=== PATIENT | male | born 1955 | race Caucasian/White ===

== ENCOUNTER 2017-01-15 07:27 | Emergency (ER) | payer MEDICAID ==
[~2017-01-15] VITALS: Ht 162.6 cm; Wt 122.0 kg
[~2017-01-15 07:27] MED LIST: ATOR10 PO; CLOP75 PO; CODE30TA PO; CYAN1000P IM; DIAZ5 PO; DIAZ5TAB PO; GABA300 PO; HYDR50TA5 PO; HYDRO1%T TOPICAL; KCL20 PO; LISI5 PO; POLY17S PO; RANI150 PO; TAMS0.4C67 PO; TUB TRANSFER BENCH; TUMS CHEW; TYLE3 PO; TYLETAB36 PO; ZOLP10TA3 PO
[2017-01-15 07:30] VITALS: BP 157/90; PULSE 88; RESP 24; TEMP 98.5; O2SAT 100
--- NOTE | 2017-01-15 07:52 | PD ---
HPI Chief Complaint: Pain: Acute or Chronic Time Seen by Provider: 07:51 Travel History International Travel<30 days: No Contact w/Intl Traveler<30days: No Traveled to known affect area: No History of Present Illness HPI 61-year-old male presents to the emergency department with complaint of productive cough 10 days. Reports clear mucus production. Denies fever, vomiting. Denies chest pain, shortness of breath. Denies ear pain, nasal congestion. Reports throat irritation for the last 3-4 months. Says when he eats he sometimes vomits or tries to make himself vomit; patient cannot verify when he last vomited after eating; he did state that he tried to make himself vomit 2 nights ago but was unable to. Denies abdominal pain. Is also complaining of joint pain and is requesting a refill on his pain medication because his primary care provider has been unable to refill his medications. Reports tobacco use daily. Dr. Purdy is primary care provider. Symptoms are mild in severity. Has no other medical complaints. No other modifying factors or associated signs and symptoms. 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)) Psychiatric: No Reproductive: No Respiratory: Yes Migraines: Yes Myocardial Infarction: Yes Pneumonia: Yes Radiation Therapy: No Renal Failure: No Seizures: No Sickle Cell Disease: No Sleep Apnea: Yes Thyroid Disease: No Ulcer: Yes Past Surgical History Abdominal Surgery: Yes (GASTRIC ULCER SURGERY) AICD: No Arteriovenous Shunt: No Cardiac Surgery: No Coronary Artery Bypass Graft: No Ear Surgery: No Endocrine Surgery: No Eye Surgery: No Genitourinary Surgery: No Gynecologic Surgery: No Insulin Pump: No Joint Replacement: No Neurologic Surgery: Yes (BLOOD CLOT REMOVED FROM BRAIN-4MOS OLD) Oral Surgery: No Pacemaker: No Thoracic Surgery: No Social History Alcohol Use: Yes (on occasion) Tobacco Use: Yes (CIGARS 1ppd) Substance Use: No Allergies-Medications (Allergen,Severity, Reaction): Coded Allergies: *MDRO Multi-Drug Resistant Organism (Verified Adverse Reaction, Unknown, ) ESBL E. coli (urine) - 06/11/2015 Reported Meds & Prescriptions Reported Meds & Active Scripts Active Codeine Sulfate 30 Mg Tab 30 Mg PO Q4HR PRN Tylenol #3 (Acetaminophen/Codeine Phosphate) Acetaminophen 300/30 Codeine Tab 1 Tab PO Q4HR PRN Diazepam 5 Mg Tab 5 Mg PO Q12HR PRN Calcium Carbonate 500 Mg Chw 500 Mg CHEW Q2H PRN 30 Days Nutracort (Hydrocortisone) 30 Gm Cr 1 Applic TOPICAL DAILY 10 Days Neurontin (Gabapentin) 300 Mg Cap 300 Mg PO TID 30 Days Polyethylene Glycol 3350 (Polyethylene Glycol) 3,350 Nf Pow 17 Gm PO DAILY 30 Days Kcl 20 Meq Tab (Potassium Chloride) 20 Meq Tabcr 20 Meq PO Q12HR 30 Days Plavix (Clopidogrel Bisulfate) 75 Mg Tab 75 Mg PO DAILY 30 Days Cobal-1000 (Cyanocobalamin) 1,000 Mcg/Ml Inj 1,000 Mcg IM Q7D Prinivil 5 mg (Lisinopril) 5 Mg Tab 5 Mg PO DAILY 30 Days Lipitor 10 mg tab (Atorvastatin) 10 Mg Tab 10 Mg PO HS 30 Days Flomax (Tamsulosin HCl) 0.4 Mg Cap 0.4 Mg PO DAILY Zantac 150 Mg Tab (Ranitidine HCl) 150 Mg Tab 150 Mg PO BID 30 Days Hctz (Hydrochlorothiazide) 50 Mg Tab 50 Mg PO DAILY Tub Transfer Bench (Device) Device 1 Ea Reported Zolpidem Tartrate 10 Mg Tab 10 Mg PO HS Tylenol #4 (Acetaminophen/Codeine Phosphate) Acetaminophen 300/60 Codeine Tab 1 Tab PO Q6H PRN Diazepam 5 mg (Diazepam) 5 Mg Tab 1 Tab PO TID Review of Systems Except as stated in HPI: all other systems reviewed are Neg Physical Exam Narrative GENERAL: Well-nourished, well-developed male patient, in no acute distress; afebrile, nontoxic-appearing; sitting in motorized wheelchair; disheveled SKIN: Warm and dry. No rash. HEAD: Atraumatic. Normocephalic. EYES: Pupils equal and round. No scleral icterus. No injection or drainage. ENT: Mucosa pink and moist. Oropharynx without edema, erythema, exudate. No uvular edema. No uvular, palatal, or tonsillar deviation. Airway patent. EARS: Bilateral pinnae and external canals appear within normal limits. Bilateral tympanic membranes without erythema, dullness or perforation. NECK: Trachea midline. No lymphadenopathy. CARDIOVASCULAR: Regular rate and rhythm. No murmur appreciated. RESPIRATORY: No accessory muscle use. Clear to auscultation. Breath sounds equal bilaterally. No retractions or tachypnea. GASTROINTESTINAL: Obese. MUSCULOSKELETAL: No obvious deformities. No clubbing. No cyanosis. No edema. NEUROLOGICAL: Awake and alert. Oriented 3. No obvious cranial nerve deficits. Motor grossly within normal limits. Normal speech. Moves all extremities. 5/5 strength to all extremities. PSYCHIATRIC: Appropriate mood and affect; insight and judgment normal. Data Data Last Documented VS Vital Signs Date Time Temp Pulse Resp B/P (MAP) Pulse Ox O2 Delivery O2 Flow Rate FiO2 01/15/17 07:30 98.5 88 24 157/90 (112) 100 Room Air Orders Orders Acetaminophen (Tylenol) (01/15/17 08:00) MDM Medical Decision Making Medical Screen Exam Complete: Yes Emergency Medical Condition: Yes Medical Record Reviewed: Yes Differential Diagnosis Cough, pneumonia, chronic pain, arthritis, Narrative Course 61-year-old male with multiple complaints. Coughing clear sputum production 10 days. Patient is in no acute distress and without retractions or tachypnea. Oxygen saturation is percent on room air. Lungs are clear and equal throughout. Patient reports tobacco use daily. He is also requesting pain medications for joint pain. Dr. Purdy is his primary care provider. I instructed patient to follow up with Dr. Purdy for pain medication request. Inserted patient to take [id number] Tylenol or ibuprofen as directed and as needed for joint pain. Tylenol administered in the ER. Chest x-ray ordered to rule out any acute process. 0800: Patient left AGAINST MEDICAL ADVICE. AMA: The risks of leaving against medical advice without further evaluation treatment were discussed with the patient. These risks include cardiac dysfunction, cardiac dysrhythmia, possible heart attack, possible stroke or . The patient indicated understanding of these risks and appeared to have the capacity to make this decision. Diagnosis Primary Impression: Left against medical advice Disposition: 07 AGAINST MEDICAL ADVICE Carey Clement Jan 15, 2017 07:51
[2017-01-15] MEDS ORDERED: ACETAMINOPHEN 325 MG TAB PO ONE (08:00)
== END 2017-01-15 10:50 | disposition left against medical advice (07) ==
LOC: NEPK 07:27
DX: R05 Cough (principal); I10 Essential (primary) hypertension; K21.9 Gastro-esophageal reflux disease without esophagitis; I25.2 Old myocardial infarction
CPT/HCPCS: 99282

== ENCOUNTER 2017-05-21 16:37 | Observation (INO) | payer MEDICAID ==
[~2017-05-21] VITALS: Ht 162.6 cm; Wt 115.0 kg
[2017-05-21 16:40] VITALS: BP 156/113; PULSE 75; RESP 16; TEMP 97.8; O2SAT 96
[2017-05-21] MEDS ORDERED: LISI-519 PO (17:01)
[2017-05-21] MEDS ORDERED: TAMS0.4C4 PO (17:01)
[2017-05-21] MEDS ORDERED: GABA300C5 PO (17:01)
[2017-05-21] MEDS ORDERED: CLOP75TA PO (17:01)
[2017-05-21] MEDS ORDERED: POTA-163 PO (17:01)
[2017-05-21] MEDS ORDERED: OMEP40CA2 PO (17:01)
[2017-05-21] MEDS ORDERED: HYDR50TA3 PO (17:01)
[2017-05-21 17:05] VITALS: BP 162/132; PULSE 82; O2SAT 100
[2017-05-21] MEDS ORDERED: SODIUM CHLORIDE 0.9% FLUSH 10 ML FLUSH IVF PRN (17:15)
[2017-05-21 17:30] LABS: AUTOMATED NEUTROPHIL # 4.5 TH/MM3 (1.8-7.7); BASOPHIL # 0.1 TH/MM3 (0-0.2); BASOPHIL % 0.8 % (0.0-2.0); EOSINOPHIL # 0.1 TH/MM3 (0-0.4); EOSINOPHIL % 1.3 % (0.0-4.0); HEMATOCRIT 43.7 % (39.0-51.0); HEMOGLOBIN 14.7 GM/DL (13.0-17.0); LYMPH % 24.9 % (9.0-44.0); LYMPHOCYTE # 1.8 TH/MM3 (1.0-4.8); MEAN CELL VOLUME 83.6 FL (80.0-100.0); MEAN CORPUSCULAR HEMOGLOBIN 28.1 PG (27.0-34.0); MEAN CORPUSCULAR HGB CONC 33.6 % (32.0-36.0); MEAN PLATELET VOLUME 8.2 FL (7.0-11.0); MONO % 11.6 % (0.0-8.0); MONOCYTE # 0.8 TH/MM3 (0-0.9); NEUT % 61.4 % (16.0-70.0); PLATELET COUNT 274 TH/MM3 (150-450); RED BLOOD COUNT 5.22 MIL/MM3 (4.50-5.90); RED CELL DISTRIBUTION WIDTH 15.4 % (11.6-17.2); WHITE BLOOD COUNT 7.3 TH/MM3 (4.0-11.0)
--- NOTE | 2017-05-21 17:42 | RADRPT ---
EXAM DATE/TIME: 05/21/2017 17:20 [facility] COMPARISON: CHEST SINGLE AP, June 19, 2015, 8:37. INDICATIONS : Shortness of breath. MEDICAL HISTORY : None. SURGICAL HISTORY : None. ENCOUNTER: Initial ACUITY: 1 day PAIN SCORE: 0/10 LOCATION: Bilateral chest FINDINGS: Single AP view of the chest. The lungs are clear. Cardiomediastinal silhouette within normal limits. No evidence of pleural effusion or pneumothorax. CONCLUSION: No acute cardiopulmonary disease identified. Hank Watts MD on May 21, 2017 at 17:39 Board Certified Radiologist. This report was verified electronically.
[2017-05-21 17:43] LABS: INTERNATIONAL NORMALIZED RATIO 1.1 RATIO; PROTHROMBIN TIME - PATIENT 10.7 SEC (9.8-11.6)
[2017-05-21 18:02] LABS: BICARBONATE 30.3 MEQ/L (21.0-32.0); CREATININE 1.22 MG/DL (0.60-1.30); MAGNESIUM 2.3 MG/DL (1.5-2.5); TROPONIN I 0.03 NG/ML (0.02-0.05)
--- NOTE | 2017-05-21 18:10 | PD ---
HPI Chief Complaint: GI Complaint Time Seen by Provider: 17:04 Travel History International Travel<30 days: No Contact w/Intl Traveler<30days: No Traveled to known affect area: No History of Present Illness HPI Patient is a 62-year-old male, smoker presents emergency department for evaluation of cough. The patient states he was driving just taking a ride around when he started having a dry nonproductive cough, he also endorses not being able to keep anything down gradually worsening over the past few weeks the patient states that he tried eat some yogurt this morning and it stayed down for a few seconds. He's been told many times he needs to see a dairy farm operator but has never done so. Patient states is gradually worsening over the past few days, states feels irritating his throat now to from his reflux. He does also have a history of stroke leaving some mild left- sided deficits worse in the lower extremities is nearly wheelchair-bound. He is able to drive however. No fevers no hemoptysis no risk for TB. States symptoms are moderate, gradually worsening over the past few days, context as above, associated signs symptoms as above. PFSH Past Medical History Arthritis: Yes (DEGENERATVE) Asthma: No Autoimmune Disease: No Anxiety: No Depression: No Heart Rhythm Problems: No Cancer: No Cardiac Catheterization: Yes (UNKNOWN) Cardiovascular Problems: Yes (HTN) High Cholesterol: Yes (HYPERLIPIDEMIA ) Chemotherapy: No Chest Pain: Yes Congestive Heart Failure: No COPD: No Cerebrovascular Accident: Yes Diabetes: No Diminished Hearing: No Endocrine: No Gastrointestinal Disorders: Yes GERD: Yes Genitourinary: No Headaches: Yes Hiatal Hernia: No Hypertension: Yes Immune Disorder: No Kidney Stones: No Musculoskeletal: Yes (LEG PAINS) 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)) Psychiatric: No Reproductive: No Respiratory: Yes Migraines: Yes Myocardial Infarction: Yes Pneumonia: Yes Radiation Therapy: No Renal Failure: No Seizures: No Sickle Cell Disease: No Sleep Apnea: Yes Thyroid Disease: No Ulcer: Yes Influenza Vaccination: Yes Past Surgical History Abdominal Surgery: Yes (GASTRIC ULCER SURGERY) AICD: No Arteriovenous Shunt: No Cardiac Surgery: No Cholecystectomy: Yes Coronary Artery Bypass Graft: No Ear Surgery: No Endocrine Surgery: No Eye Surgery: No Genitourinary Surgery: No Gynecologic Surgery: No Insulin Pump: No Joint Replacement: No Neurologic Surgery: Yes (BLOOD CLOT REMOVED FROM BRAIN-4MOS OLD) Oral Surgery: No Pacemaker: No Thoracic Surgery: No Other Surgery: Yes Social History Alcohol Use: No (on occasion) Tobacco Use: Yes (CIGARS 1ppd) Substance Use: No Allergies-Medications (Allergen,Severity, Reaction): Coded Allergies: *MDRO Multi-Drug Resistant Organism (Verified Adverse Reaction, Unknown, 05/21/17) ESBL E. coli (urine) - 06/11/2015 Reported Meds & Prescriptions Reported Meds & Active Scripts Active Reported Potassium Chloride ER (Potassium Chloride) 20 Meq Tab 20 Meq PO BID Hydrochlorothiazide 50 Mg Tab 50 Mg PO DAILY Omeprazole 40 Mg Cap 40 Mg PO DAILY Lisinopril 5 Mg Tab 5 Mg PO DAILY Gabapentin 300 Mg Cap 300 Mg PO BID Tamsulosin (Tamsulosin HCl) 0.4 Mg Cap 0.4 Mg PO HS Clopidogrel (Clopidogrel Bisulfate) 75 Mg Tab 75 Mg PO DAILY Review of Systems Except as stated in HPI: all other systems reviewed are Neg Physical Exam Narrative GENERAL: Well-developed well-nourished, coughing, spitting his secretions into a plastic bag. SKIN: Focused skin assessment warm/dry. HEAD: Atraumatic. Normocephalic. EYES: Pupils equal and round. No scleral icterus. No injection or drainage. ENT: No nasal bleeding or discharge. Mucous membranes pink and moist. NECK: Trachea midline. No JVD. CARDIOVASCULAR: Regular rate and rhythm. No murmur appreciated. RESPIRATORY: No accessory muscle use. Clear to auscultation. Breath sounds equal bilaterally. GASTROINTESTINAL: Abdomen soft, non-tender, nondistended. Hepatic and splenic margins not palpable. MUSCULOSKELETAL: No obvious deformities. No clubbing. No cyanosis. No edema. NEUROLOGICAL: Awake and alert. No obvious cranial nerve deficits. Week on the left side as per history of present illness. Normal speech. PSYCHIATRIC: Appropriate mood and affect; insight and judgment normal. Data Data Last Documented VS Vital Signs Date Time Temp Pulse Resp B/P (MAP) Pulse Ox O2 Delivery O2 Flow Rate FiO2 05/21/17 17:05 82 162/132 (142) 100 Room Air 05/21/17 16:40 97.8 16 Orders Orders Electrocardiogram (05/21/17 17:14) Basic Metabolic Panel (Bmp) (05/21/17 17:14) Ckmb (Isoenzyme) Profile (05/21/17 17:14) Complete Blood Count With Diff (05/21/17 17:14) Magnesium (Mg) (05/21/17 17:14) Prothrombin Time / Inr (Pt) (05/21/17 17:14) Act Partial Throm Time (Ptt) (05/21/17 17:14) Troponin I (05/21/17 17:14) Lipase (05/21/17 17:14) Chest, Single Ap (05/21/17 17:14) Ecg Monitoring (05/21/17 17:14) Bilateral Bp Monitoring (05/21/17 17:14) Iv Access Insert/Monitor (05/21/17 17:14) Oximetry (05/21/17 17:14) Oxygen Administration (05/21/17 17:14) Sodium Chloride 0.9% Flush (Ns Flush) (05/21/17 17:15) Morphine Inj (Morphine Inj) (05/21/17 19:30) Sodium Chlor 0.9% 1000 Ml Inj (Ns 1000 M (05/21/17 19:30) Admit Order (Ed Use Only) (05/21/17 ) Labs Laboratory Tests Test 05/21/17 17:10 White Blood Count 7.3 TH/MM3 Red Blood Count 5.22 MIL/MM3 Hemoglobin 14.7 GM/DL Hematocrit 43.7 % Mean Corpuscular Volume 83.6 FL Mean Corpuscular Hemoglobin 28.1 PG Mean Corpuscular Hemoglobin Concent 33.6 % Red Cell Distribution Width 15.4 % Platelet Count 274 TH/MM3 Mean Platelet Volume 8.2 FL Neutrophils (%) (Auto) 61.4 % Lymphocytes (%) (Auto) 24.9 % Monocytes (%) (Auto) 11.6 % Eosinophils (%) (Auto) 1.3 % Basophils (%) (Auto) 0.8 % Neutrophils # (Auto) 4.5 TH/MM3 Lymphocytes # (Auto) 1.8 TH/MM3 Monocytes # (Auto) 0.8 TH/MM3 Eosinophils # (Auto) 0.1 TH/MM3 Basophils # (Auto) 0.1 TH/MM3 CBC Comment DIFF FINAL Differential Comment Prothrombin Time 10.7 SEC Prothromb Time International Ratio 1.1 RATIO Activated Partial Thromboplast Time 28.5 SEC Blood Urea Nitrogen 6 MG/DL Creatinine 1.22 MG/DL Random Glucose 106 MG/DL Calcium Level 9.0 MG/DL Magnesium Level 2.3 MG/DL Sodium Level 137 MEQ/L Potassium Level 3.1 MEQ/L Chloride Level 98 MEQ/L Carbon Dioxide Level 30.3 MEQ/L Anion Gap 9 MEQ/L Estimat Glomerular Filtration Rate 60 ML/MIN Total Creatine Kinase 49 U/L Troponin I 0.03 NG/ML Lipase 76 U/L MDM Medical Decision Making Medical Screen Exam Complete: Yes Emergency Medical Condition: Yes Differential Diagnosis Achalasia, esophageal mass, reflux, Nielsen's esophagus, tracheal tumor, ACS unlikely, MD likely, pancreatitis. Narrative Course patient roomed in emergency department, dry cough is started and unable to tolerate any by mouth fluids nor solids. Gradual onset and I suspect achalasia versus obstructing mass given his smoking history. Discussed with Dr. Chinchilla we discussed possible imaging modalities and at this time he would like to hold off for endoscopy in the morning. He recommends nothing by mouth. Will be admitted to [facility] for GI consultation. Diagnosis Primary Impression: Esophageal abnormality Admitting Information Admitting Physician Requests: Admit Condition: Stable Dami Cardoso MD May 21, 2017 18:10
[2017-05-21] MEDS ORDERED: MORPHINE SULFATE 2 MG/ML INJ IV PUSH ONE (19:30)
[2017-05-21] MEDS ORDERED: SODIUM CHLOR 0.9% 1000 ML INJ 1,000 ML IV SCH (19:30)
[2017-05-21] MEDS ORDERED: NALOXONE HCL 0.4 MG/ML AMP IV PUSH PRN (19:45)
[2017-05-21] MEDS ORDERED: SODIUM CHLORIDE 0.9% FLUSH 10 ML FLUSH IV FLUSH PRN (19:45)
[2017-05-21] MEDS ORDERED: ENALAPRILAT 2.5 MG/2 ML VIAL IV PUSH PRN (20:00)
--- NOTE | 2017-05-21 20:05 | HHI.HP ---
[facility] Service [facility] Primary Care Physician Unknown Admission Diagnosis Esophageal Obstruction. Diagnoses: Travel History International Travel<30 Days: No Contact w/Intl Traveler <30 Da: No Traveled to Known Affected Are: No History of Present Illness 62-year-old male with a past medical history of a CVA 3 years ago, hypertension , hyperlipidemia, GERD and peptic ulcer disease presents to the emergency department with acutely worsening dysphasia. The patient reports for approximately the past 2 months he's had difficulty swallowing solid foods. Approximately 2 weeks ago he became unable to tolerate anything other than liquids. He is laying on his side in the emergency department spitting in a bag because he cannot swallow his secretions. Chest x-ray negative. Review of Systems Denies fever or chills Denies blurry vision, otorrhea, rhinorrhea Denies sore throat and cough No chest pain, palpitations, shortness of breath No abdominal pain Denies constipation/diarrhea/nausea/vomiting Denies muscle pain/weakness No rashes Past Family Social History Past Medical History Hypertension CVA 3 years ago Hyperlipidemia GERD Peptic ulcer disease Past Surgical History Skin graft Cholecystectomy Reported Medications Reported Meds & Active Scripts Active Reported Potassium Chloride ER (Potassium Chloride) 20 Meq Tab 20 Meq PO BID Hydrochlorothiazide 50 Mg Tab 50 Mg PO DAILY Omeprazole 40 Mg Cap 40 Mg PO DAILY Lisinopril 5 Mg Tab 5 Mg PO DAILY Gabapentin 300 Mg Cap 300 Mg PO BID Tamsulosin (Tamsulosin HCl) 0.4 Mg Cap 0.4 Mg PO HS Clopidogrel (Clopidogrel Bisulfate) 75 Mg Tab 75 Mg PO DAILY Allergies: Coded Allergies: *MDRO Multi-Drug Resistant Organism (Verified Adverse Reaction, Unknown, 05/21/17) ESBL E. coli (urine) - 06/11/2015 Family History Mom with diabetes mellitus Social History Smokes one pack per day 45 years. Reports that he quit drinking 10 years ago however states that sometimes his friends bring him bourbon. Denies marijuana, illicit drugs. Physical Exam Vital Signs Vital Signs Date Time Temp Pulse Resp B/P (MAP) Pulse Ox O2 Delivery O2 Flow Rate FiO2 05/21/17 17:05 82 162/132 (142) 100 Room Air 05/21/17 16:40 97.8 75 16 156/113 (127) 96 Physical Exam GENERAL: male lying in bed, spitting into a bag and bedside SKIN: No rashes, ecchymoses or lesions. Cool and dry. HEAD: Atraumatic. Normocephalic. No temporal or scalp tenderness. EYES: Pupils equal round and reactive. Extraocular motions intact. No scleral icterus. No injection or drainage. ENT: Nose without bleeding, purulent drainage or septal hematoma. Throat without erythema, tonsillar hypertrophy or exudate. Uvula midline. Airway patent. NECK: Trachea midline. No JVD or lymphadenopathy. Supple, nontender, no meningeal signs. CARDIOVASCULAR: Regular rate and rhythm without murmurs, gallops, or rubs. RESPIRATORY: Clear to auscultation. Breath sounds equal bilaterally. No wheezes , rales, or rhonchi. GASTROINTESTINAL: Abdomen soft, non-tender, nondistended. No hepato-splenomegaly , or palpable masses. No guarding. MUSCULOSKELETAL: Extremities without clubbing, cyanosis, or edema. No joint tenderness, effusion, or edema noted. No calf tenderness. NEUROLOGICAL: Awake and alert. Cranial nerves II through XII intact. Motor and sensory grossly within normal limits. Normal speech. Laboratory Laboratory Tests Test 05/21/17 17:10 White Blood Count 7.3 Red Blood Count 5.22 Hemoglobin 14.7 Hematocrit 43.7 Mean Corpuscular Volume 83.6 Mean Corpuscular Hemoglobin 28.1 Mean Corpuscular Hemoglobin Concent 33.6 Red Cell Distribution Width 15.4 Platelet Count 274 Mean Platelet Volume 8.2 Neutrophils (%) (Auto) 61.4 Lymphocytes (%) (Auto) 24.9 Monocytes (%) (Auto) 11.6 Eosinophils (%) (Auto) 1.3 Basophils (%) (Auto) 0.8 Neutrophils # (Auto) 4.5 Lymphocytes # (Auto) 1.8 Monocytes # (Auto) 0.8 Eosinophils # (Auto) 0.1 Basophils # (Auto) 0.1 CBC Comment DIFF FINAL Differential Comment Prothrombin Time 10.7 Prothromb Time International Ratio 1.1 Activated Partial Thromboplast Time 28.5 Blood Urea Nitrogen 6 Creatinine 1.22 Random Glucose 106 Calcium Level 9.0 Magnesium Level 2.3 Sodium Level 137 Potassium Level 3.1 Chloride Level 98 Carbon Dioxide Level 30.3 Anion Gap 9 Estimat Glomerular Filtration Rate 60 Total Creatine Kinase 49 Troponin I 0.03 Lipase 76 Result Diagram: 05/21/17170905/21/171709 Caprini VTE Risk Assessment Caprini VTE Risk Assessment: Mod/High Risk (score >= 2) Caprini Risk Assessment Model Point Value = 1 Point Value = 2 Point Value = 3 Point Value = 5 Age 41-60 Minor surgery BMI > 25 kg/m2 Swollen legs Varicose veins or History of unexplained or recurrent spontaneous Oral contraceptives or hormone replacement Sepsis (< 1 month) Serious lung disease, including pneumonia (< 1 month) Abnormal pulmonary function Acute myocardial infarction Congestive heart failure (< 1 month) History of inflammatory bowel disease Medical patient at bed rest Age 61-74 Arthroscopic surgery Major open surgery (> 45 min) Laparoscopic surgery (> 45 min) Malignancy Confined to bed (> 72 hours) Immobilizing plaster cast Central venous access Age >= 75 History of VTE Family history of VTE Factor V Leiden Prothrombin [id number] Lupus anticoagulant Anticardiolipin antibodies Elevated serum homocysteine Heparin-induced thrombocytopenia Other congenital or acquired thrombophilia Stroke (< 1 month) Elective arthroplasty Hip, pelvis, or leg fracture Acute spinal cord injury (< 1 month) Prophylaxis Regimen Total Risk Factor Score Risk Level Prophylaxis Regimen 0-1 Low Early ambulation 2 Moderate Order ONE of the following: *Sequential Compression Device (SCD) *Heparin 5000 units SQ BID 3-4 Higher Order ONE of the following medications: *Heparin 5000 units SQ TID *Enoxaparin/Lovenox 40 mg SQ daily (WT < 150 kg, CrCl > 30 mL/min) *Enoxaparin/Lovenox 30 mg SQ daily (WT < 150 kg, CrCl > 10-29 mL/min) *Enoxaparin/Lovenox 30 mg SQ BID (WT < 150 kg, CrCl > 30 mL/min) AND/OR *Sequential Compression Device (SCD) 5 or more Highest Order ONE of the following medications: *Heparin 5000 units SQ TID (Preferred with Epidurals) *Enoxaparin/Lovenox 40 mg SQ daily (WT < 150 kg, CrCl > 30 mL/min) *Enoxaparin/Lovenox 30 mg SQ daily (WT < 150 kg, CrCl > 10-29 mL/min) *Enoxaparin/Lovenox 30 mg SQ BID (WT < 150 kg, CrCl > 30 mL/min) AND *Sequential Compression Device (SCD) Assessment and Plan Assessment and Plan Assessment/plan: 1. Severe dysphagia Concern for esophageal pathology Gastroenterology consulted, plan for EGD tomorrow Nothing by mouth 2. Hypertension/history of CVA/GERD Holding home medications as patient currently unable to tolerate by mouth Enalapril when necessary for hypertension IV Protonix FEN NPO NS at 100 cc/hr Electrolytes: IV potassium, monitor SCDs in anticipation of EGD tomorrow Sheryl Green MD May 21, 2017 20:05
[2017-05-21] MEDS: SODIUM CHLOR 0.9% 1000 ML INJ 1,000 ML IV SCH (20:11)
[2017-05-21] MEDS: PANTOPRAZOLE SODIUM 40 MG VIAL IV PUSH SCH (20:11)
[2017-05-21] MEDS: ONDANSETRON HCL 4 MG/2 ML VIAL IVP PRN (20:12)
[2017-05-21 20:15] VITALS: BP 118/90; PULSE 73; RESP 18; O2SAT 97
[2017-05-21] MEDS: SODIUM CHLORIDE 0.9% FLUSH 10 ML FLUSH IV FLUSH SCH (21:00)
[2017-05-21] MEDS: POTASSIUM CHLOR 20 MEQ PREMIX 100 ML IV SCH ×2 (21:14→23:22)
[2017-05-21 21:25] VITALS: BP 129/81; PULSE 85; RESP 14; TEMP 98; O2SAT 97
[2017-05-22 00:16] VITALS: BP 102/66; PULSE 80; RESP 16; TEMP 97.5; O2SAT 95
[2017-05-22] MEDS: MORPHINE SULFATE 2 MG/ML INJ IV PUSH PRN ×4 (00:20→18:31)
[2017-05-22 05:17] VITALS: BP 114/69; PULSE 53; RESP 19; TEMP 97.6; O2SAT 95
[2017-05-22] MEDS: SODIUM CHLOR 0.9% 1000 ML INJ 1,000 ML IV SCH ×2 (05:40→16:00)
[2017-05-22 06:04] LABS: AUTOMATED NEUTROPHIL # 4.3 TH/MM3 (1.8-7.7); BASOPHIL # 0.1 TH/MM3 (0-0.2); BASOPHIL % 0.8 % (0.0-2.0); EOSINOPHIL # 0.1 TH/MM3 (0-0.4); EOSINOPHIL % 1.5 % (0.0-4.0); HEMATOCRIT 39.2 % (39.0-51.0); HEMOGLOBIN 12.8 GM/DL (13.0-17.0); LYMPH % 29.7 % (9.0-44.0); LYMPHOCYTE # 2.3 TH/MM3 (1.0-4.8); MEAN CELL VOLUME 85.4 FL (80.0-100.0); MEAN CORPUSCULAR HGB CONC 32.8 % (32.0-36.0); MEAN PLATELET VOLUME 8.2 FL (7.0-11.0); MONO % 12.7 % (0.0-8.0); NEUT % 55.3 % (16.0-70.0); PLATELET COUNT 222 TH/MM3 (150-450); RED BLOOD COUNT 4.59 MIL/MM3 (4.50-5.90); RED CELL DISTRIBUTION WIDTH 15.2 % (11.6-17.2); WHITE BLOOD COUNT 7.7 TH/MM3 (4.0-11.0)
[2017-05-22 06:23] LABS: BICARBONATE 27.3 MEQ/L (21.0-32.0); CALCIUM 8.5 MG/DL (8.5-10.1); CREATININE 1.12 MG/DL (0.60-1.30)
[2017-05-22 07:55] VITALS: BP 168/88; PULSE 99; RESP 18; TEMP 98; O2SAT 94
[2017-05-22] MEDS: SODIUM CHLORIDE 0.9% FLUSH 10 ML FLUSH IV FLUSH SCH ×2 (08:09→20:20)
[2017-05-22] MEDS: PANTOPRAZOLE SODIUM 40 MG VIAL IV PUSH SCH ×2 (08:15→20:00)
[2017-05-22] MEDS: POTASSIUM CHLOR 20 MEQ PREMIX 100 ML IV SCH ×2 (09:08→11:17)
--- NOTE | 2017-05-22 09:56 | PD.CONS ---
HPI History of Present Illness This is a 62 year old male presented to the hospital on 05/21/17 with plaints of dysphagia in the upper area of his esophagus. He states that he has been struggling with dysphagia for 3 years for solids but now has progressed to liquids as well and has been worse for the past 2 months. She states he has nausea and vomiting with drinks and food, denies any diarrhea or constipation. Patient has history of GERD since 1997, and states he has never had any esophageal dilatations before. Patient is currently on Plavix which is being held since 05/21/17, also has a history of bloating and peptic ulcer disease. Patient is a historian but does not remember any recent endoscopy or colonoscopy. Patient noted some bloating often known, usual bowel habits involve BM 3-4 times a week. Patient denies any hoarseness no change in appetite, no diarrhea, patient has been taking medications as prescribed. (Shobha Hinson) PFSH Past Medical History Hypertension CVA 3 years ago Hyperlipidemia GERD Peptic ulcer disease Past Surgical History Skin graft Cholecystectomy (Shobha Hinson) Coded Allergies: *MDRO Multi-Drug Resistant Organism (Verified Adverse Reaction, Unknown, 05/21/17) ESBL E. coli (urine) - 06/11/2015 Medications Administered Medications Medications (Trade) Dose Ordered Sig/Katina Route PRN Reason Start Time Stop Time Status Last Admin Dose Admin Sodium Chloride 1,000 ml @ 100 mls/hr Q10H IV 05/21/17 20:00 05/22/17 05:40 Ondansetron HCl (Zofran Inj) 4 mg Q6H PRN IVP NAUSEA OR VOMITING 05/21/17 19:45 05/21/17 20:12 Pantoprazole Sodium (Protonix Inj) 40 mg Q12H IV PUSH 05/21/17 20:00 05/22/17 08:15 Morphine Sulfate (Morphine Inj) 4 mg Q3H PRN IV PUSH pain > 5 05/22/17 00:15 05/22/17 07:43 Potassium Chloride 100 ml @ 50 mls/hr Q2H IV 05/22/17 08:30 05/22/17 12:29 05/22/17 09:08 Family History Mom with diabetes mellitus Social History Smokes one pack per day 45 years. Reports that he quit drinking 10 years ago however states that sometimes his friends bring him bourbon. Denies marijuana, illicit drugs. (Shobha Hinson) Review of Systems Constitutional: COMPLAINS OF: Fatigue Gastrointestinal: COMPLAINS OF: Abdominal pain (bloating), Nausea, Difficulty Swallowing Hematologic/lymphatic: COMPLAINS OF: Bruising (takes Plavix) (Shobha Hinson) GI Exam Vitals I&O Vital Signs Date Time Temp Pulse Resp B/P (MAP) Pulse Ox O2 Delivery O2 Flow Rate FiO2 05/22/17 07:55 98.0 99 18 168/88 (114) 94 05/22/17 05:17 97.6 53 19 114/69 (84) 95 05/22/17 00:16 97.5 80 16 102/66 (78) 95 05/21/17 21:25 98.0 85 14 129/81 (97) 97 05/21/17 20:46 05/21/17 20:15 73 18 118/90 (99) 97 Room Air 05/21/17 17:05 82 162/132 (142) 100 Room Air 05/21/17 16:40 97.8 75 16 156/113 (127) 96 I/O 05/21/17 05/21/17 05/21/17 05/22/17 05/22/17 05/22/17 07:00 15:00 23:00 07:00 15:00 23:00 Intake Total 200 ml Output Total 100 ml Balance 100 ml Intake IV Total 200 ml Output Urine Total 100 ml Imaging Last Impressions Chest X-Ray 05/21/17 2994 Signed Impressions: Service Date/Time: Sunday, May 21, 2017 17:20 - CONCLUSION: No acute cardiopulmonary disease identified. Hank Watts MD Laboratory Test 05/21/17 17:10 05/22/17 05:24 White Blood Count 7.3 TH/MM3 7.7 TH/MM3 Red Blood Count 5.22 MIL/MM3 4.59 MIL/MM3 Hemoglobin 14.7 GM/DL 12.8 GM/DL Hematocrit 43.7 % 39.2 % Mean Corpuscular Volume 83.6 FL 85.4 FL Mean Corpuscular Hemoglobin 28.1 PG 28.0 PG Mean Corpuscular Hemoglobin Concent 33.6 % 32.8 % Red Cell Distribution Width 15.4 % 15.2 % Platelet Count 274 TH/MM3 222 TH/MM3 Mean Platelet Volume 8.2 FL 8.2 FL Neutrophils (%) (Auto) 61.4 % 55.3 % Lymphocytes (%) (Auto) 24.9 % 29.7 % Monocytes (%) (Auto) 11.6 % 12.7 % Eosinophils (%) (Auto) 1.3 % 1.5 % Basophils (%) (Auto) 0.8 % 0.8 % Neutrophils # (Auto) 4.5 TH/MM3 4.3 TH/MM3 Lymphocytes # (Auto) 1.8 TH/MM3 2.3 TH/MM3 Monocytes # (Auto) 0.8 TH/MM3 1.0 TH/MM3 Eosinophils # (Auto) 0.1 TH/MM3 0.1 TH/MM3 Basophils # (Auto) 0.1 TH/MM3 0.1 TH/MM3 CBC Comment DIFF FINAL DIFF FINAL Differential Comment Prothrombin Time 10.7 SEC Prothromb Time International Ratio 1.1 RATIO Activated Partial Thromboplast Time 28.5 SEC Blood Urea Nitrogen 6 MG/DL 5 MG/DL Creatinine 1.22 MG/DL 1.12 MG/DL Random Glucose 106 MG/DL 91 MG/DL Calcium Level 9.0 MG/DL 8.5 MG/DL Magnesium Level 2.3 MG/DL Sodium Level 137 MEQ/L 136 MEQ/L Potassium Level 3.1 MEQ/L 3.0 MEQ/L Chloride Level 98 MEQ/L 101 MEQ/L Carbon Dioxide Level 30.3 MEQ/L 27.3 MEQ/L Anion Gap 9 MEQ/L 8 MEQ/L Estimat Glomerular Filtration Rate 60 ML/MIN 66 ML/MIN Total Creatine Kinase 49 U/L Troponin I 0.03 NG/ML Lipase 76 U/L Physical Examination HEENT: Pupils round and reactive to light; normocephalic; atraumatic; no jaundice. NECK: Neck is supple, no JVD, no lymphadenopathy. CHEST: Chest is clear to auscultation and percussion. CARDIAC: Regular rate and rhythm with no murmur gallop or rubs. ABDOMEN: Taut Soft, nondistended, nontender to light palpation; no hepatosplenomegaly; bowel sounds are present EXTREMITIES: Mild edema. SKIN: Normal; no rash; no jaundice. 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 Patient has been off of Plavix day 1 , 05/21/17. Consents to be signed GoLYTELY prep Nothing by mouth midnight before procedure with medications that a.m. as needed Clear liquids 05/23/17 Have speech eval and swallow test, currently patient is nothing by mouth, but according to speech recommendations we may trial clear liquids possibly with thickener PPI Speech therapy evaluate swallow, recommended clear liquids, ordered for today and tomorrow Monitor labs recheck in a.m. Monitor for any acute GI symptoms or changes Plan of care will be based on patient's symptoms and needs This patient was seen by myself and , written on his behalf (Shobha Hinson) Physician Comments Seen and examined, plan for EGD and Colonoscopy .off plavix for few days. (Lucy Chinchilla MD) Shobha Hinson May 22, 2017 09:56 Lucy Chinchilla MD May 22, 2017 15:30
[2017-05-22] MEDS ORDERED: PEG (High)/E-LYTE SOLN 4000 ML BTL PO ONE (10:00)
[2017-05-22 13:28] VITALS: BP 137/84; PULSE 62; RESP 18; TEMP 97.7; O2SAT 95
--- NOTE | 2017-05-22 15:52 | HHI.PR ---
Subjective Remarks EGD planned on 05/24/17, related to a needed time duration off of Plavix. Plavix is on hold. Incomplete success with patient. He is tolerating liquids but does not tolerate solids, including Jell-O. Objective Vital Signs Date Time Temp Pulse Resp B/P (MAP) Pulse Ox O2 Delivery O2 Flow Rate FiO2 05/22/17 13:28 97.7 62 18 137/84 (101) 95 05/22/17 07:55 98.0 99 18 168/88 (114) 94 05/22/17 05:17 97.6 53 19 114/69 (84) 95 05/22/17 00:16 97.5 80 16 102/66 (78) 95 05/21/17 21:25 98.0 85 14 129/81 (97) 97 05/21/17 20:46 05/21/17 20:15 73 18 118/90 (99) 97 Room Air 05/21/17 17:05 82 162/132 (142) 100 Room Air 05/21/17 16:40 97.8 75 16 156/113 (127) 96 I/O 05/21/17 05/21/17 05/21/17 05/22/17 05/22/17 05/22/17 07:00 15:00 23:00 07:00 15:00 23:00 Intake Total 200 ml 200 ml Output Total 100 ml Balance 100 ml 200 ml Intake IV Total 200 ml 200 ml Output Urine Total 100 ml Result Diagram: 05/22/17 0524 05/22/17 1325 Objective Remarks GENERAL: NAD, A&Ox3 HEAD: Normocephalic. NECK: Supple, trachea midline. No lymphadenopathy. EYES: No scleral icterus. No injection or drainage. CARDIOVASCULAR: Regular rate and rhythm without murmurs, gallops, or rubs. RESPIRATORY: Breath sounds equal bilaterally. No accessory muscle use. GASTROINTESTINAL: Abdomen soft, non-tender, nondistended. MUSCULOSKELETAL: No cyanosis, or edema. SKIN: Warm and dry. NEURO: No focal neurological deficitis. A/P Problem List: (1) Esophageal abnormality ICD Code: K22.9 - Disease of esophagus, unspecified Status: Acute (2) Dysphasia ICD Code: R47.02 - Dysphasia (3) Abdominal bloating ICD Code: R14.0 - Abdominal distension (gaseous) Assessment and Plan Assessment and Plan 62-year-old male admitted secondary to dysphagia, with suspected esophageal stricture Severe dysphagia Suspected esophageal stricture Plan for EGD on 05/24/17 Clear liquid diet for now Hypertension history of CVA GERD IV Protonix IV enalapril as needed for hypertension By mouth treatments on hold DVT prophylaxis KARSTENs Alex Cartagena MD May 22, 2017 15:52
[2017-05-22 16:00] VITALS: BP_SYST 131; BP_DIAS 78; BP_DIAS 85; PULSE 67; RESP 18; TEMP 98.7; O2SAT 95
[2017-05-22] MEDS ORDERED: POTASSIUM CHLORIDE 20 MEQ PWD PACKET PO ONE (16:30)
--- NOTE | 2017-05-22 17:27 | EKG ---
Date Performed: 05/21/2017 Time Performed: 17:03:57 PTAGE: 62 years EKG: Sinus rhythm NONSPECIFIC ST & T-WAVE ABNORMALITY Since previous tracing, no significant change noted BORDERLINE E CG PREVIOUS TRACING : 06/06/2015 06.25 DOCTOR: Libby Ferreira Interpretating Date/Time 05/22/2017 17:26:03
--- NOTE | 2017-05-22 17:27 | EKG ---
Date Performed: 05/21/2017 Time Performed: 20:35:07 PTAGE: 62 years EKG: Sinus rhythm BORDERLINE LEFT AXIS DEVIATION MINIMAL ST DEPRESSION Since previous tracing, no significant change n oted BORDERLINE ECG PREVIOUS TRACING : 05/21/2017 17.03 DOCTOR: Libby Ferreira Interpretating Date/Time 05/22/2017 17:26:40
[2017-05-22] MEDS ORDERED: CHLORHEXIDINE GLUCONATE 2 % 1 PACK (2 CLOTHS) TOPICAL PRN (18:00)
[2017-05-22] MEDS ORDERED: POVIDONE IODINE 5% (ANTISEPSIS KIT) 4 APPLICATIONS EACH NARE PRN (18:00)
[2017-05-22] MEDS ORDERED: SODIUM CHLORID 0.9% 500 ML IV PRN (18:00)
[2017-05-22] MEDS ORDERED: INSULIN HUMAN REGULAR 1,000 UNITS/10 ML VIAL SQ PRN (18:00)
[2017-05-22] MEDS ORDERED: METOPROLOL TARTRATE 25 MG TAB PO PRN (18:00)
[2017-05-22] MEDS ORDERED: LACTATED RINGER'S 1000 ML IV PRN (18:00)
[2017-05-22 20:02] VITALS: BP 141/78; PULSE 79; RESP 18; TEMP 98.5; O2SAT 97
[2017-05-23] MEDS: MORPHINE SULFATE 2 MG/ML INJ IV PUSH PRN ×4 (01:32→16:29)
[2017-05-23] MEDS: SODIUM CHLOR 0.9% 1000 ML INJ 1,000 ML IV SCH ×3 (01:32→23:21)
[2017-05-23 04:06] VITALS: BP 125/63; PULSE 61; RESP 17; TEMP 98.4; O2SAT 97
[2017-05-23 07:11] VITALS: BP 119/75; PULSE 65; RESP 18; TEMP 97.8; O2SAT 97
[2017-05-23] MEDS: PANTOPRAZOLE SODIUM 40 MG VIAL IV PUSH SCH ×2 (07:40→23:21)
[2017-05-23] MEDS: SODIUM CHLORIDE 0.9% FLUSH 10 ML FLUSH IV FLUSH SCH ×2 (09:00→23:21)
--- NOTE | 2017-05-23 09:35 | HHI.GIFU ---
Subjective Remarks resting in bed Clear liquids without nausea or vomiting Plan for EGD tomorrow, patient will be off Plavix for 4 days (Shobha Hinson) Objective Vitals I&O Vital Signs Date Time Temp Pulse Resp B/P (MAP) Pulse Ox O2 Delivery O2 Flow Rate FiO2 05/23/17 07:11 97.8 65 18 119/75 (90) 97 05/23/17 04:06 98.4 61 17 125/63 (83) 97 05/22/17 20:02 98.5 79 18 141/78 (99) 97 05/22/17 16:00 98.7 67 18 131/78 (95) 95 05/22/17 13:28 97.7 62 18 137/84 (101) 95 I/O 05/22/17 05/22/17 05/22/17 05/23/17 05/23/17 05/23/17 07:00 15:00 23:00 07:00 15:00 23:00 Intake Total 200 ml 200 ml Output Total 100 ml Balance 100 ml 200 ml Intake IV Total 200 ml 200 ml Output Urine Total 100 ml Laboratory Laboratory Tests Test 05/22/17 13:25 Potassium Level 3.3 Imaging Last Impressions Chest X-Ray 05/21/17 1714 Signed Impressions: Service Date/Time: Sunday, May 21, 2017 17:20 - CONCLUSION: No acute cardiopulmonary disease identified. Hank Watts MD Physical Exam HEENT: Pupils round and reactive to light; normocephalic; atraumatic; no jaundice. NECK: Neck is supple, no JVD, CHEST: Chest is clear to auscultation and percussion. CARDIAC: Regular rate and rhythm ABDOMEN: Soft, nondistended, nontender; no hepatosplenomegaly; bowel sounds active EXTREMITIES: No clubbing, cyanosis, or edema. SKIN: Normal; no rash; no jaundice. 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 Mild anxiety (Shobha Hinson) Assessment and Plan Assessment: (1) Chronic generalized abdominal pain ICD Codes: R10.84 - Generalized abdominal pain; G89.29 - Other chronic pain (2) Abdominal bloating ICD Codes: R14.0 - Abdominal distension (gaseous) (3) Dysphasia ICD Codes: R47.02 - Dysphasia (4) Obesity ICD Codes: E66.9 - Obesity Status: Acute (5) GERD (gastroesophageal reflux disease) ICD Codes: K21.9 - Gastro-esophageal reflux disease without esophagitis Plan Plan for colonoscopy and endoscopy on 05-24-17. Patient has been off of Plavix day 1 , 05/21/17. , Discussed procedure and plan of care with patient Consents to be signed GoLYTELY prep Nothing by mouth midnight before procedure with medications that a.m. as needed Clear liquids 05/23/17 PPI Speech therapy evaluate swallow, recommended clear liquids, ordered for today Monitor for any acute GI symptoms or changes Plan of care will be based on patient's symptoms and needs This patient was seen by myself and , written on his behalf (Shobha Hinson) Physician Comments As above, for EGD and Colonoscopy in AM. Further recommendations to follow. (Lucy Chinchilla MD) Shobha Hinson May 23, 2017 09:35 Lucy Chinchilla MD May 23, 2017 11:22
[2017-05-23] MEDS ORDERED: PEG (High)/E-LYTE SOLN 4000 ML BTL PO ONE (10:00)
--- NOTE | 2017-05-23 10:33 | HHI.PR ---
Subjective Remarks Tolerating liquids, thus far. She has demonstrated no lack of tolerance for solids. Esophageal stricture suspected. EGD planned on 05/24/17, related to a needed time duration off of Plavix. Plavix is on hold. Objective Vital Signs Date Time Temp Pulse Resp B/P (MAP) Pulse Ox O2 Delivery O2 Flow Rate FiO2 05/23/17 07:11 97.8 65 18 119/75 (90) 97 05/23/17 04:06 98.4 61 17 125/63 (83) 97 05/22/17 20:02 98.5 79 18 141/78 (99) 97 05/22/17 16:00 98.7 67 18 131/78 (95) 95 05/22/17 13:28 97.7 62 18 137/84 (101) 95 I/O 05/22/17 05/22/17 05/22/17 05/23/17 05/23/17 05/23/17 07:00 15:00 23:00 07:00 15:00 23:00 Intake Total 200 ml 200 ml Output Total 100 ml Balance 100 ml 200 ml Intake IV Total 200 ml 200 ml Output Urine Total 100 ml Result Diagram: 05/22/17 0524 05/22/17 1325 Objective Remarks GENERAL: NAD, A&Ox3 HEAD: Normocephalic. NECK: Supple, trachea midline. No lymphadenopathy. EYES: No scleral icterus. No injection or drainage. CARDIOVASCULAR: Regular rate and rhythm without murmurs, gallops, or rubs. RESPIRATORY: Breath sounds equal bilaterally. No accessory muscle use. GASTROINTESTINAL: Abdomen soft, non-tender, nondistended. MUSCULOSKELETAL: No cyanosis, or edema. SKIN: Warm and dry. NEURO: No focal neurological deficitis. A/P Problem List: (1) Esophageal abnormality ICD Code: K22.9 - Disease of esophagus, unspecified Status: Acute (2) Dysphasia ICD Code: R47.02 - Dysphasia (3) Abdominal bloating ICD Code: R14.0 - Abdominal distension (gaseous) Assessment and Plan Assessment and Plan 62-year-old male admitted secondary to dysphagia, with suspected esophageal stricture. NPO after midnight, for EGD tomorrow. Severe dysphagia Suspected esophageal stricture Plan for EGD on 05/24/17 Clear liquid diet for now Hypertension history of CVA GERD IV Protonix IV enalapril as needed for hypertension By mouth treatments on hold DVT prophylaxis SCDs Alex Cartagena MD May 23, 2017 10:33
[2017-05-23 11:32] VITALS: BP 128/73; PULSE 75; RESP 18; TEMP 98; O2SAT 94
[2017-05-23 11:44] LABS: BICARBONATE 24.5 MEQ/L (21.0-32.0); CALCIUM 8.4 MG/DL (8.5-10.1); CREATININE 1.11 MG/DL (0.60-1.30); MAGNESIUM 1.8 MG/DL (1.5-2.5)
[2017-05-23 16:40] VITALS: BP 205/75; PULSE 76; RESP 20; TEMP 98; O2SAT 98
[2017-05-23 17:32] VITALS: BP 159/92; PULSE 86; RESP 20; TEMP 98.6; O2SAT 97
[2017-05-23 20:56] VITALS: BP 159/80; PULSE 68; RESP 18; TEMP 97.8; O2SAT 95
[2017-05-24 01:20] VITALS: BP 124/83; PULSE 91; RESP 17; TEMP 97.7; O2SAT 97
[2017-05-24 04:39] VITALS: BP 165/77; PULSE 60; RESP 18; TEMP 98.1; O2SAT 98
[2017-05-24 07:20] LABS: ALBUMIN 2.2 GM/DL (3.4-5.0); AST (GOT) 45 U/L (15-37); BLOOD UREA NITROGEN 5 MG/DL (7-18); CALCIUM 8.1 MG/DL (8.5-10.1); CHLORIDE 105 MEQ/L (98-107); CREATININE 0.86 MG/DL (0.60-1.30); GLOMERULAR FILTRATION RATE 90 ML/MIN (>89); GLUCOSE,RANDOM 79 MG/DL (74-106); SODIUM (NA) 138 MEQ/L (136-145)
[2017-05-24 07:21] LABS: ALT (GPT) 15 U/L (12-78)
[2017-05-24 07:23] LABS: ALKALINE PHOSPHATASE 110 U/L (45-117); AUTOMATED NEUTROPHIL # 3.3 TH/MM3 (1.8-7.7); BASOPHIL # 0.1 TH/MM3 (0-0.2); BASOPHIL % 0.8 % (0.0-2.0); EOSINOPHIL # 0.1 TH/MM3 (0-0.4); EOSINOPHIL % 2.3 % (0.0-4.0); HEMATOCRIT 35.6 % (39.0-51.0); HEMOGLOBIN 11.8 GM/DL (13.0-17.0); LYMPH % 29.6 % (9.0-44.0); LYMPHOCYTE # 1.8 TH/MM3 (1.0-4.8); MEAN CELL VOLUME 84.6 FL (80.0-100.0); MEAN CORPUSCULAR HGB CONC 33.1 % (32.0-36.0); MEAN PLATELET VOLUME 8.5 FL (7.0-11.0); MONO % 14.1 % (0.0-8.0); MONOCYTE # 0.9 TH/MM3 (0-0.9); NEUT % 53.2 % (16.0-70.0); PLATELET COUNT 197 TH/MM3 (150-450); RED CELL DISTRIBUTION WIDTH 15.1 % (11.6-17.2); TOTAL BILIRUBIN ADULT 0.7 MG/DL (0.2-1.0); TOTAL PROTEIN 5.6 GM/DL (6.4-8.2); WHITE BLOOD COUNT 6.2 TH/MM3 (4.0-11.0)
[2017-05-24] MEDS: SODIUM CHLOR 0.9% 1000 ML INJ 1,000 ML IV SCH ×3 (08:00→18:00)
[2017-05-24] MEDS ORDERED: POTASSIUM CHLOR 20 MEQ PREMIX 100 ML IV ONE (08:15)
[2017-05-24] MEDS: SODIUM CHLORIDE 0.9% FLUSH 10 ML FLUSH IV FLUSH SCH ×2 (09:00→20:00)
--- NOTE | 2017-05-24 09:51 | GIPROC ---
[facility] [address] [facility]. [facility], [address] EGD PROCEDURE REPORT EXAM DATE: 05/24/2017 PATIENT NAME: Hank Valdes MR #: [id number] BIRTHDATE: 1955 ATTENDING: Lucy Chinchilla MD ORDER #: [id number] PRODUCTION OPERATOR: Zabrina Valladares and Janina Wells STATUS: inpatient INDICATIONS: The patient is a 62 yr old male here for an EGD due to dysphagia PROCEDURE PERFORMED: Panendoscopy with Dilation MEDICATIONS: None and Per Anesthesia. TOPICAL ANESTHETIC: none CONSENT: The patient understands the risks and benefits of the procedure and understands that these risks include, but are not limited to: sedation, allergic reaction, infection, perforation and/or bleeding. Alternative means of evaluation and treatment include, among others: physical exam, x-rays, and/or surgical intervention. The patient elects to proceed with this endoscopic procedure. medical equipment was checked for proper function. Hand hygiene and appropriate measures for infection prevention was taken. After the risks, benefits and alternatives of the procedure were thoroughly explained, Informed consent was verified, confirmed and timeout was successfully executed by the treatment team. The patient was anesthetized with topical anesthesia and the EC-[id number] (Pedi C) endoscope was introduced through the mouth and advanced to the second portion of the duodenum. Retroflexion was performed and was normal The gastroscope was then slowly withdrawn and removed. ESOPHAGUS: There was a short benign appearing, fibrotic and severe stricture in the distal esophagus. The stricture was not traversable. Using a TTS-balloon the stricture was dilated up to 8mm. The balloon was held inflated for 90 seconds. Following this dilation, there was no change in the appearance of the stricture. Using a TTS-balloon the stricture was dilated up to 12mm. The balloon was held inflated for 60 seconds. Following this dilation, there was a medium sized mucosal rent. STOMACH: The stomach otherwise appeared normal. DUODENUM: The duodenal mucosa appeared normal in the bulb and second portion of the duodenum. ADVERSE EVENTS: There were no complications. IMPRESSIONS: 1. There was a short stricture in the distal esophagus; Using a TTS-balloon the stricture was dilated to 8mm; The balloon was held inflated for 90 seconds; Following this dilation, there was no change in the appearance of the stricture , subsequent dilation to 11 mm and 12 mm with minor rent, scope passed subsequently. 2. The stomach otherwise appeared normal 3. Normal duodenal mucosa in the bulb and second portion of the duodenum 4. Retroflexion was performed and was normal RECOMMENDATIONS: Continue PPI PATIENT CONDITION: stable DISPOSITION: Observation REPEAT EXAM: Return 4 weeks EGD with dilatation Lucy Chinchilla MD eSigned: Lucy Chinchilla MD 05/24/2017 9:50 AM cc: PATIENT NAME: Hank Valdes MR#: [id number]
--- NOTE | 2017-05-24 09:55 | GIPROC ---
[facility] [address] [facility]. [facility], [address] COLONOSCOPY PROCEDURE REPORT EXAM DATE: 05/24/2017 PATIENT NAME: Hank Valdes MR #: [id number] BIRTHDATE: 1955 ENDOSCOPIST: Lucy Chinchilla MD ORDER #: [id number] CHILDREN'S NURSERY ASSISTANT: Janina Wells and Zabrina Valladares STATUS: inpatient INDICATIONS: The patient is a 62 yr old male here for a colonoscopy due to bloating and abdominal pain PROCEDURE PERFORMED: Colonoscopy, diagnostic MEDICATIONS: None and Per Anesthesia. PREP QUALITY: inadequate PREP TYPE:GoLytely ESTIMATED BLOOD LOSS: None CONSENT: The patient understands the risks and benefits of the procedure and understands that these risks include, but are not limited to: sedation, allergic reaction, infection, perforation and/or bleeding. Alternative means of evaluation and treatment include, among others: physical exam, x-rays, and/or surgical intervention. The patient elects to proceed with this endoscopic procedure. medical equipment was checked for proper function. Hand hygiene and appropriate measures for infection prevention was taken. After the risks, benefits and alternatives of the procedure were thoroughly explained, Informed consent was verified, confirmed and timeout was successfully executed by the treatment team. A digital exam revealed no abnormalities of the rectum The Pentax EC-[id number] endoscope was introduced through the anus and advanced to the cecum, which was identified by both the appendix and ileocecal valve. The instrument was then slowly withdrawn as the colon was fully examined. COLON FINDINGS: A significant amount of stool was present throughout the entire examined colon. Retroflexion was not performed due to a narrow rectal vault The scope was then completely withdrawn from the patient and the procedure terminated. PROCEDURE WITHDRAWAL TIME:9minutes ADVERSE EVENTS: There were no complications. IMPRESSIONS: 1. Significant amount of stool was present throughout the entire examined colon, limiting the exam 2. No large lesions or polyps seen during the exam, but repeat colonoscopy ( as outpatient) with better prep. is recommended. RECOMMENDATIONS: Resume medications including Plavix for now RECALL: Return 3 months Colonoscopy Lucy Chinchilla MD eSigned: Lucy Chinchilla MD 05/24/2017 9:55 AM cc: PATIENT NAME: Hank Valdes MR#: [id number]
[2017-05-24] MEDS ORDERED: DO NOT ADM ANY ANTICOAGULANT DRUGS PRN (09:56)
[2017-05-24] MEDS: PANTOPRAZOLE SODIUM 40 MG VIAL IV PUSH SCH ×2 (11:16→20:01)
[2017-05-24] MEDS: MORPHINE SULFATE 2 MG/ML INJ IV PUSH PRN ×4 (11:17→23:36)
[2017-05-24] MEDS ORDERED: PROPOFOL 200 MG/20 ML AMP IV ONE (12:00)
[2017-05-24] MEDS ORDERED: ONDANSETRON HCL 4 MG/2 ML VIAL IV PUSH ONE (12:00)
[2017-05-24] MEDS ORDERED: SUCCINYLCHOLINE CHLORIDE 100 MG/5 ML SYRINGE IV PUSH ONE (12:00)
[2017-05-24] MEDS ORDERED: DEXAMETHASONE SOD PHOS 4 MG/ML VIAL IV ONE (12:00)
[2017-05-24] MEDS ORDERED: LIDOCAINE HCL 1% PF 5 ML SYRINGE OTHER ONE (12:00)
[2017-05-24 12:40] VITALS: BP 127/91; PULSE 57; RESP 18; TEMP 97.5; O2SAT 96
--- NOTE | 2017-05-24 13:41 | HHI.PR ---
Subjective Remarks Status post EGD. Esophageal stricture was present and dilated. Patient still having feeling of fullness with emesis after eating solids. He is able to tolerate liquids. Objective Vital Signs Date Time Temp Pulse Resp B/P (MAP) Pulse Ox O2 Delivery O2 Flow Rate FiO2 05/24/17 12:40 97.5 57 18 127/91 (103) 96 05/24/17 10:19 98.1 61 16 120/59 (79) 97 Room Air 05/24/17 10:15 61 16 120/59 (79) 97 Room Air 05/24/17 10:00 98.0 72 16 143/97 (112) 97 Nasal Cannula 2 05/24/17 04:39 98.1 60 18 165/77 (106) 98 05/24/17 01:20 97.7 91 17 124/83 (97) 97 05/23/17 20:56 97.8 68 18 159/80 (106) 95 05/23/17 17:32 98.6 86 20 159/92 (114) 97 05/23/17 16:40 98.0 76 20 205/75 (118) 98 I/O 05/23/17 05/23/17 05/23/17 05/24/17 05/24/17 05/24/17 07:00 15:00 23:00 07:00 15:00 23:00 Intake Total 1400 ml Output Total 200 ml Balance 1200 ml Intake IV Total 700 ml Other 700 ml Output Urine Total 200 ml # Voids 1 Result Diagram: 05/24/17 0610 05/24/17 0610 Objective Remarks GENERAL: NAD, A&Ox3 HEAD: Normocephalic. NECK: Supple, trachea midline. No lymphadenopathy. EYES: No scleral icterus. No injection or drainage. CARDIOVASCULAR: Regular rate and rhythm without murmurs, gallops, or rubs. RESPIRATORY: Breath sounds equal bilaterally. No accessory muscle use. GASTROINTESTINAL: Abdomen soft, non-tender, nondistended. MUSCULOSKELETAL: No cyanosis, or edema. SKIN: Warm and dry. NEURO: No focal neurological deficitis. A/P Problem List: (1) Esophageal abnormality ICD Code: K22.9 - Disease of esophagus, unspecified Status: Acute (2) Dysphasia ICD Code: R47.02 - Dysphasia (3) Abdominal bloating ICD Code: R14.0 - Abdominal distension (gaseous) Assessment and Plan Assessment and Plan 62-year-old male admitted secondary to dysphagia, with suspected esophageal stricture. EGD today with resolution of stricture. Patient remains symptomatic. He did not tolerate solids by mouth. Return to liquid diet for now and try again tomorrow. Severe dysphagia Status post esophageal stricture dilation EGD on 05/24/17, stricture dilated Not tolerating by mouth solids yet Clear liquid diet for now Hypertension history of CVA GERD IV Protonix IV enalapril as needed for hypertension By mouth treatments on hold DVT prophylaxis SCDs Alex Cartagena MD May 24, 2017 13:41
[2017-05-24] MEDS: ONDANSETRON HCL 4 MG/2 ML VIAL IVP PRN (15:41)
[2017-05-24 15:55] VITALS: BP 152/69; PULSE 67; RESP 18; TEMP 98.9; O2SAT 95
[2017-05-24 19:47] VITALS: BP 183/85; PULSE 62; RESP 18; TEMP 98.4; O2SAT 98
--- NOTE | 2017-05-24 20:33 | RADRPT ---
EXAM DATE/TIME: 05/24/2017 20:05 [facility] COMPARISON: No previous studies available for comparison. INDICATIONS : Patient complains of left side abdomen pain. ORAL CONTRAST: No oral contrast ingested. RADIATION DOSE: 21.85 CTDIvol (mGy) MEDICAL HISTORY : Cardiovascular disease. Hypertension. SURGICAL HISTORY : Cholecystectomy. ulcer ENCOUNTER: Initial ACUITY: 1 day PAIN SCALE: 5/10 LOCATION: Left lower quadrant TECHNIQUE: Volumetric scanning of the abdomen and pelvis was performed. Using automated exposure control and ad justment of the mA and/or kV according to patient size, radiation dose was kept as low as reasonably achievable to obtain optimal diagnostic quality images. DICOM format image data is available electro nically for review and comparison. FINDINGS: LOWER LUNGS: The visualized lower lungs are clear. LIVER: Homogeneous density without lesion. There is no dilation of the biliary tree. Gallbladder surgically absent.. SPLEEN: Normal size without lesion. PANCREAS: Within normal limits. KIDNEYS: Normal in size and shape. There is no mass, stone, or hydronephrosis. ADRENAL GLANDS: Within normal limits. VASCULAR: There is no aortic aneurysm. BOWEL/MESENTERY: Small hiatal hernia. The stomach, small bowel, and colon demonstrate no acute abnormality. Minimal no nspecific pelvic fluid. ABDOMINAL WALL: Within normal limits. RETROPERITONEUM: There is no lymphadenopathy. BLADDER: No wall thickening or mass. REPRODUCTIVE: Within normal limits. INGUINAL: There is no lymphadenopathy or hernia. MUSCULOSKELETAL: Within normal limits for patient age. CONCLUSION: Minimal nonspecific free pelvic fluid. Guy Chaudhary MD on May 24, 2017 at 20:27 Board Certified Radiologist. This report was verified electronically.
[2017-05-24 23:40] VITALS: BP 129/79; PULSE 71; RESP 18; TEMP 98.5; O2SAT 97
[2017-05-25] MEDS: SODIUM CHLOR 0.9% 1000 ML INJ 1,000 ML IV SCH (01:39)
[2017-05-25] MEDS: MORPHINE SULFATE 2 MG/ML INJ IV PUSH PRN ×3 (02:54→13:31)
[2017-05-25 05:19] VITALS: BP 115/58; PULSE 78; RESP 18; TEMP 98.7; O2SAT 97
[2017-05-25 08:08] VITALS: BP 115/53; PULSE 56; RESP 18; TEMP 97.8; O2SAT 98
[2017-05-25] MEDS: PANTOPRAZOLE SODIUM 40 MG VIAL IV PUSH SCH (08:32)
[2017-05-25] MEDS: SODIUM CHLORIDE 0.9% FLUSH 10 ML FLUSH IV FLUSH SCH (08:32)
[2017-05-25 12:08] VITALS: BP 160/80; PULSE 67; RESP 18; TEMP 97.9; O2SAT 98
[2017-05-25 13:36] VITALS: RESP 18
--- NOTE | 2017-05-25 13:59 | HHI.PR ---
Subjective Remarks Soft diet attempted today. Patient has no appetite and tolerate liquids well. When he tries to eat solids he feels that the food does not go down and then he throws it up. Inability to tolerate solids thus far, post procedure. Objective Vital Signs Date Time Temp Pulse Resp B/P (MAP) Pulse Ox O2 Delivery O2 Flow Rate FiO2 05/25/17 12:08 97.9 67 18 160/80 (106) 98 05/25/17 08:38 18 05/25/17 08:08 97.8 56 18 115/53 (73) 98 05/25/17 05:19 98.7 78 18 115/58 (77) 97 05/24/17 23:40 98.5 71 18 129/79 (96) 97 05/24/17 19:47 98.4 62 18 183/85 (117) 98 05/24/17 15:55 98.9 67 18 152/69 (96) 95 I/O 05/24/17 05/24/17 05/24/17 05/25/17 05/25/17 05/25/17 07:00 15:00 23:00 07:00 15:00 23:00 Intake Total 2500 ml 2500 ml Output Total 200 ml Balance 2300 ml 2500 ml Intake Oral 2500 ml IV Total 1800 ml Other 700 ml Output Urine Total 200 ml # Voids 1 5 # Bowel Movements 2 Result Diagram: 05/24/17 0610 05/24/17 0610 Objective Remarks GENERAL: NAD, A&Ox3 HEAD: Normocephalic. NECK: Supple, trachea midline. No lymphadenopathy. EYES: No scleral icterus. No injection or drainage. CARDIOVASCULAR: Regular rate and rhythm without murmurs, gallops, or rubs. RESPIRATORY: Breath sounds equal bilaterally. No accessory muscle use. GASTROINTESTINAL: Abdomen soft, non-tender, nondistended. MUSCULOSKELETAL: No cyanosis, or edema. SKIN: Warm and dry. NEURO: No focal neurological deficitis. A/P Problem List: (1) Esophageal abnormality ICD Code: K22.9 - Disease of esophagus, unspecified Status: Acute (2) Dysphasia ICD Code: R47.02 - Dysphasia (3) Abdominal bloating ICD Code: R14.0 - Abdominal distension (gaseous) Assessment and Plan Assessment and Plan 62-year-old male admitted secondary to dysphagia, with suspected esophageal stricture. EGD today with resolution of stricture. Patient remains symptomatic. He did not tolerate solids by mouth. Return to liquid diet. Severe dysphagia Status post esophageal stricture dilation EGD on 05/24/17, stricture dilated Not tolerating by mouth solids yet Trials of solid foods and soft foods are failing Clear liquid diet for now Hypertension history of CVA GERD IV Protonix IV enalapril as needed for hypertension By mouth treatments on hold DVT prophylaxis SCDs Alex Cartagena MD May 25, 2017 13:59
[2017-05-25] MEDS ORDERED: OXYC1SOL5 PO (14:16)
--- NOTE | 2017-05-25 14:27 | HHI.DS ---
Discharge Summary Admission Date May 21, 2017 at 19:45 Discharge Date: May 25, 2017 Admitting Diagnosis Esophageal Obstruction. (1) Esophageal abnormality ICD Code: K22.9 - Disease of esophagus, unspecified Diagnosis: Principal Status: Acute Procedures EGD/colonoscopy Brief History - From Admission 62-year-old male with a past medical history of a CVA 3 years ago, hypertension , hyperlipidemia, GERD and peptic ulcer disease presents to the emergency department with acutely worsening dysphasia. The patient reports for approximately the past 2 months he's had difficulty swallowing solid foods. Approximately 2 weeks ago he became unable to tolerate anything other than liquids. He is laying on his side in the emergency department spitting in a bag because he cannot swallow his secretions. Chest x-ray negative. CBC/BMP: 05/24/17 0610 05/24/17 0610 Significant Findings Laboratory Tests Test 05/23/17 10:47 05/24/17 06:10 Blood Urea Nitrogen 6 MG/DL (7-18) 5 MG/DL (7-18) Calcium Level 8.4 MG/DL (8.5-10.1) 8.1 MG/DL (8.5-10.1) Sodium Level 134 MEQ/L (136-145) Estimat Glomerular Filtration Rate 67 ML/MIN (>89) Red Blood Count 4.20 MIL/MM3 (4.50-5.90) Hemoglobin 11.8 GM/DL (13.0-17.0) Hematocrit 35.6 % (39.0-51.0) Monocytes (%) (Auto) 14.1 % (0.0-8.0) Total Protein 5.6 GM/DL (6.4-8.2) Albumin 2.2 GM/DL (3.4-5.0) Aspartate Amino Transf (AST/SGOT) 45 U/L (15-37) Potassium Level 3.3 MEQ/L (3.5-5.1) Hospital Course Mr. Valdes is a 62 year old male. He came in secondary to esophageal obstruction with inability to tolerate solids. Liquids were able to be tolerated. During this admission his primary symptom have been secondary to food bolus. EGD was performed during this stay with dilation of the esophageal stricture. No evidence of masses or other pathology. Patient will need further dilation. After EGD he still not tolerating solids or soft diet. He will need to maintain on full liquid diet for the next 2 weeks and follow-up with GI for further dilation. This was discussed with the patient and he is in agreement and request discharge. Medically stable for discharge home today. Pt Condition on Discharge: Stable Discharge Disposition: Discharge Home Discharge Time: <= 30 minutes Discharge Instructions DIET: Follow Instructions for: Full Liquid Diet Activities you can perform: Regular-No Restrictions Follow up Referrals: Gastroenterology - 2 Weeks with Lucy Chinchilla MD PCP Follow-up - 2 Weeks New Medications: Oxycodone-Acetaminophen Liq (Oxycodone-Acetaminophen Liq) 5-325 Mg/5 Ml Liq 5 ML PO Q6H PRN for PAIN, #120 ML 0 Refills Continued Medications: Clopidogrel (Clopidogrel) 75 Mg Tab 75 MG PO DAILY for Blood Clot Prevention, #30 TAB 0 Refills Gabapentin (Gabapentin) 300 Mg Cap 300 MG PO BID, #60 CAP 0 Refills Hydrochlorothiazide (Hydrochlorothiazide) 50 Mg Tab 50 MG PO DAILY, #60 TAB 0 Refills Lisinopril (Lisinopril) 5 Mg Tab 5 MG PO DAILY for Blood Pressure Management, #30 TAB 0 Refills Omeprazole (Omeprazole) 40 Mg Cap 40 MG PO DAILY, #30 CAP 0 Refills Potassium Chloride ER (Potassium Chloride ER) 20 Meq Tab 20 MEQ PO BID for Electrolyte Replacement, #60 TAB 0 Refills Tamsulosin (Tamsulosin) 0.4 Mg Cap 0.4 MG PO HS for Manage Prostate Problems, #30 CAP 0 Refills Alex Cartagena MD May 25, 2017 14:27
[2017-05-26] MEDS ORDERED: NORC5TAB PO (14:52)
== END 2017-05-25 15:56 | disposition home or self-care (01) ==
LOC: NEPC 16:37 → NEDA 19:45 → NEPGCP 20:45
PROVIDERS: ADMIT Hospitalist; ATTEND Hospitalist
DX: K22.2 Esophageal obstruction (principal); R14.0 Abdominal distension (gaseous); R10.84 Generalized abdominal pain; G89.29 Other chronic pain; I10 Essential (primary) hypertension; E78.5 Hyperlipidemia, unspecified; G47.30 Sleep apnea, unspecified; K21.9 Gastro-esophageal reflux disease without esophagitis; R94.31 Abnormal electrocardiogram [ECG] [EKG]; I25.2 Old myocardial infarction; E66.9 Obesity, unspecified; F17.210 Nicotine dependence, cigarettes, uncomplicated; Z68.41 Body mass index [BMI] 40.0-44.9, adult; Z86.73 Personal history of transient ischemic attack (TIA), and cerebral infarction without residual deficits; Z87.11 Personal history of peptic ulcer disease; Z99.3 Dependence on wheelchair
CPT/HCPCS: 00740; 00810; 43249; 45378; 71010; 74176; 80048; 80053; 82550; 83690; 83735; 84132; 84484; 85025; 85610; 85730; 92526; 92610; 93005; 96361; 96365; 96366; 96375; 96376; 99285; C1726; C9113; G0378; G8996; G8997; G8998; J0330; J1100; J2270; J2405; J3480; J7030; J7120

== ENCOUNTER 2017-06-11 18:44 | Emergency (ER) | payer MEDICAID ==
[~2017-06-11] VITALS: Ht 162.6 cm; Wt 110.5 kg
[~2017-06-11 18:44] MED LIST changes: -ATOR10 PO; -CLOP75 PO; +CLOP75TA PO; -CODE30TA PO; -CYAN1000P IM; -DIAZ5 PO; -DIAZ5TAB PO; -GABA300 PO; +GABA300C5 PO; +HYDR50TA3 PO; -HYDR50TA5 PO; -HYDRO1%T TOPICAL; -KCL20 PO; +LISI-519 PO; -LISI5 PO; +NORC5TAB PO; +OMEP40CA2 PO; +OXYC1SOL5 PO; -POLY17S PO; +POTA-163 PO; -RANI150 PO; +TAMS0.4C4 PO; -TAMS0.4C67 PO; -TUB TRANSFER BENCH; -TUMS CHEW; -TYLE3 PO; -TYLETAB36 PO; -ZOLP10TA3 PO
[2017-06-11 18:46] VITALS: BP 149/68; PULSE 79; RESP 18; TEMP 97.9; O2SAT 99
--- NOTE | 2017-06-11 19:22 | PD ---
HPI Chief Complaint: ENT Complaint Time Seen by Provider: 19:17 Travel History International Travel<30 days: No Contact w/Intl Traveler<30days: No Traveled to known affect area: No History of Present Illness HPI The patient is a 62 year old male who presents to the [facility] emergency department with a history of acid reflux and gastritis with esophageal stricture requiring admission to the hospital on May 21, 2017. The patient was seen in the hospital by Dr. Chinchilla. Endoscopy was done and attempted dilatation was done, however this was not fully successful. He recommended a full liquid diet for the patient has an outpatient follow-up with him in his office in 2 weeks with repeat endoscopy at 4 weeks. The patient reports that he was unable to follow-up with bad GI doctor as he is not covered by his insurance, however he has been referred to a new doctor and has an appointment with a doctor scheduled for June 25. He reports that since of this past week he's had increasing difficulty keeping down his home meds. He reports that he does vomit at times. He reports that he's had progressive weight loss since January 2017 at which point he was 269 pounds and now he is down to 234 pounds. He reports that he has a constant dull aching sensation in the midepigastric area and is constantly hungry. He reports that he has been attempting to eat soft solids. He reports that he is able to drink liquids and swallow his own secretions. On review of systems otherwise, the patient denies having any known recent fevers, cough, congestion , neck pain, chest pain, shortness of breath, diarrhea, urinary symptoms, or neurologic symptoms. He denies having any blood in his stool or black or tarry stools. He denies having any night sweats. [facility] Past Medical History Narrative Medical The patient's past medical history is significant for hypertension, history of a cerebrovascular accident 3 years ago, hyperlipidemia, acid reflux, peptic ulcer disease, esophageal stricture, chronic back pain, history of a right leg injury. Arthritis: Yes (DEGENERATVE) Asthma: No Autoimmune Disease: No Anxiety: No Depression: No Heart Rhythm Problems: No Cancer: No Cardiac Catheterization: Yes (UNKNOWN) Cardiovascular Problems: Yes (HTN) High Cholesterol: Yes (HYPERLIPIDEMIA ) Chemotherapy: No Chest Pain: Yes Congestive Heart Failure: No COPD: No Cerebrovascular Accident: Yes Diabetes: No Diminished Hearing: No Endocrine: No Gastrointestinal Disorders: Yes GERD: Yes Genitourinary: No Headaches: Yes Hiatal Hernia: No Hypertension: Yes Immune Disorder: No Kidney Stones: No Musculoskeletal: Yes (LEG PAINS) Neurologic: Yes (CVA (BASAL GANGLIA INRARCT)) Psychiatric: No Reproductive: No Respiratory: Yes Migraines: Yes Myocardial Infarction: Yes Pneumonia: Yes Radiation Therapy: No Renal Failure: No Seizures: No Sickle Cell Disease: No Sleep Apnea: Yes Thyroid Disease: No Ulcer: Yes Tetanus Vaccination: < 5 Years Influenza Vaccination: Yes Past Surgical History Narrative Surgical The patient's past surgical history is significant for right leg skin graft, cholecystectomy. Abdominal Surgery: Yes (GASTRIC ULCER SURGERY) AICD: No Arteriovenous Shunt: No Cardiac Surgery: No Cholecystectomy: Yes Coronary Artery Bypass Graft: No Ear Surgery: No Endocrine Surgery: No Eye Surgery: No Genitourinary Surgery: No Gynecologic Surgery: No Insulin Pump: No Joint Replacement: No Neurologic Surgery: Yes (BLOOD CLOT REMOVED FROM BRAIN-4MOS OLD) Oral Surgery: No Pacemaker: No Thoracic Surgery: No Other Surgery: Yes Social History Alcohol Use: No (on occasion) Tobacco Use: Yes (CIGARS 1ppd) Substance Use: No Allergies-Medications (Allergen,Severity, Reaction): Coded Allergies: *MDRO Multi-Drug Resistant Organism (Verified Adverse Reaction, Unknown, 05/21/17) ESBL E. coli (urine) - 06/11/2015 Reported Meds & Prescriptions Reported Meds & Active Scripts Active Hassell (Hydrocodone-Acetaminophen) 5 Mg-325 Mg Tab 1 Tab PO Q6H PRN Oxycodone-Acetaminophen Liq 5-325 Mg/5 Ml Liq 5 Ml PO Q6H PRN Reported Potassium Chloride ER (Potassium Chloride) 20 Meq Tab 20 Meq PO BID Hydrochlorothiazide 50 Mg Tab 50 Mg PO DAILY Omeprazole 40 Mg Cap 40 Mg PO DAILY Lisinopril 5 Mg Tab 5 Mg PO DAILY Gabapentin 300 Mg Cap 300 Mg PO BID Tamsulosin (Tamsulosin HCl) 0.4 Mg Cap 0.4 Mg PO HS Clopidogrel (Clopidogrel Bisulfate) 75 Mg Tab 75 Mg PO DAILY Review of Systems Except as stated in HPI: all other systems reviewed are Neg General / Constitutional: No: Fever Eyes: No: Visual changes HENT: No: Headaches Cardiovascular: No: Chest Pain or Discomfort Respiratory: No: Shortness of Breath Gastrointestinal: No: Nausea, Vomiting, Diarrhea, Abdominal Pain Genitourinary: No: Dysuria Musculoskeletal: No: Pain Skin: No Rash Neurologic: No: Weakness Psychiatric: No: Depression Endocrine: No: Polydipsia Hematologic/Lymphatic: No: Easy Bruising Physical Exam Narrative General: The patient is a well-developed well-nourished male in no acute distress. The patient was provided a glass of water well as at the bedside to assess his ability to swallow. The patient was able to swallow without any difficulty. The patient had no coughing with swallowing. The patient was able to keep the water down. Head and Neck exam: Head is normocephalic atraumatic. Eyes: EOMI, pupils are equal round and reactive to light. Nose: Midline septum with pink mucous membranes Mouth: Dentition unremarkable. Moist mucus membranes. Posterior oropharynx is not erythematous. No tonsillar hypertrophy. Uvula midline. Airway patent. Neck: No palpable lymphadenopathy. No nuchal rigidity. No thyromegaly. Cardiovascular: Regular rate and rhythm without murmurs, gallops, or rubs. Lungs: Clear to auscultation bilaterally. No wheezes, rhonchi, or rales. Abdomen: Soft, without tenderness to palpation in all 4 quadrants of the abdomen. No guarding, rebound, or rigidity. Normal bowel sounds are audible. No tenderness on palpation of McBurney's point. Negative Flowers's sign. Extremities: No clubbing, cyanosis, or edema. 2+ pulses in all 4 extremities. No calf tenderness on palpation. Back: No spinous process tenderness to palpation. No costovertebral angle tenderness to palpation. Neurologic Exam: Grossly nonfocal. Skin Exam: No rash noted. Intact skin that is warm and dry. Data Data Last Documented VS Vital Signs Date Time Temp Pulse Resp B/P (MAP) Pulse Ox O2 Delivery O2 Flow Rate FiO2 06/11/17 19:28 59 18 142/74 (96) 100 Room Air 06/11/17 18:46 97.9 Orders Orders Electrocardiogram (06/11/17 19:20) Complete Blood Count With Diff (06/11/17 19:20) Comprehensive Metabolic Panel (06/11/17 19:20) Creatine Kinase (Cpk) (06/11/17 19:20) Ckmb (Isoenzyme) Profile (06/11/17 19:20) Troponin I (06/11/17 19:20) Lipase (06/11/17 19:20) Chest, Single Ap (06/11/17 19:20) Iv Access Insert/Monitor (06/11/17 19:20) Ecg Monitoring (06/11/17 19:20) Oximetry (06/11/17 19:20) Sodium Chlorid 0.9% 500 Ml Inj (Ns 500 M (06/11/17 19:30) Pantoprazole Inj (Protonix Inj) (06/11/17 20:15) Labs Laboratory Tests Test 06/11/17 19:30 White Blood Count 8.6 TH/MM3 Red Blood Count 4.94 MIL/MM3 Hemoglobin 13.8 GM/DL Hematocrit 40.5 % Mean Corpuscular Volume 82.0 FL Mean Corpuscular Hemoglobin 27.9 PG Mean Corpuscular Hemoglobin Concent 34.1 % Red Cell Distribution Width 15.9 % Platelet Count 371 TH/MM3 Mean Platelet Volume 7.5 FL Neutrophils (%) (Auto) 65.6 % Lymphocytes (%) (Auto) 22.8 % Monocytes (%) (Auto) 10.1 % Eosinophils (%) (Auto) 0.8 % Basophils (%) (Auto) 0.7 % Neutrophils # (Auto) 5.6 TH/MM3 Lymphocytes # (Auto) 2.0 TH/MM3 Monocytes # (Auto) 0.9 TH/MM3 Eosinophils # (Auto) 0.1 TH/MM3 Basophils # (Auto) 0.1 TH/MM3 CBC Comment DIFF FINAL Differential Comment Blood Urea Nitrogen 7 MG/DL Creatinine 1.03 MG/DL Random Glucose 90 MG/DL Total Protein 7.3 GM/DL Albumin 2.8 GM/DL Calcium Level 8.5 MG/DL Alkaline Phosphatase 150 U/L Aspartate Amino Transf (AST/SGOT) 20 U/L Alanine Aminotransferase (ALT/SGPT) 14 U/L Total Bilirubin 0.7 MG/DL Sodium Level 130 MEQ/L Potassium Level 3.2 MEQ/L Chloride Level 91 MEQ/L Carbon Dioxide Level 27.3 MEQ/L Anion Gap 12 MEQ/L Estimat Glomerular Filtration Rate 73 ML/MIN Total Creatine Kinase 60 U/L Troponin I LESS THAN 0.02 NG/ML Lipase 113 U/L MDM Medical Decision Making Medical Screen Exam Complete: Yes Emergency Medical Condition: Yes Medical Record Reviewed: Yes Interpretation(s) Last Impressions Chest X-Ray 06/11/[id number] Signed Impressions: Service Date/Time: Sunday, June 11, 2017 19:50 - CONCLUSION: No acute disease. Víctor Mclean Jr., MD Differential Diagnosis Dehydration, versus electrolyte derangements, versus esophageal obstruction Narrative Course During the course of the patients emergency department visit, the patients history, examination, and differential diagnosis were reviewed with the patient. The patient was placed on a engine monitor with oximetry and frequent blood pressure monitoring. The patient had IV access obtained and blood work sent for analysis. The patient had an ECG done on arrival that shows a sinus rhythm with occasional supraventricular premature complexes heart rate of 60, QRS duration is 100 ms, QTC [address] segment elevation is noted. The patient was initially provided normal saline a 500 mL bolus 1, Protonix 40 mg IV. The patients laboratory studies were reviewed and remarkable for a CBC that is remarkable for a white count of 8.6, hemoglobin 13.8, platelets 371 with 10.1 monocytes, CMP is remarkable for sodium of 130, potassium 3.2 which will be supplemented orally, GFR 73, alkaline phosphatase 150, cardiac enzymes within normal limits, lipase 113. Radiology studies were reviewed and remarkable for a chest x-ray that shows no acute cardiopulmonary disease. The patient reports having an appointment with a lumber grader scheduled for June 25. The patient is encouraged to follow up with a lumber grader. The patient will have his potassium changed to liquid formulation of the reports having difficulty swallowing the potassium. The patient is encouraged to continue on a full liquid diet including supplementation with Ensure her some variety of supplemental shakes. The patient is resting comfortably and feels better, is alert and in no distress. The patients results and examination findings were discussed with the patient. The repeat examination is unremarkable and benign. The history, exam, diagnostic testing, and current condition do not suggest any significant pathology to warrant further testing, continued ED treatment, admission, or surgical evaluation at this point. The vital signs have been stable. The patient does not have uncontrollable pain, intractable vomiting, or other significant symptoms. The patient's condition is stable and appropriate for discharge. The patient will pursue further outpatient evaluation with a primary care physician or other designated or consulting physician as indicated in the discharge instructions. The patient expressed understanding and was agreeable with this plan. Diagnosis Primary Impression: Esophageal stricture Additional Impression: Hypokalemia Referrals: Director [employer] 1 week Primary Care Physician 3 days Additional Instructions: Follow-up with the lumber grader as previously scheduled.The patient reports having an appointment with a lumber grader scheduled for June 25. The patient is encouraged to follow up with a lumber grader. The patient will have his potassium changed to liquid formulation of the reports having difficulty swallowing the potassium. The patient is encouraged to continue on a full liquid diet including supplementation with Ensure her some variety of supplemental shakes. Med/Other Pt SpecificInfo: Prescription(s) given, Med Stopped (stop oral potassium tablet and instructed take effervescent version) Scripts Potassium Bicarbonate Effervescent (K-Vescent) 25 Meq Tab 25 MEQ PO BID for Electrolyte Replacement, #60 TAB 0 Refills Prov: Merly Reza MD 06/11/17 Disposition: 01 DISCHARGE HOME Condition: Stable Merly Reza MD Jun 11, 2017 19:22
[2017-06-11 19:25] VITALS: RESP 18; O2SAT 98
[2017-06-11 19:28] VITALS: BP 142/74; PULSE 59; RESP 18; O2SAT 100
[2017-06-11] MEDS ORDERED: SODIUM CHLORID 0.9% 500 ML INJ 500 ML IV ONE (19:30)
[2017-06-11 19:51] LABS: AUTOMATED NEUTROPHIL # 5.6 TH/MM3 (1.8-7.7); BASOPHIL # 0.1 TH/MM3 (0-0.2); BASOPHIL % 0.7 % (0.0-2.0); EOSINOPHIL # 0.1 TH/MM3 (0-0.4); EOSINOPHIL % 0.8 % (0.0-4.0); HEMATOCRIT 40.5 % (39.0-51.0); HEMOGLOBIN 13.8 GM/DL (13.0-17.0); LYMPH % 22.8 % (9.0-44.0); MEAN CORPUSCULAR HEMOGLOBIN 27.9 PG (27.0-34.0); MEAN CORPUSCULAR HGB CONC 34.1 % (32.0-36.0); MEAN PLATELET VOLUME 7.5 FL (7.0-11.0); MONO % 10.1 % (0.0-8.0); MONOCYTE # 0.9 TH/MM3 (0-0.9); NEUT % 65.6 % (16.0-70.0); PLATELET COUNT 371 TH/MM3 (150-450); RED BLOOD COUNT 4.94 MIL/MM3 (4.50-5.90); RED CELL DISTRIBUTION WIDTH 15.9 % (11.6-17.2); WHITE BLOOD COUNT 8.6 TH/MM3 (4.0-11.0)
[2017-06-11 20:06] LABS: ALT (GPT) 14 U/L (12-78)
[2017-06-11 20:13] LABS: ALBUMIN 2.8 GM/DL (3.4-5.0); ALKALINE PHOSPHATASE 150 U/L (45-117); AST (GOT) 20 U/L (15-37); BICARBONATE 27.3 MEQ/L (21.0-32.0); BLOOD UREA NITROGEN 7 MG/DL (7-18); CALCIUM 8.5 MG/DL (8.5-10.1); CHLORIDE 91 MEQ/L (98-107); CREATININE 1.03 MG/DL (0.60-1.30); GLOMERULAR FILTRATION RATE 73 ML/MIN (>89); GLUCOSE,RANDOM 90 MG/DL (74-106); LIPASE 113 U/L (73-393); SODIUM (NA) 130 MEQ/L (136-145); TOTAL BILIRUBIN ADULT 0.7 MG/DL (0.2-1.0); TOTAL PROTEIN 7.3 GM/DL (6.4-8.2); TROPONIN I LESS THAN 0.02 NG/ML (0.02-0.05)
--- NOTE | 2017-06-11 20:13 | RADRPT ---
EXAM DATE/TIME: 06/11/2017 19:50 [facility] COMPARISON: CHEST SINGLE AP, May 21, 2017, 17:20. INDICATIONS : Cough and vomiting. MEDICAL HISTORY : Cardiovascular disease. Hypertension. SURGICAL HISTORY : Cholecystectomy. ulcer. ENCOUNTER: Initial ACUITY: 1 day PAIN SCORE: 0/10 LOCATION: Bilateral chest FINDINGS: A single view of the chest demonstrates the lungs to be symmetrically aerated without evidence of mas s, infiltrate or effusion. The cardiomediastinal contours are unremarkable. Osseous structures are intact. CONCLUSION: No acute disease. Víctor Mclean Jr., MD on June 11, 2017 at 20:10 Board Certified Radiologist. This report was verified electronically.
[2017-06-11] MEDS ORDERED: PANTOPRAZOLE SODIUM 40 MG VIAL IV PUSH ONE (20:15)
[2017-06-11] MEDS ORDERED: KLORCONEF PO (20:29)
[2017-06-11] MEDS ORDERED: POTASSIUM CHLORIDE 25 MEQ EFFERVESCENT TAB PO ONE (20:45)
--- NOTE | 2017-06-12 16:15 | EKG ---
Date Performed: 06/11/2017 Time Performed: 19:28:19 PTAGE: 62 years EKG: Sinus rhythm WITH OCCASIONAL SUPRAVENTRICULAR PREMATURE COMPLEXES POSSIBLE LEFT ATRIAL ENLARGEMENT MARKED LEFT AX IS DEVIATION PATTERN CONSISTENT WITH PULMONARY DISEASE NONSPECIFIC ST & T-WAVE ABNORMALITY Since prev ious tracing, no significant change noted ABNORMAL ECG PREVIOUS TRACING : 05/21/2017 20.35.07 DOCTOR: Aracelis Friedman Interpretating Date/Time 06/12/2017 16:14:08
== END 2017-06-12 03:27 | disposition home or self-care (01) ==
LOC: NEPC 18:44
DX: K22.2 Esophageal obstruction (principal); E87.6 Hypokalemia; I10 Essential (primary) hypertension; R94.31 Abnormal electrocardiogram [ECG] [EKG]; K21.9 Gastro-esophageal reflux disease without esophagitis; E78.00 Pure hypercholesterolemia, unspecified; Z86.73 Personal history of transient ischemic attack (TIA), and cerebral infarction without residual deficits
CPT/HCPCS: 71045; 80053; 82550; 83690; 84484; 85025; 93005; 96361; 96374; 99284; C9113; J7040

== ENCOUNTER 2017-07-03 17:08 | Inpatient (IN) | payer MEDICAID ==
[~2017-07-03] VITALS: Ht 165.1 cm; Wt 129.7 kg
[~2017-07-03 17:08] MED LIST changes: +KLORCONEF PO
[2017-07-03 17:21] VITALS: BP 127/67; PULSE 91; RESP 16; TEMP 98.4; O2SAT 100
[2017-07-03] MEDS ORDERED: SODIUM CHLOR 0.9% 1000 ML INJ 1,000 ML IV SCH (17:35)
[2017-07-03] MEDS ORDERED: SODIUM CHLORIDE 0.9% FLUSH 10 ML FLUSH IV FLUSH PRN ×2 (17:45→20:15)
--- NOTE | 2017-07-03 17:53 | PD ---
HPI Chief Complaint: Altered Mental Status Time Seen by Provider: 17:34 Travel History International Travel<30 days: No Contact w/Intl Traveler<30days: No Traveled to known affect area: No History of Present Illness HPI The patient is a 62-year-old male who presents to the emergency department via EMS for altered mental status and weakness. The patient apparently lives alone at home, has mobility via electric wheelchair. However, according to EMS, the patient has not been able to get out of bed and mobilize over the last week. The neighbors came over because the patient was on the floor and were unable to get the patient up and off for the floor. EMS does note that the patient's window was open and that there were wasp nest within the household. They do state the house was unkempt. Upon arrival the patient is oriented to person and place, but not month, year, president of [facility]. He does complain of generalized malaise as well as abdominal pain. He denies any chest pain or shortness of breath. However, the patient is a somewhat poor and limited historian. PFSH Past Medical History Arthritis: Yes (DEGENERATVE) Asthma: No Autoimmune Disease: No Anxiety: No Depression: No Heart Rhythm Problems: No Cancer: No Cardiac Catheterization: Yes (UNKNOWN) Cardiovascular Problems: Yes (HTN) High Cholesterol: Yes (HYPERLIPIDEMIA ) Chemotherapy: No Chest Pain: Yes Congestive Heart Failure: No COPD: No Cerebrovascular Accident: Yes Diabetes: No Diminished Hearing: No Endocrine: No Gastrointestinal Disorders: Yes GERD: Yes Genitourinary: No Headaches: Yes Hiatal Hernia: No Hypertension: Yes Immune Disorder: No Kidney Stones: No Musculoskeletal: Yes (LEG PAINS) Neurologic: Yes (CVA (BASAL GANGLIA INRARCT)) Psychiatric: No Reproductive: No Respiratory: Yes Migraines: Yes Myocardial Infarction: Yes Pneumonia: Yes Radiation Therapy: No Renal Failure: No Seizures: No Sickle Cell Disease: No Sleep Apnea: Yes Thyroid Disease: No Ulcer: Yes Past Surgical History Abdominal Surgery: Yes (GASTRIC ULCER SURGERY) AICD: No Arteriovenous Shunt: No Cardiac Surgery: No Cholecystectomy: Yes Coronary Artery Bypass Graft: No Ear Surgery: No Endocrine Surgery: No Eye Surgery: No Genitourinary Surgery: No Gynecologic Surgery: No Insulin Pump: No Joint Replacement: No Neurologic Surgery: Yes (BLOOD CLOT REMOVED FROM BRAIN-4MOS OLD) Oral Surgery: No Pacemaker: No Thoracic Surgery: No Other Surgery: Yes Social History Alcohol Use: Yes (on occasion) Tobacco Use: Yes (CIGARS 1ppd) Substance Use: No Allergies-Medications (Allergen,Severity, Reaction): Coded Allergies: *MDRO Multi-Drug Resistant Organism (Verified Adverse Reaction, Unknown, 05/21/17) ESBL E. coli (urine) - 06/11/2015 Reported Meds & Prescriptions Reported Meds & Active Scripts Active [place] (Hydrocodone-Acetaminophen) 5 Mg-325 Mg Tab 1 Tab PO Q6H PRN Reported Hydrochlorothiazide 50 Mg Tab 50 Mg PO DAILY Omeprazole 40 Mg Cap 40 Mg PO DAILY Lisinopril 5 Mg Tab 5 Mg PO DAILY Gabapentin 300 Mg Cap 300 Mg PO BID Tamsulosin (Tamsulosin HCl) 0.4 Mg Cap 0.4 Mg PO HS Clopidogrel (Clopidogrel Bisulfate) 75 Mg Tab 75 Mg PO DAILY Review of Systems ROS Limitations: Poor Historian Except as stated in HPI: all other systems reviewed are Neg General / Constitutional: No: Fever Cardiovascular: No: Chest Pain or Discomfort Respiratory: No: Shortness of Breath Gastrointestinal: Positive: Nausea, Abdominal Pain, No: Vomiting, Diarrhea, Hematochezia Genitourinary: No: Decreased Urinary Output Musculoskeletal: Positive: Weakness Neurologic: Positive: Weakness, Change in Mentation Physical Exam Narrative GENERAL: Awake, somewhat lethargic 62-year-old male who appears his stated age and is in no acute respiratory distress. SKIN: Focused skin assessment warm/dry. Skin graft scars noted on the patient' s right thigh. HEAD: Atraumatic. Normocephalic. EYES: Pupils equal and round. Pale conjunctiva. Pallor noted. ENT: No nasal bleeding or discharge. Dry mucous membranes. NECK: Trachea midline. No JVD. CARDIOVASCULAR: Regular rate and rhythm. No murmur appreciated. Heart rate in the 90s. RESPIRATORY: No accessory muscle use. Clear to auscultation. Breath sounds equal bilaterally. GASTROINTESTINAL: Abdomen soft, obese with a large pannus. Back: No CVA tenderness. MUSCULOSKELETAL: Old-appearing deformity with scar in the right lower extremity. Skin graft scars noted on the right thigh. NEUROLOGICAL: Awake, somewhat lethargic. Patient is oriented to person and place but not month, year, or label cutter. PSYCHIATRIC: Appears somewhat confused. Data Data Last Documented VS Vital Signs Date Time Temp Pulse Resp B/P (MAP) Pulse Ox O2 Delivery O2 Flow Rate FiO2 07/03/17 18:59 87 16 Room Air 07/03/17 18:59 97.5 134/97 (109) 100 Orders Orders Electrocardiogram (07/03/17 17:35) Ammonia (07/03/17 17:35) Complete Blood Count With Diff (07/03/17 17:35) Comprehensive Metabolic Panel (07/03/17 17:35) Creatine Kinase (Cpk) (07/03/17 17:35) Prothrombin Time / Inr (Pt) (07/03/17 17:35) Act Partial Throm Time (Ptt) (07/03/17 17:35) Troponin I (07/03/17 17:35) Thyroid Stimulating Hormone (07/03/17 17:35) Urinalysis - C+S If Indicated (07/03/17 17:35) Lactic Acid Sepsis Protocol (07/03/17 17:35) Blood Culture (07/03/17 17:35) Chest, Single Ap (07/03/17 17:35) Ct Brain W/O Iv Contrast(Rout) (07/03/17 17:35) Blood Glucose (07/03/17 17:35) Ecg Monitoring (07/03/17 17:35) Iv Access Insert/Monitor (07/03/17 17:35) Oximetry (07/03/17 17:35) Sodium Chloride 0.9% Flush (Ns Flush) (07/03/17 17:45) Sodium Chlor 0.9% 1000 Ml Inj (Ns 1000 M (07/03/17 17:35) Drug Screen, Random Urine (07/03/17 17:35) Alcohol (Ethanol) (07/03/17 17:35) Ct Abd/Pel W/O Iv Contrast (07/03/17 ) Urine Culture (07/03/17 17:10) Ceftriaxone Inj (Rocephin Inj) (07/03/17 19:00) Sodium Chlor 0.9% 1000 Ml Inj (Ns 1000 M (07/03/17 19:00) Sodium Chlor 0.9% 1000 Ml Inj (Ns 1000 M (07/03/17 19:00) Admit Order (Ed Use Only) (07/03/17 19:03) Labs Laboratory Tests Test 07/03/17 17:10 07/03/17 17:45 Urine Color YELLOW Urine Turbidity HAZY Urine pH 5.0 Urine Specific [place] 1.013 Urine Protein TRACE mg/dL Urine Glucose (UA) NEG mg/dL Urine Ketones NEG mg/dL Urine Occult Blood TRACE Urine Nitrite NEG Urine Bilirubin NEG Urine Urobilinogen LESS THAN 2.0 MG/DL Urine Leukocyte Esterase LARGE Urine RBC 2 /hpf Urine WBC 77 /hpf Urine WBC Clumps FEW Urine Squamous Epithelial Cells <1 /hpf Urine Bacteria MANY /hpf Urine Hyaline Casts 4 /lpf Urine White Blood Cell Casts 1 /lpf Urine Yeast (Budding) FEW Microscopic Urinalysis Comment CATH-CULTURE IND Urine Opiates Screen NEG Urine Barbiturates Screen NEG Urine Amphetamines Screen NEG Urine Benzodiazepines Screen NEG Urine Cocaine Screen NEG Urine Cannabinoids Screen NEG White Blood Count 10.8 TH/MM3 Red Blood Count 4.12 MIL/MM3 Hemoglobin 11.3 GM/DL Hematocrit 33.2 % Mean Corpuscular Volume 80.6 FL Mean Corpuscular Hemoglobin 27.3 PG Mean Corpuscular Hemoglobin Concent 33.9 % Red Cell Distribution Width 16.9 % Platelet Count 275 TH/MM3 Mean Platelet Volume 7.1 FL Neutrophils (%) (Auto) 74.8 % Lymphocytes (%) (Auto) 18.3 % Monocytes (%) (Auto) 6.4 % Eosinophils (%) (Auto) 0.0 % Basophils (%) (Auto) 0.5 % Neutrophils # (Auto) 8.1 TH/MM3 Lymphocytes # (Auto) 2.0 TH/MM3 Monocytes # (Auto) 0.7 TH/MM3 Eosinophils # (Auto) 0.0 TH/MM3 Basophils # (Auto) 0.1 TH/MM3 CBC Comment DIFF FINAL Differential Comment Prothrombin Time 12.5 SEC Prothromb Time International Ratio 1.2 RATIO Activated Partial Thromboplast Time 25.9 SEC Blood Urea Nitrogen 49 MG/DL Creatinine 2.22 MG/DL Random Glucose 133 MG/DL Total Protein 6.8 GM/DL Albumin 2.6 GM/DL Calcium Level 8.7 MG/DL Alkaline Phosphatase 151 U/L Aspartate Amino Transf (AST/SGOT) 15 U/L Alanine Aminotransferase (ALT/SGPT) 18 U/L Total Bilirubin 0.8 MG/DL Sodium Level 142 MEQ/L Potassium Level 3.3 MEQ/L Chloride Level 107 MEQ/L Carbon Dioxide Level 19.9 MEQ/L Anion Gap 15 MEQ/L Estimat Glomerular Filtration Rate 30 ML/MIN Lactic Acid Level 4.4 mmol/L Ammonia 25 MCMOL/L Total Creatine Kinase 32 U/L Troponin I 0.11 NG/ML Thyroid Stimulating Hormone 3rd Gen 1.120 uIU/ML Ethyl Alcohol Level LESS THAN 3 MG/DL MDM Medical Decision Making Medical Screen Exam Complete: Yes Emergency Medical Condition: Yes Medical Record Reviewed: Yes Interpretation(s) EKG reveals sinus rhythm with a rate 81. Nonspecific ST-T wave changes. Last Impressions Head CT 07/03/171734 Signed Impressions: Service Date/Time: Monday, July 03, 2017 18:01 - CONCLUSION: 1. Stable examination compared to the examination from 2016. 2. Diffuse bilateral cortical atrophy which is stable. 3. No new or acute pathology. Abdon Tracy MD Chest X-Ray 07/03/171734 Signed Impressions: Service Date/Time: Monday, July 03, 2017 17:47 - CONCLUSION: No acute disease. No significant change has occurred. Abdon Tracy MD Abdomen/Pelvis CT 07/03/17 0000 Signed Impressions: Service Date/Time: Monday, July 03, 2017 18:05 - CONCLUSION: 1. Unremarkable and stable CT scan of the abdomen and pelvis compared to the prior study. No new or significant changes. Abdon Tracy MD Laboratory Tests Test 07/03/17 17:10 07/03/17 17:45 Urine Color YELLOW Urine Turbidity HAZY Urine pH 5.0 Urine Specific [place] 1.013 Urine Protein TRACE mg/dL Urine Glucose (UA) NEG mg/dL Urine Ketones NEG mg/dL Urine Occult Blood TRACE Urine Nitrite NEG Urine Bilirubin NEG Urine Urobilinogen LESS THAN 2.0 MG/DL Urine Leukocyte Esterase LARGE Urine RBC 2 /hpf Urine WBC 77 /hpf Urine WBC Clumps FEW Urine Squamous Epithelial Cells <1 /hpf Urine Bacteria MANY /hpf Urine Hyaline Casts 4 /lpf Urine White Blood Cell Casts 1 /lpf Urine Yeast (Budding) FEW Microscopic Urinalysis Comment CATH-CULTURE IND Urine Opiates Screen NEG Urine Barbiturates Screen NEG Urine Amphetamines Screen NEG Urine Benzodiazepines Screen NEG Urine Cocaine Screen NEG Urine Cannabinoids Screen NEG White Blood Count 10.8 TH/MM3 Red Blood Count 4.12 MIL/MM3 Hemoglobin 11.3 GM/DL Hematocrit 33.2 % Mean Corpuscular Volume 80.6 FL Mean Corpuscular Hemoglobin 27.3 PG Mean Corpuscular Hemoglobin Concent 33.9 % Red Cell Distribution Width 16.9 % Platelet Count 275 TH/MM3 Mean Platelet Volume 7.1 FL Neutrophils (%) (Auto) 74.8 % Lymphocytes (%) (Auto) 18.3 % Monocytes (%) (Auto) 6.4 % Eosinophils (%) (Auto) 0.0 % Basophils (%) (Auto) 0.5 % Neutrophils # (Auto) 8.1 TH/MM3 Lymphocytes # (Auto) 2.0 TH/MM3 Monocytes # (Auto) 0.7 TH/MM3 Eosinophils # (Auto) 0.0 TH/MM3 Basophils # (Auto) 0.1 TH/MM3 CBC Comment DIFF FINAL Differential Comment Prothrombin Time 12.5 SEC Prothromb Time International Ratio 1.2 RATIO Activated Partial Thromboplast Time 25.9 SEC Blood Urea Nitrogen 49 MG/DL Creatinine 2.22 MG/DL Random Glucose 133 MG/DL Total Protein 6.8 GM/DL Albumin 2.6 GM/DL Calcium Level 8.7 MG/DL Alkaline Phosphatase 151 U/L Aspartate Amino Transf (AST/SGOT) 15 U/L Alanine Aminotransferase (ALT/SGPT) 18 U/L Total Bilirubin 0.8 MG/DL Sodium Level 142 MEQ/L Potassium Level 3.3 MEQ/L Chloride Level 107 MEQ/L Carbon Dioxide Level 19.9 MEQ/L Anion Gap 15 MEQ/L Estimat Glomerular Filtration Rate 30 ML/MIN Lactic Acid Level 4.4 mmol/L Ammonia 25 MCMOL/L Total Creatine Kinase 32 U/L Troponin I 0.11 NG/ML Thyroid Stimulating Hormone 3rd Gen 1.120 uIU/ML Ethyl Alcohol Level LESS THAN 3 MG/DL Differential Diagnosis Differential diagnosis includes sepsis, UTI, pneumonia, symptomatic anemia, elevated ammonia level, inability to care for self, hypothyroidism, subdural hemorrhage, hyponatremia. Narrative Course IV was established, labs are drawn and sent, and the patient was placed on cardiac telemetry monitoring and continuous pulse ox imaging monitoring. EKG was ordered and interpreted. CT of the brain and abdomen/pelvis was obtained. Patient was administered IV fluids. Chest x-ray was obtained. Chest x-rays unremarkable. CT of the abdomen and pelvis is negative. CT of the brain is negative. The patient's UA is positive, therefore, the patient received Rocephin 1 g intravenously. Sepsis Criteria SIRS Criteria (2 or more): Heart rate over 90 Severe Sepsis (+one): Lactate >2 Septic Shock Criteria: Lactic acid >=4 Physician Communication Physician Communication I discussed the patient with Dr. Green who agrees with admission. Diagnosis Primary Impression: UTI (urinary tract infection) Qualified Codes: N39.0 - Urinary tract infection, site not specified Additional Impressions: Sepsis Qualified Codes: A41.9 - Sepsis, unspecified organism Lactic acidosis Admitting Information Admitting Physician Requests: Admit Condition: Stable Michael Melendrez MD Jul 03, 2017 17:53
--- NOTE | 2017-07-03 18:02 | RADRPT ---
EXAM DATE/TIME: 07/03/2017 17:47 [facility] COMPARISON: CHEST SINGLE AP, June 11, 2017, 19:50. INDICATIONS : Fever. MEDICAL HISTORY : Cardiovascular disease. Hypertension SURGICAL HISTORY : Cholecystectomy. ENCOUNTER: Initial ACUITY: 1 day PAIN SCORE: 0/10 LOCATION: Bilateral chest FINDINGS: A single view of the chest demonstrates the lungs to be symmetrically aerated without evidence of mas s, infiltrate or effusion. The cardiomediastinal contours are unremarkable. Osseous structures are intact. Old healed fracture of the right clavicle. No significant changes compared to the prior study . CONCLUSION: No acute disease. No significant change has occurred. Abdon Tracy MD on July 03, 2017 at 18:00 Board Certified Radiologist. This report was verified electronically.
[2017-07-03 18:09] LABS: AUTOMATED NEUTROPHIL # 8.1 TH/MM3 (1.8-7.7); BASOPHIL # 0.1 TH/MM3 (0-0.2); BASOPHIL % 0.5 % (0.0-2.0); HEMATOCRIT 33.2 % (39.0-51.0); HEMOGLOBIN 11.3 GM/DL (13.0-17.0); LYMPH % 18.3 % (9.0-44.0); MEAN CELL VOLUME 80.6 FL (80.0-100.0); MEAN CORPUSCULAR HEMOGLOBIN 27.3 PG (27.0-34.0); MEAN CORPUSCULAR HGB CONC 33.9 % (32.0-36.0); MEAN PLATELET VOLUME 7.1 FL (7.0-11.0); MONO % 6.4 % (0.0-8.0); MONOCYTE # 0.7 TH/MM3 (0-0.9); NEUT % 74.8 % (16.0-70.0); PLATELET COUNT 275 TH/MM3 (150-450); RED BLOOD COUNT 4.12 MIL/MM3 (4.50-5.90); RED CELL DISTRIBUTION WIDTH 16.9 % (11.6-17.2); WHITE BLOOD COUNT 10.8 TH/MM3 (4.0-11.0)
[2017-07-03 18:24] LABS: LACTIC ACID SEPSIS PROTOCOL 4.4 mmol/L (0.4-2.0)
[2017-07-03 18:27] LABS: INTERNATIONAL NORMALIZED RATIO 1.2 RATIO; PROTHROMBIN TIME - PATIENT 12.5 SEC (9.8-11.6)
--- NOTE | 2017-07-03 18:29 | RADRPT ---
EXAM DATE/TIME: 07/03/2017 18:05 [facility] COMPARISON: CT ABDOMEN & PELVIS W/O CONTRAST, May 24, 2017, 20:05. INDICATIONS : Nausea,vomiting,diarrhea ORAL CONTRAST: No oral contrast ingested. RADIATION DOSE: 15.81 CTDIvol (mGy) MEDICAL HISTORY : Cardiovascular disease. Cerebrovascular disease. Hypertension.Ulcer SURGICAL HISTORY : Cholecystectomy. ENCOUNTER: Initial ACUITY: 2 weeks PAIN SCALE: 2/10 LOCATION: Abdomen TECHNIQUE: Volumetric scanning of the abdomen and pelvis was performed. Using automated exposure control and ad justment of the mA and/or kV according to patient size, radiation dose was kept as low as reasonably achievable to obtain optimal diagnostic quality images. DICOM format image data is available electro nically for review and comparison. The lack of IV contrast limits the diagnosis for certain organ pa thology. FINDINGS: LOWER LUNGS: The visualized lower lungs are clear. Small to moderate hiatal hernia the GE junction. No significant change. LIVER: Homogeneous density without lesion. There is no dilation of the biliary tree. No gallbladder, surgi capo removed. SPLEEN: Normal size without lesion. PANCREAS: Within normal limits. KIDNEYS: Normal in size and shape. There is no mass, stone, or hydronephrosis. ADRENAL GLANDS: Within normal limits. VASCULAR: There is no aortic aneurysm. BOWEL/MESENTERY: The stomach, small bowel, and colon demonstrate no acute abnormality. There is no free intraperitone al air or fluid. The appendix is unremarkable. No inflammatory changes are seen. ABDOMINAL WALL: Within normal limits. RETROPERITONEUM: There is no lymphadenopathy. BLADDER: No wall thickening or mass. REPRODUCTIVE: Within normal limits. INGUINAL: There is no lymphadenopathy or hernia. MUSCULOSKELETAL: Within normal limits for patient age. Primary bony degenerative changes graft the lumbar spine and pe lvis. CONCLUSION: 1. Unremarkable and stable CT scan of the abdomen and pelvis compared to the prior study. No new or s ignificant changes. Abdon Tracy MD on July 03, 2017 at 18:24 Board Certified Radiologist. This report was verified electronically.
[2017-07-03 18:35] LABS: BACTERIA, URINE MANY /hpf; BILIRUBIN, URINE NEG (NEG); BLOOD, URINE TRACE (NEG); GLUCOSE,URINE NEG (NEG); HYALINE CAST, URINE 4 /lpf (RARE); KETONE, URINE NEG (NEG); NITRITE,URINE NEG (NEG); SQUAMOUS EPITHELIAL CELL URINE <1 /hpf (0-5); URINE COLOR YELLOW (YELLW/STRAW); URINE LEUKOCYTE ESTERASE LARGE (NEG); WHITE BLOOD CELL CAST, URINE 1 /lpf; WHITE BLOOD CELL CLUMPS FEW
--- NOTE | 2017-07-03 18:55 | RADRPT ---
EXAM DATE/TIME: 07/03/2017 18:01 [facility] COMPARISON: CT BRAIN W/O CONTRAST, June 06, 2015, 7:15. INDICATIONS : Confusion RADIATION DOSE: 45.41 CTDIvol (mGy) MEDICAL HISTORY : Cerebrovascular disease. Hypertension. Cardiovascular diseaseUlcer SURGICAL HISTORY : Cholecystectomy. ENCOUNTER: Initial ACUITY: 1 day PAIN SCALE: 0/10 LOCATION: cranial TECHNIQUE: Multiple contiguous axial images were obtained of the head. Using automated exposure control and adj ustment of the mA and/or kV according to patient size, radiation dose was kept as low as reasonably a chievable to obtain optimal diagnostic quality images. DICOM format image data is available electro nically for review and comparison. FINDINGS: CEREBRUM: The ventricles are normal for age. Stable bilateral cortical atrophy. No evidence of midline shift, mass lesion, hemorrhage or acute infarction. No extra-axial fluid collections are seen. POSTERIOR FOSSA: The cerebellum and brainstem are intact. The 4th ventricle is midline. The cerebellopontine angle i s unremarkable. EXTRACRANIAL: The visualized portion of the orbits is intact. SKULL: The calvaria is intact. No evidence of skull fracture. CONCLUSION: 1. Stable examination compared to the examination from 2015. 2. Diffuse bilateral cortical atrophy which is stable. 3. No new or acute pathology. Abdon Tracy MD on July 03, 2017 at 18:51 Board Certified Radiologist. This report was verified electronically.
[2017-07-03 18:59] VITALS: BP 134/97; PULSE 82; RESP 16; TEMP 97.5; O2SAT 100
[2017-07-03] MEDS ORDERED: cefTRIAXone INJ 1,000 MG in SODIUM CHLORIDE 0.9% INJ 100 ML IV ONE (19:00)
[2017-07-03] MEDS ORDERED: SODIUM CHLOR 0.9% 1000 ML INJ 1,000 ML IV ONE ×2 (19:00)
[2017-07-03 19:28] LABS: ALBUMIN 2.6 GM/DL (3.4-5.0); ALT (GPT) 18 U/L (12-78); AST (GOT) 15 U/L (15-37); BICARBONATE 19.9 MEQ/L (21.0-32.0); BLOOD UREA NITROGEN 49 MG/DL (7-18); CALCIUM 8.7 MG/DL (8.5-10.1); CHLORIDE 107 MEQ/L (98-107); CREATININE 2.22 MG/DL (0.60-1.30); GLOMERULAR FILTRATION RATE 30 ML/MIN (>89); GLUCOSE,RANDOM 133 MG/DL (74-106); SODIUM (NA) 142 MEQ/L (136-145)
[2017-07-03 19:39] LABS: ALKALINE PHOSPHATASE 151 U/L (45-117); TOTAL BILIRUBIN ADULT 0.8 MG/DL (0.2-1.0); TOTAL PROTEIN 6.8 GM/DL (6.4-8.2); TROPONIN I 0.11 NG/ML (0.02-0.05)
[2017-07-03] MEDS ORDERED: ONDANSETRON HCL 4 MG/2 ML VIAL IVP PRN (20:15)
[2017-07-03] MEDS ORDERED: ACETAMINOPHEN 325 MG TAB PO PRN (20:15)
[2017-07-03] MEDS ORDERED: POTASSIUM CHLORIDE 20 MEQ CONTROLLED RELEASE TAB PO ONE (20:30)
[2017-07-03] MEDS: SODIUM CHLORIDE 0.9% FLUSH 10 ML FLUSH IV FLUSH SCH (21:09)
[2017-07-03] MEDS: SODIUM CHLOR 0.9% 1000 ML INJ 1,000 ML IV SCH (21:10)
--- NOTE | 2017-07-03 23:31 | HHI.HP ---
HPI Service [facility] Primary Care Physician Unknown Admission Diagnosis UTI, pneumonia, lactic acidosis Diagnoses: Travel History International Travel<30 Days: No Contact w/Intl Traveler <30 Da: No Traveled to Known Affected Are: No History of Present Illness 62-year-old male with a past medical history of a CVA 3 years ago, hypertension , hyperlipidemia, GERD and peptic ulcer disease presents to the emergency department via EMS for altered mental status and weakness. The patient is unable to provide a history. Per ER documentation the patient has been unable to mobilize over the last week. Apparently, his neighbors came over as patient was on the floor and unable to get up. EMS reports that the patient's house was in disarray and he was unkempt. The patient denies any fevers/chills. Endorses shortness of breath. Continues to repeat that he "feels like shit" over and over however does not provide any additional details. Review of Systems Except as stated in HPI: all other systems reviewed are Neg Past Family Social History Past Medical History (Obtained from medical records) Hypertension CVA 3 years ago Hyperlipidemia GERD Peptic ulcer disease Past Surgical History Skin graft Cholecystectomy Reported Medications Reported Meds & Active Scripts Active [place] (Hydrocodone-Acetaminophen) 5 Mg-325 Mg Tab 1 Tab PO Q6H PRN Reported Hydrochlorothiazide 50 Mg Tab 50 Mg PO DAILY Omeprazole 40 Mg Cap 40 Mg PO DAILY Lisinopril 5 Mg Tab 5 Mg PO DAILY Gabapentin 300 Mg Cap 300 Mg PO BID Tamsulosin (Tamsulosin HCl) 0.4 Mg Cap 0.4 Mg PO HS Clopidogrel (Clopidogrel Bisulfate) 75 Mg Tab 75 Mg PO DAILY Allergies: Coded Allergies: *MDRO Multi-Drug Resistant Organism (Verified Adverse Reaction, Unknown, 05/21/17) ESBL E. coli (urine) - 06/11/2015 Family History Mom with diabetes mellitus Social History Smokes one pack per day 45 years. Reports that he quit drinking one month ago. Denies marijuana, illicit drugs. Physical Exam Vital Signs Vital Signs Date Time Temp Pulse Resp B/P (MAP) Pulse Ox O2 Delivery O2 Flow Rate FiO2 07/03/17 22:12 2/6/18 18:59 87 16 Room Air 07/03/17 18:59 97.5 82 16 134/97 (109) 100 Room Air 07/03/17 17:21 98.4 91 16 127/67 (87) 100 Room Air Physical Exam GENERAL: Unkempt, male lying in bed SKIN: No rashes, ecchymoses or lesions. Cool and dry. HEAD: Atraumatic. Normocephalic. No temporal or scalp tenderness. EYES: Pupils equal round and reactive. Extraocular motions intact. No scleral icterus. No injection or drainage. ENT: Nose without bleeding, purulent drainage or septal hematoma. Throat without erythema, tonsillar hypertrophy or exudate. Uvula midline. Airway patent. NECK: Trachea midline. No JVD or lymphadenopathy. Supple, nontender, no meningeal signs. CARDIOVASCULAR: Regular rate and rhythm without murmurs, gallops, or rubs. RESPIRATORY: Clear to auscultation. Breath sounds equal bilaterally. No wheezes , rales, or rhonchi. GASTROINTESTINAL: Abdomen soft, non-tender, nondistended. No hepato-splenomegaly , or palpable masses. No guarding. MUSCULOSKELETAL: Extremities without clubbing, cyanosis, or edema. No joint tenderness, effusion, or edema noted. No calf tenderness. NEUROLOGICAL: Awake and alert. Cranial nerves II through XII intact. Motor and sensory grossly within normal limits. Five out of 5 muscle strength in all muscle groups. Normal speech. Laboratory Laboratory Tests Test 07/03/17 17:10 07/03/17 17:45 07/03/17 20:07 Urine Color YELLOW Urine Turbidity HAZY Urine pH 5.0 Urine Specific [place] 1.013 Urine Protein TRACE Urine Glucose (UA) NEG Urine Ketones NEG Urine Occult Blood TRACE Urine Nitrite NEG Urine Bilirubin NEG Urine Urobilinogen LESS THAN 2.0 Urine Leukocyte Esterase LARGE Urine RBC 2 Urine WBC 77 Urine WBC Clumps FEW Urine Squamous Epithelial Cells <1 Urine Bacteria MANY Urine Hyaline Casts 4 Urine White Blood Cell Casts 1 Urine Yeast (Budding) FEW Microscopic Urinalysis Comment CATH-CULTURE IND Urine Opiates Screen NEG Urine Barbiturates Screen NEG Urine Amphetamines Screen NEG Urine Benzodiazepines Screen NEG Urine Cocaine Screen NEG Urine Cannabinoids Screen NEG White Blood Count 10.8 Red Blood Count 4.12 Hemoglobin 11.3 Hematocrit 33.2 Mean Corpuscular Volume 80.6 Mean Corpuscular Hemoglobin 27.3 Mean Corpuscular Hemoglobin Concent 33.9 Red Cell Distribution Width 16.9 Platelet Count 275 Mean Platelet Volume 7.1 Neutrophils (%) (Auto) 74.8 Lymphocytes (%) (Auto) 18.3 Monocytes (%) (Auto) 6.4 Eosinophils (%) (Auto) 0.0 Basophils (%) (Auto) 0.5 Neutrophils # (Auto) 8.1 Lymphocytes # (Auto) 2.0 Monocytes # (Auto) 0.7 Eosinophils # (Auto) 0.0 Basophils # (Auto) 0.1 CBC Comment DIFF FINAL Differential Comment Prothrombin Time 12.5 Prothromb Time International Ratio 1.2 Activated Partial Thromboplast Time 25.9 Blood Urea Nitrogen 49 Creatinine 2.22 Random Glucose 133 Total Protein 6.8 Albumin 2.6 Calcium Level 8.7 Alkaline Phosphatase 151 Aspartate Amino Transf (AST/SGOT) 15 Alanine Aminotransferase (ALT/SGPT) 18 Total Bilirubin 0.8 Sodium Level 142 Potassium Level 3.3 Chloride Level 107 Carbon Dioxide Level 19.9 Anion Gap 15 Estimat Glomerular Filtration Rate 30 Lactic Acid Level 4.4 3.4 Ammonia 25 Total Creatine Kinase 32 Troponin I 0.11 Thyroid Stimulating Hormone 3rd Gen 1.120 Ethyl Alcohol Level LESS THAN 3 Date/Time Source Procedure Growth Status 07/03/17 17:45 Blood Peripheral Aerobic Blood Culture Pending Received 07/03/17 17:45 Blood Peripheral Anaerobic Blood Culture Pending Received 07/03/17 17:10 Urine Catheterized Urine Urine Culture Pending Received Result Diagram: 07/03/17 1745 07/03/17 174 Caprini VTE Risk Assessment Caprini VTE Risk Assessment: Mod/High Risk (score >= 2) Caprini Risk Assessment Model Point Value = 1 Point Value = 2 Point Value = 3 Point Value = 5 Age 41-60 Minor surgery BMI > 25 kg/m2 Swollen legs Varicose veins or History of unexplained or recurrent spontaneous Oral contraceptives or hormone replacement Sepsis (< 1 month) Serious lung disease, including pneumonia (< 1 month) Abnormal pulmonary function Acute myocardial infarction Congestive heart failure (< 1 month) History of inflammatory bowel disease Medical patient at bed rest Age 61-74 Arthroscopic surgery Major open surgery (> 45 min) Laparoscopic surgery (> 45 min) Malignancy Confined to bed (> 72 hours) Immobilizing plaster cast Central venous access Age >= 75 History of VTE Family history of VTE Factor V Leiden Prothrombin [id number] Lupus anticoagulant Anticardiolipin antibodies Elevated serum homocysteine Heparin-induced thrombocytopenia Other congenital or acquired thrombophilia Stroke (< 1 month) Elective arthroplasty Hip, pelvis, or leg fracture Acute spinal cord injury (< 1 month) Prophylaxis Regimen Total Risk Factor Score Risk Level Prophylaxis Regimen 0-1 Low Early ambulation 2 Moderate Order ONE of the following: *Sequential Compression Device (SCD) *Heparin 5000 units SQ BID 3-4 Higher Order ONE of the following medications: *Heparin 5000 units SQ TID *Enoxaparin/Lovenox 40 mg SQ daily (WT < 150 kg, CrCl > 30 mL/min) *Enoxaparin/Lovenox 30 mg SQ daily (WT < 150 kg, CrCl > 10-29 mL/min) *Enoxaparin/Lovenox 30 mg SQ BID (WT < 150 kg, CrCl > 30 mL/min) AND/OR *Sequential Compression Device (SCD) 5 or more Highest Order ONE of the following medications: *Heparin 5000 units SQ TID (Preferred with Epidurals) *Enoxaparin/Lovenox 40 mg SQ daily (WT < 150 kg, CrCl > 30 mL/min) *Enoxaparin/Lovenox 30 mg SQ daily (WT < 150 kg, CrCl > 10-29 mL/min) *Enoxaparin/Lovenox 30 mg SQ BID (WT < 150 kg, CrCl > 30 mL/min) AND *Sequential Compression Device (SCD) Assessment and Plan Assessment and Plan Assessment/plan: 1. UTI/sepsis UA significant for many bacteria, 77 WBCs, large leukocyte esterase Urine culture pending Lactic acid 4.4, elevated creatinine and troponin Rocephin Blood cultures pending Monitor for signs of shock IV fluid hydration 2. CHANO BUN/creatinine 49/2.22 Baseline 1.0 on 06/11/17 Likely secondary to dehydration IV fluid hydration Monitor renal function If creatinine does not improve, consider nephrology consult 3. Elevated troponin Troponin 0.11 EKG significant for sinus rhythm without ST segment elevations or depressions, personally reviewed ACS rule out pending; serial troponins/EKGs Patient currently denies chest pain however endorses shortness of breath If troponin continues to elevate, will start heparin drip 4. Hypertension/hyperlipidemia/GERD Continue home medications FEN Heart healthy diet Electrolytes: Status post potassium repletion, monitor BMP NS at 100 cc/hour Heparin Physician Certification 2 Midnight Certification Type: Admission for Inpatient Services Order for Inpatient Services The services are ordered in accordance with Medicare regulations or non- Medicare payer requirements, as applicable. In the case of services not specified as inpatient-only, they are appropriately provided as inpatient services in accordance with the 2-midnight benchmark. Estimated LOS (days): 2 2 days is the estimated time the patient will need to remain in the hospital, assuming treatment plan goals are met and no additional complications. Post-Hospital Plan: Not yet determined Sheryl Green MD Jul 03, 2017 23:31
[2017-07-03] MEDS: TAMSULOSIN HCL 0.4 MG CAP PO SCH (23:42)
[2017-07-03] MEDS: GABAPENTIN 300 MG CAP PO SCH (23:43)
[2017-07-03] MEDS: HEPARIN SODIUM - SQ 10,000 UNITS/ML VIAL SQ SCH (23:43)
[2017-07-03] MEDS: ACETAMINOPHEN/HYDROcodone 325 MG/5 MG TAB PO PRN (23:44)
[2017-07-04] VITALS (11 sets, daily range): BP systolic 108–183; BP diastolic 58–94; PULSE 60–82; RESP 18–20; TEMP 95.8–98.8; O2SAT 99–100
[2017-07-04 03:42] LABS: AUTOMATED NEUTROPHIL # 8.8 TH/MM3 (1.8-7.7); BASOPHIL # 0.1 TH/MM3 (0-0.2); BASOPHIL % 0.5 % (0.0-2.0); EOSINOPHIL % 0.1 % (0.0-4.0); HEMATOCRIT 32.8 % (39.0-51.0); HEMOGLOBIN 10.9 GM/DL (13.0-17.0); LYMPH % 26.7 % (9.0-44.0); LYMPHOCYTE # 3.5 TH/MM3 (1.0-4.8); MEAN CELL VOLUME 80.8 FL (80.0-100.0); MEAN CORPUSCULAR HGB CONC 33.4 % (32.0-36.0); MEAN PLATELET VOLUME 7.1 FL (7.0-11.0); MONO % 4.9 % (0.0-8.0); MONOCYTE # 0.6 TH/MM3 (0-0.9); NEUT % 67.8 % (16.0-70.0); PLATELET COUNT 268 TH/MM3 (150-450); RED BLOOD COUNT 4.05 MIL/MM3 (4.50-5.90); RED CELL DISTRIBUTION WIDTH 17.4 % (11.6-17.2); WHITE BLOOD COUNT 12.9 TH/MM3 (4.0-11.0)
[2017-07-04 04:00] LABS: LACTIC ACID SEPSIS PROTOCOL 3.3 mmol/L (0.4-2.0)
[2017-07-04 04:07] LABS: ALBUMIN 2.6 GM/DL (3.4-5.0); ALT (GPT) 17 U/L (12-78); AST (GOT) 17 U/L (15-37); BICARBONATE 21.3 MEQ/L (21.0-32.0); BLOOD UREA NITROGEN 46 MG/DL (7-18); CALCIUM 8.2 MG/DL (8.5-10.1); CHLORIDE 111 MEQ/L (98-107); CREATININE 1.75 MG/DL (0.60-1.30); GLOMERULAR FILTRATION RATE 40 ML/MIN (>89); GLUCOSE,RANDOM 120 MG/DL (74-106); SODIUM (NA) 145 MEQ/L (136-145)
[2017-07-04 04:11] LABS: ALKALINE PHOSPHATASE 145 U/L (45-117); TOTAL BILIRUBIN ADULT 0.5 MG/DL (0.2-1.0); TOTAL PROTEIN 6.7 GM/DL (6.4-8.2); TROPONIN I 0.14 NG/ML (0.02-0.05)
[2017-07-04] MEDS: HEPARIN SODIUM - SQ 10,000 UNITS/ML VIAL SQ SCH ×3 (05:08→21:05)
[2017-07-04] MEDS: SODIUM CHLOR 0.9% 1000 ML INJ 1,000 ML IV SCH (05:08)
[2017-07-04] MEDS ORDERED: NON-FORMULARY DRUG (Omeprazole 40 MG) PO SCH (09:00)
[2017-07-04] MEDS: SODIUM CHLORIDE 0.9% FLUSH 10 ML FLUSH IV FLUSH SCH ×2 (09:00→21:00)
[2017-07-04] MEDS: GABAPENTIN 300 MG CAP PO SCH ×2 (09:17→21:05)
[2017-07-04] MEDS: PANTOPRAZOLE SOD 40 MG DELAYED RELEASE TAB PO SCH (09:18)
[2017-07-04] MEDS: CLOPIDOGREL 75 MG TAB PO SCH (09:18)
[2017-07-04 10:23] LABS: TROPONIN I 0.11 NG/ML (0.02-0.05)
--- NOTE | 2017-07-04 10:56 | EKG ---
Date Performed: 07/04/2017 Time Performed: 05:30:42 PTAGE: 62 years EKG: Sinus rhythm LEFT ANTERIOR FASCICULAR BLOCK ST DEVIATION AND MODERATE T-WAVE ABNORMALITY, CONSIDER ANTEROLATERAL ISCHEMIA ABNORMAL ECG PREVIOUS TRACING : 07/04/2017 00.28 DOCTOR: Joey iSngh Interpretating Date/Time 07/04/2017 10:53:49
--- NOTE | 2017-07-04 11:03 | EKG ---
Date Performed: 07/04/2017 Time Performed: 00:28:00 PTAGE: 62 years EKG: Sinus rhythm WITH OCCASIONAL SUPRAVENTRICULAR PREMATURE COMPLEXES MARKED LEFT AXIS DEVIATION ST DEVIATION AND MOD ERATE T-WAVE ABNORMALITY, CONSIDER ANTERIOR ISCHEMIA ABNORMAL ECG PREVIOUS TRACING : 07/03/2017 17.33 DOCTOR: Joey Singh Interpretating Date/Time 07/04/2017 10:58:34
--- NOTE | 2017-07-04 12:56 | EKG ---
Date Performed: 07/03/2017 Time Performed: 17:33:43 PTAGE: 62 years EKG: Sinus rhythm LEFT ANTERIOR FASCICULAR BLOCK NONSPECIFIC ST & T-WAVE ABNORMALITY ABNORMAL ECG INTERPRETATION BASED ON A DEFAULT AGE OF 40 YEARS NO PREVIOUS TRACING DOCTOR: Joey Singh Interpretating Date/Time 07/04/2017 12:49:39
[2017-07-04] MEDS ORDERED: POTASSIUM CHLORIDE 10 MEQ CONTROLLED RELEASE TAB PO ONE (13:15)
--- NOTE | 2017-07-04 13:42 | HHI.PR ---
Subjective Remarks Follow up pneumonia, UTI. Patient reports dyspnea. He reports pleuritic chest pain. Cough is productive of thick whitish phlegm. Objective Vitals Vital Signs Date Time Temp Pulse Resp B/P (MAP) Pulse Ox O2 Delivery O2 Flow Rate FiO2 07/04/17 12:24 98.6 76 20 183/86 (118) 100 07/04/17 11:19 98.8 62 20 133/77 (95) 100 07/04/17 08:10 65 07/04/17 07:08 98.0 68 18 143/94 (110) 100 07/04/17 04:13 75 07/04/17 03:45 97.9 82 18 138/84 (102) 100 07/04/17 00:43 63 07/04/17 00:19 97.8 64 18 168/79 (108) 100 07/03/17 22:12 07/03/17 18:59 87 16 Room Air 07/03/17 18:59 97.5 82 16 134/97 (109) 100 Room Air 07/03/17 17:21 98.4 91 16 127/67 (87) 100 Room Air I/O 07/03/17 07/03/17 07/03/17 07/04/17 07/04/17 07/04/17 07:00 15:00 23:00 07:00 15:00 23:00 Intake Total 2100 ml 2200 ml Balance 2100 ml 2200 ml Intake Oral 200 ml IV Total 2100 ml 2000 ml # Voids 3 # Bowel Movements 0 Result Diagram: 07/04/17 0326 07/04/17 0326 Imaging Last Impressions Head CT 07/03/[id number] Signed Impressions: Service Date/Time: Monday, July 03, 2017 18:01 - CONCLUSION: 1. Stable examination compared to the examination from 2016. 2. Diffuse bilateral cortical atrophy which is stable. 3. No new or acute pathology. Abdon Tracy MD Chest X-Ray [id number]/03/[id number] Signed Impressions: Service Date/Time: Monday, July 03, 2017 17:47 - CONCLUSION: No acute disease. No significant change has occurred. Abdon Tracy MD Abdomen/Pelvis CT 07/03/17 0000 Signed Impressions: Service Date/Time: Monday, July 03, 2017 18:05 - CONCLUSION: 1. Unremarkable and stable CT scan of the abdomen and pelvis compared to the prior study. No new or significant changes. Abdon Tracy MD Objective Remarks General: Disheveled male in no acute distress. Heart: Regular rate and rhythm. No murmur. Lungs: Clear to auscultation bilaterally. No wheezes, rales, or rhonchi. Breathing is nonlabored. Abdomen: Soft, nontender, nondistended. Extremities: No lower extremity edema. Psych: Alert and oriented. Procedures none Urinary Catheter: No Vascular Central Line Catheter: No A/P Assessment and Plan 1. Sepsis: Secondary to UTI. Continue antibiotics. Urine culture growing gram- negative rigoberto. Blood cultures are pending. Continue IV fluids. 2. Acute kidney injury: Likely secondary to dehydration. Continue IV fluids. Creatinine improving. 3. Elevated troponin: Appreciate cardiology recommendations. Discussed with Dr. Harrell. Patient does report chest pain, but describes pleuritic pain worse with coughing and deep breaths. 4. Hypertension: Lisinopril, HCTZ on hold secondary to acute kidney injury. 5. Hyperlipidemia: Not currently on statin. 6. GERD: Continue Protonix. 7. Hypokalemia: Supplement potassium. 8. DVT prophylaxis: Heparin. Melo Goncalves MD Jul 04, 2017 13:42
[2017-07-04] MEDS: NS + KCL 20 MEQ INJ 1,000 ML IV SCH (14:00)
[2017-07-04] MEDS ORDERED: cefTRIAXone INJ 1,000 MG in SODIUM CHLORIDE 0.9% INJ 100 ML IV SCH (19:00)
[2017-07-04] MEDS: TAMSULOSIN HCL 0.4 MG CAP PO SCH (21:05)
[2017-07-04] MEDS: ACETAMINOPHEN/HYDROcodone 325 MG/5 MG TAB PO PRN (23:12)
[2017-07-05] VITALS: BP 152/96; PULSE 68; RESP 20; TEMP 95.8; O2SAT 100
[2017-07-05] MEDS: NS + KCL 20 MEQ INJ 1,000 ML IV SCH ×2 (01:55→14:07)
[2017-07-05] MEDS ORDERED: LORazepam 2 MG/ML VIAL IV PUSH ONE (03:30)
[2017-07-05 04:00] VITALS: BP 135/86; PULSE 67; RESP 20; TEMP 97.3; O2SAT 98
[2017-07-05] MEDS: HEPARIN SODIUM - SQ 10,000 UNITS/ML VIAL SQ SCH ×3 (05:05→23:04)
[2017-07-05 08:00] VITALS: BP 146/94; PULSE 77; RESP 19; TEMP 98.4; O2SAT 100
--- NOTE | 2017-07-05 08:04 | MB ---
cc: ANAI SHAW DO DATE OF CONSULTATION 07/04/2017 REASON FOR CONSULTATION Elevated troponin HISTORY OF PRESENT ILLNESS Franck Valdes is a 62-year-old male who presented to [facility] emergency room on July 03, 2017 due to altered mental status and weakness. The patient is an extremely difficult historian and so much of the history is taken from the chart. Apparently the patient has been unable to mobilize himself for the last week. His neighbors came over and found on him on the floor and he was unable to get up. Per EMS, the patient's house was in a disarray and very unkempt. The patient states that he has had some fevers and chills. He has been short of breath and bringing up huge amounts of mucus. He has chest pain, but appears mostly with just coughing. PAST MEDICAL HISTORY 1. Hypertension 2. CVA 3 years ago 3. Hyperlipidemia 4. GERD 5. Peptic ulcer disease PAST SURGICAL HISTORY 1. Skin graft 2. Cholecystectomy ALLERGIES NO KNOWN DRUG ALLERGIES. MEDICATIONS 1. Plavix 75 mg daily 2. Flomax 0.4 mg every night 3. Lisinopril 5 mg daily 4. Odum 1 tablet every 6 hours as needed for pain 5. Gabapentin 300 mg b.i.d. 6. Hydrochlorothiazide 50 mg daily 7. Omeprazole 40 mg daily FAMILY HISTORY Mom had a history of diabetes mellitus. SOCIAL HISTORY The patient had smoked a pack a day for 45 years. He states that he quit drinking about a month ago. He denies illicit drug abuse. REVIEW OF SYSTEMS 14-systems were reviewed including osteopathic pertinent positives and negatives as above otherwise negative. PHYSICAL EXAMINATION VITAL SIGNS: Temperature 98.8, heart rate 62, blood pressure 133/77, respirations 20, pulse ox 100% on room air. In general, the patient is in no acute distress. Alert and awake. HEAD, EYES, EARS, NOSE, AND THROAT: Extraocular muscles intact. Mucous membranes moist. NECK: Supple. No JVD at 45 degrees. No carotid bruits heard bilaterally. Carotid upstroke is brisk in nature. HEART: Regular rate and rhythm. Positive first and second heart sounds with no murmurs, gallops or rubs. LUNGS: Decreased breath sounds bilaterally with rhonchi scattered throughout. ABDOMEN: Soft, nontender and nondistended. No organomegaly noted. EXTREMITIES: Show no clubbing, cyanosis or edema. Femoral and distal pulses intact bilaterally. NEUROLOGIC: No focal deficits. SKIN: Warm, dry and intact. OSTEOPATHIC: No kyphoscoliosis, lordosis or paraspinal tender points. LABORATORY FINDINGS Hemoglobin 10.9, hematocrit 32.8, platelets 268. Potassium 3.2, BUN 46, creatinine 1.75, troponin 0.14. Electrocardiogram (July 04, 2017 at 0530) sinus rhythm, left anterior fascicular block, possible ST-T wave changes anterolaterally. IMPRESSIONS 1. Sepsis 2. UTI 3. Possible pneumonia 4. Acute kidney ED injury 5. Elevated troponin 6. Lactic acidosis 7. History of hypertension 8. History of hyperlipidemia 9. Pleuritic type chest pain RECOMMENDATIONS 1. Mr. Valdes appears to have presented with a UTI and possible pneumonia. He will be treated as such per the primary team. 2. He does have significant lactic acidosis due to this as well as sepsis. 3. He does endorse chest pain, but this overall is pleuritic in nature. 4. He does have a minimally elevated troponin, but this is nonspecific with his acute kidney injury as well as lactic acidosis, possibly type 2 in nature. 5. He does have minimal EKG changes anterolaterally. Overall, he does not appear to have anginal type chest pain. 6. We will check a 2-D echo to look at his overall left ventricular function, cardiac structure and possible valvopathies. 7. We will consider the possibility of ischemic evaluation once through his acute illness, but overall I believe that elevation of troponins and chest pain are more likely due to his overall illness instead of true anginal symptoms. Thank you for allowing me to see Hank Valdes. If there are any questions, please do not hesitate to call. Anai Shaw DO VGP/DJL /10:37 PM /7:33 AM
[2017-07-05] MEDS: SODIUM CHLORIDE 0.9% FLUSH 10 ML FLUSH IV FLUSH SCH ×2 (08:45→19:54)
[2017-07-05] MEDS: PANTOPRAZOLE SOD 40 MG DELAYED RELEASE TAB PO SCH (08:46)
[2017-07-05] MEDS: GABAPENTIN 300 MG CAP PO SCH ×2 (08:46→19:54)
[2017-07-05] MEDS: CLOPIDOGREL 75 MG TAB PO SCH (08:47)
[2017-07-05 09:44] LABS: AUTOMATED NEUTROPHIL # 13.5 TH/MM3 (1.8-7.7); BASOPHIL # 0.1 TH/MM3 (0-0.2); BASOPHIL % 0.5 % (0.0-2.0); EOSINOPHIL % 0.3 % (0.0-4.0); HEMATOCRIT 33.9 % (39.0-51.0); LYMPH % 17.6 % (9.0-44.0); LYMPHOCYTE # 3.1 TH/MM3 (1.0-4.8); MEAN CELL VOLUME 82.9 FL (80.0-100.0); MEAN CORPUSCULAR HGB CONC 32.5 % (32.0-36.0); MONO % 3.7 % (0.0-8.0); MONOCYTE # 0.6 TH/MM3 (0-0.9); NEUT % 77.9 % (16.0-70.0); PLATELET COUNT 227 TH/MM3 (150-450); RED BLOOD COUNT 4.09 MIL/MM3 (4.50-5.90); WHITE BLOOD COUNT 17.4 TH/MM3 (4.0-11.0)
[2017-07-05 10:11] LABS: BICARBONATE 17.7 MEQ/L (21.0-32.0); CALCIUM 8.5 MG/DL (8.5-10.1); CREATININE 1.12 MG/DL (0.60-1.30); MAGNESIUM 2.4 MG/DL (1.5-2.5)
[2017-07-05 12:00] VITALS: BP 130/73; PULSE 70; RESP 18; TEMP 97.4; O2SAT 95
--- NOTE | 2017-07-05 12:29 | PD.CARD.PN ---
Subjective Subjective Remarks No events overnight Patient overall difficult, does not want to answer questions Chest pain with coughing, otherwise no chest pain Objective Medications Current Medications Medications (Trade) Dose Ordered Sig/Katina Route Start Time Stop Time Status Last Admin Ceftriaxone Sodium 1000 mg/ Sodium Chloride 100 ml @ 200 mls/hr Q24H IV 07/04/17 19:00 07/04/17 21:11 (NS Flush) 2 ml UNSCH PRN IV FLUSH 07/03/17 20:15 (NS Flush) 2 ml BID IV FLUSH 07/03/17 21:00 07/03/17 21:09 (Tylenol) 650 mg Q4H PRN PO 07/03/17 20:15 (Zofran Inj) 4 mg Q6H PRN IVP 07/03/17 20:15 (Heparin Inj) 5,000 units Q8HR SQ 07/03/17 22:00 07/05/17 05:05 (Plavix) 75 mg DAILY PO 07/04/17 09:00 07/05/17 08:47 (Neurontin) 300 mg BID PO 07/03/17 21:45 07/05/17 08:46 ([place] 5-325 Mg) 1 tab Q6H PRN PO 07/03/17 21:45 07/04/17 23:12 (Flomax) 0.4 mg HS PO 07/03/17 21:45 07/04/17 21:05 (Protonix) 40 mg DAILY PO 07/04/17 09:00 07/05/17 08:46 Potassium Chloride/Sodium Chloride 1,000 ml @ 84 mls/hr [id number] IV 07/04/17 14:00 07/05/17 01:55 Vital Signs / I&O Vital Signs Date Time Temp Pulse Resp B/P (MAP) Pulse Ox O2 Delivery O2 Flow Rate FiO2 07/05/17 08:00 98.4 77 19 146/94 (111) 100 07/05/17 04:00 97.3 67 20 135/86 (102) 98 07/05/17 00:32 18 07/05/17 00:00 95.8 68 20 152/96 (114) 100 07/04/17 20:00 95.8 77 20 108/58 (75) 100 07/04/17 15:32 97.9 70 20 168/75 (106) 99 I/O 07/04/17 07/04/17 07/04/17 07/05/17 07/05/17 07/05/17 07:00 15:00 23:00 07:00 15:00 23:00 Intake Total 2200 ml 60 ml 120 ml Output Total 950 ml 650 ml Balance 2200 ml -890 ml -650 ml 120 ml Intake Oral 200 ml 60 ml 120 ml IV Total 2000 ml Output Urine Total 950 ml 650 ml # Voids 3 # Bowel Movements 0 0 Physical Exam GENERAL: NAD, AAOx2 SKIN: Warm and dry. HEAD: Atraumatic. Normocephalic. EYES: Pupils equal and round. No scleral icterus. No injection or drainage. ENT: No nasal bleeding or discharge. Mucous membranes pink and moist. NECK: Trachea midline. No JVD. CARDIOVASCULAR: Regular rate and rhythm. RESPIRATORY: No accessory muscle use. Rhonchi bilaterally GASTROINTESTINAL: Abdomen soft, non-tender, nondistended. Hepatic and splenic margins not palpable. MUSCULOSKELETAL: Extremities without clubbing, cyanosis, or edema. No obvious deformities. NEUROLOGICAL: Awake and alert. No obvious cranial nerve deficits. Motor grossly within normal limits. Five out of 5 muscle strength in the arms and legs. Normal speech. PSYCHIATRIC: Appropriate mood and affect; insight and judgment normal. Laboratory Laboratory Tests Test 07/05/17 09:21 White Blood Count 17.4 TH/MM3 Red Blood Count 4.09 MIL/MM3 Hemoglobin 11.0 GM/DL Hematocrit 33.9 % Mean Corpuscular Volume 82.9 FL Mean Corpuscular Hemoglobin 27.0 PG Mean Corpuscular Hemoglobin Concent 32.5 % Red Cell Distribution Width 17.0 % Platelet Count 227 TH/MM3 Mean Platelet Volume 7.0 FL Neutrophils (%) (Auto) 77.9 % Lymphocytes (%) (Auto) 17.6 % Monocytes (%) (Auto) 3.7 % Eosinophils (%) (Auto) 0.3 % Basophils (%) (Auto) 0.5 % Neutrophils # (Auto) 13.5 TH/MM3 Lymphocytes # (Auto) 3.1 TH/MM3 Monocytes # (Auto) 0.6 TH/MM3 Eosinophils # (Auto) 0.0 TH/MM3 Basophils # (Auto) 0.1 TH/MM3 CBC Comment DIFF FINAL Differential Comment Blood Urea Nitrogen 38 MG/DL Creatinine 1.12 MG/DL Random Glucose 118 MG/DL Calcium Level 8.5 MG/DL Magnesium Level 2.4 MG/DL Sodium Level 150 MEQ/L Potassium Level 3.7 MEQ/L Chloride Level 120 MEQ/L Carbon Dioxide Level 17.7 MEQ/L Anion Gap 12 MEQ/L Estimat Glomerular Filtration Rate 66 ML/MIN Assessment and Plan Problem List: (1) PNA (pneumonia) ICD Codes: J18.9 - Pneumonia, unspecified organism (2) UTI (urinary tract infection) ICD Codes: N39.0 - Urinary tract infection, site not specified Status: Acute (3) Lactic acidosis ICD Codes: E87.2 - Acidosis Status: Acute (4) Sepsis ICD Codes: A41.9 - Sepsis, unspecified organism Status: Acute (5) Chest pain, atypical ICD Codes: R07.89 - Atypical chest pain Status: Acute (6) TOBACCO USE DISORDER Status: Chronic (7) Obesity ICD Codes: E66.9 - Obesity Status: Acute (8) Hypertension ICD Codes: I10 - Hypertension Status: Chronic Assessment and Plan 1) UTI/PNA/Sepsis Elevated lactate Per primary team 2) Chest pain appears pleuritic in nature 3) Does not appear to have angina 4) Minimally elevated trop, flat in nature Non-specific with CHANO/lactic acidosis Most likely Type 2 5) Minimal EKG changes anterolaterally 6) 2D echo pending Problem Qualifiers (1) UTI (urinary tract infection): Qualified Codes: N39.0 - Urinary tract infection, site not specified (2) Sepsis: Qualified Codes: A41.9 - Sepsis, unspecified organism Apollo Harrell DO Jul 05, 2017 12:29
--- NOTE | 2017-07-05 14:29 | HHI.PR ---
Subjective Remarks Follow-up sepsis, UTI. Patient having difficulty swallowing. He is spitting up thick phlegm. He is confused. Objective Vitals Vital Signs Date Time Temp Pulse Resp B/P (MAP) Pulse Ox O2 Delivery O2 Flow Rate FiO2 07/05/17 12:00 97.4 70 18 130/73 (92) 95 07/05/17 08:00 98.4 77 19 146/94 (111) 100 07/05/17 04:00 97.3 67 20 135/86 (102) 98 07/05/17 00:32 18 07/05/17 00:00 95.8 68 20 152/96 (114) 100 07/04/17 20:00 95.8 77 20 108/58 (75) 100 07/04/17 15:32 97.9 70 20 168/75 (106) 99 I/O 07/04/17 07/04/17 07/04/17 07/05/17 07/05/17 07/05/17 07:00 15:00 23:00 07:00 15:00 23:00 Intake Total 2200 ml 60 ml 120 ml Output Total 950 ml 650 ml Balance 2200 ml -890 ml -650 ml 120 ml Intake Oral 200 ml 60 ml 120 ml IV Total 2000 ml Output Urine Total 950 ml 650 ml # Voids 3 # Bowel Movements 0 0 Result Diagram: 07/05/1792007/05/17 09 Imaging Last Impressions Head CT 07/03/171734 Signed Impressions: Service Date/Time: Monday, July 03, 2017 18:01 - CONCLUSION: 1. Stable examination compared to the examination from 2016. 2. Diffuse bilateral cortical atrophy which is stable. 3. No new or acute pathology. Abdon Tracy MD Chest X-Ray 07/03/171734 Signed Impressions: Service Date/Time: Monday, July 03, 2017 17:47 - CONCLUSION: No acute disease. No significant change has occurred. Abdon Tracy MD Abdomen/Pelvis CT 07/03/17 0000 Signed Impressions: Service Date/Time: Monday, July 03, 2017 18:05 - CONCLUSION: 1. Unremarkable and stable CT scan of the abdomen and pelvis compared to the prior study. No new or significant changes. Abdon Tracy MD Objective Remarks General: Disheveled male in no acute distress. Heart: Regular rate and rhythm. No murmur. Lungs: Clear to auscultation bilaterally. No wheezes, rales, or rhonchi. Breathing is nonlabored. Abdomen: Soft, nontender, nondistended. Extremities: No lower extremity edema. Psych: Alert, confused. Procedures none Urinary Catheter: No Vascular Central Line Catheter: No A/P Assessment and Plan 1. Sepsis: Secondary to UTI. Urine culture growing ESBL positive E. coli. Blood cultures are negative so far. Continue IV fluids. Consult infectious disease. 2. Acute kidney injury: Likely secondary to dehydration. Continue IV fluids. Creatinine improving. 3. Elevated troponin: Appreciate cardiology recommendations. Patient does report chest pain, but describes pleuritic pain worse with coughing and deep breaths. Echocardiogram pending. 4. Hypertension: Lisinopril, HCTZ on hold secondary to acute kidney injury. 5. Hyperlipidemia: Not currently on statin. 6. GERD: Continue Protonix. 7. Hypokalemia: Supplement potassium. 8. DVT prophylaxis: Heparin. 9. Dysphagia: Failed swallow eval. Keep NPO. Consult gastroenterology. 10. Hypernatremia: Adjust IV fluids. Melo Goncalves MD Jul 05, 2017 14:29
[2017-07-05] MEDS: 1/2 NS + KCL 20 MEQ INJ 1,000 ML IV SCH (15:26)
--- NOTE | 2017-07-05 15:46 | PD.CONS ---
HPI History of Present Illness This is a 62 year old male with hx CVA 3y ago who presented with AMS, weakness. GI has been consulted for dysphagia. Pt failed swallow eval, had prolonged bolus holding, coughing. Per report he is having alot of coughing and copious mucus production. He is unable to tell me anything. he had EGD and dilatation 04/2017 with finding distal esophageal stricture. Colonoscopy at that time found significant stool and was recommended to be repeated in 3 months. Pt nonverbal. (Alma Torres) PFSH Past Medical History (Obtained from medical records) Hypertension CVA 3 years ago Hyperlipidemia GERD Peptic ulcer disease Past Surgical History Skin graft Cholecystectomy (Alma Torres) Coded Allergies: *MDRO Multi-Drug Resistant Organism (Verified Adverse Reaction, Unknown, 05/21/17) ESBL E. coli (urine) - 06/11/2015 Family History Mom with diabetes mellitus Social History Smokes one pack per day 45 years. Reports that he quit drinking one month ago. Denies marijuana, illicit drugs. (Alma Torres) Review of Systems noncontributory (Alma Torres) GI Exam Vitals I&O Vital Signs Date Time Temp Pulse Resp B/P (MAP) Pulse Ox O2 Delivery O2 Flow Rate FiO2 07/05/17 12:00 97.4 70 18 130/73 (92) 95 07/05/17 08:00 98.4 77 19 146/94 (111) 100 07/05/17 04:00 97.3 67 20 135/86 (102) 98 07/05/17 00:32 18 07/05/17 00:00 95.8 68 20 152/96 (114) 100 07/04/17 20:00 95.8 77 20 108/58 (75) 100 I/O 07/04/17 07/04/17 07/04/17 07/05/17 07/05/17 07/05/17 07:00 15:00 23:00 07:00 15:00 23:00 Intake Total 2200 ml 60 ml 120 ml Output Total 950 ml 650 ml 250 ml Balance 2200 ml -890 ml -650 ml 120 ml -250 ml Intake Oral 200 ml 60 ml 120 ml IV Total 2000 ml Output Urine Total 950 ml 650 ml 250 ml # Voids 3 # Bowel Movements 0 0 Imaging Last Impressions Head CT 07/03/17 1735 Signed Impressions: Service Date/Time: Monday, July 03, 2017 18:01 - CONCLUSION: 1. Stable examination compared to the examination from 2016. 2. Diffuse bilateral cortical atrophy which is stable. 3. No new or acute pathology. Abdon Tracy MD Chest X-Ray 07/03/175 Signed Impressions: Service Date/Time: Monday, July 03, 2017 17:47 - CONCLUSION: No acute disease. No significant change has occurred. Abdon Tracy MD Abdomen/Pelvis CT 07/03/17 0000 Signed Impressions: Service Date/Time: Monday, July 03, 2017 18:05 - CONCLUSION: 1. Unremarkable and stable CT scan of the abdomen and pelvis compared to the prior study. No new or significant changes. Abdon Tracy MD Laboratory Test 07/05/17 09:21 White Blood Count 17.4 TH/MM3 Red Blood Count 4.09 MIL/MM3 Hemoglobin 11.0 GM/DL Hematocrit 33.9 % Mean Corpuscular Volume 82.9 FL Mean Corpuscular Hemoglobin 27.0 PG Mean Corpuscular Hemoglobin Concent 32.5 % Red Cell Distribution Width 17.0 % Platelet Count 227 TH/MM3 Mean Platelet Volume 7.0 FL Neutrophils (%) (Auto) 77.9 % Lymphocytes (%) (Auto) 17.6 % Monocytes (%) (Auto) 3.7 % Eosinophils (%) (Auto) 0.3 % Basophils (%) (Auto) 0.5 % Neutrophils # (Auto) 13.5 TH/MM3 Lymphocytes # (Auto) 3.1 TH/MM3 Monocytes # (Auto) 0.6 TH/MM3 Eosinophils # (Auto) 0.0 TH/MM3 Basophils # (Auto) 0.1 TH/MM3 CBC Comment DIFF FINAL Differential Comment Blood Urea Nitrogen 38 MG/DL Creatinine 1.12 MG/DL Random Glucose 118 MG/DL Calcium Level 8.5 MG/DL Magnesium Level 2.4 MG/DL Sodium Level 150 MEQ/L Potassium Level 3.7 MEQ/L Chloride Level 120 MEQ/L Carbon Dioxide Level 17.7 MEQ/L Anion Gap 12 MEQ/L Estimat Glomerular Filtration Rate 66 ML/MIN Date/Time Source Procedure Growth Status 07/03/17 17:45 Blood Peripheral Aerobic Blood Culture - Preliminary NO GROWTH IN 2 DAYS Resulted 07/03/17 17:45 Blood Peripheral Anaerobic Blood Culture - Preliminary NO GROWTH IN 2 DAYS Resulted 07/03/17 17:10 Urine Catheterized Urine Urine Culture - Final Escherichia Coli Esbl Positive Multi-Drug Resistant Complete Physical Examination HEENT: PERRL; normocephalic; atraumatic; no jaundice. CHEST: respirations unlabored CARDIAC: RRR ABDOMEN: Soft, nondistended, nontender; no hepatosplenomegaly; bowel sounds+ EXTREMITIES: No clubbing, cyanosis, or edema. SKIN: Normal; no rash; no jaundice. 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 has been coughing, producing mucus. hx esophageal strictures, had EGD and dilatation 04/2017 for distal esophageal stricture. after assessing him, seems the bigger difficulty is his confusion rather than a stricture - leukocytosis - worsening. - chest pain, elevated troponin - cardiology following - sepsis 2/2 UTI PLAN - could consider EGD with poss dilatation when pt more alert, with cardiac clearance - if pt doesn't recover alertness he may need PEG - continue speech therapy - NPO per ST - supportive care - further recs to follow pt seen by myself and Dr De Los Santos and this note is on her behalf (Alma Torres) Physician Comments seen, examined agree with above history of tight stricture in distal esophagus will need egd/dil plus minus peg if mental status does not improve (Yolanda De Los Santos MD) Alma Torres Jul 05, 2017 15:45 Yolanda De Los Santos MD Jul 05, 2017 17:44
[2017-07-05] MEDS: TAMSULOSIN HCL 0.4 MG CAP PO SCH (19:54)
[2017-07-05 20:00] VITALS: BP 129/84; PULSE 89; PULSE 99; RESP 20; TEMP 96.7; O2SAT 100
[2017-07-06] VITALS (15 sets, daily range): BP systolic 97–141; BP diastolic 55–78; PULSE 54–97; RESP 17–30; TEMP 95.5–98.5; O2SAT 71–100
[2017-07-06] MEDS: 1/2 NS + KCL 20 MEQ INJ 1,000 ML IV SCH (02:25)
[2017-07-06] MEDS: HEPARIN SODIUM - SQ 10,000 UNITS/ML VIAL SQ SCH ×3 (04:47→21:12)
[2017-07-06 05:45] LABS: AUTOMATED NEUTROPHIL # 12.9 TH/MM3 (1.8-7.7); BASOPHIL # 0.1 TH/MM3 (0-0.2); BASOPHIL % 0.4 % (0.0-2.0); EOSINOPHIL % 0.2 % (0.0-4.0); HEMATOCRIT 33.8 % (39.0-51.0); HEMOGLOBIN 11.1 GM/DL (13.0-17.0); LYMPH % 17.9 % (9.0-44.0); LYMPHOCYTE # 2.9 TH/MM3 (1.0-4.8); MEAN CELL VOLUME 82.6 FL (80.0-100.0); MEAN CORPUSCULAR HGB CONC 32.7 % (32.0-36.0); MEAN PLATELET VOLUME 7.2 FL (7.0-11.0); MONO % 2.8 % (0.0-8.0); MONOCYTE # 0.5 TH/MM3 (0-0.9); NEUT % 78.7 % (16.0-70.0); PLATELET COUNT 225 TH/MM3 (150-450); RED BLOOD COUNT 4.09 MIL/MM3 (4.50-5.90); RED CELL DISTRIBUTION WIDTH 17.2 % (11.6-17.2); WHITE BLOOD COUNT 16.4 TH/MM3 (4.0-11.0)
[2017-07-06 06:09] LABS: BICARBONATE 15.8 MEQ/L (21.0-32.0); CREATININE 1.44 MG/DL (0.60-1.30)
[2017-07-06] MEDS ORDERED: ASP: Path resistant to other antimicrobials, culture proven PRN ×2 (08:45→11:30)
[2017-07-06] MEDS ORDERED: MISCELLANEOUS PHARMACY INFORMATION XX PRN ×2 (08:45→11:30)
[2017-07-06] MEDS: GABAPENTIN 300 MG CAP PO SCH ×2 (09:00→21:12)
[2017-07-06] MEDS: PANTOPRAZOLE SOD 40 MG DELAYED RELEASE TAB PO SCH (09:00)
[2017-07-06] MEDS: CLOPIDOGREL 75 MG TAB PO SCH (09:00)
[2017-07-06] MEDS ORDERED: ERTAPENEM INJ 1,000 MG in SODIUM CHLORIDE 0.9% INJ 100 ML IV SCH (10:00)
[2017-07-06] MEDS: SODIUM CHLORIDE 0.9% FLUSH 10 ML FLUSH IV FLUSH SCH ×2 (10:27→21:12)
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
[2017-07-06] MEDS ORDERED: SODIUM CHLOR 0.9% 1000 ML INJ 1,000 ML IV ONE ×2 (11:30→12:30)
[2017-07-06] MEDS ORDERED: Vancomycin Consult Pharmacy 1 EA OTHER SCH (11:30)
--- NOTE | 2017-07-06 11:46 | HHI.PR ---
Subjective Remarks Follow up UTI, sepsis. I was contacted by Dr. Horowitz, infectious disease, who had arrived to evaluate the patient. She found him to be pale and clammy, with diminished breath sounds. He had hypoxia (71% sats) and his oxygen was increased. He was placed on oxygen per mask and only had increase to 75%. [facility] was called. The patient is awake, but confused. He is not oriented to location, time. He is lethargic. Objective Vitals Vital Signs Date Time Temp Pulse Resp B/P (MAP) Pulse Ox O2 Delivery O2 Flow Rate FiO2 07/06/17 08:00 95.5 89 17 128/76 (93) 99 07/06/17 04:00 96.9 97 24 141/70 (93) 99 07/06/17 00:00 96.2 97 24 104/78 (87) 100 07/05/17 20:00 96.7 89 20 129/84 (99) 100 07/05/17 20:00 99 07/05/17 12:00 97.4 70 18 130/73 (92) 95 I/O 07/05/17 07/05/17 07/05/17 07/06/17 07/06/17 07/06/17 07:00 15:00 23:00 07:00 15:00 23:00 Intake Total 120 ml 0 ml Output Total 650 ml 550 ml Balance -650 ml 120 ml -550 ml Intake Oral 120 ml 0 ml Output Urine Total 650 ml 550 ml # Voids 1 # Bowel Movements 0 0 Result Diagram: 07/06/17 0515 07/06/1715 Imaging Last Impressions Head CT 07/03/171734 Signed Impressions: Service Date/Time: Monday, July 03, 2017 18:01 - CONCLUSION: 1. Stable examination compared to the examination from 2016. 2. Diffuse bilateral cortical atrophy which is stable. 3. No new or acute pathology. Abdon Tracy MD Chest X-Ray 07/03/171734 Signed Impressions: Service Date/Time: Monday, July 03, 2017 17:47 - CONCLUSION: No acute disease. No significant change has occurred. Abdon Tracy MD Abdomen/Pelvis CT 07/03/17 0000 Signed Impressions: Service Date/Time: Monday, July 03, 2017 18:05 - CONCLUSION: 1. Unremarkable and stable CT scan of the abdomen and pelvis compared to the prior study. No new or significant changes. Abdon Tracy MD Objective Remarks General: Disheveled male, lethargic. Skin is cool to touch. Heart: Regular rate and rhythm. No murmur. Lungs: Diminished breath sounds throughout. Breathing is nonlabored. Abdomen: Soft, nontender, nondistended. Extremities: No lower extremity edema. Psych: Confused. Procedures none Urinary Catheter: No Vascular Central Line Catheter: No A/P Assessment and Plan 1. Sepsis: Secondary to UTI. Urine culture growing ESBL positive E. coli. Blood cultures are negative so far. Continue IV fluids. Appreciate infectious disease recommendations. Discussed with Dr. Horowitz. Antibiotics adjusted. Fluid bolus ordered. 2. Acute kidney injury: Likely secondary to dehydration. Continue IV fluids. BUN and creatinine increased today. 3. Elevated troponin: Appreciate cardiology recommendations. Patient does report chest pain, but describes pleuritic pain worse with coughing and deep breaths. Echocardiogram pending. 4. Hypertension: Lisinopril, HCTZ on hold secondary to acute kidney injury. 5. Hyperlipidemia: Not currently on statin. 6. GERD: Continue Protonix. 7. Hypokalemia: Supplement potassium. 8. DVT prophylaxis: Heparin. 9. Dysphagia: Failed swallow eval. Keep NPO. Appreciate gastroenterology recommendations. 10. Hypernatremia: Monitor labs. Continue IV fluids. 11. Acute respiratory failure: Patient may have aspirated. Stat chest x-ray has been ordered. ABG ordered. Transfer to intensive care unit. Consult critical care. Melo Goncalves MD Jul 06, 2017 11:46
[2017-07-06] MEDS: MEROPENEM INJ 1,000 MG in SODIUM CHLORIDE 0.9% INJ 100 ML IV SCH ×2 (12:00→21:13)
--- NOTE | 2017-07-06 12:21 | RADRPT ---
EXAM DATE/TIME: 07/06/2017 11:47 [facility] COMPARISON: CHEST SINGLE AP, July 03, 2017, 17:47. INDICATIONS : Evaluate for pneumonia. MEDICAL HISTORY : Cardiovascular disease. Cerebrovascular disease. Hypertension. Ulcer SURGICAL HISTORY : Cholecystectomy. ENCOUNTER: Subsequent ACUITY: 3 days PAIN SCORE: Non-responsive. LOCATION: Bilateral chest FINDINGS: A single view of the chest demonstrates the lungs to be symmetrically aerated without evidence of mas s, infiltrate or effusion. The cardiomediastinal contours are unremarkable. Osseous structures are intact. CONCLUSION: No acute disease. David Calvillo MD on July 06, 2017 at 12:19 Board Certified Radiologist. This report was verified electronically.
[2017-07-06] MEDS ORDERED: RESP: ALBUTEROL 2.5 MG/IPRATROPIUM 0.5 MG NEB (PRN) NEB (12:30)
[2017-07-06] MEDS ORDERED: DEXTROSE 50% IN WATER 50 ML VIAL(D50) IV PUSH PRN (12:30)
[2017-07-06] MEDS ORDERED: GLUCAGON 1 MG/ML VIAL OTHER PRN (12:30)
[2017-07-06] MEDS: PANTOPRAZOLE SODIUM 40 MG VIAL IV PUSH SCH (12:45)
[2017-07-06] MEDS: DEXTROSE 5% IN WATE 1000ML INJ 1,000 ML IV SCH (13:00)
--- NOTE | 2017-07-06 13:54 | RADRPT ---
EXAM DATE/TIME: 07/06/2017 13:14 [facility] COMPARISON: US LEG BILATERAL VENOUS DOPPLER, June 23, 2015, 18:41. INDICATIONS : Bilateral leg swelling. MEDICAL HISTORY : Myocardial infarction. Hypercholesterolemia. Congestive heart failure. Cerebrovascular accident. Head trauma. Syncope. Migraines. Coronary artery disease. Hyperlipidemia. Hypertension. Asthma. Pneumonia . Sleep apnea. GERD. Ulcer. Osteoarthritis. Measles. Blood transfusion. MRSA. MDRO. SURGICAL HISTORY : Cholecystectomy.Appendectomy. Skin graft. ENCOUNTER: Subsequent ACUITY: 1 day PAIN SCORE: 0/10 LOCATION: Bilateral legs. TECHNIQUE: Venous ultrasound of the left and right leg was performed from the inguinal ligament to the proximal calf. Real-time, color Doppler and spectral tracing, compression and augmentation techniques were us ed. FINDINGS: RIGHT LEG: There is normal compressibility of the deep venous system from the inguinal region to the proximal ca lf. No echogenic clot is seen in the lumen of the common femoral, femoral, popliteal, and posterior tibial veins. There is a normal response of the venous system to proximal and distal augmentation an d respiration. LEFT LEG: There is normal compressibility of the deep venous system from the inguinal region to the proximal ca lf. No echogenic clot is seen in the lumen of the common femoral, femoral, popliteal, and posterior tibial veins. There is a normal response of the venous system to proximal and distal augmentation an d respiration. CONCLUSION: Negative for deep venous thrombosis. Roldan Hernandez MD FACR on July 06, 2017 at 13:51 Board Certified Radiologist. This report was verified electronically.
--- NOTE | 2017-07-06 15:06 | PD.CONS ---
Consult Service Palliative Care Consult Requested By Dr. Nancy Horowitz. Primary Care Physician Dr. Garcia. Reason for Consultation a. To assist with evaluation and management of symptoms including: Shortness of breath, pain and debility. b. To assist medical decision maker(s) with: better understanding of current medical conditions; weighing benefits/burdens of medical treatment options; making medical treatment decisions. . HPI History of Present Illness Mr. Valdes is a 62-year-old male with a medical history significant for hypertension, GERD, hyperlipidemia, esophageal structures and CVA. Patient presented to ED via EMS on 07/03/17 for evaluation of altered mental status and weakness. As per medical records, patient resides independently and was found by on the floor by neighbors. Upon ED arrival, patient was alert and oriented x person and place. Patient endorsing generalize malaise and abdominal pain. ED workup revealing negative chest x-ray, head CT revealing stable diffuse bilateral cortical atrophy but no acute process. Abdomen/pelvis CT unremarkable. Laboratory workup revealing lactic acid 4.4, potassium 3.3, BUN/ creatinine 49/2.22. Troponin 0.11. UA negative for nitrates, positive for leukocytes. Patient was admitted for further management. Cardiology, Dr. Harrell consulted on 07/05/17 for evaluation of elevated troponin. GI consulted on 07/05/17 secondary to dysphagia. Patient failed swallow evaluation, prolonged bolus holding and cough noted. Patient with history of a distal esophageal strictures, status post EGD and dilation on April 2017. GI may consider EGD with possible dilatation when patient is more alert. Infectious disease, Dr. Phillip Horowitz consulted on 07/06/17 for evaluation and management of ESBL Escherichia coli UTI. Clinical course complicated by change in patient clinical status. Halicat was called on 07/06/16 secondary to lethargy, hypoxia with oxygen saturation in the 70s and hypotension with SBP in the 90s. Patient was transferred to medical ICU for further monitoring and management. Palliative care has been consulted for further clarifications of goals of care given patient's worsening clinical condition. Chest x-ray negative for acute process, bilateral lower extremity ultrasound negative for DVT. Pending CTA of chest to rule out PE. Reviewed patient's past medical history. Most recent ED visit on 06/11/17 secondary to vomiting and epigastric pain. Patient was discharged with recommendations to follow with GI as outpatient as previously scheduled. Previous acute hospitalization from 05/21 to 05/25/2017 secondary to esophageal obstruction. Patient underwent EGD with dilatation, however, this was not successful. Patient was discharge on a clear diet. Prior ED visit on 01/15/17 for evaluation of productive cough, patient left AMA. Prior hospitalization from 06/06/15 to 06/11/15 secondary to CVA. Brain MRI reporting [id number] acute infarct of the right basal ganglia. Patient was discharge to [facility] and discharge on 07/01/15. Patient seen in medical ICU. Alert to self, lethargic, intermittently confused. Verbal but not always able to communicate needs secondary to lethargy and confusion. Patient reports that no advance directives have been completed. Obtained from numbers for brother morning from patient's cell phone. Patient tells me that it is okay to provide information to his brother. Briefly review events leading to this hospitalization, clinical course and current medical management. Patient with limited participation in medical decision-making secondary to lethargy and confusion. However, verbalized aggressive goals to include full code, intubation and mechanical ventilation if medically needed. Telephone conversation with patient's brother Micah. Medical update provided. Brother supported of aggressive management at this time, receptive to palliative care follow-ups. Shared concerns with brother of patient's worsening clinical condition and high risk for further complications, continue decline and . Case discussed with Dr. Mao and bedside RN. . Function/Cognitive Trajectory Patient residing independently prior to this hospitalization. Ambulating with short distances with cane and long distances with power chair. Independent with ADLs. . Review of Systems ROS Limitations: Clinical Condition, Altered Mental Status, Poor Historian Eyes: DENIES: Eye inflammation Ears, nose, mouth, throat: DENIES: Nasal discharge, Running Nose, Epistaxis Respiratory: COMPLAINS OF: Sputum production, Shortness of breath Cardiovascular: COMPLAINS OF: Dyspnea on Exertion, Lower Extremity Edema Gastrointestinal: COMPLAINS OF: Difficulty Swallowing, DENIES: Vomiting Musculoskeletal: COMPLAINS OF: Decreased range of motion Integumentary: COMPLAINS OF: Nail changes Hematologic/Lymphatics: COMPLAINS OF: Bruising Immunologic/Allergic: DENIES: Eczema Neurologic: COMPLAINS OF: Poor Balance, DENIES: Seizures Psychiatric: COMPLAINS OF: Anxiety, Confusion Other ROS: limited ROS secondary to patient's clinical condition, lethargy and confusion. ROS obtained from medical records and clinical observation. Past Family Social History Coded Allergies: *MDRO Multi-Drug Resistant Organism (Verified Adverse Reaction, Unknown, 05/21/17) ESBL E. coli (urine) - 06/11/2015 Past Medical History Hypertension CVA in 2016 Hyperlipidemia GERD Peptic ulcer disease Esophageal strictures s/p dilation . Past Surgical History Skin graft Cholecystectomy Esophageal dilation in April 2017 . Reported Medications [place] (Hydrocodone-Acetaminophen) 5 Mg-325 Mg Tab 1 Tab PO Q6H PRN Hydrochlorothiazide 50 Mg Tab 50 Mg PO DAILY Omeprazole 40 Mg Cap 40 Mg PO DAILY Lisinopril 5 Mg Tab 5 Mg PO DAILY Gabapentin 300 Mg Cap 300 Mg PO BID Tamsulosin (Tamsulosin HCl) 0.4 Mg Cap 0.4 Mg PO HS Clopidogrel (Clopidogrel Bisulfate) 75 Mg Tab 75 Mg PO DAILY . Current Medications Medications (Trade) Dose Ordered Sig/Katina Route Start Time Stop Time Status Last Admin (NS Flush) 2 ml UNSCH PRN IV FLUSH 07/03/17 20:15 (NS Flush) 2 ml BID IV FLUSH 07/03/17 21:00 07/06/17 10:27 (Tylenol) 650 mg Q4H PRN PO 07/03/17 20:15 (Zofran Inj) 4 mg Q6H PRN IVP 07/03/17 20:15 (Heparin Inj) 5,000 units Q8HR SQ 07/03/17 22:00 07/06/17 04:47 (Plavix) 75 mg DAILY PO 07/04/17 09:00 07/05/17 08:47 (Neurontin) 300 mg BID PO 07/03/17 21:45 07/05/17 19:54 ([place] 5-325 Mg) 1 tab Q6H PRN PO 07/03/17 21:45 07/04/17 23:12 (Flomax) 0.4 mg HS PO 07/03/17 21:45 07/05/17 19:54 (ASP Crit: Path resist to other, cult proven) 1 UNSCH X1 PRN .XX 07/06/17 08:45 07/07/17 08:44 (ASP Crit: Path resist to other, cult proven) 1 UNSCH X1 PRN .XX 07/06/17 11:30 07/07/17 11:29 [place] 1 UNSCH X1 PRN XX 07/06/17 11:30 07/07/17 11:29 Meropenem 1000 mg/ Sodium Chloride 100 ml @ 200 mls/hr Q8H IV 07/06/17 12:00 Pharmacy Profile Note 0 ml @ 0 mls/hr UNSCH OTHER 07/06/17 11:30 (Duoneb Neb) 1 ampule Q4HR NEB NEB 07/06/17 16:00 (Duoneb Neb) 1 ampule Q2HR NEB PRN NEB 07/06/17 12:30 Dextrose 1,000 ml @ 84 mls/hr [id number] IV 07/06/17 13:00 (D50w (Vial) Inj) 50 ml UNSCH PRN IV PUSH 07/06/17 12:30 (Glucagon Inj) 1 mg UNSCH PRN OTHER 07/06/17 12:30 (NovoLIN R SUPPLEMENTAL SCALE) 1 Q4HR SQ 07/06/17 12:30 Vancomycin HCl 1750 mg/Sodium Chloride 517.5 ml @ 250 mls/hr Q24H IV 07/06/17 14:00 Miscellaneous Information SPECIFIC LAB TO BE DRAWN:VANCO TROUGH DATE TO... ONCE ONCE .XX 07/09/17 13:45 07/09/17 13:46 (Protonix Inj) 40 mg DAILY IV PUSH 07/06/17 12:45 Family History Mom with diabetes mellitus. . Substance Use Tobacco: Smoker. One pack per day for the past 45 years. Alcohol: Social drinker. Patient with history of EtOH use and abuse, reports quitting 10 years ago, however, continues drinking socially. Prescription med abuse: None reported. Illicits: None reported. . Psychosocial History Patient originally from [place]. Moved to [place] when he was 9 years old. Patient is single, no children. Both parents are . Patient has 3 brothers who live in [place]. Patient is disabled secondary to CVA. 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 . Spiritual/Cultural Factors Religious genaro. . Living Will: Never completed Health Care Surrogate: Never completed Durable Power of Switch Cleaner: Never completed Health Care Surrogate(s): Patient reports that no advance directives have been completed. Patient is single, no children, both parents are . As per [place] statute, healthcare proxy decision-making falls to the majority of patient's siblings for which he has 3: Micah, Gerry and Dami. . Today's verbally stated goals: Full code. Aggressive management. . Family/friends goals: Patient's brother Micah fully supportive of aggressive management. . Ethical and Legal Issues No ethical or legal issues identified. . Physical Exam Vital Signs Date Time Temp Pulse Resp B/P (MAP) Pulse Ox O2 Delivery O2 Flow Rate FiO2 07/06/17 08:00 95.5 89 17 128/76 (93) 99 07/06/17 04:00 96.9 97 24 141/70 (93) 99 07/06/17 00:00 96.2 97 24 104/78 (87) 100 07/05/17 20:00 96.7 89 20 129/84 (99) 100 07/05/17 20:00 99 Exam CONSTITUTIONAL/GENERAL: This is an adequately nourished patient in moderate distress secondary to increased work of breathing. TUBES/LINES/DRAINS: PIV, nasal cannula. SKIN: No jaundice, rashes, or lesions. Ecchymoses on upper extremities. Ecchymosis to bilateral lower extremities. Skin temperature appropriate. Not diaphoretic. HEAD: Atraumatic. Normocephalic. EYES: Pupils equal and round and reactive. Extraocular motions intact. No scleral icterus. No injection or drainage. ENT: Hearing grossly normal. Nose without bleeding or purulent drainage. Moist oral mucosa. NECK: Trachea midline. Supple, nontender. CARDIOVASCULAR: Regular rate and rhythm without murmurs. Peripheral pulses symmetric. RESPIRATORY/CHEST: Symmetric, increased work of breathing -RR in the mid 30s. Diminished bilaterally to auscultation. GASTROINTESTINAL: Abdomen soft, large, round, obese. No guarding. Bowel sounds present. GENITOURINARY: Without palpable bladder distension. Coates catheter in place. MUSCULOSKELETAL: Extremities without clubbing, cyanosis. Edema to bilateral lower extremities. NEUROLOGICAL: Awake and alert x self, confused. Following commands. PSYCHIATRIC: Intermittent anxiety. . Diagnostic Tests Laboratory Laboratory Tests Test 07/03/17 17:10 07/03/17 17:45 07/03/17 20:07 07/04/17 03:26 Urine Color YELLOW (YELLW/STRAW) Urine Turbidity HAZY (CLEAR) Urine pH 5.0 (5.0-8.5) Urine Specific Cornish 1.013 (1.002-1.035) Urine Protein TRACE mg/dL (NEG-TRACE) Urine Glucose (UA) NEG mg/dL (NEG) Urine Ketones NEG mg/dL (NEG) Urine Occult Blood TRACE (NEG) Urine Nitrite NEG (NEG) Urine Bilirubin NEG (NEG) Urine Urobilinogen LESS THAN 2.0 MG/DL (LESS Urine Leukocyte Esterase LARGE (NEG) Urine RBC 2 /hpf (0-3) Urine WBC 77 /hpf (0-5) Urine WBC Clumps FEW (NONE) Urine Squamous Epithelial Cells <1 /hpf (0-5) Urine Bacteria MANY /hpf (NONE) Urine Hyaline Casts 4 /lpf (RARE) Urine White Blood Cell Casts 1 /lpf (NONE) Urine Yeast (Budding) FEW (NONE) Microscopic Urinalysis Comment CATH-CULTURE IND Urine Opiates Screen NEG (NEG) Urine Barbiturates Screen NEG (NEG) Urine Amphetamines Screen NEG (NEG) Urine Benzodiazepines Screen NEG (NEG) Urine Cocaine Screen NEG (NEG) Urine Cannabinoids Screen NEG (NEG) White Blood Count 10.8 TH/MM3 (4.0-11.0) 12.9 TH/MM3 (4.0-11.0) Red Blood Count 4.12 MIL/MM3 (4.50-5.90) 4.05 MIL/MM3 (4.50-5.90) Hemoglobin 11.3 GM/DL (13.0-17.0) 10.9 GM/DL (13.0-17.0) Hematocrit 33.2 % (39.0-51.0) 32.8 % (39.0-51.0) Mean Corpuscular Volume 80.6 FL (80.0-100.0) 80.8 FL (80.0-100.0) Mean Corpuscular Hemoglobin 27.3 PG (27.0-34.0) 27.0 PG (27.0-34.0) Mean Corpuscular Hemoglobin Concent 33.9 % (32.0-36.0) 33.4 % (32.0-36.0) Red Cell Distribution Width 16.9 % (11.6-17.2) 17.4 % (11.6-17.2) Platelet Count 275 TH/MM3 (150-450) 268 TH/MM3 (150-450) Mean Platelet Volume 7.1 FL (7.0-11.0) 7.1 FL (7.0-11.0) Neutrophils (%) (Auto) 74.8 % (16.0-70.0) 67.8 % (16.0-70.0) Lymphocytes (%) (Auto) 18.3 % (9.0-44.0) 26.7 % (9.0-44.0) Monocytes (%) (Auto) 6.4 % (0.0-8.0) 4.9 % (0.0-8.0) Eosinophils (%) (Auto) 0.0 % (0.0-4.0) 0.1 % (0.0-4.0) Basophils (%) (Auto) 0.5 % (0.0-2.0) 0.5 % (0.0-2.0) Neutrophils # (Auto) 8.1 TH/MM3 (1.8-7.7) 8.8 TH/MM3 (1.8-7.7) Lymphocytes # (Auto) 2.0 TH/MM3 (1.0-4.8) 3.5 TH/MM3 (1.0-4.8) Monocytes # (Auto) 0.7 TH/MM3 (0-0.9) 0.6 TH/MM3 (0-0.9) Eosinophils # (Auto) 0.0 TH/MM3 (0-0.4) 0.0 TH/MM3 (0-0.4) Basophils # (Auto) 0.1 TH/MM3 (0-0.2) 0.1 TH/MM3 (0-0.2) CBC Comment DIFF FINAL DIFF FINAL Differential Comment Prothrombin Time 12.5 SEC (9.8-11.6) Prothromb Time International Ratio 1.2 RATIO Activated Partial Thromboplast Time 25.9 SEC (24.3-30.1) Blood Urea Nitrogen 49 MG/DL (7-18) 46 MG/DL (7-18) Creatinine 2.22 MG/DL (0.60-1.30) 1.75 MG/DL (0.60-1.30) Random Glucose 133 MG/DL (74-106) 120 MG/DL (74-106) Total Protein 6.8 GM/DL (6.4-8.2) 6.7 GM/DL (6.4-8.2) Albumin 2.6 GM/DL (3.4-5.0) 2.6 GM/DL (3.4-5.0) Calcium Level 8.7 MG/DL (8.5-10.1) 8.2 MG/DL (8.5-10.1) Alkaline Phosphatase 151 U/L (45-117) 145 U/L (45-117) Aspartate Amino Transf (AST/SGOT) 15 U/L (15-37) 17 U/L (15-37) Alanine Aminotransferase (ALT/SGPT) 18 U/L (12-78) 17 U/L (12-78) Total Bilirubin 0.8 MG/DL (0.2-1.0) 0.5 MG/DL (0.2-1.0) Sodium Level 142 MEQ/L (136-145) 145 MEQ/L (136-145) Potassium Level 3.3 MEQ/L (3.5-5.1) 3.2 MEQ/L (3.5-5.1) Chloride Level 107 MEQ/L (98-107) 111 MEQ/L (98-107) Carbon Dioxide Level 19.9 MEQ/L (21.0-32.0) 21.3 MEQ/L (21.0-32.0) Anion Gap 15 MEQ/L (5-15) 13 MEQ/L (5-15) Estimat Glomerular Filtration Rate 30 ML/MIN (>89) 40 ML/MIN (>89) Lactic Acid Level 4.4 mmol/L (0.4-2.0) 3.4 mmol/L (0.4-2.0) 3.3 mmol/L (0.4-2.0) Ammonia 25 MCMOL/L (11-32) Total Creatine Kinase 32 U/L (39-308) 34 U/L (39-308) Troponin I 0.11 NG/ML (0.02-0.05) 0.14 NG/ML (0.02-0.05) Thyroid Stimulating Hormone 3rd Gen 1.120 uIU/ML (0.358-3.740) Ethyl Alcohol Level LESS THAN 3 MG/DL (0-5) Test 07/04/17 06:22 07/04/17 09:25 07/05/17 09:21 07/06/17 05:15 Lactic Acid Level 2.7 mmol/L (0.4-2.0) Total Creatine Kinase 37 U/L (39-308) Troponin I 0.11 NG/ML (0.02-0.05) White Blood Count 17.4 TH/MM3 (4.0-11.0) 16.4 TH/MM3 (4.0-11.0) Red Blood Count 4.09 MIL/MM3 (4.50-5.90) 4.09 MIL/MM3 (4.50-5.90) Hemoglobin 11.0 GM/DL (13.0-17.0) 11.1 GM/DL (13.0-17.0) Hematocrit 33.9 % (39.0-51.0) 33.8 % (39.0-51.0) Mean Corpuscular Volume 82.9 FL (80.0-100.0) 82.6 FL (80.0-100.0) Mean Corpuscular Hemoglobin 27.0 PG (27.0-34.0) 27.0 PG (27.0-34.0) Mean Corpuscular Hemoglobin Concent 32.5 % (32.0-36.0) 32.7 % (32.0-36.0) Red Cell Distribution Width 17.0 % (11.6-17.2) 17.2 % (11.6-17.2) Platelet Count 227 TH/MM3 (150-450) 225 TH/MM3 (150-450) Mean Platelet Volume 7.0 FL (7.0-11.0) 7.2 FL (7.0-11.0) Neutrophils (%) (Auto) 77.9 % (16.0-70.0) 78.7 % (16.0-70.0) Lymphocytes (%) (Auto) 17.6 % (9.0-44.0) 17.9 % (9.0-44.0) Monocytes (%) (Auto) 3.7 % (0.0-8.0) 2.8 % (0.0-8.0) Eosinophils (%) (Auto) 0.3 % (0.0-4.0) 0.2 % (0.0-4.0) Basophils (%) (Auto) 0.5 % (0.0-2.0) 0.4 % (0.0-2.0) Neutrophils # (Auto) 13.5 TH/MM3 (1.8-7.7) 12.9 TH/MM3 (1.8-7.7) Lymphocytes # (Auto) 3.1 TH/MM3 (1.0-4.8) 2.9 TH/MM3 (1.0-4.8) Monocytes # (Auto) 0.6 TH/MM3 (0-0.9) 0.5 TH/MM3 (0-0.9) Eosinophils # (Auto) 0.0 TH/MM3 (0-0.4) 0.0 TH/MM3 (0-0.4) Basophils # (Auto) 0.1 TH/MM3 (0-0.2) 0.1 TH/MM3 (0-0.2) CBC Comment DIFF FINAL DIFF FINAL Differential Comment Blood Urea Nitrogen 38 MG/DL (7-18) 42 MG/DL (7-18) Creatinine 1.12 MG/DL (0.60-1.30) 1.44 MG/DL (0.60-1.30) Random Glucose 118 MG/DL (74-106) 123 MG/DL (74-106) Calcium Level 8.5 MG/DL (8.5-10.1) 8.0 MG/DL (8.5-10.1) Magnesium Level 2.4 MG/DL (1.5-2.5) Sodium Level 150 MEQ/L (136-145) 153 MEQ/L (136-145) Potassium Level 3.7 MEQ/L (3.5-5.1) 4.2 MEQ/L (3.5-5.1) Chloride Level 120 MEQ/L (98-107) 125 MEQ/L (98-107) Carbon Dioxide Level 17.7 MEQ/L (21.0-32.0) 15.8 MEQ/L (21.0-32.0) Anion Gap 12 MEQ/L (5-15) 12 MEQ/L (5-15) Estimat Glomerular Filtration Rate 66 ML/MIN (>89) 50 ML/MIN (>89) Test 07/06/17 13:30 Result Diagram: 07/06/17 0515 07/06/17 0515 Microbiology Microbiology Date/Time Source Procedure Growth Status 07/03/17 17:45 Blood Peripheral Aerobic Blood Culture - Preliminary NO GROWTH IN 3 DAYS Resulted 07/03/17 17:45 Blood Peripheral Anaerobic Blood Culture - Preliminary NO GROWTH IN 3 DAYS Resulted 07/03/17 17:45 Blood Peripheral Aerobic Blood Culture - Preliminary NO GROWTH IN 3 DAYS Resulted 07/03/17 17:45 Blood Peripheral Anaerobic Blood Culture - Preliminary NO GROWTH IN 3 DAYS Resulted 07/03/17 17:10 Urine Catheterized Urine Urine Culture - Final Escherichia Coli Esbl Positive Multi-Drug Resistant Complete Imaging Last Impressions Chest X-Ray 07/06/17 1137 Signed Impressions: Service Date/Time: Thursday, July 06, 2017 11:47 - CONCLUSION: No acute disease. David Calvillo MD Lower Extremity Ultrasound 07/06/17 0000 Signed Impressions: Service Date/Time: Thursday, July 06, 2017 13:14 - CONCLUSION: Negative for deep venous thrombosis. Roldan Hernandez MD FACR Head CT 07/03/17 1735 Signed Impressions: Service Date/Time: Monday, July 03, 2017 18:01 - CONCLUSION: 1. Stable examination compared to the examination from 2016. 2. Diffuse bilateral cortical atrophy which is stable. 3. No new or acute pathology. Abdon Tracy MD Abdomen/Pelvis CT 07/03/17 0000 Signed Impressions: Service Date/Time: Monday, July 03, 2017 18:05 - CONCLUSION: 1. Unremarkable and stable CT scan of the abdomen and pelvis compared to the prior study. No new or significant changes. Abdon Tracy MD Patient/Family Conference Present at Family Conference: Brother Micah. Family Conference Time (mins): 34 Family Conference Location: Telephone Issues Discussed: * Palliative care role, purpose, approach * Additional medical, psychosocial, and spiritual history * Patients general health, functional status, and cognitive changes in the months leading up to the current hospitalization * Patient/family understanding of the current medical problems -UTI, pneumonia, sepsis, respiratory failure. * Patient/family understanding of prognosis -guarded prognosis * Patients goals of care as best understood from advance directives and/or conversations and/or values * Current medical treatment options and benefits/burdens of those options * Questions answered to the best of my ability * Palliative care contact information provided . Assessment and Plan Disease Oriented Problem List: (1) Respiratory failure (2) PNA (pneumonia) (3) UTI (urinary tract infection) (4) Sepsis (5) Lactic acidosis (6) Acute kidney injury Symptom Scale: (1) Shortness of breath 0-10 Scale: Unable to quantify (2) Pain 0-10 Scale: Unable to quantify (3) Debility 0-10 Scale: Unable to quantify Pertinent Non-Medical Issues Psychosocial: Patient originally from [place]. Moved to [place] when he was 9 years old. Patient is single, no children. Both parents are . Patient has 3 brothers who live in [place]. Patient is disabled secondary to CVA. 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 Spiritual: Religious genaro. Legal: No advance directives completed. Ethical issues impacting care: No ethical issues identified. . Important Contacts Brother Micah Valdes: C , H , W . Brother Gerry Valdes Brother Dami -no tel number . Prognosis Mr. Valdes is a 62-year-old male with a medical history significant for hypertension, GERD, hyperlipidemia, esophageal structures and CVA. Patient presented to ED via EMS on 07/03/17 for evaluation of altered mental status and weakness. Patient admitted for further management of UTI, pneumonia, sepsis. Clinical course complicated by acute kidney injury and respiratory failure. Patient very high risk for further complications, continue decline and . . Code Status: Full Code Plan * CODE STATUS: Full code. * HEALTHCARE DECISION-MAKING: Patient with limited participation in medical decision-making secondary to clinical condition, intermittent confusion and lethargy. Patient reports that no advance directives have been completed. Patient is single, no children, both parents are . As per [place] statute, healthcare proxy decision-making falls to the majority of patient's siblings for which he has 3: Micah Gerry and Dami Valdes. * GOALS OF CARE: Patient verbalized wishing for full code, limited participation in medical decision-making secondary to intermittent confusion and lethargy. Patient's brother Micah Valdes has been contacted. Brother supportive of aggressive goals at this time. Concerns of patient's deteriorating clinical condition and high risk for further complications, continue decline and has been discussed at length with patient's brother Micah. Brother receptive to palliative care follow-ups. Micah to notify additional family members. * SYMPTOMS: = Dyspnea: Likely secondary to sepsis, pneumonia. Pending CTA of chest to rule out PE. Transferred to medical ICU for further monitoring and management. Rehabilitation Therapist following. =Pain: Patient with history of chronic pain. Home regimen to include [place] 5/325 every 6 hours as needed, gabapentin 300 mg twice a day. Home regimen has been continued. = Debility, progressive since CVA in 2014. * Palliative care contact information has been provided to patient's brother Micah. * Case discussed with Dr. Mao and bedside RN. * Palliative care will continue to follow-up for further clarifications of goals of care as patient's clinical course continues to evolve. . Time Spent Total Floor Time (mins): 71 (Total time to include review medical and summarization of available medical records to include prior hospitalizations and ED visits, physical exam, goals of care conversation with patient, telephone conversation with patient's brother, case discussion with Dr. Mao and bedside RN.) >50% Counseling/Coord of Care: Yes Thank you for the opportunity to participate in the care of Mr. Valdes. Attestation To help prompt me to consider important information that might be impacting today's encounter and assessment, information from prior notes written by myself or my colleagues may have been "brought forward" into today's note. My signature on this note, however, is an attestation that I personally performed the exam, history, and/or decision-making noted today, and, unless otherwise indicated, the interactions with patient, family, and staff as well as the review of records all occurred today. I also attest that the listed assessment and stated plan reflect my best clinical judgment today based on the combination of historical information, prior notes, and today's exam/ interactions. When time spent is documented, it refers only to time spent today by the signer, or if indicated, combined time spent today by collaborating physician/nurse practitioner. Rosibel Escoto Jul 06, 2017 15:01
--- NOTE | 2017-07-06 15:12 | MB ---
cc: CLEVE ARMENDARIZ M.D. DATE OF CONSULTATION: 07/06/2017 DATE OF : 1955, 62 REASON FOR CONSULTATION: The patient is a 62-year-old male with past medical history of CVA 3 years ago, hypertension, hyperlipidemia and gastroesophageal reflux disease, peptic ulcer disease who was admitted under hospitalist service on July 03 for urinary tract infection, acute kidney injury and dehydration. The patient was found to have E-coli ESBL on a urine culture. On arrival he had a CT scan of the brain for lethargy which showed a diffuse bilateral cortical atrophy and no new pathology noted. He also had a CT abdomen, pelvis which did not show any acute abdominal findings. His initial chest x-ray on admission showed no acute disease as well. The patient was placed on antibiotics and IV fluids. He underwent the EGD with dilatation for an distal esophageal stricture in April 2017. He is currently being followed by gastrointestinal, infectious disease and a cardiology. A Helicat was called as the patient was found hypoxic with saturation in the 70s and hypotensive. He is currently receiving 1 liter bolus of normal saline and was [place] [facility] [place]. Critical care medicine was consulted for critical care management. ABG was performed which showed pH of 7.51, CO2 22, pAO2 171, bicarb 17 and saturation of 97%. Chest x-ray was also performed which showed no obvious infiltrates or effusions. His laboratory data from today showed worsening renal function with creatinine 1.4 from 1.12 and hypernatremia with a sodium level of 153. The patient is lethargic, however he responds to questions appropriately. PAST MEDICAL HISTORY: 1. Significant for hypertension 2. Cerebrovascular accident 3. Hyperlipidemia 4. Gastroesophageal reflux disease 5. Peptic ulcer disease. PAST SURGICAL HISTORY 1. Previous cholecystectomy. 2. Previous skin graft. ALLERGIES NO KNOWN DRUG ALLERGIES. FAMILY HISTORY None known, not could not contributing to present illness. SOCIAL HISTORY He quit drinking month ago. Has 45 pack-year history of smoking. MEDICATIONS current medications 1. <<4:21>> 1. Plavix. 2. Protonix. 3. Heparin Subcu. 4. Neurontin. 5. Flomax. REVIEW OF SYSTEMS As per HPI. Rest of the system limited as patient is poor historian. PHYSICAL EXAMINATION: IN GENERAL: A 62-year-old male lying in bed in mild distress. VITAL SIGNS: Temperature 96.9, pulse of 89, respiratory 17, blood pressure 116/60. HEAD, EYES, EARS, NOSE, AND THROAT: Atraumatic, normocephalic pupil equal and reactive to accommodation, extraocular muscles intact. conjunctivae pink. Nonicteric sclerae. Oral mucosa within normal. NECK: Supple. No JVD, adenopathy or thyromegaly. Trachea midline CARDIOVASCULAR SYSTEM: Regular rate and rhythm. Normal S1-S2. No murmurs, rubs or gallops noted. LUNGS: Pulmonary exam bilateral equal entry. No rales or wheezing. ABDOMEN: Soft, obese, nontender, no distension. Positive bowel sounds. EXTREMITIES: No cyanosis, clubbing, trace to +1 edema. NEUROLOGIC: Lethargic, however, responds to questions appropriately. No focal sensory deficit. LABORATORY DATA Sodium 153, 8004.2, chloride 125, CO2 15 and 42, creatinine 1.44, glucose 123, calcium 8. WBC 16.4, hemoglobin 11, hematocrit 33, platelet count of 225, INR 1.2, PT 12.5, PTT 25.9. Urine drug screen negative for alcohol level less than 3. Urinalysis or urine culture positive for E-coli ESBL RADIOGRAPHY Chest x-ray Showed no acute disease. CT brain showed diffuse bilateral cortical atrophy, no new no in no acute intracranial process. CT abdomen, pelvis showed no acute abdominal findings. IMPRESSION 1. Respiratory insufficiency. 2. Urinary tract infection with urine culture positive for ESBL E-coli. 3. Dysphagia status post EGD with dilatation for esophageal stricture in April, possible aspiration to rule out aspiration. 4. History of cerebrovascular accident. 5. Acute kidney injury. 6. hypernatremia. 7. Dehydration. 8. Leukocytosis 9. History of peptic ulcer disease. 10. History of gastroesophageal reflux disease RECOMMENDATIONS 1. Monitor neuro status closely and avoid any sedatives CT scan of the brain on arrival showed no acute intracranial process and his urine drug screen was negative. His TSH level was 1.12 and ammonia level is 25. 2. Continue with oxygen and maintain sats above 92%. 3. Bronchodilators in the form of DuoNeb q. 4+ q. two p.r.n. for shortness of breath. 4. Aspiration precautions. 5. Chest x-ray Showed no acute disease. We will proceed with a CT pulmonary angiogram to rule out pulmonary embolus. 6. Monitor heart rate and blood pressure closely and maintain MAP greater 65 mmHg. Check lactic acid level. We will give 1-2 liters boluses of normal saline followed by maintenance fluids and continue with Plavix 75 mg daily. Cardiology service is following Dr. Harrell. The patient had an echocardiogram back in May 2015 which showed an EF of 55-60% and grade 1 diastolic dysfunction. 7. Monitor renal function Is and Os and avoid nephrotoxins. 8. IV fluids as stated above. Change maintenance fluids to D5W at a 1040mm at 84 an hour. 9. Keep n.p.o. for now per speech. 10. Continue with Protonix 40 mg daily for GI prophylaxis. 11. Gastrointestinal is following. 12. The patient might need esophagogastroduodenoscopy with possible esophageal dilatation and peg tube placement. Will defer to gastroenterology. 13. Continue with broad-spectrum antibiotics per infectious disease service. He was placed on vancomycin, monitor for signs of infections which include fever and WBC. His blood cultures from July 03 showed no growth to date. The patient for repeat blood cultures x2 strep pneumoniae and Legionella urinary antigen and nasal washing to rule out influenza. 14. Place on sliding scale insulin with Accu-Chek's for glycemic control. 15. Monitor CBC 16. Gastrointestinal prophylaxis with Protonix 40 mg daily and deep venous thrombosis with SCDs and heparin subcutaneous. 17. Further recommendations will be based on hospital course. MD KEARA Diallo/richard /12:35 PM /1:25 PM WANDA
[2017-07-06] MEDS: RESP: ALBUTEROL 2.5 MG/IPRATROPIUM 0.5 MG NEB (SCH) NEB ×3 (15:29→23:20)
[2017-07-06] MEDS: INSULIN NovoLIN REGULAR SUPPLEMENTAL SCALE SQ SCH ×3 (16:00→23:28)
--- NOTE | 2017-07-06 16:00 | PD.CARD.PN ---
Subjective Subjective Remarks Events earlier noted Patient was seen while in the ICU Hemodynamically stable, non-verbal Objective Medications Current Medications Medications (Trade) Dose Ordered Sig/Katina Route Start Time Stop Time Status Last Admin (NS Flush) 2 ml UNSCH PRN IV FLUSH 07/03/17 20:15 (NS Flush) 2 ml BID IV FLUSH 07/03/17 21:00 07/06/17 10:27 (Tylenol) 650 mg Q4H PRN PO 07/03/17 20:15 (Zofran Inj) 4 mg Q6H PRN IVP 07/03/17 20:15 (Heparin Inj) 5,000 units Q8HR SQ 07/03/17 22:00 07/06/17 04:47 (Plavix) 75 mg DAILY PO 07/04/17 09:00 07/05/17 08:47 (Neurontin) 300 mg BID PO 07/03/17 21:45 07/05/17 19:54 (Kenvil 5-325 Mg) 1 tab Q6H PRN PO 07/03/17 21:45 07/04/17 23:12 (Flomax) 0.4 mg HS PO 07/03/17 21:45 07/05/17 19:54 (ASP Crit: Path resist to other, cult proven) 1 UNSCH X1 PRN .XX 07/06/17 08:45 07/07/17 08:44 (ASP Crit: Path resist to other, cult proven) 1 UNSCH X1 PRN .XX 07/06/17 11:30 07/07/17 11:29 ([facility] [place] [facility]) 1 UNSCH X1 PRN XX 07/06/17 11:30 07/07/17 11:29 Meropenem 1000 mg/ Sodium Chloride 100 ml @ 200 mls/hr Q8H IV 07/06/17 12:00 Pharmacy Profile Note 0 ml @ 0 mls/hr UNSCH OTHER 07/06/17 11:30 (Duoneb Neb) 1 ampule Q4HR NEB NEB 07/06/17 16:00 07/06/17 15:29 (Duoneb Neb) 1 ampule Q2HR NEB PRN NEB 07/06/17 12:30 Dextrose 1,000 ml @ 84 mls/hr [id number] IV 07/06/17 13:00 (D50w (Vial) Inj) 50 ml UNSCH PRN IV PUSH 07/06/17 12:30 (Glucagon Inj) 1 mg UNSCH PRN OTHER 07/06/17 12:30 (NovoLIN R SUPPLEMENTAL SCALE) 1 Q4HR SQ 07/06/17 12:30 Vancomycin HCl 1750 mg/Sodium Chloride 517.5 ml @ 250 mls/hr Q24H IV 07/06/17 14:00 Miscellaneous Information SPECIFIC LAB TO BE DRAWN:VANCO TROUGH DATE TO... ONCE ONCE .XX 07/09/17 13:45 07/09/17 13:46 (Protonix Inj) 40 mg DAILY IV PUSH 07/06/17 12:45 Vital Signs / I&O Vital Signs Date Time Temp Pulse Resp B/P (MAP) Pulse Ox O2 Delivery O2 Flow Rate FiO2 07/06/17 15:30 95 Simple Mask 10.00 07/06/17 13:00 96.7 82 30 112/75 (87) 71 07/06/17 11:50 100 Simple Mask 8.00 07/06/17 11:50 100 07/06/17 11:30 93 97/71 (80) 78 07/06/17 11:25 Simple Mask 7.00 07/06/17 11:21 78 Nasal Cannula 5.00 07/06/17 11:20 96.7 54 30 100/61 (74) 71 07/06/17 11:20 Nasal Cannula 2.00 07/06/17 10:00 67 07/06/17 08:00 Nasal Cannula 2.00 07/06/17 08:00 95.5 89 17 128/76 (93) 99 07/06/17 04:00 96.9 97 24 141/70 (93) 99 07/06/17 00:00 96.2 97 24 104/78 (87) 100 07/05/17 20:00 96.7 89 20 129/84 (99) 100 07/05/17 20:00 99 I/O 07/05/17 07/05/17 07/05/17 07/06/17 07/06/17 07/06/17 07:00 15:00 23:00 07:00 15:00 23:00 Intake Total 120 ml 0 ml Output Total 650 ml 550 ml Balance -650 ml 120 ml -550 ml Intake Oral 120 ml 0 ml Output Urine Total 650 ml 550 ml # Voids 1 # Bowel Movements 0 0 Physical Exam GENERAL: Non-verbal SKIN: Warm and dry. HEAD: Atraumatic. Normocephalic. EYES: Pupils equal and round. No scleral icterus. No injection or drainage. ENT: No nasal bleeding or discharge. Mucous membranes pink and moist. NECK: Trachea midline. No JVD. CARDIOVASCULAR: Regular rate and rhythm. RESPIRATORY: No accessory muscle use. Rhonchi bilaterally GASTROINTESTINAL: Abdomen soft, non-tender, nondistended. Hepatic and splenic margins not palpable. MUSCULOSKELETAL: Extremities without clubbing, cyanosis, or edema. No obvious deformities. NEUROLOGICAL: Non-verbal Laboratory Laboratory Tests Test 07/06/17 05:15 07/06/17 12:15 07/06/17 15:34 White Blood Count 16.4 TH/MM3 Red Blood Count 4.09 MIL/MM3 Hemoglobin 11.1 GM/DL Hematocrit 33.8 % Mean Corpuscular Volume 82.6 FL Mean Corpuscular Hemoglobin 27.0 PG Mean Corpuscular Hemoglobin Concent 32.7 % Red Cell Distribution Width 17.2 % Platelet Count 225 TH/MM3 Mean Platelet Volume 7.2 FL Neutrophils (%) (Auto) 78.7 % Lymphocytes (%) (Auto) 17.9 % Monocytes (%) (Auto) 2.8 % Eosinophils (%) (Auto) 0.2 % Basophils (%) (Auto) 0.4 % Neutrophils # (Auto) 12.9 TH/MM3 Lymphocytes # (Auto) 2.9 TH/MM3 Monocytes # (Auto) 0.5 TH/MM3 Eosinophils # (Auto) 0.0 TH/MM3 Basophils # (Auto) 0.1 TH/MM3 CBC Comment DIFF FINAL Differential Comment Blood Urea Nitrogen 42 MG/DL Creatinine 1.44 MG/DL Random Glucose 123 MG/DL Calcium Level 8.0 MG/DL Sodium Level 153 MEQ/L Potassium Level 4.2 MEQ/L Chloride Level 125 MEQ/L Carbon Dioxide Level 15.8 MEQ/L Anion Gap 12 MEQ/L Estimat Glomerular Filtration Rate 50 ML/MIN Blood Gas Puncture Site RT RADIAL Blood Gas Patient Temperature 98.6 Blood Gas HCO3 18 mmol/L Blood Gas Base Excess -4.9 mmol/L Blood Gas Oxygen Saturation 98 % Arterial Blood pH 7.52 Arterial Blood Partial Pressure CO2 22 mmHg Arterial Blood Partial Pressure O2 171 mmHg Arterial Blood Oxygen Content 12.3 Vol % Arterial Blood Carboxyhemoglobin 0.4 % Arterial Blood Methemoglobin 1.0 % Blood Gas Hemoglobin 8.7 G/DL Oxygen Delivery Device SM Blood Gas Liter Flow 6 L/M Imaging Last 24 hours Impressions Chest X-Ray 07/06/17 1137 Signed Impressions: Service Date/Time: Thursday, July 06, 2017 11:47 - CONCLUSION: No acute disease. David Calvillo MD Lower Extremity Ultrasound 07/06/17 0000 Signed Impressions: Service Date/Time: Thursday, July 06, 2017 13:14 - CONCLUSION: Negative for deep venous thrombosis. Roldan Hernandez MD FACR Assessment and Plan Problem List: (1) PNA (pneumonia) ICD Codes: J18.9 - Pneumonia, unspecified organism (2) UTI (urinary tract infection) ICD Codes: N39.0 - Urinary tract infection, site not specified Status: Acute (3) Lactic acidosis ICD Codes: E87.2 - Acidosis Status: Acute (4) Sepsis ICD Codes: A41.9 - Sepsis, unspecified organism Status: Acute (5) Chest pain, atypical ICD Codes: R07.89 - Atypical chest pain Status: Acute (6) TOBACCO USE DISORDER Status: Chronic (7) Obesity ICD Codes: E66.9 - Obesity Status: Acute (8) Hypertension ICD Codes: I10 - Hypertension Status: Chronic Assessment and Plan 1) UTI/PNA/Sepsis Elevated lactate Per primary team 2) Chest pain appears pleuritic in nature 3) Does not appear to have angina 4) Minimally elevated trop, flat in nature Non-specific with CHANO/lactic acidosis Most likely Type 2 5) Minimal EKG changes anterolaterally 6) Possible aspiration PNA Problem Qualifiers (1) UTI (urinary tract infection): Qualified Codes: N39.0 - Urinary tract infection, site not specified (2) Sepsis: Qualified Codes: A41.9 - Sepsis, unspecified organism Apollo Harrell DO Jul 06, 2017 15:59
[2017-07-06 16:18] LABS: CALCIUM 7.2 MG/DL (8.5-10.1); CREATININE 1.36 MG/DL (0.60-1.30); MAGNESIUM 2.1 MG/DL (1.5-2.5); PHOSPHORUS 2.8 MG/DL (2.5-4.9)
[2017-07-06 16:19] LABS: CALCIUM-PROTEIN CORRECTED 8.5 MG/DL (8.5-10.1); TOTAL BILIRUBIN ADULT 0.2 MG/DL (0.2-1.0); TOTAL PROTEIN 4.8 GM/DL (6.4-8.2)
[2017-07-06] MEDS: VANCOMYCIN INJ 1,750 MG in SODIUM CHLORID 0.9% 500 ML INJ 500 ML IV SCH (16:34)
[2017-07-06 16:36] LABS: AUTOMATED NEUTROPHIL # 14.5 TH/MM3 (1.8-7.7); BASOPHIL # 0.1 TH/MM3 (0-0.2); BASOPHIL % 0.5 % (0.0-2.0); EOSINOPHIL % 0.2 % (0.0-4.0); HEMATOCRIT 21.9 % (39.0-51.0); HEMOGLOBIN 7.3 GM/DL (13.0-17.0); LYMPH % 16.7 % (9.0-44.0); MEAN CELL VOLUME 82.4 FL (80.0-100.0); MEAN CORPUSCULAR HEMOGLOBIN 27.6 PG (27.0-34.0); MEAN CORPUSCULAR HGB CONC 33.5 % (32.0-36.0); MEAN PLATELET VOLUME 7.5 FL (7.0-11.0); MONO % 2.6 % (0.0-8.0); MONOCYTE # 0.5 TH/MM3 (0-0.9); PLATELET COUNT 190 TH/MM3 (150-450); RED BLOOD COUNT 2.66 MIL/MM3 (4.50-5.90); RED CELL DISTRIBUTION WIDTH 17.1 % (11.6-17.2); WHITE BLOOD COUNT 18.1 TH/MM3 (4.0-11.0)
--- NOTE | 2017-07-06 17:33 | HHI.GIFU ---
GI Follow-up Note Consult Follow-up Subjective: Patient laying in bed, on venti mask .Patient scheduled for egd/ dilatation today, noted to be hypoxic on the floor, transferred to [facility] [place] for further management.He was given iv f, hb noted to drop.No reports of bleeding at this point.Lethargic, arousal, answers questions . EGD on hold Objective: PHYSICAL EXAMINATION: Vitals signs stable No fever Vital Signs Date Time Temp Pulse Resp B/P (MAP) Pulse Ox O2 Delivery O2 Flow Rate FiO2 07/06/17 16:00 80 07/06/17 16:00 97.8 82 30 105/67 (80) 71 07/06/17 15:30 95 Simple Mask 10.00 07/06/17 14:00 80 07/06/17 13:00 96.7 82 30 112/75 (87) 71 07/06/17 11:50 100 Simple Mask 8.00 07/06/17 11:50 100 07/06/17 11:30 93 97/71 (80) 78 07/06/17 11:25 Simple Mask 7.00 07/06/17 11:21 78 Nasal Cannula 5.00 07/06/17 11:20 96.7 54 30 100/61 (74) 71 07/06/17 11:20 Nasal Cannula 2.00 07/06/17 10:00 67 HEENT: Pupils round and reactive to light; normocephalic; atraumatic; no jaundice. Throat is clear, on ventimask NECK: Neck is supple, no JVD, no lymphadenopathy. CHEST: Chest is clear to auscultation and percussion. CARDIAC: Regular rate and rhythm with no murmur gallop or rubs. ABDOMEN: Soft, distended, nontender; no hepatosplenomegaly; bowel sounds are present in all four quadrants. EXTREMITIES: No clubbing, cyanosis, or edema. SKIN: Normal; no rash; no jaundice. 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 Available Data (labs, X- Rays, Procedues) : Laboratory Tests Test 07/05/17 09:21 07/06/17 05:15 07/06/17 12:15 07/06/17 15:34 White Blood Count 17.4 TH/MM3 16.4 TH/MM3 Red Blood Count 4.09 MIL/MM3 4.09 MIL/MM3 Hemoglobin 11.0 GM/DL 11.1 GM/DL Hematocrit 33.9 % 33.8 % Mean Corpuscular Volume 82.9 FL 82.6 FL Mean Corpuscular Hemoglobin 27.0 PG 27.0 PG Mean Corpuscular Hemoglobin Concent 32.5 % 32.7 % Red Cell Distribution Width 17.0 % 17.2 % Platelet Count 227 TH/MM3 225 TH/MM3 Mean Platelet Volume 7.0 FL 7.2 FL Neutrophils (%) (Auto) 77.9 % 78.7 % Lymphocytes (%) (Auto) 17.6 % 17.9 % Monocytes (%) (Auto) 3.7 % 2.8 % Eosinophils (%) (Auto) 0.3 % 0.2 % Basophils (%) (Auto) 0.5 % 0.4 % Neutrophils # (Auto) 13.5 TH/MM3 12.9 TH/MM3 Lymphocytes # (Auto) 3.1 TH/MM3 2.9 TH/MM3 Monocytes # (Auto) 0.6 TH/MM3 0.5 TH/MM3 Eosinophils # (Auto) 0.0 TH/MM3 0.0 TH/MM3 Basophils # (Auto) 0.1 TH/MM3 0.1 TH/MM3 CBC Comment DIFF FINAL DIFF FINAL Differential Comment Blood Urea Nitrogen 38 MG/DL 42 MG/DL 44 MG/DL Creatinine 1.12 MG/DL 1.44 MG/DL 1.36 MG/DL Random Glucose 118 MG/DL 123 MG/DL 111 MG/DL Calcium Level 8.5 MG/DL 8.0 MG/DL 7.2 MG/DL Magnesium Level 2.4 MG/DL 2.1 MG/DL Sodium Level 150 MEQ/L 153 MEQ/L 159 MEQ/L Potassium Level 3.7 MEQ/L 4.2 MEQ/L 4.4 MEQ/L Chloride Level 120 MEQ/L 125 MEQ/L 129 MEQ/L Carbon Dioxide Level 17.7 MEQ/L 15.8 MEQ/L 17.0 MEQ/L Anion Gap 12 MEQ/L 12 MEQ/L 13 MEQ/L Estimat Glomerular Filtration Rate 66 ML/MIN 50 ML/MIN 53 ML/MIN Blood Gas Puncture Site RT RADIAL Blood Gas Patient Temperature 98.6 Blood Gas HCO3 18 mmol/L Blood Gas Base Excess -4.9 mmol/L Blood Gas Oxygen Saturation 98 % Arterial Blood pH 7.52 Arterial Blood Partial Pressure CO2 22 mmHg Arterial Blood Partial Pressure O2 171 mmHg Arterial Blood Oxygen Content 12.3 Vol % Arterial Blood Carboxyhemoglobin 0.4 % Arterial Blood Methemoglobin 1.0 % Blood Gas Hemoglobin 8.7 G/DL Oxygen Delivery Device Blood Gas Liter Flow 6 L/M Total Protein 4.8 GM/DL Albumin 2.0 GM/DL Phosphorus Level 2.8 MG/DL Alkaline Phosphatase 111 U/L Aspartate Amino Transf (AST/SGOT) 10 U/L Alanine Aminotransferase (ALT/SGPT) 10 U/L Total Bilirubin 0.2 MG/DL Lactic Acid Level 3.8 mmol/L Protein Corrected Calcium 8.5 MG/DL Test 07/06/17 16:29 White Blood Count 18.1 TH/MM3 Red Blood Count 2.66 MIL/MM3 Hemoglobin 7.3 GM/DL Hematocrit 21.9 % Mean Corpuscular Volume 82.4 FL Mean Corpuscular Hemoglobin 27.6 PG Mean Corpuscular Hemoglobin Concent 33.5 % Red Cell Distribution Width 17.1 % Platelet Count 190 TH/MM3 Mean Platelet Volume 7.5 FL Neutrophils (%) (Auto) 80.0 % Lymphocytes (%) (Auto) 16.7 % Monocytes (%) (Auto) 2.6 % Eosinophils (%) (Auto) 0.2 % Basophils (%) (Auto) 0.5 % Neutrophils # (Auto) 14.5 TH/MM3 Lymphocytes # (Auto) 3.0 TH/MM3 Monocytes # (Auto) 0.5 TH/MM3 Eosinophils # (Auto) 0.0 TH/MM3 Basophils # (Auto) 0.1 TH/MM3 CBC Comment DIFF FINAL Differential Comment ASSESSMENT/PLAN: dysphagia, history of esophageal stricture-egd/dil when more stable drop in hb-possible lab error-no obvious indication of active bleeding lethargy possible secondary hypoxia Recommendations repeat cbc stat type and screen monitor hb/ht closely ammonia level call gi if hb still low if hb less than 8 -transfuse 2 units of prbc if hb still low ct abdomen/pelvis It was a pleasure seeing Hank Valdes. Thank you for this consult. Entered by: Yolanda Bravo MD Jul 06, 2017 17:33
[2017-07-06] MEDS ORDERED: IOHEXOL 350 MG/ML 10 ML VIAL (for RAD DIAG) IVCONTRAST ONE (18:45)
--- NOTE | 2017-07-06 18:45 | ECHRPT ---
Indication: elevated trops CONCLUSIONS Very technically difficult study. In limited views, the ejection fraction appears probably normal and at the least mildly decreased, p robably around 50%. Doppler parameters are consistent with impaired left ventricular relaxtion (grade 1 diastolic dysfun ction). BP: 183 / 86 HR: 77 Rhythm: Sinus MEASUREMENTS (Male / Female) Normal Values Technical Quality:Very technically difficult study DOPPLER AV Peak Velocity 103.0 cm/s AV Peak Gradient 4.2 mmHg LVOT Peak Velocity 88.4 cm/s LVOT Peak Gradient 3.1 mmHg MV Area PHT 4.2 cm Mitral E Point Velocity 62.2 cm/s Mitral A Point Velocity 80.5 cm/s Mitral E to A Ratio 0.8 LV E' Lateral Velocity 4.3 cm/s Mitral E to LV E' Lateral Ratio 14.5 LV E' Septal Velocity 5.2 cm/s Mitral E to LV E' Septal Ratio 12.0 FINDINGS LEFT VENTRICLE In limited views, the ejection fraction appears probably normal and at the least mildly decreased, p robably around 50% Doppler parameters are consistent with impaired left ventricular relaxtion (grade 1 diastolic dysfun ction). RIGHT VENTRICLE The right ventricle was not well visualized. LEFT ATRIUM The left atrium was not well visualized. RIGHT ATRIUM The right atrium is not well visualized. ATRIAL SEPTUM The interatrial septum not well visualized. AORTA The aortic root and proximal ascending aorta are not well visualized. MITRAL VALVE Grossly normal AORTIC VALVE The aortic valve is not well visualized. TRICUSPID VALVE The tricuspid valve is not well visualized. PULMONARY VALVE The pulmonary valve is not well visualized. Apollo Harrell DO (Electronically Signed) Final Date:06 July 2017 18:44
--- NOTE | 2017-07-06 19:00 | RADRPT ---
EXAM DATE/TIME: 07/06/2017 18:41 [place] COMPARISON: CT PULMONARY ANGIOGRAM, January 03, 2014, 0:32. INDICATIONS : Pneumonia, short of breath, evaluate for pulmonary emboli. IV CONTRAST: 74 cc Omnipaque 350 (iohexol) IV RADIATION DOSE: 11.10 CTDIvol (mGy) MEDICAL HISTORY : Cerebrovascular disease. Cardiovascular disease Hypertension. SURGICAL HISTORY : Appendectomy. Cholecystectomy. ENCOUNTER: Initial ACUITY: 1 day PAIN SCALE: Non-responsive LOCATION: chest TECHNIQUE: Volumetric scanning of the chest was performed using a pulmonary embolism protocol MIP images were re constructed. Using automated exposure control and adjustment of the mA and/or kV according to patien t size, radiation dose was kept as low as reasonably achievable to obtain optimal diagnostic quality images. DICOM format image data is available electronically for review and comparison. Follow-up recommendations for detected pulmonary nodules are based at a minimum on nodule size and pa tient risk factors according to Fleischner Society Guidelines. FINDINGS: PULMONARY ARTERIES: No filling defects are seen in the pulmonary arteries through the segmental level. LUNGS: There is a linear infiltrate in the right lung base suggestive of atelectasis. Otherwise, the lungs a re clear and well-aerated. There is a stable 4 mm pulmonary nodule in the left lung base. There is mi ld elevation of the right hemidiaphragm. PLEURAE: There is no pleural thickening or pleural effusion. MEDIASTINUM: There is good visualization of the great vessels of the middle mediastinum. No evidence of mediastin al or hilar adenopathy/mass. There is some dilatation of the thoracic esophagus. MUSCULOSKELETAL: Within normal limits for patient age. MISCELLANEOUS: The visualized upper abdominal organs demonstrate no acute abnormality. No significant changes compared to the prior exam. CONCLUSION: 1. No evidence of pulmonary embolism. 2. Linear infiltrate right lung base suggestive of atelectasis. 3. Stable 4 mm pulmonary nodule left lower lung. 4. Nonspecific dilatation of the thoracic esophagus. This could be from dysmotility. Abdon Tracy MD on July 06, 2017 at 18:54 Board Certified Radiologist. This report was verified electronically.
[2017-07-06 21:00] LABS: AUTOMATED NEUTROPHIL # 14.8 TH/MM3 (1.8-7.7); BASOPHIL # 0.1 TH/MM3 (0-0.2); BASOPHIL % 0.4 % (0.0-2.0); EOSINOPHIL % 0.1 % (0.0-4.0); HEMATOCRIT 22.8 % (39.0-51.0); HEMOGLOBIN 7.5 GM/DL (13.0-17.0); LYMPH % 18.6 % (9.0-44.0); LYMPHOCYTE # 3.5 TH/MM3 (1.0-4.8); MEAN CELL VOLUME 83.4 FL (80.0-100.0); MEAN CORPUSCULAR HEMOGLOBIN 27.5 PG (27.0-34.0); MEAN PLATELET VOLUME 7.5 FL (7.0-11.0); MONO % 2.8 % (0.0-8.0); MONOCYTE # 0.5 TH/MM3 (0-0.9); NEUT % 78.1 % (16.0-70.0); PLATELET COUNT 202 TH/MM3 (150-450); RED BLOOD COUNT 2.73 MIL/MM3 (4.50-5.90); WHITE BLOOD COUNT 18.9 TH/MM3 (4.0-11.0)
[2017-07-06] MEDS: TAMSULOSIN HCL 0.4 MG CAP PO SCH (21:12)
[2017-07-06 21:29] LABS: CALCIUM 7.5 MG/DL (8.5-10.1); CREATININE 1.54 MG/DL (0.60-1.30)
[2017-07-07] VITALS (21 sets, daily range): BP systolic 74–106; BP diastolic 47–69; PULSE 84–100; RESP 12–34; TEMP 97.9–98.7; O2SAT 89–100
[2017-07-07] MEDS: DEXTROSE 5% IN WATE 1000ML INJ 1,000 ML IV SCH ×2 (03:25→22:10)
[2017-07-07] MEDS: MEROPENEM INJ 1,000 MG in SODIUM CHLORIDE 0.9% INJ 100 ML IV SCH ×3 (03:52→19:40)
[2017-07-07] MEDS: RESP: ALBUTEROL 2.5 MG/IPRATROPIUM 0.5 MG NEB (SCH) NEB ×6 (03:53→23:10)
[2017-07-07] MEDS: INSULIN NovoLIN REGULAR SUPPLEMENTAL SCALE SQ SCH ×5 (04:00→19:40)
[2017-07-07] MEDS: HEPARIN SODIUM - SQ 10,000 UNITS/ML VIAL SQ SCH ×3 (04:37→22:27)
[2017-07-07] MEDS: PANTOPRAZOLE SODIUM 40 MG VIAL IV PUSH SCH (08:01)
[2017-07-07] MEDS: SODIUM CHLORIDE 0.9% FLUSH 10 ML FLUSH IV FLUSH SCH ×2 (08:04→20:26)
[2017-07-07] MEDS: GABAPENTIN 300 MG CAP PO SCH ×2 (08:04→20:26)
[2017-07-07] MEDS: CLOPIDOGREL 75 MG TAB PO SCH (09:00)
[2017-07-07] MEDS ORDERED: ROCURONIUM INJ 50 MG/5 ML VIAL ONE ×3 (10:30→10:42)
[2017-07-07] MEDS ORDERED: ETOMIDATE 40 MG/20 ML VIAL ONE (10:30)
[2017-07-07] MEDS ORDERED: ROCURONIUM INJ 100 MG/10 ML VIAL IV ONE (10:30)
[2017-07-07] MEDS ORDERED: ETOMIDATE 40 MG/20 ML VIAL IV PUSH ONE (10:30)
[2017-07-07] MEDS ORDERED: MIDAZOLAM HCL 5 MG/ML VIAL (1 ML) ONE (10:30)
--- NOTE | 2017-07-07 10:53 | PD.PROCEDR ---
Procedure Note Procedure Procedure REASON FOR PROCEDURE Invasive hemodynamic monitoring PROCEDURE PERFORMED Right femoral arterial line placement, US guided ANESTHESIA Local injection of 1% Lidocaine DESCRIPTION OF THE PROCEDURE The patient was placed in supine position. The area was exposed and cleansed with ChloraPrep, times two. Large sterile drape was used to cover the right femoral artery site, and under sterile conditions including full gown, cap, face mask, and sterile gloves. On second attempt, the introducer needle was inserted and arterial flash was obtained. (Femoral artery was medial to femoral vein) The guide wire was then advanced without any restriction and the needle was removed. Using Seldinger technique the 20 G 16 cm catheter was advanced over the guide wire to a depth of 15 centimeters. The guide wire was removed. Good arterial wave form obtained. Antibiotic disc was placed around arterial line at puncture site and line was secured to the skin with one interrupted 2.0 silk sutures. The area was bandaged with sterile see-through central line bandage. COMPLICATIONS: No apparent complications ESTIMATED BLOOD LOSS: Less than 3 cc. Sagar Tovar MD Jul 07, 2017 10:53
--- NOTE | 2017-07-07 10:55 | PD.PROCEDR ---
Central Line Procedure REASON FOR PROCEDURE Central venous access PROCEDURE PERFORMED Central line placement: Right femoral central line US guided CONSENT Emergency procedure ANESTHESIA Local injection of 1% Lidocaine DESCRIPTION OF THE PROCEDURE The patient was placed in supine, mild Trendelenburg position. The area was exposed and cleansed with ChloraPrep, times two. Large sterile drape was used to cover the patient, with the site exposed, under sterile conditions including cap, face mask, sterile gown, and sterile gloves. On US femoral vein was found lateral to femoral artery and also was small caliber. The introducer needle was inserted with negative pressure in syringe and venous flash was obtained. The guide wire was then advanced without any restriction and the needle was removed. The dilator was used without any complications. Using Seldinger technique the 20 CM 7F triple lumen catheter was advanced over the guide wire to a depth of 18 centimeters. The guide wire was removed. All ports were aspirated with dark venous blood return and flushed easily with sterile saline. All ports were capped. Antibiotic disc was placed around central line at puncture site. The central line was secured to the skin with two interrupted 2.0 silk sutures. The area was bandaged with sterile see-through central line bandage. RADIOLOGICAL DATA Ultrasound guidance was used to locate right femoral vein. Doppler/color flow was used to confirm venous flow. COMPLICATIONS: No apparent complications ESTIMATED BLOOD LOSS: Less than 3cc. Sagar Tovar MD Jul 07, 2017 10:55
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
[2017-07-07] MEDS ORDERED: SODIUM CHLOR 0.45% IV ONE (11:15)
--- NOTE | 2017-07-07 11:22 | HHI.CCPN ---
Subjective Remarks/Hospital Course The patient is a 62-year-old male with past medical history of CVA 3 years ago, hypertension, hyperlipidemia and gastroesophageal reflux disease, peptic ulcer disease who was admitted under hospitalist service on July 03 for urinary tract infection, acute kidney injury and dehydration. The patient was found to have E-coli ESBL on a urine culture. On arrival he had a CT scan of the brain for lethargy which showed a diffuse bilateral cortical atrophy and no new pathology noted. He also had a CT abdomen, pelvis which did not show any acute abdominal findings. His initial chest x-ray on admission showed no acute disease as well. The patient was placed on antibiotics and IV fluids. He underwent the EGD with dilatation for an distal esophageal stricture in April 2017. He is currently being followed by gastrointestinal, infectious disease and a cardiology. A Helicat was called as the patient was found hypoxic with saturation in the 70s and hypotensive. He is currently receiving 1 liter bolus of normal saline and was transferred to [facility] for close observation. Critical care medicine was consulted for critical care management. ABG was performed which showed pH of 7.51, CO2 22, pAO2 171, bicarb 17 andsaturation of 97%. Chest x-ray was also performed which showed no obvious infiltrates or effusions. His laboratory data from today showed worsening renal function with creatinine 1.4 from 1.12 and hypernatremia with a sodium level of 153. The patient is lethargic, however he responds to questions appropriately. Subjective: 07/07: Patient hypotensive, systolic blood pressure in the 80s, patient extremely lethargic, obtunded. Unable to obtain pulse ox O2 sats. Patient placed on nonrebreather 100% mask. Unable to obtain arterial line ABG. Right femoral central line right femoral arterial line placed under ultrasound guidance. Levophed infusion initiated. Contacted ARTHUR Valdes, explained and provided medical status update patient intubated, for airway protection and adequate oxygenation. Objective Vital Signs Date Time Temp Pulse Resp B/P (MAP) Pulse Ox O2 Delivery O2 Flow Rate FiO2 07/07/17 10:00 84 07/07/17 08:00 100 Simple Mask 8.00 07/07/17 08:00 97.9 25 88/56 (67) Intake and Output 07/07/17 07/07/17 07/08/17 08:00 16:00 00:00 Intake Total 510 ml Output Total 1000 ml Balance -490 ml Result Diagram: 07/06/17204407/06/172044 Other Results Laboratory Tests Test 07/06/17 12:15 07/07/17 10:30 Blood Gas Puncture Site RT RADIAL ART LINE Blood Gas Patient Temperature 98.6 98.6 Blood Gas HCO3 18 mmol/L (22-26) 13 mmol/L (22-26) Blood Gas Base Excess -4.9 mmol/L (-2-2) -11.8 mmol/L (-2-2) Blood Gas Oxygen Saturation 98 % (90-100) 98 % (90-100) Arterial Blood pH 7.52 (7.380-7.420) 7.37 (7.380-7.420) Arterial Blood Partial Pressure CO2 22 mmHg (38-42) 22 mmHg (38-42) Arterial Blood Partial Pressure O2 171 mmHg (61-120) 263 mmHg (61-120) Arterial Blood Oxygen Content 12.3 Vol % (12.0-20.0) 14.5 Vol % (12.0-20.0) Arterial Blood Carboxyhemoglobin 0.4 % (0-4) 0.4 % (0-4) Arterial Blood Methemoglobin 1.0 % (0-2) 1.2 % (0-2) Blood Gas Hemoglobin 8.7 G/DL (12.0-16.0) 10.1 G/DL (12.0-16.0) Oxygen Delivery Device SM NRB Blood Gas Liter Flow 6 L/M 15 L/M Blood Gas Inspired Oxygen 100 % Procedures none Urinary Catheter: Yes Coates insert reason: Measure Accurate Output Date of Insertion: Jul 06, 2017 Vascular Central Line Catheter: Yes Assessment to: Continue Date of Insertion: Jul 07, 2017 Line: Central Venous Catheter Side: Right Location: Femoral Reason for Continuation Vasoactive medication administration A/P Assessment and Plan IMPRESSION Plan by systems: Neurologic: History of CVA Daily sedation vacation Fentanyl infusion for sedation/analgesia while endotracheally intubated Ammonia 18 Respiratory: Hypoxic respiratory failure secondary to septic shock 07/07 Emergent intubation 12/27/22 centimeters at the teeth Maintain O2 sat greater than 92% Schedule bronchodilators every 6 hours and every 2 hours when necessary Repeat ABG postintubation Ventilator bundle Obtain CT chest rule out microperforation Cardiovascular: Hypotension Maintain MAP greater than 65 Norepinephrine infusion at 12 mcgs Cardiology service is following Dr. Harrell. The patient had an echocardiogram back in May 2015 which showed an EF of 55-60% and grade 1 diastolic dysfunction. Renal: CHANO Maintain Coates -- Strict I/Os FEN/GI: Dehydration Electrolyte derangement Esophageal stricture Dysphagia status post esophageal dilatation 05/13 Possible GI bleed Possible aspiration GERD History of PUD Patient previously on D5W 125/h Bolus 2 L 05/29 NSS Insert OGT Patient transfuse 2 units packed red blood cells overnight follow-up post transfusion CBC GI following-previously scheduled for EGD postponed secondary to Halicat 07/[address] abd/ pelvis Aspiration precautions Heme/ID: Septic Shock Persistent leukocytosis UTI ESBL Escherichia coli Lactic acidemia ID following Antibiotics per ID 07/07 Obtain repeat cultures-blood, urine, sputum Follow-up Legionella strep pneumo cultures. Patient started on Tamiflu per ID Endocrine: Diabetes mellitus TSH 1.12 Glucose monitoring per ICU protocol -- SSI Prophylaxis: GI Prophylaxis Protonix twice a day DVT Prophylaxis -- SCDs, no pharmacological anticoagulation in the setting of bleed Lines: Peripheral IVs 2. Right femoral central line, right femoral arterial line 07/07 Dispo: my billing statement This patient remains critically ill with one or more organ systems which are or may become a threat to life. I have spent in excess of 49 minutes discontinuously in the care and management of this patient. This time is exclusive of procedures, and includes, but is not limited to, evaluation of the patient, review of the medical record, discussions with family, consultants, nursing staff, or respiratory therapy, and documentation in the medical record. Physician Maribell Pinzon MD Jul 07, 2017 11:22
--- NOTE | 2017-07-07 11:39 | PD.PROCEDR ---
Procedure Note Procedure Endotracheal Intubation Diagnosis: Acute hypoxemic respiratory failure Indications: Acute hypoxemic respiratory failure Consent: Obtained from brothelis Betts Anesthesia: see MAR Description of the Procedure: The patient was positioned in the sniffing position. Pre-oxygenation was performed using a 100% BVM. Anesthesia was induced via rapid sequence. A Glidescope 4 was used for laryngoscopy and a Grade 1 view was obtained. A 8.0 cuffed endotracheal tube was inserted atraumatically through the vocal cords. Confirmation of correct endotracheal tube placement was made by equal and bilateral breath sounds and colorimetric CO2 detection. The endotracheal tube was secured at 23cm at the teeth. There were no immediate complications noted. The patient remained hemodynamically stable throughout the procedure. A chest x-ray has been ordered. I personally performed the procedure. Maribell Lynn MD Jul 07, 2017 11:39
--- NOTE | 2017-07-07 11:59 | PD.CARD.PN ---
Subjective Subjective Remarks Hypotension this morning with lactic acidosis Currently having a lines placed by critical care Objective Medications Current Medications Medications (Trade) Dose Ordered Sig/Katina Route Start Time Stop Time Status Last Admin (NS Flush) 2 ml UNSCH PRN IV FLUSH 07/03/17 20:15 (NS Flush) 2 ml BID IV FLUSH 07/03/17 21:00 07/07/17 08:04 (Tylenol) 650 mg Q4H PRN PO 07/03/17 20:15 (Zofran Inj) 4 mg Q6H PRN IVP 07/03/17 20:15 (Heparin Inj) 5,000 units Q8HR SQ 07/03/17 22:00 07/07/17 04:37 (Plavix) 75 mg DAILY PO 07/04/17 09:00 07/05/17 08:47 (Neurontin) 300 mg BID PO 07/03/17 21:45 07/06/17 21:12 ([place] 5-325 Mg) 1 tab Q6H PRN PO 07/03/17 21:45 07/04/17 23:12 (Flomax) 0.4 mg HS PO 07/03/17 21:45 07/06/17 21:12 Meropenem 1000 mg/ Sodium Chloride 100 ml @ 200 mls/hr Q8H IV 07/06/17 12:00 07/07/17 03:52 Pharmacy Profile Note 0 ml @ 0 mls/hr UNSCH OTHER 07/06/17 11:30 (Duoneb Neb) 1 ampule Q4HR NEB NEB 07/06/17 16:00 07/07/17 11:35 (Duoneb Neb) 1 ampule Q2HR NEB PRN NEB 07/06/17 12:30 Dextrose 1,000 ml @ 125 mls/hr Q8H IV 07/06/17 13:00 07/07/17 03:25 (D50w (Vial) Inj) 50 ml UNSCH PRN IV PUSH 07/06/17 12:30 (Glucagon Inj) 1 mg UNSCH PRN OTHER 07/06/17 12:30 (NovoLIN R SUPPLEMENTAL SCALE) 1 Q4HR SQ 07/06/17 12:30 Vancomycin HCl 1750 mg/Sodium Chloride 517.5 ml @ 250 mls/hr Q24H IV 07/06/17 14:00 07/06/17 16:34 Miscellaneous Information SPECIFIC LAB TO BE DRAWN:VANCO TROUGH DATE TO... ONCE ONCE .XX 07/09/17 13:45 07/09/17 13:46 (Protonix Inj) 40 mg DAILY IV PUSH 07/06/17 12:45 07/07/17 08:01 Fentanyl Citrate 250 ml @ 5 mls/hr TITRATE PRN IV 07/07/17 10:30 Levofloxacin/ Dextrose 150 ml @ 100 mls/hr Q24H IV 07/07/17 12:00 Sodium Chloride 2,000 ml @ 999 mls/hr BOLUS ONCE IV 07/07/17 11:15 07/07/17 13:15 (Tamiflu) 75 mg BID PO 07/07/17 12:30 (Peridex 0.12% Liq) 15 ml BID@08,20 MT 07/07/17 20:00 ( Gastroview Liq) 18 ml ONCE ONCE PO 07/07/17 12:00 07/07/17 12:01 Vital Signs / I&O Vital Signs Date Time Temp Pulse Resp B/P (MAP) Pulse Ox O2 Delivery O2 Flow Rate FiO2 07/07/17 10:59 100 50 07/07/17 10:00 84 07/07/17 08:00 86 07/07/17 08:00 100 Simple Mask 8.00 07/07/17 08:00 97.9 86 25 88/56 (67) 100 07/07/17 07:49 100 Simple Mask 8.00 07/07/17 06:21 98.1 92 30 91/53 100 07/07/17 06:00 90 07/07/17 04:13 95 32 74/47 95 07/07/17 04:00 92 07/07/17 04:00 98.3 93 31 82/52 (62) 97 07/07/17 02:00 93 07/07/17 00:00 98.1 95 34 75/61 (66) 100 07/07/17 00:00 95 07/06/17 22:00 90 07/06/17 20:22 100 Simple Mask 6.00 07/06/17 20:00 93 07/06/17 20:00 98.5 93 28 99/55 (70) 100 07/06/17 19:00 95 Nasal Cannula 2.00 07/06/17 18:00 67 07/06/17 16:00 80 07/06/17 16:00 97.8 82 30 105/67 (80) 71 07/06/17 15:30 95 Simple Mask 10.00 07/06/17 14:00 80 07/06/17 13:00 96.7 82 30 112/75 (87) 71 I/O 07/06/17 07/06/17 07/06/17 07/07/17 07/07/17 07/07/17 07:00 15:00 23:00 07:00 15:00 23:00 Intake Total 1200 ml 2617.5 ml 510 ml Output Total 1000 ml Balance 1200 ml 2617.5 ml -490 ml Intake Oral 0 ml IV Total 1200 ml 2617.5 ml Packed Cells 400 ml Blood Product IV Normal Saline Flush 110 ml Output Urine Total 1000 ml # Voids 1 # Bowel Movements 0 0 Physical Exam GENERAL: Non-verbal, critically ill SKIN: Warm and dry. HEAD: Atraumatic. Normocephalic. EYES: Pupils equal and round. No scleral icterus. No injection or drainage. ENT: No nasal bleeding or discharge. Mucous membranes pink and moist. NECK: Trachea midline. No JVD. CARDIOVASCULAR: Regular rate and rhythm. RESPIRATORY: No accessory muscle use. Rhonchi bilaterally GASTROINTESTINAL: Abdomen soft, non-tender, nondistended. Hepatic and splenic margins not palpable. MUSCULOSKELETAL: Extremities without clubbing, cyanosis, or edema. No obvious deformities. NEUROLOGICAL: Non-verbal Laboratory Laboratory Tests Test 07/06/17 12:15 07/06/17 15:34 07/06/17 16:29 07/06/17 20:45 Blood Gas Puncture Site RT RADIAL Blood Gas Patient Temperature 98.6 Blood Gas HCO3 18 mmol/L Blood Gas Base Excess -4.9 mmol/L Blood Gas Oxygen Saturation 98 % Arterial Blood pH 7.52 Arterial Blood Partial Pressure CO2 22 mmHg Arterial Blood Partial Pressure O2 171 mmHg Arterial Blood Oxygen Content 12.3 Vol % Arterial Blood Carboxyhemoglobin 0.4 % Arterial Blood Methemoglobin 1.0 % Blood Gas Hemoglobin 8.7 G/DL Oxygen Delivery Device SM Blood Gas Liter Flow 6 L/M Blood Urea Nitrogen 44 MG/DL 51 MG/DL Creatinine 1.36 MG/DL 1.54 MG/DL Random Glucose 111 MG/DL 124 MG/DL Total Protein 4.8 GM/DL Albumin 2.0 GM/DL Calcium Level 7.2 MG/DL 7.5 MG/DL Phosphorus Level 2.8 MG/DL Magnesium Level 2.1 MG/DL Alkaline Phosphatase 111 U/L Aspartate Amino Transf (AST/SGOT) 10 U/L Alanine Aminotransferase (ALT/SGPT) 10 U/L Total Bilirubin 0.2 MG/DL Sodium Level 159 MEQ/L 156 MEQ/L Potassium Level 4.4 MEQ/L 4.2 MEQ/L Chloride Level 129 MEQ/L 129 MEQ/L Carbon Dioxide Level 17.0 MEQ/L 16.0 MEQ/L Anion Gap 13 MEQ/L 11 MEQ/L Estimat Glomerular Filtration Rate 53 ML/MIN 46 ML/MIN Lactic Acid Level 3.8 mmol/L Protein Corrected Calcium 8.5 MG/DL White Blood Count 18.1 TH/MM3 18.9 TH/MM3 Red Blood Count 2.66 MIL/MM3 2.73 MIL/MM3 Hemoglobin 7.3 GM/DL 7.5 GM/DL Hematocrit 21.9 % 22.8 % Mean Corpuscular Volume 82.4 FL 83.4 FL Mean Corpuscular Hemoglobin 27.6 PG 27.5 PG Mean Corpuscular Hemoglobin Concent 33.5 % 33.0 % Red Cell Distribution Width 17.1 % 18.0 % Platelet Count 190 TH/MM3 202 TH/MM3 Mean Platelet Volume 7.5 FL 7.5 FL Neutrophils (%) (Auto) 80.0 % 78.1 % Lymphocytes (%) (Auto) 16.7 % 18.6 % Monocytes (%) (Auto) 2.6 % 2.8 % Eosinophils (%) (Auto) 0.2 % 0.1 % Basophils (%) (Auto) 0.5 % 0.4 % Neutrophils # (Auto) 14.5 TH/MM3 14.8 TH/MM3 Lymphocytes # (Auto) 3.0 TH/MM3 3.5 TH/MM3 Monocytes # (Auto) 0.5 TH/MM3 0.5 TH/MM3 Eosinophils # (Auto) 0.0 TH/MM3 0.0 TH/MM3 Basophils # (Auto) 0.1 TH/MM3 0.1 TH/MM3 CBC Comment DIFF FINAL DIFF FINAL Differential Comment Ammonia 18 MCMOL/L Test 07/07/17 00:14 07/07/17 10:30 Lactic Acid Level 4.7 mmol/L Blood Gas Puncture Site ART LINE Blood Gas Patient Temperature 98.6 Blood Gas HCO3 13 mmol/L Blood Gas Base Excess -11.8 mmol/L Blood Gas Oxygen Saturation 98 % Arterial Blood pH 7.37 Arterial Blood Partial Pressure CO2 22 mmHg Arterial Blood Partial Pressure O2 263 mmHg Arterial Blood Oxygen Content 14.5 Vol % Arterial Blood Carboxyhemoglobin 0.4 % Arterial Blood Methemoglobin 1.2 % Blood Gas Hemoglobin 10.1 G/DL Oxygen Delivery Device NRB Blood Gas Liter Flow 15 L/M Blood Gas Inspired Oxygen 100 % Assessment and Plan Problem List: (1) PNA (pneumonia) ICD Codes: J18.9 - Pneumonia, unspecified organism (2) UTI (urinary tract infection) ICD Codes: N39.0 - Urinary tract infection, site not specified Status: Acute (3) Lactic acidosis ICD Codes: E87.2 - Acidosis Status: Acute (4) Sepsis ICD Codes: A41.9 - Sepsis, unspecified organism Status: Acute (5) Chest pain, atypical ICD Codes: R07.89 - Atypical chest pain Status: Acute (6) TOBACCO USE DISORDER Status: Chronic (7) Obesity ICD Codes: E66.9 - Obesity Status: Acute (8) Hypertension ICD Codes: I10 - Hypertension Status: Chronic Assessment and Plan 1) UTI/PNA/Sepsis Elevated lactate Lines being placed, and plan for intubated 2) Previous chest pain appears pleuritic in nature 3) Does not appear to have angina 4) Minimally elevated trop, flat in nature Non-specific with CHANO/lactic acidosis Most likely Type 2 5) Possible aspiration PNA/Sepsis Per critical care team Started on vasopressors 6) Drop in Hgb No plan for ischemic evaluation Problem Qualifiers (1) UTI (urinary tract infection): Qualified Codes: N39.0 - Urinary tract infection, site not specified (2) Sepsis: Qualified Codes: A41.9 - Sepsis, unspecified organism Apollo Harrell DO Jul 07, 2017 11:59
[2017-07-07] MEDS ORDERED: DIATRIZOATE MEGLUM/DIATRIZOATE SOD 9 ML CUP PO ONE (12:00)
--- NOTE | 2017-07-07 12:04 | RADRPT ---
EXAM DATE/TIME: 07/07/2017 11:29 [facility] COMPARISON: CHEST SINGLE AP, July 06, 2017, 11:47. INDICATIONS : Evaluate for pneumonia. MEDICAL HISTORY : Cerebrovascular disease. Cardiovascular disease Hypertension. SURGICAL HISTORY : Appendectomy. Cholecystectomy ENCOUNTER: Subsequent ACUITY: 1 day PAIN SCORE: Non-responsive. LOCATION: Bilateral chest FINDINGS: AP semiupright portable view of the chest is obtained. The patient is moderately rotated. There is an endotracheal tube with the tip at the level of the clavicles. There is obscuration of the right yonatan diaphragm concerning for right lower lobe airspace consolidation. The left hemithorax is clear. Heart size appears normal. Pulmonary vasculature is normal. CONCLUSION: Intubation. Right lower lobe airspace consolidation. Jeanne Cates MD on July 07, 2017 at 12:00 Board Certified Radiologist. This report was verified electronically.
--- NOTE | 2017-07-07 12:19 | HHI.GIFU ---
Subjective Remarks Pt in bed, now mechanically ventilated via ETT, on sedation, and on pressors. Spoke with RN she states pt has not had a BM. He currently is with no OG or NG , was unable to pass the tube, resistance met. (Emerita Burgess) Objective Vitals I&O Vital Signs Date Time Temp Pulse Resp B/P (MAP) Pulse Ox O2 Delivery O2 Flow Rate FiO2 07/07/17 10:59 100 50 07/07/17 10:00 84 07/07/17 08:00 86 07/07/17 08:00 100 Simple Mask 8.00 07/07/17 08:00 97.9 86 25 88/56 (67) 100 07/07/17 07:49 100 Simple Mask 8.00 07/07/17 06:21 98.1 92 30 91/53 100 07/07/17 06:00 90 07/07/17 04:13 95 32 74/47 95 07/07/17 04:00 92 07/07/17 04:00 98.3 93 31 82/52 (62) 97 07/07/17 02:00 93 07/07/17 00:00 98.1 95 34 75/61 (66) 100 07/07/17 00:00 95 07/06/17 22:00 90 07/06/17 20:22 100 Simple Mask 6.00 07/06/17 20:00 93 07/06/17 20:00 98.5 93 28 99/55 (70) 100 07/06/17 19:00 95 Nasal Cannula 2.00 07/06/17 18:00 67 07/06/17 16:00 80 07/06/17 16:00 97.8 82 30 105/67 (80) 71 07/06/17 15:30 95 Simple Mask 10.00 07/06/17 14:00 80 07/06/17 13:00 96.7 82 30 112/75 (87) 71 I/O 07/06/17 07/06/17 07/06/17 07/07/17 07/07/17 07/07/17 06:59 14:59 22:59 06:59 14:59 22:59 Intake Total 1200 ml 2617.5 ml 510 ml Output Total 1000 ml Balance 1200 ml 2617.5 ml -490 ml Intake Oral 0 ml IV Total 1200 ml 2617.5 ml Packed Cells 400 ml Blood Product IV Normal Saline Flush 110 ml Output Urine Total 1000 ml # Voids 1 # Bowel Movements 0 0 Laboratory Laboratory Tests Test 07/06/17 12:15 07/06/17 15:34 07/06/17 16:29 07/06/17 20:45 Blood Gas Puncture Site RT RADIAL Blood Gas Patient Temperature 98.6 Blood Gas HCO3 18 Blood Gas Base Excess -4.9 Blood Gas Oxygen Saturation 98 Arterial Blood pH 7.52 Arterial Blood Partial Pressure CO2 22 Arterial Blood Partial Pressure O2 171 Arterial Blood Oxygen Content 12.3 Arterial Blood Carboxyhemoglobin 0.4 Arterial Blood Methemoglobin 1.0 Blood Gas Hemoglobin 8.7 Oxygen Delivery Device SM Blood Gas Liter Flow 6 Blood Urea Nitrogen 44 51 Creatinine 1.36 1.54 Random Glucose 111 124 Total Protein 4.8 Albumin 2.0 Calcium Level 7.2 7.5 Phosphorus Level 2.8 Magnesium Level 2.1 Alkaline Phosphatase 111 Aspartate Amino Transf (AST/SGOT) 10 Alanine Aminotransferase (ALT/SGPT) 10 Total Bilirubin 0.2 Sodium Level 159 156 Potassium Level 4.4 4.2 Chloride Level 129 129 Carbon Dioxide Level 17.0 16.0 Anion Gap 13 11 Estimat Glomerular Filtration Rate 53 46 Lactic Acid Level 3.8 Protein Corrected Calcium 8.5 White Blood Count 18.1 18.9 Red Blood Count 2.66 2.73 Hemoglobin 7.3 7.5 Hematocrit 21.9 22.8 Mean Corpuscular Volume 82.4 83.4 Mean Corpuscular Hemoglobin 27.6 27.5 Mean Corpuscular Hemoglobin Concent 33.5 33.0 Red Cell Distribution Width 17.1 18.0 Platelet Count 190 202 Mean Platelet Volume 7.5 7.5 Neutrophils (%) (Auto) 80.0 78.1 Lymphocytes (%) (Auto) 16.7 18.6 Monocytes (%) (Auto) 2.6 2.8 Eosinophils (%) (Auto) 0.2 0.1 Basophils (%) (Auto) 0.5 0.4 Neutrophils # (Auto) 14.5 14.8 Lymphocytes # (Auto) 3.0 3.5 Monocytes # (Auto) 0.5 0.5 Eosinophils # (Auto) 0.0 0.0 Basophils # (Auto) 0.1 0.1 CBC Comment DIFF FINAL DIFF FINAL Differential Comment Ammonia 18 Test 07/07/17 00:14 07/07/17 10:30 Lactic Acid Level 4.7 Blood Gas Puncture Site ART LINE Blood Gas Patient Temperature 98.6 Blood Gas HCO3 13 Blood Gas Base Excess -11.8 Blood Gas Oxygen Saturation 98 Arterial Blood pH 7.37 Arterial Blood Partial Pressure CO2 22 Arterial Blood Partial Pressure O2 263 Arterial Blood Oxygen Content 14.5 Arterial Blood Carboxyhemoglobin 0.4 Arterial Blood Methemoglobin 1.2 Blood Gas Hemoglobin 10.1 Oxygen Delivery Device NRB Blood Gas Liter Flow 15 Blood Gas Inspired Oxygen 100 Date/Time Source Procedure Growth Status 07/06/17 20:45 Blood Other Aerobic Blood Culture - Preliminary NO GROWTH IN 1 DAY Resulted 07/06/17 20:45 Blood Other Anaerobic Blood Culture - Final QNS - SEE AEROBE REPORT Resulted 07/03/17 17:10 Urine Catheterized Urine Urine Culture - Final Escherichia Coli Esbl Positive Multi-Drug Resistant Complete Imaging Last Impressions Chest X-Ray 07/06/17 1137 Signed Impressions: Service Date/Time: Thursday, July 06, 2017 11:47 - CONCLUSION: No acute disease. David Calvillo MD Lower Extremity Ultrasound 07/06/17 0000 Signed Impressions: Service Date/Time: Thursday, July 06, 2017 13:14 - CONCLUSION: Negative for deep venous thrombosis. Roldan Hernandez MD FACR CT Angiography 07/06/17 0000 Signed Impressions: Service Date/Time: Thursday, July 06, 2017 18:41 - CONCLUSION: 1. No evidence of pulmonary embolism. 2. Linear infiltrate right lung base suggestive of atelectasis. 3. Stable 4 mm pulmonary nodule left lower lung. 4. Nonspecific dilatation of the thoracic esophagus. This could be from dysmotility. Abdon Tracy MD Head CT 07/03/17 1735 Signed Impressions: Service Date/Time: Monday, July 03, 2017 18:01 - CONCLUSION: 1. Stable examination compared to the examination from 2016. 2. Diffuse bilateral cortical atrophy which is stable. 3. No new or acute pathology. Abdon Tracy MD Abdomen/Pelvis CT 07/03/17 0000 Signed Impressions: Service Date/Time: Monday, July 03, 2017 18:05 - CONCLUSION: 1. Unremarkable and stable CT scan of the abdomen and pelvis compared to the prior study. No new or significant changes. Abdon Tracy MD Physical Exam HEENT: Normocephalic; atraumatic CHEST: Mechanically ventilated via ETT CARDIAC: RRR ABDOMEN: Obese, soft, bowel sounds active. No bruising to abdomen or flank. EXTREMITIES: BLE edema SKIN: (+) jaundice [employer] ARTIST: Sedated, does not awaken (Emerita Burgess) Assessment and Plan Plan ASSESSMENT - dysphagia - failed swallow eval. has been coughing, producing mucus. hx esophageal strictures, had EGD and dilatation 04/2017 for distal esophageal stricture. after assessing him, seems the bigger difficulty is his confusion rather than a stricture - leukocytosis - worsening. - chest pain, elevated troponin - cardiology following - sepsis 06/29 UTI (07/07) Pt was scheduled for EGD with dilation yesterday for dysphagia, however was found on the ground hypoxic. Now in ICU on sedation and mechanically ventilated. On Levophed. Significant drop in H/H noted from 11.1/33.8 yesterday morning to 7.5/22.8 last night. No obvious site of bleeding. Of note, pt is currently on Heparin and Plavix, Plavix currently on hold. RN states pt has not had a BM. No OGT or NGT at this time, unable to pass, met resistance. Abdomen and flanks examined revealed no bruising or signs of peritoneal bleeding, concern given recent fall. CT abdomen and pelvis ordered per CC. Now S/P 1 U of PRBC with one more unit ordered. Known history of PUD. Will continue to follow. PLAN - CT abdomen and pelvis pending - Protonix - EGD- timing to be determined based on course - Monitor H/H - Notify GI of active bleeding - Transfuse per CC - Further recommendations to follow based on results of above and clinical course Pt has been seen and examined by myself and Dr. Tee and this note is written on his behalf (Emerita Burgess) Plan Patient was seen and examined, agree with above note, significant changes since last night patient got intubated, await the CT results (Isaias Tee MD) Emerita Burgess Jul 07, 2017 12:19 Isaias Tee MD Jul 07, 2017 15:47
[2017-07-07] MEDS: OSELTAMIVIR PHOSPHATE 75 MG CAP PO SCH ×2 (12:30→20:26)
[2017-07-07] MEDS: LEVOFLOXACIN 750 MG PREMIX INJ 150 ML IV SCH (12:45)
[2017-07-07 13:13] LABS: BACTERIA, URINE RARE /hpf; BILIRUBIN, URINE NEG (NEG); BLOOD, URINE NEG (NEG); GLUCOSE,URINE NEG (NEG); KETONE, URINE NEG (NEG); MUCUS URINE FEW /lpf (OCC); NITRITE,URINE NEG (NEG); URINE COLOR YELLOW (YELLW/STRAW); URINE LEUKOCYTE ESTERASE LARGE (NEG)
[2017-07-07 13:23] LABS: AUTOMATED NEUTROPHIL # 17.8 TH/MM3 (1.8-7.7); BASOPHIL # 0.1 TH/MM3 (0-0.2); BASOPHIL % 0.4 % (0.0-2.0); EOSINOPHIL % 0.2 % (0.0-4.0); HEMATOCRIT 33.1 % (39.0-51.0); HEMOGLOBIN 10.9 GM/DL (13.0-17.0); LYMPH % 15.3 % (9.0-44.0); LYMPHOCYTE # 3.3 TH/MM3 (1.0-4.8); MEAN CELL VOLUME 86.1 FL (80.0-100.0); MEAN CORPUSCULAR HEMOGLOBIN 28.2 PG (27.0-34.0); MEAN CORPUSCULAR HGB CONC 32.8 % (32.0-36.0); MEAN PLATELET VOLUME 7.6 FL (7.0-11.0); MONO % 2.7 % (0.0-8.0); MONOCYTE # 0.6 TH/MM3 (0-0.9); NEUT % 81.4 % (16.0-70.0); PLATELET COUNT 171 TH/MM3 (150-450); RED BLOOD COUNT 3.85 MIL/MM3 (4.50-5.90); WHITE BLOOD COUNT 21.8 TH/MM3 (4.0-11.0)
[2017-07-07] MEDS: VASOPRESSIN INJ 40 UNITS in DEXTROSE 5% IN WATER 100ML INJ 98 ML IV SCH ×2 (13:35)
[2017-07-07 14:19] LABS: LACTIC ACID SEPSIS PROTOCOL 2.7 mmol/L (0.4-2.0)
[2017-07-07 14:26] LABS: ALBUMIN 1.7 GM/DL (3.4-5.0); ALKALINE PHOSPHATASE 94 U/L (45-117); ALT (GPT) 11 U/L (12-78); AST (GOT) 12 U/L (15-37); BICARBONATE 16.7 MEQ/L (21.0-32.0); BLOOD UREA NITROGEN 45 MG/DL (7-18); CALCIUM 6.5 MG/DL (8.5-10.1); CALCIUM-PROTEIN CORRECTED 7.8 MG/DL (8.5-10.1); CHLORIDE 123 MEQ/L (98-107); GLOMERULAR FILTRATION RATE 47 ML/MIN (>89); GLUCOSE,RANDOM 160 MG/DL (74-106); SODIUM (NA) 151 MEQ/L (136-145); TOTAL BILIRUBIN ADULT 0.4 MG/DL (0.2-1.0); TOTAL PROTEIN 4.5 GM/DL (6.4-8.2)
[2017-07-07] MEDS ORDERED: PHENYLEPHRINE INJ 40 MG in DEXTROSE 5% IN WATE 500 ML INJ 496 ML IV PRN ×2 (14:30)
[2017-07-07] MEDS ORDERED: TERBUTALINE INJ 1 MG/ML AMP SQ PRN (14:30)
[2017-07-07] MEDS: SODIUM BICARBONATE 8.4% INJ 150 MEQ in DEXTROSE 5% IN WATE 1000ML INJ 850 ML IV SCH ×2 (15:06)
[2017-07-07] MEDS: VANCOMYCIN INJ 1,750 MG in SODIUM CHLORID 0.9% 500 ML INJ 500 ML IV SCH (15:23)
--- NOTE | 2017-07-07 16:31 | RADRPT ---
EXAM DATE/TIME: 07/07/2017 15:58 [facility] COMPARISON: CT PULMONARY ANGIOGRAM, July 06, 2017, 18:41. CHEST SINGLE AP, July 07, 2017, 11:29. INDICATIONS : Short of breath, microperforation. RADIATION DOSE: 19.67 CTDIvol (mGy) ; Combined studies - Thorax/Abdomen/Pelvis MEDICAL HISTORY : Cardiovascular disease. Hypertension. SURGICAL HISTORY : Cholecystectomy. ENCOUNTER: Subsequent ACUITY: 2 days PAIN SCALE: Non-responsive LOCATION: Bilateral chest TECHNIQUE: Volumetric scanning of the chest was performed. Using automated exposure control and adjustment of t he mA and/or kV according to patient size, radiation dose was kept as low as reasonably achievable to obtain optimal diagnostic quality images. DICOM format image data is available electronically for r eview and comparison. Follow-up recommendations for detected pulmonary nodules are based at a minimum on nodule size and pa tient risk factors according to Fleischner Society Guidelines. FINDINGS: LUNGS: There is no consolidation or pneumothorax. No concerning pulmonary nodule is visualized. PLEURAE: Somewhat linear infiltrate on the prior study in the right lower lobe has progressed now with some mi ld consolidation and peripheral air bronchograms. MEDIASTINUM: The heart and great vessels demonstrate no acute abnormality. There is no mediastinal or hilar lymph adenopathy. Extensive coronary artery calcifications most prominent in left anterior descending. Pers istent dilatation with fluid in the entire intrathoracic esophagus . ET tube in place above the marva a. AXILLAE: Within normal limits. No lymphadenopathy. MUSCULOSKELETAL: Within normal limits for patient age. MISCELLANEOUS: The visualized upper abdominal organs demonstrate no acute abnormality. CONCLUSION: There is development of right pleural effusion which is small which is associated with progressive in filtrate and mild consolidation in the right lower lobe with peripheral air bronchograms. This has pr ogressed relative to CTA of the chest on the previous day. Persistent fluid filled dilatation of the esophagus. Extensive coronary calcifications. Андрей Mcleod MD on July 07, 2017 at 16:24 Board Certified Radiologist. This report was verified electronically.
--- NOTE | 2017-07-07 16:48 | RADRPT ---
EXAM DATE/TIME: 07/07/2017 15:58 This report includes an Addendum and supersedes previous reports for this exam. [facility] COMPARISON: CT ABDOMEN & PELVIS W/O CONTRAST, July 03, 2017, 18:05. INDICATIONS : Diffuse abdomen pain, possible microperforation. ORAL CONTRAST: No oral contrast ingested. RADIATION DOSE: 19.67 CTDIvol (mGy) ; Combined studies - Thorax/Abdomen/Pelvis MEDICAL HISTORY : Cardiovascular disease. Hypertension. SURGICAL HISTORY : Cholecystectomy. ENCOUNTER: Subsequent ACUITY: 2 days PAIN SCALE: Non-responsive LOCATION: Bilateral lower quadrant TECHNIQUE: Volumetric scanning of the abdomen and pelvis was performed. Using automated exposure control and ad justment of the mA and/or kV according to patient size, radiation dose was kept as low as reasonably achievable to obtain optimal diagnostic quality images. DICOM format image data is available electro nically for review and comparison. FINDINGS: There are extensive degenerative changes in lumbar spine. Bony structures are intact. Changes in the right lung base are appreciated with area of air bronchograms and consolidation infiltrate and associ ated small effusion. Surgical clips are in place prior cholecystectomy. There is a Coates catheter in place in the urinary bladder. Significant change has occurred in the right lower quadrant where th ere are extensive inflammatory changes and small amount of fluid extending into the right pelvis. Thi s is adjacent to the cecum and suggests the possibility of appendicitis. Clinical correlation recomme nded. CONCLUSION: There is significant interval change in the right lower quadrant extending into the pelvis there is e xtensive inflammatory change in the fat and a small amount of fluid. This is adjacent to the cecum. E ntities such as appendicitis are suggested. This should be correlated with clinical history and physi kayce examination. Please see CT scan of the chest the same day for change in the right grace g base progressive infiltrate and small effusion. Андрей Mcleod MD on July 07, 2017 at 16:31 Board Certified Radiologist. This report was verified electronically. ADDENDUM: Delayed history was obtained. Patient apparently had invasive procedure extended with placement of a femoral venous catheter which is faintly appreciated. The inflammatory changes in the right lower rosalba drant are extensive and could potentially be secondary to iatrogenic cause. Андрей Mcleod MD on July 08, 2017 at 13:11 Board Certified Radiologist. This report was verified electronically.
[2017-07-07] MEDS: NOREPINEPHRINE 4 MG/D5W 250 ML IV PRN ×2 (19:00→22:52)
[2017-07-07] MEDS: fentaNYL DRIP 250 ML IV PRN (19:00)
[2017-07-07] MEDS: CHLORHEXIDINE 0.12% (ORAL KIT) 15 ML CUP MT SCH (19:39)
[2017-07-07] MEDS: TAMSULOSIN HCL 0.4 MG CAP PO SCH (20:26)
[2017-07-07] MEDS: HYDROCORTISONE SOD SUCCINATE 100 MG VIAL IV PUSH SCH (22:27)
[2017-07-08] VITALS (20 sets, daily range): BP systolic 82–107; BP diastolic 49–65; PULSE 68–86; RESP 13–18; TEMP 97.8–98.6; O2SAT 92–100
[2017-07-08 00:11] LABS: HEMATOCRIT 27.1 % (39.0-51.0); HEMOGLOBIN 9.3 GM/DL (13.0-17.0)
[2017-07-08] MEDS: SODIUM BICARBONATE 8.4% INJ 150 MEQ in DEXTROSE 5% IN WATE 1000ML INJ 850 ML IV SCH ×4 (03:29→17:54)
[2017-07-08] MEDS: MEROPENEM INJ 1,000 MG in SODIUM CHLORIDE 0.9% INJ 100 ML IV SCH ×3 (03:29→20:03)
[2017-07-08] MEDS: INSULIN NovoLIN REGULAR SUPPLEMENTAL SCALE SQ SCH ×7 (04:00→23:51)
[2017-07-08] MEDS: RESP: ALBUTEROL 2.5 MG/IPRATROPIUM 0.5 MG NEB (SCH) NEB ×6 (04:43→23:57)
[2017-07-08 05:01] LABS: AUTOMATED NEUTROPHIL # 18.4 TH/MM3 (1.8-7.7); BASOPHIL % 0.1 % (0.0-2.0); EOSINOPHIL % 0.1 % (0.0-4.0); HEMATOCRIT 27.2 % (39.0-51.0); HEMOGLOBIN 9.2 GM/DL (13.0-17.0); LYMPH % 6.5 % (9.0-44.0); LYMPHOCYTE # 1.3 TH/MM3 (1.0-4.8); MEAN CELL VOLUME 84.3 FL (80.0-100.0); MEAN CORPUSCULAR HEMOGLOBIN 28.4 PG (27.0-34.0); MEAN CORPUSCULAR HGB CONC 33.7 % (32.0-36.0); MEAN PLATELET VOLUME 7.5 FL (7.0-11.0); MONO % 1.5 % (0.0-8.0); MONOCYTE # 0.3 TH/MM3 (0-0.9); NEUT % 91.8 % (16.0-70.0); PLATELET COUNT 141 TH/MM3 (150-450); RED BLOOD COUNT 3.23 MIL/MM3 (4.50-5.90); RED CELL DISTRIBUTION WIDTH 17.2 % (11.6-17.2); WHITE BLOOD COUNT 20.1 TH/MM3 (4.0-11.0)
--- NOTE | 2017-07-08 05:23 | RADRPT ---
EXAM DATE/TIME: 07/08/2017 03:29 [facility] COMPARISON: No previous studies available for comparison. INDICATIONS : Evaluate for pneumonia MEDICAL HISTORY : Cerebrovascular disease. Cardiovascular disease. Hypertension. SURGICAL HISTORY : Appendectomy. Cholecystectomy. ENCOUNTER: Subsequent ACUITY: 2 days PAIN SCORE: Non-responsive. LOCATION: Bilateral chest FINDINGS: A single view of the chest demonstrates endotracheal tube in good position. Mild basilar airspace dis ease similar to July 07. No significant effusion. No pneumothorax. CONCLUSION: 1. Mild basilar opacity similar to July 07. Endotracheal tube unchanged. Frde Mccrary MD on July 08, 2017 at 5:19 Board Certified Radiologist. This report was verified electronically.
[2017-07-08 05:26] LABS: BICARBONATE 18.4 MEQ/L (21.0-32.0); CALCIUM 6.2 MG/DL (8.5-10.1); CREATININE 1.52 MG/DL (0.60-1.30); MAGNESIUM 1.6 MG/DL (1.5-2.5); PHOSPHORUS 3.8 MG/DL (2.5-4.9)
[2017-07-08] MEDS: VASOPRESSIN INJ 40 UNITS in DEXTROSE 5% IN WATER 100ML INJ 98 ML IV SCH ×4 (05:59→22:11)
[2017-07-08] MEDS: DEXTROSE 5% IN WATE 1000ML INJ 1,000 ML IV SCH ×3 (06:10→22:10)
[2017-07-08] MEDS: HYDROCORTISONE SOD SUCCINATE 100 MG VIAL IV PUSH SCH ×3 (06:40→21:45)
[2017-07-08] MEDS: HEPARIN SODIUM - SQ 10,000 UNITS/ML VIAL SQ SCH ×3 (06:41→21:44)
[2017-07-08 07:05] LABS: TOTAL PROTEIN 4.7 GM/DL (6.4-8.2)
[2017-07-08 07:23] LABS: CALCIUM-PROTEIN CORRECTED 7.3 MG/DL (8.5-10.1)
[2017-07-08] MEDS: PANTOPRAZOLE SODIUM 40 MG VIAL IV PUSH SCH (08:10)
[2017-07-08] MEDS: SODIUM CHLORIDE 0.9% FLUSH 10 ML FLUSH IV FLUSH SCH ×2 (08:11→20:03)
[2017-07-08] MEDS: CHLORHEXIDINE 0.12% (ORAL KIT) 15 ML CUP MT SCH ×2 (08:12→20:03)
--- NOTE | 2017-07-08 08:47 | HHI.GIFU ---
Subjective Remarks Pt remains mechanically ventilated. Awakens to verbal stimuli and follows commands. (Emerita Burgess) Objective Vitals I&O Vital Signs Date Time Temp Pulse Resp B/P (MAP) Pulse Ox O2 Delivery O2 Flow Rate FiO2 07/08/17 07:47 92 35 07/08/17 06:00 81 07/08/17 04:46 99 35 07/08/17 04:00 98.6 81 18 83/50 (61) 100 93/56 (68) 07/08/17 04:00 82 07/08/17 04:00 82 91/55 07/08/17 04:00 40 07/08/17 03:45 81 90/53 07/08/17 03:35 82 86/64 07/08/17 03:20 82 99/66 07/08/17 02:00 82 07/08/17 01:45 83 104/72 07/08/17 01:12 99 35 07/08/17 00:45 86 112/68 07/08/17 00:45 86 112/68 07/08/17 00:00 86 07/08/17 00:00 40 07/08/17 00:00 98.6 86 15 86/52 (63) 100 107/65 (79) 07/08/17 00:00 86 107/65 07/07/17 23:00 86 100/61 07/07/17 22:52 86 104/64 07/07/17 22:12 100 40 07/07/17 22:00 86 07/07/17 20:15 87 106/66 07/07/17 20:00 98.1 88 16 99/58 (72) 100 101/69 (80) 07/07/17 20:00 88 07/07/17 20:00 40 07/07/17 19:53 100 50 07/07/17 19:45 89 110/66 07/07/17 19:00 100 07/07/17 19:00 89 107/66 07/07/17 19:00 89 107/66 07/07/17 18:00 90 07/07/17 16:23 89 50 07/07/17 16:00 94 07/07/17 16:00 50 07/07/17 16:00 98.7 94 16 106/64 (78) 97 07/07/17 15:45 89 100 07/07/17 14:00 94 07/07/17 13:39 92 50 07/07/17 13:35 95 78/43 07/07/17 12:00 98.3 100 12 103/61 (75) 100 103/55 (71) 07/07/17 12:00 50 07/07/17 12:00 100 07/07/17 10:59 100 50 07/07/17 10:40 50 07/07/17 10:00 84 I/O 07/07/17 07/07/17 07/07/17 07/08/17 07/08/17 07/08/17 07:00 15:00 23:00 07:00 15:00 23:00 Intake Total 510 ml 400 ml 3117.5 ml 1638 ml Output Total 1000 ml 550 ml 500 ml Balance -490 ml 400 ml 2567.5 ml 1138 ml Intake Oral 0 ml IV Total 3117.5 ml 1638 ml Packed Cells 400 ml 400 ml Blood Product IV Normal Saline Flush 110 ml Output Urine Total 1000 ml 550 ml 500 ml # Bowel Movements 0 0 Laboratory Laboratory Tests Test 07/07/17 10:30 07/07/17 12:00 07/07/17 13:45 07/07/17 13:50 Blood Gas Puncture Site ART LINE ART LINE Blood Gas Patient Temperature 98.6 98.6 Blood Gas HCO3 13 13 Blood Gas Base Excess -11.8 -14.5 Blood Gas Oxygen Saturation 98 96 Arterial Blood pH 7.37 7.16 Arterial Blood Partial Pressure CO2 22 37 Arterial Blood Partial Pressure O2 263 144 Arterial Blood Oxygen Content 14.5 12.3 Arterial Blood Carboxyhemoglobin 0.4 0.1 Arterial Blood Methemoglobin 1.2 1.5 Blood Gas Hemoglobin 10.1 8.9 Oxygen Delivery Device NRB VENTILATOR Blood Gas Liter Flow 15 Blood Gas Inspired Oxygen 100 50 White Blood Count 21.8 Red Blood Count 3.85 Hemoglobin 10.9 Hematocrit 33.1 Mean Corpuscular Volume 86.1 Mean Corpuscular Hemoglobin 28.2 Mean Corpuscular Hemoglobin Concent 32.8 Red Cell Distribution Width 17.0 Platelet Count 171 Mean Platelet Volume 7.6 Neutrophils (%) (Auto) 81.4 Lymphocytes (%) (Auto) 15.3 Monocytes (%) (Auto) 2.7 Eosinophils (%) (Auto) 0.2 Basophils (%) (Auto) 0.4 Neutrophils # (Auto) 17.8 Lymphocytes # (Auto) 3.3 Monocytes # (Auto) 0.6 Eosinophils # (Auto) 0.0 Basophils # (Auto) 0.1 CBC Comment DIFF FINAL Differential Comment Urine Color YELLOW Urine Turbidity CLEAR Urine pH 5.0 Urine Specific [place] 1.016 Urine Protein TRACE Urine Glucose (UA) NEG Urine Ketones NEG Urine Occult Blood NEG Urine Nitrite NEG Urine Bilirubin NEG Urine Urobilinogen LESS THAN 2.0 Urine Leukocyte Esterase LARGE Urine RBC 2 Urine WBC 15 Urine Bacteria RARE Urine Mucus FEW Microscopic Urinalysis Comment CATH-CULTURE IND Blood Urea Nitrogen 45 Creatinine 1.50 Random Glucose 160 Total Protein 4.5 Albumin 1.7 Calcium Level 6.5 Alkaline Phosphatase 94 Aspartate Amino Transf (AST/SGOT) 12 Alanine Aminotransferase (ALT/SGPT) 11 Total Bilirubin 0.4 Sodium Level 151 Potassium Level 3.9 Chloride Level 123 Carbon Dioxide Level 16.7 Anion Gap 11 Estimat Glomerular Filtration Rate 47 Lactic Acid Level 2.7 Protein Corrected Calcium 7.8 Blood Gas Ventilator Setting Test 07/07/17 18:25 07/07/17 23:00 07/08/17 04:30 Lactic Acid Level 3.2 2.9 Hemoglobin 9.3 9.2 Hematocrit 27.1 27.2 White Blood Count 20.1 Red Blood Count 3.23 Mean Corpuscular Volume 84.3 Mean Corpuscular Hemoglobin 28.4 Mean Corpuscular Hemoglobin Concent 33.7 Red Cell Distribution Width 17.2 Platelet Count 141 Mean Platelet Volume 7.5 Neutrophils (%) (Auto) 91.8 Lymphocytes (%) (Auto) 6.5 Monocytes (%) (Auto) 1.5 Eosinophils (%) (Auto) 0.1 Basophils (%) (Auto) 0.1 Neutrophils # (Auto) 18.4 Lymphocytes # (Auto) 1.3 Monocytes # (Auto) 0.3 Eosinophils # (Auto) 0.0 Basophils # (Auto) 0.0 CBC Comment DIFF FINAL Differential Comment Blood Urea Nitrogen 43 Creatinine 1.52 Random Glucose 178 Total Protein 4.7 Calcium Level 6.2 Phosphorus Level 3.8 Magnesium Level 1.6 Sodium Level 149 Potassium Level 3.8 Chloride Level 117 Carbon Dioxide Level 18.4 Anion Gap 14 Estimat Glomerular Filtration Rate 47 Protein Corrected Calcium 7.3 Date/Time Source Procedure Growth Status 07/07/17 18:25 Blood Peripheral Aerobic Blood Culture Pending Resulted 07/07/17 18:25 Blood Peripheral Anaerobic Blood Culture - Final QNS - SEE AEROBE REPORT Resulted 07/07/17 12:00 Nasal Aspirate Influenza Types A,B Antigen (ANALI) - Final NEGATIVE FOR FLU A AND B ANTIGEN.... Complete 07/07/17 12:00 Urine Catheterized Urine Urine Culture Pending Received Imaging Last Impressions Chest X-Ray 07/08/17 0600 Signed Impressions: Service Date/Time: Saturday, July 08, 2017 03:29 - CONCLUSION: 1. Mild basilar opacity similar to July 07. Endotracheal tube unchanged. Fred Mccrary MD Chest CT 07/07/17 1431 Signed Impressions: Service Date/Time: Friday, July 07, 2017 15:58 - CONCLUSION: There is development of right pleural effusion which is small which is associated with progressive infiltrate and mild consolidation in the right lower lobe with peripheral air bronchograms. This has progressed relative to CTA of the chest on the previous day. Persistent fluid filled dilatation of the esophagus. Extensive coronary calcifications. Андрей Mcleod MD Abdomen/Pelvis CT 07/07/17 1431 Signed Impressions: Service Date/Time: Friday, July 07, 2017 15:58 - CONCLUSION: There is significant interval change in the right lower quadrant extending into the pelvis there is extensive inflammatory change in the fat and a small amount of fluid. This is adjacent to the cecum. Entities such as appendicitis are suggested. This should be correlated with clinical history and physical examination. Please see CT scan of the chest the same day for change in the right lung base progressive infiltrate and small effusion. Андрей Mcleod MD Lower Extremity Ultrasound 07/06/17 0000 Signed Impressions: Service Date/Time: Thursday, July 06, 2017 13:14 - CONCLUSION: Negative for deep venous thrombosis. Roldan Hernandez MD FACR CT Angiography 07/06/17 0000 Signed Impressions: Service Date/Time: Thursday, July 06, 2017 18:41 - CONCLUSION: 1. No evidence of pulmonary embolism. 2. Linear infiltrate right lung base suggestive of atelectasis. 3. Stable 4 mm pulmonary nodule left lower lung. 4. Nonspecific dilatation of the thoracic esophagus. This could be from dysmotility. Abdon Tracy MD Head CT 07/03/17 8571 Signed Impressions: Service Date/Time: Monday, July 03, 2017 18:01 - CONCLUSION: 1. Stable examination compared to the examination from 2016. 2. Diffuse bilateral cortical atrophy which is stable. 3. No new or acute pathology. Abdon Tracy MD Physical Exam HEENT: Normocephalic; atraumatic CHEST: Mechanically ventilated via ETT CARDIAC: RRR ABDOMEN: Obese, soft, bowel sounds active. No bruising to abdomen or flank. EXTREMITIES: BLE edema SKIN: (+) jaundice [employer]: Awake, follows commands (Emerita Burgess) Assessment and Plan Plan - dysphagia - failed swallow eval. has been coughing, producing mucus. hx esophageal strictures, had EGD and dilatation 04/2017 for distal esophageal stricture. after assessing him, seems the bigger difficulty is his confusion rather than a stricture - leukocytosis - worsening. - chest pain, elevated troponin - cardiology following - sepsis / UTI (07/07) Pt was scheduled for EGD with dilation yesterday for dysphagia, however was found on the ground hypoxic. Now in ICU on sedation and mechanically ventilated. On Levophed. Significant drop in H/H noted from 11.1/33.8 yesterday morning to 7.5/22.8 last night. No obvious site of bleeding. Of note, pt is currently on Heparin and Plavix, Plavix currently on hold. RN states pt has not had a BM. No OGT or NGT at this time, unable to pass, met resistance. Abdomen and flanks examined revealed no bruising or signs of peritoneal bleeding, concern given recent fall. CT abdomen and pelvis ordered per CC. Now S/P 1 U of PRBC with one more unit ordered. Known history of PUD. Will continue to follow. (07/08) --> Pt remains mechanically ventilated. Awakens to verbal stimuli, follows commands. CT abdomen and pelvis W/O contrast (07/07) --> There is significant interval change in the RLQ extending into the pelvis there is extensive inflammatory change in the fat and a small amount of fluid. This is adjacent to the cecum. Entities such as appendicitis are suggested. This should be correlated with clinical history and physical examination. Leukocytosis- WBC-20.1 Afebrile over night. Meropenem and Levofloxacin and Vanco. We have been asked to evaluate pt for OG placement, nurse met resistance and unable to place, history of esophageal strictures and was planned for EGD with dilation prior to fall. Plan for EGD with dilation and OG placement on Sunday. Anemia- S/P 2 U PRBCs yesterday, H/H currently 9.2/27.2. PLAN - Continue IV abx and supportive care - EGD with dilation and OG placement tomorrow - Obtain consent - Protonix - Monitor H/H - Notify GI of active bleeding - Transfuse per CC - Further recommendations to follow based on results of above and clinical course Pt has been seen and examined by myself and Dr. Linares and this note is written on his behalf (Emerita Burgess) Physician Comments patient seen and examined agree with above monitor labs continue present supportive care EGD tomorrow (Amanuel Linares MD) Emerita Burgess Jul 08, 2017 08:47 Amanuel Linares MD Jul 08, 2017 22:15
[2017-07-08] MEDS: GABAPENTIN 300 MG CAP PO SCH ×2 (09:00→20:03)
[2017-07-08] MEDS: CLOPIDOGREL 75 MG TAB PO SCH (09:00)
[2017-07-08] MEDS: NOREPINEPHRINE 4 MG/D5W 250 ML IV PRN ×2 (09:21→20:04)
[2017-07-08] MEDS: fentaNYL DRIP 250 ML IV PRN (09:21)
[2017-07-08] MEDS ORDERED: POTASSIUM CHLOR 20 MEQ PREMIX 100 ML IV ONE (10:15)
--- NOTE | 2017-07-08 10:28 | HHI.CCPN ---
Subjective Remarks/Hospital Course The patient is a 62-year-old male with past medical history of CVA 3 years ago, hypertension, hyperlipidemia and gastroesophageal reflux disease, peptic ulcer disease who was admitted under hospitalist service on July 03 for urinary tract infection, acute kidney injury and dehydration. The patient was found to have E-coli ESBL on a urine culture. On arrival he had a CT scan of the brain for lethargy which showed a diffuse bilateral cortical atrophy and no new pathology noted. He also had a CT abdomen, pelvis which did not show any acute abdominal findings. His initial chest x-ray on admission showed no acute disease as well. The patient was placed on antibiotics and IV fluids. He underwent the EGD with dilatation for an distal esophageal stricture in April 2017. He is currently being followed by gastrointestinal, infectious disease and a cardiology. A Helicat was called as the patient was found hypoxic with saturation in the 70s and hypotensive. He is currently receiving 1 liter bolus of normal saline and was transferred to [facility] for close observation. Critical care medicine was consulted for critical care management. ABG was performed which showed pH of 7.51, CO2 22, pAO2 171, bicarb 17 andsaturation of 97%. Chest x-ray was also performed which showed no obvious infiltrates or effusions. His laboratory data from today showed worsening renal function with creatinine 1.4 from 1.12 and hypernatremia with a sodium level of 153. The patient is lethargic, however he responds to questions appropriately. Subjective: 07/07: Patient hypotensive, systolic blood pressure in the 80s, patient extremely lethargic, obtunded. Unable to obtain pulse ox O2 sats. Patient placed on nonrebreather 100% mask. Unable to obtain arterial line ABG. Right femoral central line right femoral arterial line placed under ultrasound guidance. Levophed infusion initiated. Contacted ARTHUR Valdes, explained and provided medical status update patient intubated, for airway protection and adequate oxygenation. 07/08: Afebrile. Patient continues on vasopressor support with norepinephrine at 7 mics/minute, vasopressin and phenylephrine have been discontinued. Sedation vacation revealed patient awake responding to commands. Slight improvement and lactic acidemia. Multiple attempts at OG placement yesterday unsuccessful. And for GI on Sunday 07/09 for EGD dilatation would OGT placement. Patient unable to receive Tamiflu secondary to inability to place NG tube. The patient continues on sodium bicarbonate infusion. CT of abdomen and pelvis significant change RLL, suggestive of possible appendicitis, Gen. surgery consulted. I contacted Dr. Del Angel currently in the OR and made him aware of CT report. Consulted my colleague Dr. Tovar and reviewed films. Reevaluation of right groin site, no hematoma palpated. Serial HGB every 12 hours being obtained. Objective Vital Signs Date Time Temp Pulse Resp B/P (MAP) Pulse Ox O2 Delivery O2 Flow Rate FiO2 07/08/17 09:21 80 106/61 07/08/17 07:47 92 35 07/08/17 04:00 98.6 18 07/07/17 08:00 Simple Mask 8.00 Intake and Output 07/08/17 07/08/17 07/08/17 07:59 15:59 23:59 Intake Total 1638 ml Output Total 500 ml Balance 1138 ml Result Diagram: 07/08/17 0430 07/08/17 0430 Other Results Microbiology Date/Time Source Procedure Growth Status 07/07/17 12:00 Nasal Aspirate Influenza Types A,B Antigen (ANALI) - Final NEGATIVE FOR FLU A AND B ANTIGEN.... Complete 07/07/17 12:00 Urine Catheterized Urine Legionella Antigen - Final PRESUMPTIVE NEGATIVE FOR LEGIONELLA P... Complete 07/07/17 12:00 Urine Catheterized Urine Streptococcus pneumoniae Antigen (M - Final PRESUMPTIVE NEGATIVE FOR STREPTOCOCCU... Complete Laboratory Tests Test 07/07/17 10:30 07/07/17 13:50 07/08/17 08:51 Blood Gas Puncture Site ART LINE ART LINE ART LINE Blood Gas Patient Temperature 98.6 98.6 98.6 Blood Gas HCO3 13 mmol/L (22-26) 13 mmol/L (22-26) 18 mmol/L (22-26) Blood Gas Base Excess -11.8 mmol/L (-2-2) -14.5 mmol/L (-2-2) -7.3 mmol/L (-2-2) Blood Gas Oxygen Saturation 98 % (90-100) 96 % (90-100) 97 % (90-100) Arterial Blood pH 7.37 (7.380-7.420) 7.16 (7.380-7.420) 7.34 (7.380-7.420) Arterial Blood Partial Pressure CO2 22 mmHg (38-42) 37 mmHg (38-42) 34 mmHg (38-42) Arterial Blood Partial Pressure O2 263 mmHg (61-120) 144 mmHg (61-120) 141 mmHg (61-120) Arterial Blood Oxygen Content 14.5 Vol % (12.0-20.0) 12.3 Vol % (12.0-20.0) 12.3 Vol % (12.0-20.0) Arterial Blood Carboxyhemoglobin 0.4 % (0-4) 0.1 % (0-4) 0.5 % (0-4) Arterial Blood Methemoglobin 1.2 % (0-2) 1.5 % (0-2) 1.2 % (0-2) Blood Gas Hemoglobin 10.1 G/DL (12.0-16.0) 8.9 G/DL (12.0-16.0) 8.8 G/DL (12.0-16.0) Oxygen Delivery Device NRB VENTILATOR VENTILATOR Blood Gas Liter Flow 15 L/M Blood Gas Inspired Oxygen 100 % 50 % 35 % Blood Gas Ventilator Setting Imaging Last Impressions Chest X-Ray 07/08/17 0600 Signed Impressions: Service Date/Time: Saturday, July 08, 2017 03:29 - CONCLUSION: 1. Mild basilar opacity similar to July 07. Endotracheal tube unchanged. Fred Mccrary MD Chest CT 07/07/17 1431 Signed Impressions: Service Date/Time: Friday, July 07, 2017 15:58 - CONCLUSION: There is development of right pleural effusion which is small which is associated with progressive infiltrate and mild consolidation in the right lower lobe with peripheral air bronchograms. This has progressed relative to CTA of the chest on the previous day. Persistent fluid filled dilatation of the esophagus. Extensive coronary calcifications. Андрей Mcleod MD Abdomen/Pelvis CT 07/07/17 1431 Signed Impressions: Service Date/Time: Friday, July 07, 2017 15:58 - CONCLUSION: There is significant interval change in the right lower quadrant extending into the pelvis there is extensive inflammatory change in the fat and a small amount of fluid. This is adjacent to the cecum. Entities such as appendicitis are suggested. This should be correlated with clinical history and physical examination. Please see CT scan of the chest the same day for change in the right lung base progressive infiltrate and small effusion. Андрей Mcleod MD Lower Extremity Ultrasound 07/06/17 0000 Signed Impressions: Service Date/Time: Thursday, July 06, 2017 13:14 - CONCLUSION: Negative for deep venous thrombosis. Roldan Hernandez MD FACR CT Angiography 07/06/17 0000 Signed Impressions: Service Date/Time: Thursday, July 06, 2017 18:41 - CONCLUSION: 1. No evidence of pulmonary embolism. 2. Linear infiltrate right lung base suggestive of atelectasis. 3. Stable 4 mm pulmonary nodule left lower lung. 4. Nonspecific dilatation of the thoracic esophagus. This could be from dysmotility. Abdon Tracy MD Head CT 07/03/17 1735 Signed Impressions: Service Date/Time: Monday, July 03, 2017 18:01 - CONCLUSION: 1. Stable examination compared to the examination from 2016. 2. Diffuse bilateral cortical atrophy which is stable. 3. No new or acute pathology. Abdon Tracy MD Objective Remarks GENERAL: This is a well-developed well-nourished chronically/critically ill- appearing patient intubated and sedated SKIN: Warm and dry. HEAD: Atraumatic. Normocephalic. EYES: Pupils equal and round. No scleral icterus. 2 mm and briskly reactive. No injection or drainage. ENT: No nasal bleeding or discharge. Mucous membranes pink and moist. NECK: Trachea midline. No JVD. CARDIOVASCULAR: Normal rate, regular rhythm. RESPIRATORY: No accessory muscle use. Clear to auscultation. Breath sounds equal bilaterally. GASTROINTESTINAL: Abdomen soft, non-tender, nondistended. No guarding. MUSCULOSKELETAL: Extremities without clubbing, cyanosis, or edema. No obvious deformities. NEUROLOGICAL: Awake and alert. RASS -2. No gross focal/sensory deficits. Follows commands in all 4 extremities. Weak in right upper and lower extremity secondary to previous CVA but patient is following commands. Procedures none Urinary Catheter: Yes Date of Insertion: Jul 06, 2017 Date of Insertion: Jul 07, 2017 Line: Central Venous Catheter Side: Right Location: Femoral A/P Assessment and Plan IMPRESSION Plan by systems: Neurologic: History of CVA Daily sedation vacation Fentanyl infusion 150 mcgs/hr for sedation/analgesia while endotracheally intubated Trend Ammonia level Respiratory: Hypoxic respiratory failure secondary to septic shock 07/07 Emergent intubation 12/27/22 centimeters at the teeth Maintain O2 sat greater than 92% Schedule bronchodilators every 6 hours and every 2 hours when necessary Repeat ABG- 7.34/34/ 141/18/-7.3, Will discontinue Nahco3 infusion Ventilator bundle CT chest -small right pleural effusion, with progressive infiltrate, peripheral right lower lobe air bronchograms. Persistent fluid-filled dilation of esophagus. Cardiovascular: Hypotension Maintain MAP greater than 65 Norepinephrine infusion at 7 mcgs, vasopressin and phenylephrine discontinued Cardiology service is following Dr. Harrell. The patient had an echocardiogram back in May 2015 which showed an EF of 55-60% and grade 1 diastolic dysfunction. Renal: CHANO Maintain Coates -- Strict I/Os FEN/GI: Dehydration Electrolyte derangement Esophageal stricture Dysphagia status post esophageal dilatation 05/13 Possible GI bleed Possible aspiration GERD History of PUD Patient previously on D5W 125/h Bolus 2 L 05/29 NSS 07/[address] OGT Patient transfuse 2 units packed red blood cells overnight follow-up post transfusion CBC GI following-plan for EGD in a.m. with dilatation of the esophagus and OGT placement 07/08 CT abd/ pelvis-interval change of the right lower quadrant with extensive inflammatory changes possible appendicitis. Consult general surgery Aspiration precautions Repletion of calcium, magnesium and potassium Heme/ID: Septic Shock Persistent leukocytosis UTI ESBL Escherichia coli Lactic acidemia ID following Antibiotics per ID 07/07 Obtain repeat cultures-blood, urine, sputum 07/07 Legionella strep pneumo cultures- Negative Inability to initiate Tamiflu per ID 06/29 to no PO route, influenza A and B antigens negative Endocrine: Diabetes mellitus TSH 1.12 Glucose monitoring per ICU protocol -- SSI Prophylaxis: GI Prophylaxis Protonix twice a day DVT Prophylaxis -- SCDs, no pharmacological anticoagulation in the setting of bleed Lines: Peripheral IVs 2. Right femoral central line, right femoral arterial line 07/07 Dispo: my billing statement This patient remains critically ill with one or more organ systems which are or may become a threat to life. I have spent in excess of 30minutes discontinuously in the care and management of this patient. This time is exclusive of procedures, and includes, but is not limited to, evaluation of the patient, review of the medical record, discussions with family, consultants, nursing staff, or respiratory therapy, and documentation in the medical record. Physician Maribell Pinzon MD Jul 08, 2017 10:28
[2017-07-08] MEDS: MAGNESIUM SULFATE 1 GM PREMIX 100 ML IV SCH ×2 (10:48→13:00)
[2017-07-08] MEDS ORDERED: CALCIUM GLUCONATE INJ 2 GM in SODIUM CHLORIDE 0.9% INJ 100 ML IV ONE (11:00)
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
--- NOTE | 2017-07-08 12:20 | PD.CARD.PN ---
Subjective Subjective Remarks Mildly better today On mechanical ventilation Objective Medications Current Medications Medications (Trade) Dose Ordered Sig/Katina Route Start Time Stop Time Status Last Admin (NS Flush) 2 ml UNSCH PRN IV FLUSH 07/03/17 20:15 (NS Flush) 2 ml BID IV FLUSH 07/03/17 21:00 07/08/17 08:11 (Tylenol) 650 mg Q4H PRN PO 07/03/17 20:15 (Zofran Inj) 4 mg Q6H PRN IVP 07/03/17 20:15 (Heparin Inj) 5,000 units Q8HR SQ 07/03/17 22:00 07/08/17 06:41 (Plavix) 75 mg DAILY PO 07/04/17 09:00 07/05/17 08:47 (Neurontin) 300 mg BID PO 07/03/17 21:45 07/06/17 21:12 (Parthenon 5-325 Mg) 1 tab Q6H PRN PO 07/03/17 21:45 07/04/17 23:12 (Flomax) 0.4 mg HS PO 07/03/17 21:45 07/06/17 21:12 Meropenem 1000 mg/ Sodium Chloride 100 ml @ 200 mls/hr Q8H IV 07/06/17 12:00 07/08/17 03:29 Pharmacy Profile Note 0 ml @ 0 mls/hr UNSCH OTHER 07/06/17 11:30 (Duoneb Neb) 1 ampule Q4HR NEB NEB 07/06/17 16:00 07/08/17 11:13 (Duoneb Neb) 1 ampule Q2HR NEB PRN NEB 07/06/17 12:30 Dextrose 1,000 ml @ 125 mls/hr Q8H IV 07/06/17 13:00 07/07/17 03:25 (D50w (Vial) Inj) 50 ml UNSCH PRN IV PUSH 07/06/17 12:30 (Glucagon Inj) 1 mg UNSCH PRN OTHER 07/06/17 12:30 (NovoLIN R SUPPLEMENTAL SCALE) 1 Q4HR SQ 07/06/17 12:30 Vancomycin HCl 1750 mg/Sodium Chloride 517.5 ml @ 250 mls/hr Q24H IV 07/06/17 14:00 07/07/17 15:23 Miscellaneous Information SPECIFIC LAB TO BE DRAWN:VANCO TROUGH DATE TO... ONCE ONCE .XX 07/09/17 13:45 07/09/17 13:46 (Protonix Inj) 40 mg DAILY IV PUSH 07/06/17 12:45 07/08/17 08:10 Fentanyl Citrate 250 ml @ 5 mls/hr TITRATE PRN IV 07/07/17 10:30 07/08/17 09:21 Levofloxacin/ Dextrose 150 ml @ 100 mls/hr Q24H IV 07/07/17 12:00 07/07/17 12:45 (Peridex 0.12% Liq) 15 ml BID@08,20 MT 07/07/17 20:00 07/08/17 08:12 Vasopressin 40 units/Dextrose 100 ml @ 6 mls/hr [id number] IV 07/07/17 13:19 07/07/17 13:35 (SoluCORTEF INJ) 100 mg Q8HR IV PUSH 07/07/17 22:00 07/08/17 06:40 Phenylephrine HCl 40 mg/Dextrose 500 ml @ 30 mls/hr TITRATE PRN IV 07/07/17 14:30 (Brethine Inj) 1 mg UNSCH PRN SQ 07/07/17 14:30 Sodium Bicarbonate 150 meq/Dextrose 1,000 ml @ 75 mls/hr [id number] IV 07/07/17 15:00 07/08/17 03:29 Norepinephrine Bitartrate 250 ml @ 7.5 mls/hr TITRATE PRN IV 07/07/17 20:15 07/08/17 09:21 Fluconazole/ Sodium Chloride 100 ml @ 100 mls/hr Q24H IV 07/08/17 12:00 Vital Signs / I&O Vital Signs Date Time Temp Pulse Resp B/P (MAP) Pulse Ox O2 Delivery O2 Flow Rate FiO2 07/08/17 12:00 35 07/08/17 12:00 80 07/08/17 10:30 100 35 07/08/17 10:00 79 07/08/17 09:21 80 106/61 07/08/17 08:00 79 07/08/17 08:00 35 07/08/17 08:00 97.9 79 15 93/55 (68) 100 106/61 (76) 07/08/17 07:47 92 35 07/08/17 06:00 81 07/08/17 04:46 99 35 07/08/17 04:00 98.6 81 18 83/50 (61) 100 93/56 (68) 07/08/17 04:00 82 07/08/17 04:00 82 91/55 07/08/17 04:00 40 07/08/17 03:45 81 90/53 07/08/17 03:35 82 86/64 07/08/17 03:20 82 99/66 07/08/17 02:00 82 07/08/17 01:45 83 104/72 07/08/17 01:12 99 35 07/08/17 00:45 86 112/68 07/08/17 00:45 86 112/68 07/08/17 00:00 86 07/08/17 00:00 40 07/08/17 00:00 98.6 86 15 86/52 (63) 100 107/65 (79) 07/08/17 00:00 86 107/65 07/07/17 23:00 86 100/61 07/07/17 22:52 86 104/64 07/07/17 22:12 100 40 07/07/17 22:00 86 07/07/17 20:15 87 106/66 07/07/17 20:00 98.1 88 16 99/58 (72) 100 101/69 (80) 07/07/17 20:00 88 07/07/17 20:00 40 07/07/17 19:53 100 50 07/07/17 19:45 89 110/66 07/07/17 19:00 100 07/07/17 19:00 89 107/66 07/07/17 19:00 89 107/66 07/07/17 18:00 90 07/07/17 16:23 89 50 07/07/17 16:00 94 07/07/17 16:00 50 07/07/17 16:00 98.7 94 16 106/64 (78) 97 07/07/17 15:45 89 100 07/07/17 14:00 94 07/07/17 13:39 92 50 07/07/17 13:35 95 78/43 I/O 07/07/17 07/07/17 07/07/17 07/08/17 07/08/1718 07:00 15:00 23:00 07:00 15:00 23:00 Intake Total 510 ml 400 ml 3117.5 ml 1638 ml Output Total 1000 ml 550 ml 500 ml Balance -490 ml 400 ml 2567.5 ml 1138 ml Intake Oral 0 ml IV Total 3117.5 ml 1638 ml Packed Cells 400 ml 400 ml Blood Product IV Normal Saline Flush 110 ml Output Urine Total 1000 ml 550 ml 500 ml # Bowel Movements 0 0 Physical Exam GENERAL: Intubated and sedated SKIN: Warm and dry. HEAD: Atraumatic. Normocephalic. EYES: Pupils equal and round. No scleral icterus. No injection or drainage. ENT: No nasal bleeding or discharge. Mucous membranes pink and moist. NECK: Trachea midline. No JVD. CARDIOVASCULAR: Regular rate and rhythm. RESPIRATORY: No accessory muscle use. Rhonchi bilaterally GASTROINTESTINAL: Abdomen soft, non-tender, nondistended. Hepatic and splenic margins not palpable. MUSCULOSKELETAL: Extremities without clubbing, cyanosis, or edema. No obvious deformities. NEUROLOGICAL: Intubated and sedated Laboratory Laboratory Tests Test 07/07/17 13:45 07/07/17 13:50 07/07/17 18:25 07/07/17 23:00 Blood Urea Nitrogen 45 MG/DL Creatinine 1.50 MG/DL Random Glucose 160 MG/DL Total Protein 4.5 GM/DL Albumin 1.7 GM/DL Calcium Level 6.5 MG/DL Alkaline Phosphatase 94 U/L Aspartate Amino Transf (AST/SGOT) 12 U/L Alanine Aminotransferase (ALT/SGPT) 11 U/L Total Bilirubin 0.4 MG/DL Sodium Level 151 MEQ/L Potassium Level 3.9 MEQ/L Chloride Level 123 MEQ/L Carbon Dioxide Level 16.7 MEQ/L Anion Gap 11 MEQ/L Estimat Glomerular Filtration Rate 47 ML/MIN Lactic Acid Level 2.7 mmol/L 3.2 mmol/L Protein Corrected Calcium 7.8 MG/DL Blood Gas Puncture Site ART LINE Blood Gas Patient Temperature 98.6 Blood Gas HCO3 13 mmol/L Blood Gas Base Excess -14.5 mmol/L Blood Gas Oxygen Saturation 96 % Arterial Blood pH 7.16 Arterial Blood Partial Pressure CO2 37 mmHg Arterial Blood Partial Pressure O2 144 mmHg Arterial Blood Oxygen Content 12.3 Vol % Arterial Blood Carboxyhemoglobin 0.1 % Arterial Blood Methemoglobin 1.5 % Blood Gas Hemoglobin 8.9 G/DL Oxygen Delivery Device VENTILATOR Blood Gas Ventilator Setting Blood Gas Inspired Oxygen 50 % Hemoglobin 9.3 GM/DL Hematocrit 27.1 % Test 07/08/17 04:30 07/08/17 08:51 White Blood Count 20.1 TH/MM3 Red Blood Count 3.23 MIL/MM3 Hemoglobin 9.2 GM/DL Hematocrit 27.2 % Mean Corpuscular Volume 84.3 FL Mean Corpuscular Hemoglobin 28.4 PG Mean Corpuscular Hemoglobin Concent 33.7 % Red Cell Distribution Width 17.2 % Platelet Count 141 TH/MM3 Mean Platelet Volume 7.5 FL Neutrophils (%) (Auto) 91.8 % Lymphocytes (%) (Auto) 6.5 % Monocytes (%) (Auto) 1.5 % Eosinophils (%) (Auto) 0.1 % Basophils (%) (Auto) 0.1 % Neutrophils # (Auto) 18.4 TH/MM3 Lymphocytes # (Auto) 1.3 TH/MM3 Monocytes # (Auto) 0.3 TH/MM3 Eosinophils # (Auto) 0.0 TH/MM3 Basophils # (Auto) 0.0 TH/MM3 CBC Comment DIFF FINAL Differential Comment Blood Urea Nitrogen 43 MG/DL Creatinine 1.52 MG/DL Random Glucose 178 MG/DL Total Protein 4.7 GM/DL Calcium Level 6.2 MG/DL Phosphorus Level 3.8 MG/DL Magnesium Level 1.6 MG/DL Sodium Level 149 MEQ/L Potassium Level 3.8 MEQ/L Chloride Level 117 MEQ/L Carbon Dioxide Level 18.4 MEQ/L Anion Gap 14 MEQ/L Estimat Glomerular Filtration Rate 47 ML/MIN Lactic Acid Level 2.9 mmol/L Protein Corrected Calcium 7.3 MG/DL Blood Gas Puncture Site ART LINE Blood Gas Patient Temperature 98.6 Blood Gas HCO3 18 mmol/L Blood Gas Base Excess -7.3 mmol/L Blood Gas Oxygen Saturation 97 % Arterial Blood pH 7.34 Arterial Blood Partial Pressure CO2 34 mmHg Arterial Blood Partial Pressure O2 141 mmHg Arterial Blood Oxygen Content 12.3 Vol % Arterial Blood Carboxyhemoglobin 0.5 % Arterial Blood Methemoglobin 1.2 % Blood Gas Hemoglobin 8.8 G/DL Oxygen Delivery Device VENTILATOR Blood Gas Ventilator Setting Blood Gas Inspired Oxygen 35 % Imaging Last 24 hours Impressions Chest X-Ray 07/08/17 0600 Signed Impressions: Service Date/Time: Saturday, July 08, 2017 03:29 - CONCLUSION: 1. Mild basilar opacity similar to July 07. Endotracheal tube unchanged. Fred Mccrary MD Chest CT 07/07/17 1431 Signed Impressions: Service Date/Time: Friday, July 07, 2017 15:58 - CONCLUSION: There is development of right pleural effusion which is small which is associated with progressive infiltrate and mild consolidation in the right lower lobe with peripheral air bronchograms. This has progressed relative to CTA of the chest on the previous day. Persistent fluid filled dilatation of the esophagus. Extensive coronary calcifications. Андрей Mcleod MD Abdomen/Pelvis CT 07/07/17 1431 Signed Impressions: Service Date/Time: Friday, July 07, 2017 15:58 - CONCLUSION: There is significant interval change in the right lower quadrant extending into the pelvis there is extensive inflammatory change in the fat and a small amount of fluid. This is adjacent to the cecum. Entities such as appendicitis are suggested. This should be correlated with clinical history and physical examination. Please see CT scan of the chest the same day for change in the right lung base progressive infiltrate and small effusion. Андрей Mcleod MD Assessment and Plan Problem List: (1) PNA (pneumonia) ICD Codes: J18.9 - Pneumonia, unspecified organism (2) UTI (urinary tract infection) ICD Codes: N39.0 - Urinary tract infection, site not specified Status: Acute (3) Lactic acidosis ICD Codes: E87.2 - Acidosis Status: Acute (4) Sepsis ICD Codes: A41.9 - Sepsis, unspecified organism Status: Acute (5) Chest pain, atypical ICD Codes: R07.89 - Atypical chest pain Status: Acute (6) TOBACCO USE DISORDER Status: Chronic (7) Obesity ICD Codes: E66.9 - Obesity Status: Acute (8) Hypertension ICD Codes: I10 - Hypertension Status: Chronic Assessment and Plan 1) UTI/PNA/Sepsis Per critical care/ID 2) Previous chest pain appears pleuritic in nature 3) Does not appear to have angina 4) Minimally elevated trop, flat in nature Non-specific with CHANO/lactic acidosis Most likely Type 2 5) Possible aspiration PNA/Sepsis Per critical care team Started on vasopressors 6) Drop in Hgb No plan for ischemic evaluation Problem Qualifiers (1) UTI (urinary tract infection): Qualified Codes: N39.0 - Urinary tract infection, site not specified (2) Sepsis: Qualified Codes: A41.9 - Sepsis, unspecified organism Apollo Harrell DO Jul 08, 2017 12:20
[2017-07-08 12:53] LABS: HEMOGLOBIN A1C 5.8 % (4.3-6.0)
[2017-07-08] MEDS: LEVOFLOXACIN 750 MG PREMIX INJ 150 ML IV SCH (14:04)
[2017-07-08] MEDS: FLUCONAZOLE 200 MG PREMIX BAG 100 ML IV SCH (16:32)
[2017-07-08] MEDS: VANCOMYCIN INJ 1,750 MG in SODIUM CHLORID 0.9% 500 ML INJ 500 ML IV SCH (17:45)
[2017-07-08] MEDS: TAMSULOSIN HCL 0.4 MG CAP PO SCH (20:03)
[2017-07-08 23:30] LABS: HEMATOCRIT 23.4 % (39.0-51.0)
[2017-07-09] VITALS (17 sets, daily range): BP systolic 83–126; BP diastolic 46–65; PULSE 72–97; RESP 12–17; TEMP 97.3–98.4; O2SAT 94–100
[2017-07-09 00:05] LABS: ALBUMIN 1.3 GM/DL (3.4-5.0); BICARBONATE 23.9 MEQ/L (21.0-32.0); CALCIUM 6.5 MG/DL (8.5-10.1); CALCIUM-PROTEIN CORRECTED 7.8 MG/DL (8.5-10.1); CREATININE 1.44 MG/DL (0.60-1.30); TOTAL BILIRUBIN ADULT 0.4 MG/DL (0.2-1.0); TOTAL PROTEIN 4.5 GM/DL (6.4-8.2)
[2017-07-09] MEDS: INSULIN NovoLIN REGULAR SUPPLEMENTAL SCALE SQ SCH ×5 (04:00→20:00)
--- NOTE | 2017-07-09 04:08 | RADRPT ---
EXAM DATE/TIME: 07/09/2017 03:30 [place] COMPARISON: CHEST SINGLE AP, July 08, 2017, 3:29. INDICATIONS : Shortness of breath, possible pulmonary disease. MEDICAL HISTORY : Cerebrovascular disease. Cardiovascular disease. Hypertension. SURGICAL HISTORY : Appendectomy. Cholecystectomy. ENCOUNTER: Subsequent ACUITY: 3 days PAIN SCORE: Non-responsive. LOCATION: Bilateral chest FINDINGS: Atelectasis at the right lung base with slight elevation of the right hemidiaphragm. Endotracheal tub e and enteric tube are present. Cardiomegaly. CONCLUSION: Right basilar atelectasis. Jeffery Mercedes MD on July 09, 2017 at 4:06 Board Certified Radiologist. This report was verified electronically.
[2017-07-09] MEDS: RESP: ALBUTEROL 2.5 MG/IPRATROPIUM 0.5 MG NEB (SCH) NEB ×5 (04:17→21:51)
[2017-07-09 04:33] LABS: AUTOMATED NEUTROPHIL # 14.1 TH/MM3 (1.8-7.7); BASOPHIL % 0.1 % (0.0-2.0); HEMATOCRIT 23.2 % (39.0-51.0); LYMPH % 5.8 % (9.0-44.0); LYMPHOCYTE # 0.9 TH/MM3 (1.0-4.8); MEAN CELL VOLUME 83.5 FL (80.0-100.0); MEAN CORPUSCULAR HEMOGLOBIN 28.9 PG (27.0-34.0); MEAN CORPUSCULAR HGB CONC 34.6 % (32.0-36.0); MEAN PLATELET VOLUME 7.4 FL (7.0-11.0); MONO % 1.7 % (0.0-8.0); MONOCYTE # 0.3 TH/MM3 (0-0.9); NEUT % 92.4 % (16.0-70.0); PLATELET COUNT 111 TH/MM3 (150-450); RED BLOOD COUNT 2.78 MIL/MM3 (4.50-5.90); RED CELL DISTRIBUTION WIDTH 16.9 % (11.6-17.2); WHITE BLOOD COUNT 15.2 TH/MM3 (4.0-11.0)
[2017-07-09] MEDS: MEROPENEM INJ 1,000 MG in SODIUM CHLORIDE 0.9% INJ 100 ML IV SCH ×2 (04:37→12:13)
[2017-07-09 04:53] LABS: BICARBONATE 24.7 MEQ/L (21.0-32.0); CALCIUM 6.6 MG/DL (8.5-10.1); CREATININE 1.57 MG/DL (0.60-1.30); MAGNESIUM 2.1 MG/DL (1.5-2.5); PHOSPHORUS 2.9 MG/DL (2.5-4.9)
[2017-07-09 05:11] LABS: CALCIUM-PROTEIN CORRECTED 7.8 MG/DL (8.5-10.1); TOTAL PROTEIN 4.7 GM/DL (6.4-8.2)
[2017-07-09] MEDS ORDERED: MAGNESIUM SULFATE INJ 4 GM in SODIUM CHLORIDE 0.9% INJ 92 ML IV PRN (05:30)
[2017-07-09] MEDS ORDERED: POTASSIUM PHOSPHATE MONOBASIC 500 MG TAB PO/TUBE PRN (05:30)
[2017-07-09] MEDS ORDERED: POTASSIUM PHOSPHATE INJ 30 MMOL in SODIUM CHLOR 0.9% 250 ML INJ 250 ML IV PRN (05:30)
[2017-07-09] MEDS ORDERED: POTASSIUM CHLORIDE 25 MEQ EFFERVESCENT TAB PO PRN (05:30)
[2017-07-09] MEDS ORDERED: MAGNESIUM SULFATE INJ 2 GM in SODIUM CHLORIDE 0.9% INJ 96 ML IV PRN (05:30)
[2017-07-09] MEDS ORDERED: SODIUM PHOSPHATE INJ 30 MMOL in SODIUM CHLOR 0.9% 250 ML INJ 240 ML IV PRN (05:30)
[2017-07-09] MEDS ORDERED: POTASSIUM CHLOR 40 MEQ PREMIX 100 ML IV PRN (05:30)
[2017-07-09] MEDS ORDERED: MAGNESIUM OXIDE 400 MG TAB PO PRN (05:30)
[2017-07-09] MEDS ORDERED: POTASSIUM CHLOR 20 MEQ PREMIX 100 ML IV PRN ×2 (05:30)
[2017-07-09] MEDS ORDERED: POTASSIUM PHOSPHATE MONOBASIC 500 MG TAB PO PRN (05:30)
[2017-07-09] MEDS: HEPARIN SODIUM - SQ 10,000 UNITS/ML VIAL SQ SCH ×3 (06:00→21:56)
[2017-07-09] MEDS: DEXTROSE 5% IN WATE 1000ML INJ 1,000 ML IV SCH ×2 (06:10→13:15)
[2017-07-09] MEDS: HYDROCORTISONE SOD SUCCINATE 100 MG VIAL IV PUSH SCH ×3 (06:13→21:56)
[2017-07-09] MEDS: NOREPINEPHRINE 4 MG/D5W 250 ML IV PRN ×2 (06:14→15:28)
[2017-07-09] MEDS: fentaNYL DRIP 250 ML IV PRN (06:14)
[2017-07-09] MEDS: SODIUM BICARBONATE 8.4% INJ 150 MEQ in DEXTROSE 5% IN WATE 1000ML INJ 850 ML IV SCH ×2 (06:14)
[2017-07-09] MEDS: POTASSIUM CHLOR 40 MEQ PREMIX 100 ML IV PRN ×2 (06:15→09:15)
[2017-07-09] MEDS: GABAPENTIN 300 MG CAP PO SCH ×2 (09:00→21:57)
[2017-07-09] MEDS: CLOPIDOGREL 75 MG TAB PO SCH (09:00)
[2017-07-09] MEDS: PANTOPRAZOLE SODIUM 40 MG VIAL IV PUSH SCH (09:15)
[2017-07-09] MEDS: SODIUM CHLORIDE 0.9% FLUSH 10 ML FLUSH IV FLUSH SCH ×2 (09:18→21:57)
[2017-07-09] MEDS: CHLORHEXIDINE 0.12% (ORAL KIT) 15 ML CUP MT SCH ×2 (09:18→21:57)
--- NOTE | 2017-07-09 09:31 | HHI.CCPN ---
Subjective Remarks/Hospital Course The patient is a 62-year-old male with past medical history of CVA 3 years ago, hypertension, hyperlipidemia and gastroesophageal reflux disease, peptic ulcer disease who was admitted under hospitalist service on July 03 for urinary tract infection, acute kidney injury and dehydration. The patient was found to have E-coli ESBL on a urine culture. On arrival he had a CT scan of the brain for lethargy which showed a diffuse bilateral cortical atrophy and no new pathology noted. He also had a CT abdomen, pelvis which did not show any acute abdominal findings. His initial chest x-ray on admission showed no acute disease as well. The patient was placed on antibiotics and IV fluids. He underwent the EGD with dilatation for an distal esophageal stricture in April 2017. He is currently being followed by gastrointestinal, infectious disease and a cardiology. A Helicat was called as the patient was found hypoxic with saturation in the 70s and hypotensive. He is currently receiving 1 liter bolus of normal saline and was transferred to [facility] for close observation. Critical care medicine was consulted for critical care management. ABG was performed which showed pH of 7.51, CO2 22, pAO2 171, bicarb 17 andsaturation of 97%. Chest x-ray was also performed which showed no obvious infiltrates or effusions. His laboratory data from today showed worsening renal function with creatinine 1.4 from 1.12 and hypernatremia with a sodium level of 153. The patient is lethargic, however he responds to questions appropriately. Subjective: 07/07: Patient hypotensive, systolic blood pressure in the 80s, patient extremely lethargic, obtunded. Unable to obtain pulse ox O2 sats. Patient placed on nonrebreather 100% mask. Unable to obtain arterial line ABG. Right femoral central line right femoral arterial line placed under ultrasound guidance. Levophed infusion initiated. Contacted ARTHUR Valdes, explained and provided medical status update patient intubated, for airway protection and adequate oxygenation. 07/08: Afebrile. Patient continues on vasopressor support with norepinephrine at 7 mics/minute, vasopressin and phenylephrine have been discontinued. Sedation vacation revealed patient awake responding to commands. Slight improvement and lactic acidemia. Multiple attempts at OG placement yesterday unsuccessful. And for GI on Sunday 07/09 for EGD dilatation would OGT placement. Patient unable to receive Tamiflu secondary to inability to place NG tube. The patient continues on sodium bicarbonate infusion. CT of abdomen and pelvis significant change RLL, suggestive of possible appendicitis, Gen. surgery consulted. I contacted Dr. Del Angel currently in the OR and made him aware of CT report. Consulted my colleague Dr. Tovar and reviewed films. Reevaluation of right groin site, no hematoma palpated. Serial HGB every 12 hours being obtained. 07/09 Patient is sedated , intubated with Fentanyl drip, on Levophed 7 mics and bicarb drip. Objective Vital Signs Date Time Temp Pulse Resp B/P (MAP) Pulse Ox O2 Delivery O2 Flow Rate FiO2 07/09/17 08:27 94 35 07/09/17 06:14 77 106/56 07/09/17 04:00 98.0 12 07/07/17 08:00 Simple Mask 8.00 Intake and Output 07/09/17 07/09/17 07/10/17 08:00 16:00 00:00 Intake Total 1600 ml Output Total 1000 ml Balance 600 ml Result Diagram: 07/09/17 0410 07/09/17 0410 Other Results Laboratory Tests Test 07/08/17 15:02 07/08/17 17:20 07/08/17 22:50 07/09/17 04:10 Blood Gas Puncture Site ART LINE Blood Gas Patient Temperature 98.6 Blood Gas HCO3 18 mmol/L Blood Gas Base Excess -7.1 mmol/L Blood Gas Oxygen Saturation 97 % Arterial Blood pH 7.34 Arterial Blood Partial Pressure CO2 34 mmHg Arterial Blood Partial Pressure O2 138 mmHg Arterial Blood Oxygen Content 11.0 Vol % Arterial Blood Carboxyhemoglobin 0.5 % Arterial Blood Methemoglobin 1.3 % Blood Gas Hemoglobin 7.9 G/DL Oxygen Delivery Device VENTILATOR Blood Gas Ventilator Setting Blood Gas Inspired Oxygen 35 % Hemoglobin 8.2 GM/DL 8.0 GM/DL 8.0 GM/DL Hematocrit 23.4 % 23.2 % Blood Urea Nitrogen 38 MG/DL 37 MG/DL Creatinine 1.44 MG/DL 1.57 MG/DL Random Glucose 141 MG/DL 174 MG/DL Total Protein 4.5 GM/DL 4.7 GM/DL Albumin 1.3 GM/DL Calcium Level 6.5 MG/DL 6.6 MG/DL Alkaline Phosphatase 92 U/L Aspartate Amino Transf (AST/SGOT) 9 U/L Alanine Aminotransferase (ALT/SGPT) 7 U/L Total Bilirubin 0.4 MG/DL Sodium Level 152 MEQ/L 150 MEQ/L Potassium Level 3.5 MEQ/L 3.2 MEQ/L Chloride Level 118 MEQ/L 116 MEQ/L Carbon Dioxide Level 23.9 MEQ/L 24.7 MEQ/L Anion Gap 10 MEQ/L 9 MEQ/L Estimat Glomerular Filtration Rate 50 ML/MIN 45 ML/MIN Protein Corrected Calcium 7.8 MG/DL 7.8 MG/DL White Blood Count 15.2 TH/MM3 Red Blood Count 2.78 MIL/MM3 Mean Corpuscular Volume 83.5 FL Mean Corpuscular Hemoglobin 28.9 PG Mean Corpuscular Hemoglobin Concent 34.6 % Red Cell Distribution Width 16.9 % Platelet Count 111 TH/MM3 Mean Platelet Volume 7.4 FL Neutrophils (%) (Auto) 92.4 % Lymphocytes (%) (Auto) 5.8 % Monocytes (%) (Auto) 1.7 % Eosinophils (%) (Auto) 0.0 % Basophils (%) (Auto) 0.1 % Neutrophils # (Auto) 14.1 TH/MM3 Lymphocytes # (Auto) 0.9 TH/MM3 Monocytes # (Auto) 0.3 TH/MM3 Eosinophils # (Auto) 0.0 TH/MM3 Basophils # (Auto) 0.0 TH/MM3 CBC Comment DIFF FINAL Differential Comment Phosphorus Level 2.9 MG/DL Magnesium Level 2.1 MG/DL Lactic Acid Level 3.4 mmol/L Test 07/09/17 05:13 Blood Gas Puncture Site ART LINE Blood Gas Patient Temperature 98.6 Blood Gas HCO3 21 mmol/L Blood Gas Base Excess -3.9 mmol/L Blood Gas Oxygen Saturation 97 % Arterial Blood pH 7.33 Arterial Blood Partial Pressure CO2 42 mmHg Arterial Blood Partial Pressure O2 129 mmHg Arterial Blood Oxygen Content 11.1 Vol % Arterial Blood Carboxyhemoglobin 0.4 % Arterial Blood Methemoglobin 1.3 % Blood Gas Hemoglobin 8.0 G/DL Oxygen Delivery Device VENTILATOR Blood Gas Ventilator Setting SEE COMMENT Blood Gas Inspired Oxygen 35 % Imaging Last Impressions Chest X-Ray 07/09/17 0600 Signed Impressions: Service Date/Time: Sunday, July 09, 2017 03:30 - CONCLUSION: Right basilar atelectasis. Jeffery Mercedes MD Chest CT 07/07/17 1431 Signed Impressions: Service Date/Time: Friday, July 07, 2017 15:58 - CONCLUSION: There is development of right pleural effusion which is small which is associated with progressive infiltrate and mild consolidation in the right lower lobe with peripheral air bronchograms. This has progressed relative to CTA of the chest on the previous day. Persistent fluid filled dilatation of the esophagus. Extensive coronary calcifications. Андрей Mcelod MD Abdomen/Pelvis CT 07/07/17 1431 Signed Impressions: Service Date/Time: Friday, July 07, 2017 15:58 - CONCLUSION: There is significant interval change in the right lower quadrant extending into the pelvis there is extensive inflammatory change in the fat and a small amount of fluid. This is adjacent to the cecum. Entities such as appendicitis are suggested. This should be correlated with clinical history and physical examination. Please see CT scan of the chest the same day for change in the right lung base progressive infiltrate and small effusion. Андрей Mcleod MD ADDENDUM: Delayed history was obtained. Patient apparently had invasive procedure extended with placement of a femoral venous catheter which is faintly appreciated. The inflammatory changes in the right lower quadrant are extensive and could potentially be secondary to iatrogenic cause. Андрей Mcleod MD Lower Extremity Ultrasound 07/06/17 0000 Signed Impressions: Service Date/Time: Thursday, July 06, 2017 13:14 - CONCLUSION: Negative for deep venous thrombosis. Roldan Hernandez MD FACR CT Angiography 07/06/17 0000 Signed Impressions: Service Date/Time: Thursday, July 06, 2017 18:41 - CONCLUSION: 1. No evidence of pulmonary embolism. 2. Linear infiltrate right lung base suggestive of atelectasis. 3. Stable 4 mm pulmonary nodule left lower lung. 4. Nonspecific dilatation of the thoracic esophagus. This could be from dysmotility. Abdon Tracy MD Head CT 07/03/17 2871 Signed Impressions: Service Date/Time: Monday, July 03, 2017 18:01 - CONCLUSION: 1. Stable examination compared to the examination from 2016. 2. Diffuse bilateral cortical atrophy which is stable. 3. No new or acute pathology. Abdon Tracy MD Objective Remarks GENERAL: This is a well-developed well-nourished chronically/critically ill- appearing patient intubated and sedated SKIN: Warm and dry. HEAD: Atraumatic. Normocephalic. EYES: Pupils equal and round. No scleral icterus. 2 mm and briskly reactive. No injection or drainage. ENT: No nasal bleeding or discharge. Mucous membranes pink and moist. NECK: Trachea midline. No JVD. CARDIOVASCULAR: Normal rate, regular rhythm. RESPIRATORY: No accessory muscle use. Clear to auscultation. Breath sounds equal bilaterally. GASTROINTESTINAL: Abdomen soft, non-tender, nondistended. No guarding. MUSCULOSKELETAL: Extremities without clubbing, cyanosis, or edema. No obvious deformities. NEUROLOGICAL: Awake and alert. RASS -2. No gross focal/sensory deficits. Follows commands in all 4 extremities. Weak in right upper and lower extremity secondary to previous CVA but patient is following commands. Procedures none Date of Insertion: Jul 06, 2017 Date of Insertion: Jul 07, 2017 Line: Central Venous Catheter Side: Right Location: Femoral A/P Assessment and Plan IMPRESSION Plan by systems: Neurologic: History of CVA Daily sedation vacation Fentanyl infusion 100 mcgs/hr for sedation/analgesia while endotracheally intubated Daily sedation vacation Respiratory: Hypoxic respiratory failure secondary to septic shock 07/07 intubated Continue with vent support maintain O2 sat greater than 92% Schedule bronchodilators every 6 hours and every 2 hours when necessary Ventilator bundle CT chest -small right pleural effusion, with progressive infiltrate, peripheral right lower lobe air bronchograms. Persistent fluid-filled dilation of esophagus. Cardiovascular: Wean off Levophed maintain MAP>65mmHg Lactic acid 3.4 Cardiology service is following Dr. Harrell. On Plavix 75mg daily. Echocardiogram back in May 2015 which showed an EF of 55-60% and grade 1 diastolic dysfunction. Renal: CHANO Hypernatremia Maintain Coates -- Monitor renal function, I/O's, avoid nephrotoxins -Cr: 1.57 from 1.44 -d/c bicarb drip. change IVF D5W@75ml/hr, add Free water 250ml Q8. Monitor sodium level. Diurese with Lasix 40mg x1 ( fluid overload) FEN/GI: Esophageal stricture Dysphagia status post esophageal dilatation 05/13 Possible GI bleed Possible aspiration GERD History of PUD Inability to place OGT Patient transfuse 2 units packed red blood cells overnight follow-up post transfusion CBC GI following-plan for EGD with dilatation of the esophagus and OGT placement 07/08 CT abd/ pelvis-interval change of the right lower quadrant with extensive inflammatory changes possible appendicitis. could be related to femoral line placement. General surgery consulted- Dr. Del Angel ID: Septic Shock Persistent leukocytosis UTI ESBL Escherichia coli Lactic acidemia ID following Antibiotics per ID ( Merrem, Vanco, Levaquin, Diflucan) monitor for signs of infections ( Fever, WBC) 07/07 Follow up on blood,sputum and urine cxs. 07/07 Legionella strep pneumo Ag- Negative 07/07 influenza A and B antigens negative Heme: Monitor CBC Endocrine: Diabetes mellitus TSH 1.12 Glucose monitoring per ICU protocol -- SSI Prophylaxis: GI Prophylaxis Protonix 40mg IV daily DVT Prophylaxis -- SCDs, no pharmacological anticoagulation in the setting of bleed Lines: Peripheral IVs 2. Right femoral central line, right femoral arterial line 07/07 Palliative care is following Spoke to his brother Gerry Valdes and updated him on his condition. Will consult palliative care to asses with goals of care CCT 30 mins Swapnil Mao MD Jul 09, 2017 09:31
[2017-07-09] MEDS ORDERED: FUROSEMIDE 40 MG/4 ML VIAL IV PUSH ONE (09:45)
[2017-07-09] MEDS: FREE WATER G-TUBE SCH ×2 (10:00→15:26)
[2017-07-09] MEDS: FLUCONAZOLE 200 MG PREMIX BAG 100 ML IV SCH (12:13)
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
[2017-07-09] MEDS ORDERED: PHARMACY ORDERED LAB ONE (13:45)
[2017-07-09 15:21] LABS: HEPATITIS A AB IGM NEGATIVE (NEGATIVE); HEPATITIS B CORE AB IGM NEGATIVE (NEGATIVE); HEPATITIS B SURFACE ANTIGEN NEGATIVE (NEGATIVE); HEPATITIS C AB IgG NEGATIVE (NEGATIVE)
--- NOTE | 2017-07-09 15:29 | PD.CARD.PN ---
Subjective Subjective Remarks On mechanical ventilation Lactic acid increasing Objective Medications Current Medications Medications (Trade) Dose Ordered Sig/Katina Route Start Time Stop Time Status Last Admin (NS Flush) 2 ml UNSCH PRN IV FLUSH 07/03/17 20:15 (NS Flush) 2 ml BID IV FLUSH 07/03/17 21:00 07/09/17 09:18 (Tylenol) 650 mg Q4H PRN PO 07/03/17 20:15 (Zofran Inj) 4 mg Q6H PRN IVP 07/03/17 20:15 (Heparin Inj) 5,000 units Q8HR SQ 07/03/17 22:00 07/08/17 13:22 (Plavix) 75 mg DAILY PO 07/04/17 09:00 07/05/17 08:47 (Neurontin) 300 mg BID PO 07/03/17 21:45 07/06/17 21:12 (B[place]ivar 5-325 Mg) 1 tab Q6H PRN PO 07/03/17 21:45 07/04/17 23:12 (Flomax) 0.4 mg HS PO 07/03/17 21:45 07/06/17 21:12 Meropenem 1000 mg/ Sodium Chloride 100 ml @ 200 mls/hr Q8H IV 07/06/17 12:00 07/09/17 12:13 (Duoneb Neb) 1 ampule Q4HR NEB NEB 07/06/17 16:00 07/09/17 11:21 (Duoneb Neb) 1 ampule Q2HR NEB PRN NEB 07/06/17 12:30 Dextrose 1,000 ml @ 75 mls/hr [id number] IV 07/06/17 13:00 07/09/17 13:15 (D50w (Vial) Inj) 50 ml UNSCH PRN IV PUSH 07/06/17 12:30 (Glucagon Inj) 1 mg UNSCH PRN OTHER 07/06/17 12:30 (NovoLIN R SUPPLEMENTAL SCALE) 1 Q4HR SQ 07/06/17 12:30 (Protonix Inj) 40 mg DAILY IV PUSH 07/06/17 12:45 07/09/17 09:15 Fentanyl Citrate 250 ml @ 5 mls/hr TITRATE PRN IV 07/07/17 10:30 07/09/17 06:14 (Peridex 0.12% Liq) 15 ml BID@08,20 MT 07/07/17 20:00 07/09/17 09:18 (SoluCORTEF INJ) 100 mg Q8HR IV PUSH 07/07/17 22:00 07/09/17 13:15 (Brethine Inj) 1 mg UNSCH PRN SQ 07/07/17 14:30 Norepinephrine Bitartrate 250 ml @ 7.5 mls/hr TITRATE PRN IV 07/07/17 20:15 07/09/17 06:14 Fluconazole/ Sodium Chloride 100 ml @ 100 mls/hr Q24H IV 07/08/17 12:00 07/09/17 12:13 Potassium Chloride 100 ml @ 50 mls/hr Q2H PRN IV 07/09/17 05:30 07/09/17 09:15 Potassium Chloride 100 ml @ 50 mls/hr Q2H PRN IV 07/09/17 05:30 (K-Lyte Cl Eff) 50 meq UNSCH PRN PO 07/09/17 05:30 Potassium Chloride 100 ml @ 25 mls/hr UNSCH PRN IV 07/09/17 05:30 Potassium Chloride 100 ml @ 50 mls/hr Q2H PRN IV 07/09/17 05:30 Magnesium Sulfate 4 gm/Sodium Chloride 100 ml @ 50 mls/hr UNSCH PRN IV 07/09/17 05:30 (Mag-Ox) 800 mg UNSCH PRN PO 07/09/17 05:30 Magnesium Sulfate 2 gm/Sodium Chloride 100 ml @ 50 mls/hr UNSCH PRN IV 07/09/17 05:30 (K-Phos) 2,000 mg Q4H PRN PO 07/09/17 05:30 Sodium Phosphate 30 mmol/Sodium Chloride 250 ml @ 42 mls/hr UNSCH PRN IV 07/09/17 05:30 (K-Phos) 2,000 mg UNSCH PRN PO/TUBE 07/09/17 05:30 Potassium Phosphate 30 mmol/ Sodium Chloride 260 ml @ 42 mls/hr UNSCH PRN IV 07/09/17 05:30 (Free Water) VOLUME OF WATER: ( 250 ) ML Q8H G-TUBE 07/09/17 10:00 Vital Signs / I&O Vital Signs Date Time Temp Pulse Resp B/P (MAP) Pulse Ox O2 Delivery O2 Flow Rate FiO2 07/09/17 11:21 100 35 07/09/17 08:27 94 35 07/09/17 08:00 97.8 79 17 96/48 (64) 100 109/58 (75) 07/09/17 08:00 79 07/09/17 08:00 35 07/09/17 07:00 79 107/58 07/09/17 06:14 77 106/56 07/09/17 06:00 78 07/09/17 04:17 100 35 07/09/17 04:00 78 07/09/17 04:00 98.0 78 12 88/54 (65) 100 100/51 (67) 07/09/17 04:00 35 07/09/17 02:00 80 07/09/17 00:00 97.9 78 16 91/56 (68) 100 101/55 (70) 07/09/17 00:00 35 07/09/17 00:00 78 07/08/17 23:57 100 35 07/08/17 22:00 77 07/08/17 20:45 98 35 07/08/17 20:04 74 103/53 07/08/17 20:00 73 07/08/17 20:00 35 07/08/17 20:00 98.3 73 14 89/51 (64) 97 100/53 (69) 07/08/17 18:00 68 07/08/17 17:03 100 35 07/08/17 16:00 35 07/08/17 16:00 79 07/08/17 16:00 97.9 79 16 85/49 (61) 100 100/56 (71) I/O 07/08/17 07/08/17 07/08/17 07/09/17 07/09/17 07/09/17 07:00 15:00 23:00 07:00 15:00 23:00 Intake Total 1638 ml 411.25 ml 1497 ml 1636.25 ml Output Total 500 ml 1000 ml 1000 ml Balance 1138 ml 411.25 ml 497 ml 636.25 ml IV Total 1638 ml 411.25 ml 1497 ml 1636.25 ml Output Urine Total 500 ml 1000 ml 1000 ml # Bowel Movements 0 0 Physical Exam GENERAL: Intubated and sedated SKIN: Warm and dry. HEAD: Atraumatic. Normocephalic. EYES: Pupils equal and round. No scleral icterus. No injection or drainage. ENT: No nasal bleeding or discharge. Mucous membranes pink and moist. NECK: Trachea midline. No JVD. CARDIOVASCULAR: Regular rate and rhythm. RESPIRATORY: No accessory muscle use. Rhonchi bilaterally GASTROINTESTINAL: Abdomen soft, non-tender, nondistended. Hepatic and splenic margins not palpable. MUSCULOSKELETAL: Extremities without clubbing, cyanosis, or edema. No obvious deformities. NEUROLOGICAL: Intubated and sedated Laboratory Laboratory Tests Test 07/08/17 17:20 07/08/17 22:50 07/09/17 04:10 07/09/17 05:13 Hemoglobin 8.2 GM/DL 8.0 GM/DL 8.0 GM/DL Hematocrit 23.4 % 23.2 % Blood Urea Nitrogen 38 MG/DL 37 MG/DL Creatinine 1.44 MG/DL 1.57 MG/DL Random Glucose 141 MG/DL 174 MG/DL Total Protein 4.5 GM/DL 4.7 GM/DL Albumin 1.3 GM/DL Calcium Level 6.5 MG/DL 6.6 MG/DL Alkaline Phosphatase 92 U/L Aspartate Amino Transf (AST/SGOT) 9 U/L Alanine Aminotransferase (ALT/SGPT) 7 U/L Total Bilirubin 0.4 MG/DL Sodium Level 152 MEQ/L 150 MEQ/L Potassium Level 3.5 MEQ/L 3.2 MEQ/L Chloride Level 118 MEQ/L 116 MEQ/L Carbon Dioxide Level 23.9 MEQ/L 24.7 MEQ/L Anion Gap 10 MEQ/L 9 MEQ/L Estimat Glomerular Filtration Rate 50 ML/MIN 45 ML/MIN Protein Corrected Calcium 7.8 MG/DL 7.8 MG/DL White Blood Count 15.2 TH/MM3 Red Blood Count 2.78 MIL/MM3 Mean Corpuscular Volume 83.5 FL Mean Corpuscular Hemoglobin 28.9 PG Mean Corpuscular Hemoglobin Concent 34.6 % Red Cell Distribution Width 16.9 % Platelet Count 111 TH/MM3 Mean Platelet Volume 7.4 FL Neutrophils (%) (Auto) 92.4 % Lymphocytes (%) (Auto) 5.8 % Monocytes (%) (Auto) 1.7 % Eosinophils (%) (Auto) 0.0 % Basophils (%) (Auto) 0.1 % Neutrophils # (Auto) 14.1 TH/MM3 Lymphocytes # (Auto) 0.9 TH/MM3 Monocytes # (Auto) 0.3 TH/MM3 Eosinophils # (Auto) 0.0 TH/MM3 Basophils # (Auto) 0.0 TH/MM3 CBC Comment DIFF FINAL Differential Comment Phosphorus Level 2.9 MG/DL Magnesium Level 2.1 MG/DL Lactic Acid Level 3.4 mmol/L Blood Gas Puncture Site ART LINE Blood Gas Patient Temperature 98.6 Blood Gas HCO3 21 mmol/L Blood Gas Base Excess -3.9 mmol/L Blood Gas Oxygen Saturation 97 % Arterial Blood pH 7.33 Arterial Blood Partial Pressure CO2 42 mmHg Arterial Blood Partial Pressure O2 129 mmHg Arterial Blood Oxygen Content 11.1 Vol % Arterial Blood Carboxyhemoglobin 0.4 % Arterial Blood Methemoglobin 1.3 % Blood Gas Hemoglobin 8.0 G/DL Oxygen Delivery Device VENTILATOR Blood Gas Ventilator Setting SEE COMMENT Blood Gas Inspired Oxygen 35 % Test 07/09/17 13:40 Phosphorus Level 2.7 MG/DL Imaging Last 24 hours Impressions Chest X-Ray 07/09/17 0600 Signed Impressions: Service Date/Time: Sunday, July 09, 2017 03:30 - CONCLUSION: Right basilar atelectasis. Jeffery Mercedes MD Assessment and Plan Problem List: (1) PNA (pneumonia) ICD Codes: J18.9 - Pneumonia, unspecified organism (2) UTI (urinary tract infection) ICD Codes: N39.0 - Urinary tract infection, site not specified Status: Acute (3) Lactic acidosis ICD Codes: E87.2 - Acidosis Status: Acute (4) Sepsis ICD Codes: A41.9 - Sepsis, unspecified organism Status: Acute (5) Chest pain, atypical ICD Codes: R07.89 - Atypical chest pain Status: Acute (6) TOBACCO USE DISORDER Status: Chronic (7) Obesity ICD Codes: E66.9 - Obesity Status: Acute (8) Hypertension ICD Codes: I10 - Hypertension Status: Chronic Assessment and Plan 1) UTI/PNA/Sepsis Per critical care/ID 2) Minimally elevated trop, flat in nature Non-specific with CHANO/lactic acidosis Most likely Type 2 3) Possible aspiration PNA/Sepsis Per critical care team Started on vasopressors 4) Drop in Hgb No plan for ischemic evaluation 5) Asked about cardiovascular risk assessment Due to elevated troponin/EKG changes, patient will be high cardiovascular risk for any procedure We are unable to decrease his risk in any way at this time Unable to do ischemic evaluation Unable to place on BB therapy Problem Qualifiers (1) UTI (urinary tract infection): Qualified Codes: N39.0 - Urinary tract infection, site not specified (2) Sepsis: Qualified Codes: A41.9 - Sepsis, unspecified organism Apollo Harrell DO Jul 09, 2017 15:29
[2017-07-09] MEDS ORDERED: BENZOCAINE 20% ORAL SPR 60 ML CAN OROPHARYNG ONE (16:49)
--- NOTE | 2017-07-09 16:50 | HHI.PR ---
cc: Sunita Villarreal MD Subjective Subjective Notes DAILY PROGRESS NOTE FOR SURGICAL ATTENDING, DR. SUNITA VILLARREAL Intubated/Sedated Objective Vitals/I&O Vital Signs Date Time Temp Pulse Resp B/P (MAP) Pulse Ox O2 Delivery O2 Flow Rate FiO2 07/09/17 15:42 98 35 07/09/17 15:28 81 100/54 07/09/17 08:00 97.8 17 07/07/17 08:00 Simple Mask 8.00 Labs Laboratory Tests Test 07/08/17 17:20 07/08/17 22:50 07/09/17 04:10 07/09/17 05:13 Hemoglobin 8.2 8.0 8.0 Hematocrit 23.4 23.2 Blood Urea Nitrogen 38 37 Creatinine 1.44 1.57 Random Glucose 141 174 Total Protein 4.5 4.7 Albumin 1.3 Calcium Level 6.5 6.6 Alkaline Phosphatase 92 Aspartate Amino Transf (AST/SGOT) 9 Alanine Aminotransferase (ALT/SGPT) 7 Total Bilirubin 0.4 Sodium Level 152 150 Potassium Level 3.5 3.2 Chloride Level 118 116 Carbon Dioxide Level 23.9 24.7 Anion Gap 10 9 Estimat Glomerular Filtration Rate 50 45 Protein Corrected Calcium 7.8 7.8 White Blood Count 15.2 Red Blood Count 2.78 Mean Corpuscular Volume 83.5 Mean Corpuscular Hemoglobin 28.9 Mean Corpuscular Hemoglobin Concent 34.6 Red Cell Distribution Width 16.9 Platelet Count 111 Mean Platelet Volume 7.4 Neutrophils (%) (Auto) 92.4 Lymphocytes (%) (Auto) 5.8 Monocytes (%) (Auto) 1.7 Eosinophils (%) (Auto) 0.0 Basophils (%) (Auto) 0.1 Neutrophils # (Auto) 14.1 Lymphocytes # (Auto) 0.9 Monocytes # (Auto) 0.3 Eosinophils # (Auto) 0.0 Basophils # (Auto) 0.0 CBC Comment DIFF FINAL Differential Comment Phosphorus Level 2.9 Magnesium Level 2.1 Lactic Acid Level 3.4 Blood Gas Puncture Site ART LINE Blood Gas Patient Temperature 98.6 Blood Gas HCO3 21 Blood Gas Base Excess -3.9 Blood Gas Oxygen Saturation 97 Arterial Blood pH 7.33 Arterial Blood Partial Pressure CO2 42 Arterial Blood Partial Pressure O2 129 Arterial Blood Oxygen Content 11.1 Arterial Blood Carboxyhemoglobin 0.4 Arterial Blood Methemoglobin 1.3 Blood Gas Hemoglobin 8.0 Oxygen Delivery Device VENTILATOR Blood Gas Ventilator Setting SEE COMMENT Blood Gas Inspired Oxygen 35 Test 07/09/17 13:40 Phosphorus Level 2.7 Date/Time Source Procedure Growth Status 07/07/17 18:25 Blood Peripheral Aerobic Blood Culture - Preliminary NO GROWTH IN 2 DAYS Resulted 07/07/17 18:25 Blood Peripheral Anaerobic Blood Culture - Final QNS - SEE AEROBE REPORT Resulted 07/07/17 12:00 Nasal Aspirate Influenza Types A,B Antigen (ANALI) - Final NEGATIVE FOR FLU A AND B ANTIGEN.... Complete 07/07/17 12:00 Urine Catheterized Urine Urine Culture - Preliminary NO GROWTH IN 24 HOURS. Resulted Cardiovascular: Regular Lungs: Clear Abdomen: Other (abdomen obese; soft; no tenderness with palpation ) Extremities: Other (mild generalized edema ) A/P Assessment and Plan 62 year old male with multiple medical issues; Intubated; on vasopressors -CT abd/pelvis questionable for acute appendicitis -s/p placement of femoral line Pathology noted showing malignancy To unstable to undergo surgical treatment Surgery will sign off Attending Statement NOTE FOR SURGICAL ATTENDING, DR. SUNITA VILLARREAL I agree with above assessment and plan. The exam, history, and the medical decision-making described in the above note were completed with the assistance of the mid-level provider. I reviewed and agree with the findings presented. I attest that I had a [id number] encounter with the patient on the same day, and personally performed and documented my assessment and findings in the medical record. The following services were provided during this hospital visit: Chart data review, vital sign assessments/reviewing monitor data Review of consultations notes if present. Medication orders/review and/or management Ordering and/or reviewing lab tests Ordering and/or interpreting/reviewing x-rays and/or diagnostic studies Care of the patient and discussion of the patient with the care team Documentation time To help prompt me to consider important information that might be impacting today's encounter and assessment, information from prior notes written by myself or my colleagues may have been "brought forward/copy and pasted" into today's note. Thais Eugene Jul 09, 2017 16:50 Sunita Villarreal MD Jul 12, 2017 15:40
--- NOTE | 2017-07-09 17:40 | HHI.HCPN ---
Reason for visit a. To assist with evaluation and management of symptoms including: Shortness of breath, pain and debility. b. To assist medical decision maker(s) with: better understanding of current medical conditions; weighing benefits/burdens of medical treatment options; making medical treatment decisions. . Subjective/Interval History Follow up visit for symptom management and clarification of medical treatment goals. Patient seen and assessed in [facility] - room 521 status post Halicat on 07/06/17 for worsening respiratory distress. He currently remains intubated and sedated on mechanical ventilation on norepinephrine, fentanyl and sodium bicarbonate infusion. Afebrile. Septic upon admission. Now with ESBL Escherichia UTI and possible aspiration pneumonitis given history of esophageal strictures requiring dilatation. Patient remains on Meropenem and Diflucan. Infectious disease has signed off Recommendations to discontinue vancomycin and Levaquin; follow hepatitis profile and HIV; follow respiratory panel for viruses. 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 GI recommending CT of the abdomen with contrast; pending the results of the CT will make a decision on whether he should be oncology or surgery. . Family/friend interactions Attempted to reach patient's brother's (Micah and Gerry); third brother is reportedly homeless and unreachable. . Advance Directives Living Will: Never completed Health Care Surrogate: Never completed Durable Power of Jig And Fixture Maker: Never completed Advance Directive Specifics Health Care Surrogate(s): Patient reports that no advance directives have been completed. Patient is single, no children, both parents are . As per [place] statute, healthcare proxy decision-making falls to the majority of patient's siblings for which he has 3: Gerry Obrien and Dami. . Objective Vital Signs Date Time Temp Pulse Resp B/P (MAP) Pulse Ox O2 Delivery O2 Flow Rate FiO2 07/09/17 16:00 35 07/09/17 16:00 80 07/09/17 16:00 98.1 80 12 102/51 (68) 100 126/65 (85) 07/09/17 15:42 98 35 07/09/17 15:28 81 100/54 07/09/17 14:00 83 07/09/17 12:00 97.3 72 12 83/46 (58) 100 99/53 (68) 07/09/17 12:00 35 07/09/17 12:00 72 07/09/17 11:21 100 35 07/09/17 10:00 72 07/09/17 08:27 94 35 07/09/17 08:00 97.8 79 17 96/48 (64) 100 109/58 (75) 07/09/17 08:00 79 07/09/17 08:00 35 07/09/17 07:00 79 107/58 07/09/17 06:14 77 106/56 07/09/17 06:00 78 07/09/17 04:17 100 35 07/09/17 04:00 78 07/09/17 04:00 98.0 78 12 88/54 (65) 100 100/51 (67) 07/09/17 04:00 35 07/09/17 02:00 80 07/09/17 00:00 97.9 78 16 91/56 (68) 100 101/55 (70) 07/09/17 00:00 35 07/09/17 00:00 78 07/08/17 23:57 100 35 07/08/17 22:00 77 07/08/17 20:45 98 35 07/08/17 20:04 74 103/53 07/08/17 20:00 73 07/08/17 20:00 35 07/08/17 20:00 98.3 73 14 89/51 (64) 97 100/53 (69) 07/08/17 18:00 68 Intake & Output 07/09/17 07/09/17 07:00 19:00 Intake Total 2496.25 ml Output Total 1000 ml Balance 1496.25 ml IV Total 2496.25 ml Output Urine Total 1000 ml # Bowel Movements 0 . Physical Exam CONSTITUTIONAL/GENERAL: This is a critically ill, male patient currently intubated on mechanical ventilation TUBES/LINES/DRAINS: ETT, OGT, right femoral arterial line, right femoral CVL, Coates catheter SKIN: No jaundice, rashes, or lesions. Ecchymoses on upper extremities. Ecchymosis to bilateral lower extremities. Skin temperature appropriate. Not diaphoretic. HEAD: Atraumatic. Normocephalic. EYES: Pupils equal and round and reactive. Extraocular motions intact. No scleral icterus. No injection or drainage. ENT: Nose without bleeding or purulent drainage. Dry oral mucosa. NECK: Trachea midline. Supple, nontender. CARDIOVASCULAR: Regular rate and rhythm without murmurs. Peripheral pulses symmetric. RESPIRATORY/CHEST: Intubated on mechanical ventilation GASTROINTESTINAL: Abdomen soft, large, round, obese. No guarding. Bowel sounds present. GENITOURINARY: Without palpable bladder distension. Coates catheter in place. MUSCULOSKELETAL: Extremities without clubbing, cyanosis. Edema to bilateral upper and lower extremities. NEUROLOGICAL: Sedated on fentanyl. Does not arouse to verbal stimuli or withdraw to deep tactile stimuli. PSYCHIATRIC: Unable to assess secondary to patient's clinical condition . Diagnostic Tests Laboratory Laboratory Tests Test 07/06/17 20:45 07/07/17 00:14 07/07/17 10:30 07/07/17 12:00 White Blood Count 18.9 TH/MM3 (4.0-11.0) 21.8 TH/MM3 (4.0-11.0) Red Blood Count 2.73 MIL/MM3 (4.50-5.90) 3.85 MIL/MM3 (4.50-5.90) Hemoglobin 7.5 GM/DL (13.0-17.0) 10.9 GM/DL (13.0-17.0) Hematocrit 22.8 % (39.0-51.0) 33.1 % (39.0-51.0) Mean Corpuscular Volume 83.4 FL (80.0-100.0) 86.1 FL (80.0-100.0) Mean Corpuscular Hemoglobin 27.5 PG (27.0-34.0) 28.2 PG (27.0-34.0) Mean Corpuscular Hemoglobin Concent 33.0 % (32.0-36.0) 32.8 % (32.0-36.0) Red Cell Distribution Width 18.0 % (11.6-17.2) 17.0 % (11.6-17.2) Platelet Count 202 TH/MM3 (150-450) 171 TH/MM3 (150-450) Mean Platelet Volume 7.5 FL (7.0-11.0) 7.6 FL (7.0-11.0) Neutrophils (%) (Auto) 78.1 % (16.0-70.0) 81.4 % (16.0-70.0) Lymphocytes (%) (Auto) 18.6 % (9.0-44.0) 15.3 % (9.0-44.0) Monocytes (%) (Auto) 2.8 % (0.0-8.0) 2.7 % (0.0-8.0) Eosinophils (%) (Auto) 0.1 % (0.0-4.0) 0.2 % (0.0-4.0) Basophils (%) (Auto) 0.4 % (0.0-2.0) 0.4 % (0.0-2.0) Neutrophils # (Auto) 14.8 TH/MM3 (1.8-7.7) 17.8 TH/MM3 (1.8-7.7) Lymphocytes # (Auto) 3.5 TH/MM3 (1.0-4.8) 3.3 TH/MM3 (1.0-4.8) Monocytes # (Auto) 0.5 TH/MM3 (0-0.9) 0.6 TH/MM3 (0-0.9) Eosinophils # (Auto) 0.0 TH/MM3 (0-0.4) 0.0 TH/MM3 (0-0.4) Basophils # (Auto) 0.1 TH/MM3 (0-0.2) 0.1 TH/MM3 (0-0.2) CBC Comment DIFF FINAL DIFF FINAL Differential Comment Blood Urea Nitrogen 51 MG/DL (7-18) Creatinine 1.54 MG/DL (0.60-1.30) Random Glucose 124 MG/DL (74-106) Calcium Level 7.5 MG/DL (8.5-10.1) Sodium Level 156 MEQ/L (136-145) Potassium Level 4.2 MEQ/L (3.5-5.1) Chloride Level 129 MEQ/L (98-107) Carbon Dioxide Level 16.0 MEQ/L (21.0-32.0) Anion Gap 11 MEQ/L (5-15) Estimat Glomerular Filtration Rate 46 ML/MIN (>89) Ammonia 18 MCMOL/L (11-32) Lactic Acid Level 4.7 mmol/L (0.4-2.0) Blood Gas Puncture Site ART LINE Blood Gas Patient Temperature 98.6 Blood Gas HCO3 13 mmol/L (22-26) Blood Gas Base Excess -11.8 mmol/L (-2-2) Blood Gas Oxygen Saturation 98 % (90-100) Arterial Blood pH 7.37 (7.380-7.420) Arterial Blood Partial Pressure CO2 22 mmHg (38-42) Arterial Blood Partial Pressure O2 263 mmHg (61-120) Arterial Blood Oxygen Content 14.5 Vol % (12.0-20.0) Arterial Blood Carboxyhemoglobin 0.4 % (0-4) Arterial Blood Methemoglobin 1.2 % (0-2) Blood Gas Hemoglobin 10.1 G/DL (12.0-16.0) Oxygen Delivery Device NRB Blood Gas Liter Flow 15 L/M Blood Gas Inspired Oxygen 100 % Urine Color YELLOW (YELLW/STRAW) Urine Turbidity CLEAR (CLEAR) Urine pH 5.0 (5.0-8.5) Urine Specific [place] 1.016 (1.002-1.035) Urine Protein TRACE mg/dL (NEG-TRACE) Urine Glucose (UA) NEG mg/dL (NEG) Urine Ketones NEG mg/dL (NEG) Urine Occult Blood NEG (NEG) Urine Nitrite NEG (NEG) Urine Bilirubin NEG (NEG) Urine Urobilinogen LESS THAN 2.0 MG/DL (LESS Urine Leukocyte Esterase LARGE (NEG) Urine RBC 2 /hpf (0-3) Urine WBC 15 /hpf (0-5) Urine Bacteria RARE /hpf (NONE) Urine Mucus FEW /lpf (OCC) Microscopic Urinalysis Comment CATH-CULTURE IND Test 07/07/17 13:45 07/07/17 13:50 07/07/17 18:25 07/07/17 23:00 Blood Urea Nitrogen 45 MG/DL (7-18) Creatinine 1.50 MG/DL (0.60-1.30) Random Glucose 160 MG/DL (74-106) Total Protein 4.5 GM/DL (6.4-8.2) Albumin 1.7 GM/DL (3.4-5.0) Calcium Level 6.5 MG/DL (8.5-10.1) Alkaline Phosphatase 94 U/L (45-117) Aspartate Amino Transf (AST/SGOT) 12 U/L (15-37) Alanine Aminotransferase (ALT/SGPT) 11 U/L (12-78) Total Bilirubin 0.4 MG/DL (0.2-1.0) Sodium Level 151 MEQ/L (136-145) Potassium Level 3.9 MEQ/L (3.5-5.1) Chloride Level 123 MEQ/L (98-107) Carbon Dioxide Level 16.7 MEQ/L (21.0-32.0) Anion Gap 11 MEQ/L (5-15) Estimat Glomerular Filtration Rate 47 ML/MIN (>89) Hemoglobin A1c 5.8 % (4.3-6.0) Lactic Acid Level 2.7 mmol/L (0.4-2.0) 3.2 mmol/L (0.4-2.0) Protein Corrected Calcium 7.8 MG/DL (8.5-10.1) Hepatitis A IgM Antibody NEGATIVE (NEGATIVE) Hepatitis B Surface Antigen NEGATIVE (NEGATIVE) Hepatitis B Core IgM Antibody NEGATIVE (NEGATIVE) Hepatitis C Antibody NEGATIVE (NEGATIVE) HIV (1&2) Antibody NEGATIVE (NEGATIVE) Blood Gas Puncture Site ART LINE Blood Gas Patient Temperature 98.6 Blood Gas HCO3 13 mmol/L (22-26) Blood Gas Base Excess -14.5 mmol/L (-2-2) Blood Gas Oxygen Saturation 96 % (90-100) Arterial Blood pH 7.16 (7.380-7.420) Arterial Blood Partial Pressure CO2 37 mmHg (38-42) Arterial Blood Partial Pressure O2 144 mmHg (61-120) Arterial Blood Oxygen Content 12.3 Vol % (12.0-20.0) Arterial Blood Carboxyhemoglobin 0.1 % (0-4) Arterial Blood Methemoglobin 1.5 % (0-2) Blood Gas Hemoglobin 8.9 G/DL (12.0-16.0) Oxygen Delivery Device VENTILATOR Blood Gas Ventilator Setting Blood Gas Inspired Oxygen 50 % Hemoglobin 9.3 GM/DL (13.0-17.0) Hematocrit 27.1 % (39.0-51.0) Test 07/08/17 04:30 07/08/17 08:51 07/08/17 15:02 07/08/17 17:20 White Blood Count 20.1 TH/MM3 (4.0-11.0) Red Blood Count 3.23 MIL/MM3 (4.50-5.90) Hemoglobin 9.2 GM/DL (13.0-17.0) 8.2 GM/DL (13.0-17.0) Hematocrit 27.2 % (39.0-51.0) Mean Corpuscular Volume 84.3 FL (80.0-100.0) Mean Corpuscular Hemoglobin 28.4 PG (27.0-34.0) Mean Corpuscular Hemoglobin Concent 33.7 % (32.0-36.0) Red Cell Distribution Width 17.2 % (11.6-17.2) Platelet Count 141 TH/MM3 (150-450) Mean Platelet Volume 7.5 FL (7.0-11.0) Neutrophils (%) (Auto) 91.8 % (16.0-70.0) Lymphocytes (%) (Auto) 6.5 % (9.0-44.0) Monocytes (%) (Auto) 1.5 % (0.0-8.0) Eosinophils (%) (Auto) 0.1 % (0.0-4.0) Basophils (%) (Auto) 0.1 % (0.0-2.0) Neutrophils # (Auto) 18.4 TH/MM3 (1.8-7.7) Lymphocytes # (Auto) 1.3 TH/MM3 (1.0-4.8) Monocytes # (Auto) 0.3 TH/MM3 (0-0.9) Eosinophils # (Auto) 0.0 TH/MM3 (0-0.4) Basophils # (Auto) 0.0 TH/MM3 (0-0.2) CBC Comment DIFF FINAL Differential Comment Blood Urea Nitrogen 43 MG/DL (7-18) Creatinine 1.52 MG/DL (0.60-1.30) Random Glucose 178 MG/DL (74-106) Total Protein 4.7 GM/DL (6.4-8.2) Calcium Level 6.2 MG/DL (8.5-10.1) Phosphorus Level 3.8 MG/DL (2.5-4.9) Magnesium Level 1.6 MG/DL (1.5-2.5) Sodium Level 149 MEQ/L (136-145) Potassium Level 3.8 MEQ/L (3.5-5.1) Chloride Level 117 MEQ/L (98-107) Carbon Dioxide Level 18.4 MEQ/L (21.0-32.0) Anion Gap 14 MEQ/L (5-15) Estimat Glomerular Filtration Rate 47 ML/MIN (>89) Lactic Acid Level 2.9 mmol/L (0.4-2.0) Protein Corrected Calcium 7.3 MG/DL (8.5-10.1) Blood Gas Puncture Site ART LINE ART LINE Blood Gas Patient Temperature 98.6 98.6 Blood Gas HCO3 18 mmol/L (22-26) 18 mmol/L (22-26) Blood Gas Base Excess -7.3 mmol/L (-2-2) -7.1 mmol/L (-2-2) Blood Gas Oxygen Saturation 97 % (90-100) 97 % (90-100) Arterial Blood pH 7.34 (7.380-7.420) 7.34 (7.380-7.420) Arterial Blood Partial Pressure CO2 34 mmHg (38-42) 34 mmHg (38-42) Arterial Blood Partial Pressure O2 141 mmHg (61-120) 138 mmHg (61-120) Arterial Blood Oxygen Content 12.3 Vol % (12.0-20.0) 11.0 Vol % (12.0-20.0) Arterial Blood Carboxyhemoglobin 0.5 % (0-4) 0.5 % (0-4) Arterial Blood Methemoglobin 1.2 % (0-2) 1.3 % (0-2) Blood Gas Hemoglobin 8.8 G/DL (12.0-16.0) 7.9 G/DL (12.0-16.0) Oxygen Delivery Device VENTILATOR VENTILATOR Blood Gas Ventilator Setting Blood Gas Inspired Oxygen 35 % 35 % Test 07/08/17 22:50 07/09/17 04:10 07/09/17 05:13 07/09/17 13:40 Hemoglobin 8.0 GM/DL (13.0-17.0) 8.0 GM/DL (13.0-17.0) Hematocrit 23.4 % (39.0-51.0) 23.2 % (39.0-51.0) Blood Urea Nitrogen 38 MG/DL (7-18) 37 MG/DL (7-18) Creatinine 1.44 MG/DL (0.60-1.30) 1.57 MG/DL (0.60-1.30) Random Glucose 141 MG/DL (74-106) 174 MG/DL (74-106) Total Protein 4.5 GM/DL (6.4-8.2) 4.7 GM/DL (6.4-8.2) Albumin 1.3 GM/DL (3.4-5.0) Calcium Level 6.5 MG/DL (8.5-10.1) 6.6 MG/DL (8.5-10.1) Alkaline Phosphatase 92 U/L (45-117) Aspartate Amino Transf (AST/SGOT) 9 U/L (15-37) Alanine Aminotransferase (ALT/SGPT) 7 U/L (12-78) Total Bilirubin 0.4 MG/DL (0.2-1.0) Sodium Level 152 MEQ/L (136-145) 150 MEQ/L (136-145) Potassium Level 3.5 MEQ/L (3.5-5.1) 3.2 MEQ/L (3.5-5.1) Chloride Level 118 MEQ/L (98-107) 116 MEQ/L (98-107) Carbon Dioxide Level 23.9 MEQ/L (21.0-32.0) 24.7 MEQ/L (21.0-32.0) Anion Gap 10 MEQ/L (5-15) 9 MEQ/L (5-15) Estimat Glomerular Filtration Rate 50 ML/MIN (>89) 45 ML/MIN (>89) Protein Corrected Calcium 7.8 MG/DL (8.5-10.1) 7.8 MG/DL (8.5-10.1) White Blood Count 15.2 TH/MM3 (4.0-11.0) Red Blood Count 2.78 MIL/MM3 (4.50-5.90) Mean Corpuscular Volume 83.5 FL (80.0-100.0) Mean Corpuscular Hemoglobin 28.9 PG (27.0-34.0) Mean Corpuscular Hemoglobin Concent 34.6 % (32.0-36.0) Red Cell Distribution Width 16.9 % (11.6-17.2) Platelet Count 111 TH/MM3 (150-450) Mean Platelet Volume 7.4 FL (7.0-11.0) Neutrophils (%) (Auto) 92.4 % (16.0-70.0) Lymphocytes (%) (Auto) 5.8 % (9.0-44.0) Monocytes (%) (Auto) 1.7 % (0.0-8.0) Eosinophils (%) (Auto) 0.0 % (0.0-4.0) Basophils (%) (Auto) 0.1 % (0.0-2.0) Neutrophils # (Auto) 14.1 TH/MM3 (1.8-7.7) Lymphocytes # (Auto) 0.9 TH/MM3 (1.0-4.8) Monocytes # (Auto) 0.3 TH/MM3 (0-0.9) Eosinophils # (Auto) 0.0 TH/MM3 (0-0.4) Basophils # (Auto) 0.0 TH/MM3 (0-0.2) CBC Comment DIFF FINAL Differential Comment Phosphorus Level 2.9 MG/DL (2.5-4.9) 2.7 MG/DL (2.5-4.9) Magnesium Level 2.1 MG/DL (1.5-2.5) Lactic Acid Level 3.4 mmol/L (0.4-2.0) Blood Gas Puncture Site ART LINE Blood Gas Patient Temperature 98.6 Blood Gas HCO3 21 mmol/L (22-26) Blood Gas Base Excess -3.9 mmol/L (-2-2) Blood Gas Oxygen Saturation 97 % (90-100) Arterial Blood pH 7.33 (7.380-7.420) Arterial Blood Partial Pressure CO2 42 mmHg (38-42) Arterial Blood Partial Pressure O2 129 mmHg (61-120) Arterial Blood Oxygen Content 11.1 Vol % (12.0-20.0) Arterial Blood Carboxyhemoglobin 0.4 % (0-4) Arterial Blood Methemoglobin 1.3 % (0-2) Blood Gas Hemoglobin 8.0 G/DL (12.0-16.0) Oxygen Delivery Device VENTILATOR Blood Gas Ventilator Setting SEE COMMENT Blood Gas Inspired Oxygen 35 % . Result Diagram: 07/09/1740907/09/17409 Microbiology Microbiology Date/Time Source Procedure Growth Status 07/07/17 18:25 Blood Peripheral Aerobic Blood Culture - Preliminary NO GROWTH IN 2 DAYS Resulted 07/07/17 18:25 Blood Peripheral Anaerobic Blood Culture - Final QNS - SEE AEROBE REPORT Resulted 07/07/17 12:00 Blood Peripheral Aerobic Blood Culture - Preliminary NO GROWTH IN 2 DAYS Resulted 07/07/17 12:00 Blood Peripheral Anaerobic Blood Culture - Preliminary NO GROWTH IN 2 DAYS Resulted 07/06/17 20:45 Blood Other Aerobic Blood Culture - Preliminary NO GROWTH IN 3 DAYS Resulted 07/06/17 20:45 Blood Other Anaerobic Blood Culture - Final QNS - SEE AEROBE REPORT Resulted 07/06/17 20:40 Blood Other Aerobic Blood Culture - Preliminary NO GROWTH IN 3 DAYS Resulted 07/06/17 20:40 Blood Other Anaerobic Blood Culture - Preliminary NO GROWTH IN 3 DAYS Resulted 07/07/17 12:00 Nasal Aspirate Influenza Types A,B Antigen (ANALI) - Final NEGATIVE FOR FLU A AND B ANTIGEN.... Complete 07/07/17 11:15 Sputum Endotracheal Gram Stain - Final Complete 07/07/17 11:15 Sputum Endotracheal Sputum Culture - Final LIGHT GROWTH NORMAL RESPIRATORY JOANNE Complete 07/07/17 12:00 Urine Catheterized Urine Urine Culture - Preliminary NO GROWTH IN 24 HOURS. Resulted 07/07/17 12:00 Urine Catheterized Urine Legionella Antigen - Final PRESUMPTIVE NEGATIVE FOR LEGIONELLA P... Complete 07/07/17 12:00 Urine Catheterized Urine Streptococcus pneumoniae Antigen (M - Final PRESUMPTIVE NEGATIVE FOR STREPTOCOCCU... Complete . Imaging Last 72 hours Impressions Chest X-Ray 07/09/17 06 Signed Impressions: Service Date/Time: Sunday, July 09, 2017 03:30 - CONCLUSION: Right basilar atelectasis. Jeffery Mercedes MD Chest X-Ray 07/08/17 06 Signed Impressions: Service Date/Time: Saturday, July 08, 2017 03:29 - CONCLUSION: 1. Mild basilar opacity similar to July 07. Endotracheal tube unchanged. Fred Mccrary MD Chest CT 07/07/17 1431 Signed Impressions: Service Date/Time: Friday, July 07, 2017 15:58 - CONCLUSION: There is development of right pleural effusion which is small which is associated with progressive infiltrate and mild consolidation in the right lower lobe with peripheral air bronchograms. This has progressed relative to CTA of the chest on the previous day. Persistent fluid filled dilatation of the esophagus. Extensive coronary calcifications. Андрей Mcleod MD Abdomen/Pelvis CT 07/07/17 1431 Signed Impressions: Service Date/Time: Friday, July 07, 2017 15:58 - CONCLUSION: There is significant interval change in the right lower quadrant extending into the pelvis there is extensive inflammatory change in the fat and a small amount of fluid. This is adjacent to the cecum. Entities such as appendicitis are suggested. This should be correlated with clinical history and physical examination. Please see CT scan of the chest the same day for change in the right lung base progressive infiltrate and small effusion. Андрей Mcleod MD ADDENDUM: Delayed history was obtained. Patient apparently had invasive procedure extended with placement of a femoral venous catheter which is faintly appreciated. The inflammatory changes in the right lower quadrant are extensive and could potentially be secondary to iatrogenic cause. Андрей Mcleod MD Chest X-Ray 07/07/17 0000 Signed Impressions: Service Date/Time: Friday, July 07, 2017 11:29 - CONCLUSION: Intubation. Right lower lobe airspace consolidation. Jeanne Cates MD . Procedures 07/07/2017: Intubated 07/07/2017: right femoral arterial line; right femoral central line . Assessment and Plan Disease Oriented Problem List: (1) Respiratory failure (2) PNA (pneumonia) (3) UTI (urinary tract infection) (4) Sepsis (5) Lactic acidosis (6) Acute kidney injury Symptom Scale: (1) Shortness of breath 0-10 Scale: Unable to quantify (2) Pain 0-10 Scale: Unable to quantify (3) Debility 0-10 Scale: Unable to quantify Pertinent Non-Medical Issues Psychosocial: Patient originally from [place]. Moved to [place] when he was 9 years old. Patient is single, no children. Both parents are . Patient has 3 brothers who live in [place]. Patient is disabled secondary to CVA. 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 Spiritual: [employer] genaro. Legal: No advance directives completed. Ethical issues impacting care: No ethical issues identified. . Important Contacts Brother Micah Valdes: C , H , W . Brother Gerry Valdes Brother Dami -romulo tel number . Prognosis Mr. Valdes is a 62-year-old male with a medical history significant for hypertension, GERD, hyperlipidemia, esophageal structures and CVA. Patient presented to ED via EMS on 07/03/17 for evaluation of altered mental status and weakness. Patient admitted for further management of UTI, pneumonia, sepsis. Clinical course complicated by acute kidney injury and respiratory failure. Patient very high risk for further complications, continue decline and . . Code Status: Full Code Plan * CODE STATUS: Full code. * HEALTHCARE DECISION-MAKING: Patient with limited participation in medical decision-making secondary to clinical condition, intermittent confusion and lethargy. Patient reports that no advance directives have been completed. Patient is single, no children, both parents are . As per [place] statute, healthcare proxy decision-making falls to the majority of patient's siblings for which he has 3: Gerry Obrien and Dami Valdes. * GOALS OF CARE: Patient verbalized wishing for full code, limited participation in medical decision-making secondary to intermittent confusion and lethargy. Patient's brother Micah Valdes has been contacted. Brother supportive of aggressive goals at this time. Concerns of patient's deteriorating clinical condition and high risk for further complications, continue decline and has been discussed at length with patient's brother Micah. Brother receptive to palliative care follow-ups. Micah to notify additional family members. * Attempted to contact patients brothers (Micah and Gerry). Palliative care contact information provided, awaiting return phone call. * SYMPTOMS: = Dyspnea: Likely secondary to sepsis, pneumonia. CTA of chest showed no indication of PE. Transferred to medical ICU for further monitoring and management 07/06/2017. 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 = Pain: Patient with history of chronic pain. Home regimen to include [place] 5/325 every 6 hours as needed, gabapentin 300 mg twice a day. Sedated s/p EGD; on fentanyl drip as well. = Debility, progressive since CVA in 2014. 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 GI recommending CT of the abdomen with contrast; pending the results of the CT will make a decision on whether he should be oncology or surgery. * Case discussed with bedside RN. * Palliative care will continue to follow-up for further clarifications of goals of care as patient's clinical course continues to evolve. . Attestation To help prompt me to consider important information that might be impacting today's encounter and assessment, information from prior notes written by myself or my colleagues may have been "brought forward" into today's note. My signature on this note, however, is an attestation that I personally performed the exam, history, and/or decision-making noted today, and, unless otherwise indicated, the interactions with patient, family, and staff as well as the review of records all occurred today. I also attest that the listed assessment and stated plan reflect my best clinical judgment today based on the combination of historical information, prior notes, and today's exam/ interactions. When time spent is documented, it refers only to time spent today by the signer, or if indicated, combined time spent today by collaborating physician/nurse practitioner. . Marlen Muhammad Jul 09, 2017 17:40
[2017-07-09] MEDS ORDERED: DIATRIZOATE MEGLUM/DIATRIZOATE SOD 9 ML CUP PO ONE (18:15)
--- NOTE | 2017-07-09 18:47 | PD.PROCEDR ---
GI Procedure PROCEDURE PERFORMED EGD with biopsy and dilation and OG tube placement INDICATION FOR PROCEDURE Inability to insert a G-tube and respiratory distress etiology unclear PROCEDURE: The procedure, risks and benefits were discussed with Mr. Valdes and informed consent was obtained. Patient in the ICU no added sedation needed except for hurricane spray. He was placed in the left lateral decubitus position. EGD: The Pentax videoscope was introduced through the oropharynx and advanced to the second portion of the duodenum under direct visualization. Retroflexion was performed in the stomach. FINDINGS: The esophagus there were several pills noted in the esophagus and at the distal and there was a mass constricting the lumen I was unable to pass the scope and so a dilation was performed over a guidewire using a savory size 11 I was able to pass the scope and the tumor is barely at the GE junction possibly a half a centimeter above the GE junction but not more The stomach there was a large ulcerated mass in the cardia which extended proximally into the esophagus very suspicious for a malignancy this was biopsied the rest of the stomach was unremarkable The duodenum was normal Following the evaluation an OG tube was placed under endoscopic guidance ESTIMATED BLOOD LOSS: Minimal blood loss SPECIMENS REMOVED: Gastric cardia specimen COMPLICATIONS: None IMPRESSION: 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
[2017-07-09] MEDS: TAMSULOSIN HCL 0.4 MG CAP PO SCH (21:56)
[2017-07-09] MEDS ORDERED: TERBUTALINE INJ 1 MG/ML AMP SQ PRN (23:45)
[2017-07-10] VITALS (23 sets, daily range): BP systolic 76–160; BP diastolic 50–76; PULSE 83–113; RESP 12–20; TEMP 97.3–98.7; O2SAT 90–100
[2017-07-10] MEDS: PHENYLEPHRINE INJ 40 MG in DEXTROSE 5% IN WATE 500 ML INJ 496 ML IV PRN ×12 (00:04→15:58)
[2017-07-10] MEDS: VASOPRESSIN INJ 40 UNITS in DEXTROSE 5% IN WATER 100ML INJ 98 ML IV SCH ×4 (00:04→22:44)
[2017-07-10] MEDS: RESP: ALBUTEROL 2.5 MG/IPRATROPIUM 0.5 MG NEB (SCH) NEB ×4 (00:52→11:51)
[2017-07-10] MEDS: NOREPINEPHRINE 4 MG/D5W 250 ML IV PRN ×6 (01:35→22:43)
[2017-07-10] MEDS: FREE WATER G-TUBE SCH (01:41)
[2017-07-10] MEDS: MEROPENEM INJ 1,000 MG in SODIUM CHLORIDE 0.9% INJ 100 ML IV SCH ×4 (01:47→23:02)
[2017-07-10] MEDS: INSULIN NovoLIN REGULAR SUPPLEMENTAL SCALE SQ SCH ×6 (04:00→20:00)
[2017-07-10 05:40] LABS: MEAN CORPUSCULAR HEMOGLOBIN 28.7 PG (27.0-34.0); MEAN CORPUSCULAR HGB CONC 33.3 % (32.0-36.0); MEAN PLATELET VOLUME 8.2 FL (7.0-11.0); PLATELET COUNT 100 TH/MM3 (150-450); RED BLOOD COUNT 1.85 MIL/MM3 (4.50-5.90); RED CELL DISTRIBUTION WIDTH 17.4 % (11.6-17.2)
[2017-07-10 05:48] LABS: HEMATOCRIT 15.9 % (39.0-51.0); HEMOGLOBIN 5.3 GM/DL (13.0-17.0)
[2017-07-10] MEDS: DEXTROSE 5% IN WATE 1000ML INJ 1,000 ML IV SCH (06:36)
[2017-07-10] MEDS: HEPARIN SODIUM - SQ 10,000 UNITS/ML VIAL SQ SCH ×2 (06:36→13:20)
[2017-07-10] MEDS: HYDROCORTISONE SOD SUCCINATE 100 MG VIAL IV PUSH SCH ×3 (06:36→22:44)
[2017-07-10 06:50] LABS: BICARBONATE 20.4 MEQ/L (21.0-32.0); CALCIUM 5.8 MG/DL (8.5-10.1); CREATININE 2.21 MG/DL (0.60-1.30)
[2017-07-10 06:58] LABS: BANDS 7 % (0-6); CORRECTED NUCLEATED RBC 23 /100 WBC (0-0); LYMPHOCYTES 27 % (9-44); MONOCYTES 1 % (0-8); NEUTROPHIL # MANUAL DIFF 7.1 TH/MM3 (1.8-7.7); NUCLEATED RED BLOOD CELL 23 (0-0); POLYS (SEG NEUTROPHILS) 64 % (16-70)
[2017-07-10] MEDS ORDERED: SODIUM BICARBONATE 8.4% INJ 50 MEQ/50 ML SYR IV PUSH ONE (07:00)
[2017-07-10] MEDS ORDERED: HYDROCORTISONE SOD SUCCINATE 100 MG VIAL IV PUSH SCH (07:00)
[2017-07-10 07:03] LABS: TOXIC VACUOLATION PRESENT (NONE SEEN)
--- NOTE | 2017-07-10 07:04 | HHI.CCPN ---
Subjective Remarks/Hospital Course The patient is a 62-year-old male with past medical history of CVA 3 years ago, hypertension, hyperlipidemia and gastroesophageal reflux disease, peptic ulcer disease who was admitted under hospitalist service on July 03 for urinary tract infection, acute kidney injury and dehydration. The patient was found to have E-coli ESBL on a urine culture. On arrival he had a CT scan of the brain for lethargy which showed a diffuse bilateral cortical atrophy and no new pathology noted. He also had a CT abdomen, pelvis which did not show any acute abdominal findings. His initial chest x-ray on admission showed no acute disease as well. The patient was placed on antibiotics and IV fluids. He underwent the EGD with dilatation for an distal esophageal stricture in April 2017. He is currently being followed by gastrointestinal, infectious disease and a cardiology. A Helicat was called as the patient was found hypoxic with saturation in the 70s and hypotensive. He is currently receiving 1 liter bolus of normal saline and was transferred to [facility] [place] for close observation. Critical care medicine was consulted for critical care management. ABG was performed which showed pH of 7.51, CO2 22, pAO2 171, bicarb 17 andsaturation of 97%. Chest x-ray was also performed which showed no obvious infiltrates or effusions. His laboratory data from today showed worsening renal function with creatinine 1.4 from 1.12 and hypernatremia with a sodium level of 153. The patient is lethargic, however he responds to questions appropriately. Subjective: 07/07: Patient hypotensive, systolic blood pressure in the 80s, patient extremely lethargic, obtunded. Unable to obtain pulse ox O2 sats. Patient placed on nonrebreather 100% mask. Unable to obtain arterial line ABG. Right femoral central line right femoral arterial line placed under ultrasound guidance. Levophed infusion initiated. Contacted ARTHUR Valdes, explained and provided medical status update patient intubated, for airway protection and adequate oxygenation. 07/08: Afebrile. Patient continues on vasopressor support with norepinephrine at 7 mics/minute, vasopressin and phenylephrine have been discontinued. Sedation vacation revealed patient awake responding to commands. Slight improvement and lactic acidemia. Multiple attempts at OG placement yesterday unsuccessful. And for GI on Sunday 07/09 for EGD dilatation would OGT placement. Patient unable to receive Tamiflu secondary to inability to place NG tube. The patient continues on sodium bicarbonate infusion. CT of abdomen and pelvis significant change RLL, suggestive of possible appendicitis, Gen. surgery consulted. I contacted Dr. Del Angel currently in the OR and made him aware of CT report. Consulted my colleague Dr. Tovar and reviewed films. Reevaluation of right groin site, no hematoma palpated. Serial HGB every 12 hours being obtained. 07/09 Patient is sedated , intubated with Fentanyl drip, on Levophed 7 mics and bicarb drip. 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 He required increase pressors overnight now is on Levophed 30 mics, Neosyn 300 mics and Vasopressin 0.01. Hgb 5.3 this morning and Lactic acid 9.2. Patient was made no code DNR last night. Objective Vital Signs Date Time Temp Pulse Resp B/P (MAP) Pulse Ox O2 Delivery O2 Flow Rate FiO2 07/10/17 06:33 100 97/57 07/10/17 04:04 90 35 07/10/17 04:00 97.8 16 07/07/17 08:00 Simple Mask 8.00 Intake and Output 07/10/17 07/10/17 07/11/17 08:00 16:00 00:00 Intake Total 60 ml Output Total 200 ml Balance -140 ml Result Diagram: 07/10/17 0530 07/09/17 1340 Other Results Laboratory Tests Test 07/09/17 13:40 07/10/17 05:30 Potassium Level 4.0 MEQ/L 4.0 MEQ/L Phosphorus Level 2.7 MG/DL 4.0 MG/DL White Blood Count 10.0 TH/MM3 Red Blood Count 1.85 MIL/MM3 Hemoglobin 5.3 GM/DL Hematocrit 15.9 % Mean Corpuscular Volume 86.0 FL Mean Corpuscular Hemoglobin 28.7 PG Mean Corpuscular Hemoglobin Concent 33.3 % Red Cell Distribution Width 17.4 % Platelet Count 100 TH/MM3 Mean Platelet Volume 8.2 FL CBC Comment AUTO DIFF Blood Urea Nitrogen 43 MG/DL Creatinine 2.21 MG/DL Random Glucose 248 MG/DL Calcium Level 5.8 MG/DL Magnesium Level 2.0 MG/DL Sodium Level 141 MEQ/L Chloride Level 107 MEQ/L Carbon Dioxide Level 20.4 MEQ/L Anion Gap 14 MEQ/L Estimat Glomerular Filtration Rate 30 ML/MIN Lactic Acid Level 9.2 mmol/L Imaging Last Impressions Chest X-Ray 07/09/17 0600 Signed Impressions: Service Date/Time: Sunday, July 09, 2017 03:30 - CONCLUSION: Right basilar atelectasis. Jeffery Mercedes MD Chest CT 07/07/17 1431 Signed Impressions: Service Date/Time: Friday, July 07, 2017 15:58 - CONCLUSION: There is development of right pleural effusion which is small which is associated with progressive infiltrate and mild consolidation in the right lower lobe with peripheral air bronchograms. This has progressed relative to CTA of the chest on the previous day. Persistent fluid filled dilatation of the esophagus. Extensive coronary calcifications. Андрей Mcleod MD Abdomen/Pelvis CT 07/07/17 1431 Signed Impressions: Service Date/Time: Friday, July 07, 2017 15:58 - CONCLUSION: There is significant interval change in the right lower quadrant extending into the pelvis there is extensive inflammatory change in the fat and a small amount of fluid. This is adjacent to the cecum. Entities such as appendicitis are suggested. This should be correlated with clinical history and physical examination. Please see CT scan of the chest the same day for change in the right lung base progressive infiltrate and small effusion. Андрей Mcleod MD ADDENDUM: Delayed history was obtained. Patient apparently had invasive procedure extended with placement of a femoral venous catheter which is faintly appreciated. The inflammatory changes in the right lower quadrant are extensive and could potentially be secondary to iatrogenic cause. Андрей Mcleod MD Lower Extremity Ultrasound 07/06/17 0000 Signed Impressions: Service Date/Time: Thursday, July 06, 2017 13:14 - CONCLUSION: Negative for deep venous thrombosis. Roldan Hernandez MD FACR CT Angiography 07/06/17 0000 Signed Impressions: Service Date/Time: Thursday, July 06, 2017 18:41 - CONCLUSION: 1. No evidence of pulmonary embolism. 2. Linear infiltrate right lung base suggestive of atelectasis. 3. Stable 4 mm pulmonary nodule left lower lung. 4. Nonspecific dilatation of the thoracic esophagus. This could be from dysmotility. Abdon Tracy MD Head CT 07/03/17 8515 Signed Impressions: Service Date/Time: Monday, July 03, 2017 18:01 - CONCLUSION: 1. Stable examination compared to the examination from 2016. 2. Diffuse bilateral cortical atrophy which is stable. 3. No new or acute pathology. Abdon Tracy MD Objective Remarks GENERAL: This is a well-developed well-nourished chronically/critically ill- appearing patient intubated and sedated SKIN: Warm and dry. HEAD: Atraumatic. Normocephalic. EYES: Pupils equal and round. No scleral icterus. 2 mm and briskly reactive. No injection or drainage. ENT: No nasal bleeding or discharge. Mucous membranes pink and moist. NECK: Trachea midline. No JVD. CARDIOVASCULAR: Normal rate, regular rhythm. RESPIRATORY: No accessory muscle use. Clear to auscultation. Breath sounds equal bilaterally. GASTROINTESTINAL: Abdomen soft, non-tender, nondistended. No guarding. MUSCULOSKELETAL: Extremities without clubbing, cyanosis, or edema. No obvious deformities. NEUROLOGICAL: Awake and alert. RASS -2. No gross focal/sensory deficits. Follows commands in all 4 extremities. Weak in right upper and lower extremity secondary to previous CVA but patient is following commands. Procedures none Date of Insertion: Jul 06, 2017 Date of Insertion: Jul 07, 2017 Line: Central Venous Catheter Side: Right Location: Femoral A/P Assessment and Plan IMPRESSION Plan by systems: Neurologic: History of CVA Daily sedation vacation Fentanyl infusion 50 mcgs/hr for sedation/analgesia while endotracheally intubated Daily sedation vacation when appropriate Respiratory: Hypoxic respiratory failure secondary to septic shock 07/07 intubated Continue with vent support maintain O2 sat greater than 92% Schedule bronchodilators every 6 hours and every 2 hours when necessary Ventilator bundle CT chest -small right pleural effusion, with progressive infiltrate, peripheral right lower lobe air bronchograms. Persistent fluid-filled dilation of esophagus. Cardiovascular: Continue with pressors( Levophed, Neosyn, Vasopressin) maintain MAP>65mmHg Serial lactic acid monitoring 9.2 this morning Will give [address] on SW+3amps bicarb @150ml/hr. Stress dose steroids- on [id number] IV Q8 Cardiology service is following Dr. Harrell. Hold Plavix 75mg daily. Echocardiogram back in May 2015 which showed an EF of 55-60% and grade 1 diastolic dysfunction. Renal: CHANO Hypernatremia Maintain Coates -- Monitor renal function, I/O's, avoid nephrotoxins Renal function worse today with Cr: 2.21 from 1.57, UOP:1500 ml in 24 hrs d/c free water Place on SW+3amps bicarb @150ml/hr. 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 could be related to femoral line placement. General surgery consulted- Dr. Del Angel ID: Septic Shock Persistent leukocytosis UTI ESBL Escherichia coli Lactic acidemia ID following Antibiotics per ID ( Merrem, Diflucan) monitor for signs of infections ( Fever, WBC) 07/07 Follow up on blood,sputum and urine cxs. 07/07 Legionella strep pneumo Ag- Negative 07/07 influenza A and B antigens negative Heme: Monitor CBC, transfuse 3u PRBC for Hgb 5.3 Endocrine: Diabetes mellitus TSH 1.12 Glucose monitoring per ICU protocol --Increase SSI to medium scale. Prophylaxis: GI Prophylaxis Protonix 40mg IV daily DVT Prophylaxis -- SCDs, no pharmacological anticoagulation in the setting of bleed Lines: Peripheral IVs 2. Right femoral central line, right femoral arterial line 07/07 Palliative care is following Spoke to his brother Gerry Valdes and updated him on his condition yesterday. Consult palliative care to asses with goals of care. Patient was made no code DNR last night. Poor prognosis given MODS picture. CCT 40 mins Swapnil Mao MD Jul 10, 2017 07:04
[2017-07-10] MEDS ORDERED: DEXTROSE 50% IN WATER 50 ML VIAL(D50) IV PUSH PRN (07:15)
[2017-07-10] MEDS ORDERED: GLUCAGON 1 MG/ML VIAL OTHER PRN (07:15)
[2017-07-10 07:26] LABS: CALCIUM-PROTEIN CORRECTED 7.3 MG/DL (8.5-10.1)
[2017-07-10] MEDS: SODIUM BICARBONATE 8.4% INJ 150 MEQ in WATER STERILE FOR INJ 850 ML IV SCH ×3 (07:46→23:02)
[2017-07-10] MEDS: CHLORHEXIDINE 0.12% (ORAL KIT) 15 ML CUP MT SCH (07:48)
[2017-07-10] MEDS: GABAPENTIN 300 MG CAP PO SCH ×2 (09:46→22:42)
[2017-07-10] MEDS: PANTOPRAZOLE SODIUM 40 MG VIAL IV PUSH SCH (09:46)
[2017-07-10] MEDS: SODIUM CHLORIDE 0.9% FLUSH 10 ML FLUSH IV FLUSH SCH ×2 (09:46→23:02)
--- NOTE | 2017-07-10 10:05 | HHI.GIFU ---
Subjective Remarks Pt intubated on vent, receiving blood. No obvious bleeding but had drop in HH. (Alma Torres) Objective Vitals I&O Vital Signs Date Time Temp Pulse Resp B/P (MAP) Pulse Ox O2 Delivery O2 Flow Rate FiO2 07/10/17 09:32 98.7 97 12 115/58 100 07/10/17 09:13 97.7 108 12 97/55 100 07/10/17 09:07 100 35 07/10/17 08:50 88/54 07/10/17 08:49 82/51 07/10/17 08:00 101 07/10/17 08:00 97.7 101 12 97/55 (69) 100 99/55 (70) 07/10/17 08:00 35 07/10/17 07:15 106/53 07/10/17 07:15 106/53 07/10/17 06:33 100 97/57 07/10/17 06:30 100 97/57 07/10/17 06:00 105 07/10/17 04:04 90 35 07/10/17 04:00 105 07/10/17 04:00 97.8 105 16 85/54 (64) 100 90/53 (65) 07/10/17 04:00 35 07/10/17 02:00 106 07/10/17 01:35 107 73/46 07/10/17 00:04 106 75/48 07/10/17 00:04 105 81/49 07/10/17 00:00 98.0 102 14 76/50 (59) 100 88/54 (65) 07/10/17 00:00 102 07/10/17 00:00 35 07/09/17 22:00 97 07/09/17 21:44 97 35 07/09/17 20:00 92 07/09/17 20:00 98.4 92 13 85/49 (61) 100 100/58 (72) 07/09/17 20:00 35 07/09/17 18:45 90 94/55 07/09/17 18:30 90 99/58 07/09/17 18:15 86 79/23 07/09/17 18:00 90 07/09/17 18:00 90 88/50 07/09/17 17:15 89 94/53 07/09/17 17:00 90 94/54 07/09/17 17:00 90 94/54 07/09/17 16:00 35 07/09/17 16:00 80 07/09/17 16:00 98.1 80 12 102/51 (68) 100 126/65 (85) 07/09/17 16:00 80 126/65 07/09/17 15:42 98 35 07/09/17 15:28 81 100/54 07/09/17 15:00 84 102/55 07/09/17 14:00 83 07/09/17 13:00 82 92/52 07/09/17 12:00 97.3 72 12 83/46 (58) 100 99/53 (68) 07/09/17 12:00 35 07/09/17 12:00 72 07/09/17 11:21 100 35 07/09/17 11:00 80 101/55 I/O 07/09/17 07/09/17 07/09/17 07/10/17 07/10/17 07/10/17 07:00 15:00 23:00 07:00 15:00 23:00 Intake Total 1636.25 ml 665.0 ml 545.00 ml 60 ml 1355 ml Output Total 1000 ml 1300 ml 200 ml Balance 636.25 ml 665.0 ml -755.00 ml -140 ml 1355 ml IV Total 1636.25 ml 665.0 ml 515.00 ml 1320 ml Blood Product IV Normal Saline Flush 35 ml Other 30 ml 60 ml Output Urine Total 1000 ml 1300 ml 200 ml # Bowel Movements 0 Laboratory Laboratory Tests Test 07/09/17 13:40 07/10/17 05:30 Potassium Level 4.0 4.0 Phosphorus Level 2.7 4.0 White Blood Count 10.0 Red Blood Count 1.85 Hemoglobin 5.3 Hematocrit 15.9 Mean Corpuscular Volume 86.0 Mean Corpuscular Hemoglobin 28.7 Mean Corpuscular Hemoglobin Concent 33.3 Red Cell Distribution Width 17.4 Platelet Count 100 Mean Platelet Volume 8.2 CBC Comment AUTO DIFF Differential Total Cells Counted 100 Neutrophils % (Manual) 64 Band Neutrophils % 7 Lymphocytes % 27 Monocytes % 1 Eosinophils % 1 Neutrophils # (Manual) 7.1 Nucleated Red Blood Cells 23 Differential Comment FINAL DIFF MANUAL Toxic Vacuolation PRESENT Platelet Estimate LOW Platelet Morphology Comment NORMAL Blood Urea Nitrogen 43 Creatinine 2.21 Random Glucose 248 Total Protein 4.0 Calcium Level 5.8 Magnesium Level 2.0 Sodium Level 141 Chloride Level 107 Carbon Dioxide Level 20.4 Anion Gap 14 Estimat Glomerular Filtration Rate 30 Lactic Acid Level 9.2 Protein Corrected Calcium 7.3 Date/Time Source Procedure Growth Status 07/07/17 18:25 Blood Peripheral Aerobic Blood Culture - Preliminary NO GROWTH IN 2 DAYS Resulted 07/07/17 18:25 Blood Peripheral Anaerobic Blood Culture - Final QNS - SEE AEROBE REPORT Resulted 07/07/17 12:00 Nasal Aspirate Influenza Types A,B Antigen (ANALI) - Final NEGATIVE FOR FLU A AND B ANTIGEN.... Complete 07/07/17 12:00 Urine Catheterized Urine Urine Culture - Final NO GROWTH IN 48 HOURS. Complete Imaging Last Impressions Chest X-Ray 07/09/17 0600 Signed Impressions: Service Date/Time: Sunday, July 09, 2017 03:30 - CONCLUSION: Right basilar atelectasis. Jeffery Mecredes MD Chest CT 07/07/17 1431 Signed Impressions: Service Date/Time: Friday, July 07, 2017 15:58 - CONCLUSION: There is development of right pleural effusion which is small which is associated with progressive infiltrate and mild consolidation in the right lower lobe with peripheral air bronchograms. This has progressed relative to CTA of the chest on the previous day. Persistent fluid filled dilatation of the esophagus. Extensive coronary calcifications. Андрей Mcleod MD Abdomen/Pelvis CT 07/07/17 1431 Signed Impressions: Service Date/Time: Friday, July 07, 2017 15:58 - CONCLUSION: There is significant interval change in the right lower quadrant extending into the pelvis there is extensive inflammatory change in the fat and a small amount of fluid. This is adjacent to the cecum. Entities such as appendicitis are suggested. This should be correlated with clinical history and physical examination. Please see CT scan of the chest the same day for change in the right lung base progressive infiltrate and small effusion. Андрей Mcleod MD ADDENDUM: Delayed history was obtained. Patient apparently had invasive procedure extended with placement of a femoral venous catheter which is faintly appreciated. The inflammatory changes in the right lower quadrant are extensive and could potentially be secondary to iatrogenic cause. Андрей Mcleod MD Lower Extremity Ultrasound 07/06/17 0000 Signed Impressions: Service Date/Time: Thursday, July 06, 2017 13:14 - CONCLUSION: Negative for deep venous thrombosis. Roldan Hernandez MD FACR CT Angiography 07/06/17 0000 Signed Impressions: Service Date/Time: Thursday, July 06, 2017 18:41 - CONCLUSION: 1. No evidence of pulmonary embolism. 2. Linear infiltrate right lung base suggestive of atelectasis. 3. Stable 4 mm pulmonary nodule left lower lung. 4. Nonspecific dilatation of the thoracic esophagus. This could be from dysmotility. Abdon Tracy MD Head CT 07/03/17 1735 Signed Impressions: Service Date/Time: Monday, July 03, 2017 18:01 - CONCLUSION: 1. Stable examination compared to the examination from 2016. 2. Diffuse bilateral cortical atrophy which is stable. 3. No new or acute pathology. Abdon Tracy MD Physical Exam HEENT: Normocephalic; atraumatic intubated CHEST: CTA CARDIAC: RRR ABDOMEN: Obese, soft, bowel sounds faint. EXTREMITIES: BLE edema SKIN: (+) jaundice mild SENIOR SYSTEMS ANALYST: sedated on vent, not responsive (Alma Torres) Assessment and Plan Plan - dysphagia - failed swallow eval. has been coughing, producing mucus. hx esophageal strictures, had EGD and dilatation 04/2017 for distal esophageal stricture. - leukocytosis - worsening. - chest pain, elevated troponin - cardiology following - sepsis 2/2 UTI (07/07) Pt was scheduled for EGD with dilation yesterday for dysphagia, however was found on the ground hypoxic. Now in ICU on sedation and mechanically ventilated. On Levophed. Significant drop in H/H noted from 11.1/33.8 yesterday morning to 7.5/22.8 last night. No obvious site of bleeding. Of note, pt is currently on Heparin and Plavix, Plavix currently on hold. RN states pt has not had a BM. No OGT or NGT at this time, unable to pass, met resistance. Abdomen and flanks examined revealed no bruising or signs of peritoneal bleeding, concern given recent fall. CT abdomen and pelvis ordered per CC. Now S/P 1 U of PRBC with one more unit ordered. Known history of PUD. Will continue to follow. (07/08) --> Pt remains mechanically ventilated. Awakens to verbal stimuli, follows commands. CT abdomen and pelvis W/O contrast (07/07) --> There is significant interval change in the RLQ extending into the pelvis there is extensive inflammatory change in the fat and a small amount of fluid. This is adjacent to the cecum. Entities such as appendicitis are suggested. This should be correlated with clinical history and physical examination. Leukocytosis- WBC-20.1 Afebrile over night. Meropenem and Levofloxacin and Vanco. We have been asked to evaluate pt for OG placement, nurse met resistance and unable to place, history of esophageal strictures and was planned for EGD with dilation prior to fall. Plan for EGD with dilation and OG placement on Sunday. Anemia- S/P 2 U PRBCs yesterday, H/H currently 9.2/27.2. 07/10/17 s/p EGD found mass in cardia. BX pending. CT abd pending to eval cardia mass. had drop in HH, hgb 5.3. blood transfusing. just made no code, DNR. palliative care now following PLAN - await biopsy mass - await CT abd - await palliative care follow up - monitor labs - Protonix - Notify GI of active bleeding - Transfuse per [facility] - supportive care Pt has been seen and examined by myself and Dr. Linares and this note is written on his behalf (Alma Torres) Physician Comments Patient seen and examined Agree with above Continue current supportive care Monitor labs Pending CT of the abdomen with contrast one can make a decision regarding oncology versus surgical oncology (Amanuel Linares MD) Alma Torres Jul 10, 2017 10:05 Amanuel Linares MD Jul 10, 2017 15:44
--- NOTE | 2017-07-10 10:49 | MB ---
cc: FRED DEL ANGEL M.D. DATE OF CONSULTATION 07/08/2017 DATE OF 1955 REASON FOR CONSULTATION Abnormal finding on CT scan, questionable inflammatory response in the right lower quadrant. HISTORY OF PRESENT ILLNESS This is a patient who has been in the hospital for about five days. He was being treated for septic shock. Yesterday he had a CT scan of his abdomen which showed some questionable abnormality in the right lower quadrant and the differential raised the possibility of appendicitis. The patient is presently in the intensive care unit and unable to give me any history so all the information is relied on from Dr. Horowitz of Infectious Disease on the case and Dr. Lynn and Dr. Tovar of the critical care team as well. He was scheduled to undergo an EGD because of esophageal stricture. He was found to be hypoxic and brought to the intensive care unit. He did have a CAT scan done when he was first admitted which did not show anything in the abdomen, but yesterday when he had a CT scan after a difficult right femoral line placement it showed some inflammation in the right retroperitoneum. The thought arose the may have had appendicitis. PAST MEDICAL/SURGICAL HISTORY Significant for numerous problems with clots and strokes in the past. He has had a cholecystectomy, appendectomy, some orthopedic surgery. He has had numerous medical problems with cardiac, pulmonary, GI and urinary. They are all in the computer and will not be repeated. MEDICATIONS He is on numerous medications and the med list is reviewed. Some drips to keep his blood pressure in an adequate range. Again, he is on the ventilator. PHYSICAL EXAMINATION GENERAL: He is able to open his eyes. He is secured in the bed. He has a Coates catheter in place. HEART: Regular rate. CHEST: Clear on the ventilator on 35% O2. ABDOMEN: His abdomen is obese, soft, without rebound or guarding with very deep palpation, specifically in the right lower quadrant. He has had a right femoral line in place with some bruising. EXTREMITIES: His bilateral lower extremities are edematous. They have him secured for his safety. LABORATORY DATA He had a white count of 20, H&H of 9 and 27; it was 7 and 22 a couple days ago. Chemistry shows an elevated sodium, calcium 6.2, BUN 43, creatinine 1.5, lactic acid was 3.2 yesterday and now is 2.9. Blood gas today: He is on 35% and his PO2 is 138, pH 7.3. IMAGING STUDIES Reviewed his chest x-ray. Reviewed his CT scan with the radiologist, Dr. Mcleod. Changes seen on the CT scan were possibly just from the reaction of his right femoral line placement. He does have a CT of his chest that showed pleural effusions and infiltrate in the right lobe with air bronchograms that is worse from the previous scan. ASSESSMENT A 62-year-old gentleman with numerous medical problems and with sepsis on drips and the ventilator. I believe finding on CT scan is probably related to the line placement. Apparently it was done with some difficulty reported by the nursing staff in the cork insulator. Computer history seems to indicate the patient has undergone an appendectomy in the past. I reviewed the case with Dr. Lynn, intensive care. I reviewed the case with Dr. Tovar, intensive care. I reviewed the case with Dr. Horowitz, Infectious Disease. I also reviewed the CT scan with Dr. Kylee Mcleod of radiology. PLAN At this time I think his overall clinical status is improving according to the physicians involved with this care. He is quite ill though. I have brought up the possibility of an Addisonian crisis because of no other real source of this infection except for the minor infiltrate on his lungs. Dr. Lynn was going to work-up a possibility of an Addisonian crisis. At this point I see no surgical intervention. I will be following along with interest. Fred Del Angel MD JFREDDY/SHERIE /6:51 PM /10:18 AM WANDA
[2017-07-10] MEDS: FLUCONAZOLE 200 MG PREMIX BAG 100 ML IV SCH (10:59)
--- NOTE | 2017-07-10 11:25 | HHI.PR ---
cc: Fred Del Angel MD Subjective Subjective Notes DAILY PROGRESS NOTE FOR SURGICAL ATTENDING, DR. FRED DEL ANGEL Intubated/Sedated Increased pressor support overnight Discussed with Dr. Horowitz and Rosetta ORTIZ with Palliative Care Objective Vitals/I&O Vital Signs Date Time Temp Pulse Resp B/P (MAP) Pulse Ox O2 Delivery O2 Flow Rate FiO2 07/10/17 10:59 119/60 07/10/17 10:00 99 07/10/17 09:32 98.7 12 100 07/10/17 09:07 35 07/07/17 08:00 Simple Mask 8.00 Labs Laboratory Tests Test 07/09/17 13:40 07/10/17 05:30 Potassium Level 4.0 4.0 Phosphorus Level 2.7 4.0 White Blood Count 10.0 Red Blood Count 1.85 Hemoglobin 5.3 Hematocrit 15.9 Mean Corpuscular Volume 86.0 Mean Corpuscular Hemoglobin 28.7 Mean Corpuscular Hemoglobin Concent 33.3 Red Cell Distribution Width 17.4 Platelet Count 100 Mean Platelet Volume 8.2 CBC Comment AUTO DIFF Differential Total Cells Counted 100 Neutrophils % (Manual) 64 Band Neutrophils % 7 Lymphocytes % 27 Monocytes % 1 Eosinophils % 1 Neutrophils # (Manual) 7.1 Nucleated Red Blood Cells 23 Differential Comment FINAL DIFF MANUAL Toxic Vacuolation PRESENT Platelet Estimate LOW Platelet Morphology Comment NORMAL Blood Urea Nitrogen 43 Creatinine 2.21 Random Glucose 248 Total Protein 4.0 Calcium Level 5.8 Magnesium Level 2.0 Sodium Level 141 Chloride Level 107 Carbon Dioxide Level 20.4 Anion Gap 14 Estimat Glomerular Filtration Rate 30 Lactic Acid Level 9.2 Protein Corrected Calcium 7.3 Date/Time Source Procedure Growth Status 07/07/17 18:25 Blood Peripheral Aerobic Blood Culture - Preliminary NO GROWTH IN 3 DAYS Resulted 07/07/17 18:25 Blood Peripheral Anaerobic Blood Culture - Final QNS - SEE AEROBE REPORT Resulted 07/07/17 12:00 Nasal Aspirate Influenza Types A,B Antigen (ANALI) - Final NEGATIVE FOR FLU A AND B ANTIGEN.... Complete 07/07/17 12:00 Urine Catheterized Urine Urine Culture - Final NO GROWTH IN 48 HOURS. Complete Radiology Last Impressions Chest X-Ray 07/09/17 0600 Signed Impressions: Service Date/Time: Sunday, July 09, 2017 03:30 - CONCLUSION: Right basilar atelectasis. Jeffery Mercedes MD Chest CT 07/07/17 1431 Signed Impressions: Service Date/Time: Friday, July 07, 2017 15:58 - CONCLUSION: There is development of right pleural effusion which is small which is associated with progressive infiltrate and mild consolidation in the right lower lobe with peripheral air bronchograms. This has progressed relative to CTA of the chest on the previous day. Persistent fluid filled dilatation of the esophagus. Extensive coronary calcifications. Андрей Mcleod MD Abdomen/Pelvis CT 07/07/17 1431 Signed Impressions: Service Date/Time: Friday, July 07, 2017 15:58 - CONCLUSION: There is significant interval change in the right lower quadrant extending into the pelvis there is extensive inflammatory change in the fat and a small amount of fluid. This is adjacent to the cecum. Entities such as appendicitis are suggested. This should be correlated with clinical history and physical examination. Please see CT scan of the chest the same day for change in the right lung base progressive infiltrate and small effusion. Андрей Mcleod MD ADDENDUM: Delayed history was obtained. Patient apparently had invasive procedure extended with placement of a femoral venous catheter which is faintly appreciated. The inflammatory changes in the right lower quadrant are extensive and could potentially be secondary to iatrogenic cause. Андрей Mcleod MD Lower Extremity Ultrasound 07/06/17 0000 Signed Impressions: Service Date/Time: Thursday, July 06, 2017 13:14 - CONCLUSION: Negative for deep venous thrombosis. Roldan Hernandez MD FACR CT Angiography 07/06/17 0000 Signed Impressions: Service Date/Time: Thursday, July 06, 2017 18:41 - CONCLUSION: 1. No evidence of pulmonary embolism. 2. Linear infiltrate right lung base suggestive of atelectasis. 3. Stable 4 mm pulmonary nodule left lower lung. 4. Nonspecific dilatation of the thoracic esophagus. This could be from dysmotility. Abdon Tracy MD Head CT 07/03/17 1735 Signed Impressions: Service Date/Time: Monday, July 03, 2017 18:01 - CONCLUSION: 1. Stable examination compared to the examination from 2016. 2. Diffuse bilateral cortical atrophy which is stable. 3. No new or acute pathology. 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 Penaloza with Surgical Oncology ---I personally updated him on the current status of the patient -Rosetta ORTIZ with Palliative Care to meet with family today to establish goals of care at this time Attending Statement NOTE FOR SURGICAL ATTENDING, DR. FRED DEL ANGEL I spoke with Dr. Arteaga about the EGD results. I recommended getting a surgical oncologist who deals with esophageal cancer to evaluate the clinical plan for this complex case. I've notified the surgical oncologist Dr. Brenton penaloza. I agree with above assessment and plan. The exam, history, and the medical decision-making described in the above note were completed with the assistance of the mid-level provider. I reviewed and agree with the findings presented. I attest that I had a [id number] encounter with the patient on the same day, and personally performed and documented my assessment and findings in the medical record. The following services were provided during this hospital visit: Chart data review, vital sign assessments/reviewing monitor data Review of consultations notes if present. Medication orders/review and/or management Ordering and/or reviewing lab tests Ordering and/or interpreting/reviewing x-rays and/or diagnostic studies Care of the patient and discussion of the patient with the care team Documentation time To help prompt me to consider important information that might be impacting today's encounter and assessment, information from prior notes written by myself or my colleagues may have been "brought forward/copy and pasted" into today's note. Thais Eugene Jul 10, 2017 11:25 Fred Del Angel MD Jul 11, 2017 15:34
--- NOTE | 2017-07-10 11:32 | HHI.HCPN ---
Reason for visit a. To assist with evaluation and management of symptoms including: Shortness of breath, pain and debility. b. To assist medical decision maker(s) with: better understanding of current medical conditions; weighing benefits/burdens of medical treatment options; making medical treatment decisions. . Subjective/Interval History Follow up visit for symptom management and clarification of medical treatment goals. Patient seen and assessed in [facility] [place] - room 521 status post Halicat on 07/06/17 for worsening respiratory distress. He currently remains intubated, sedated on fentanyl 50 mcg/hr on mechanical ventilator. Patient required increased pressor support over night; now on Levophed 30 mics, Neosyn 300 mics and Vasopressin 0.01. Family changed status to NO CODE-DNR/DNI last night. 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 GI recommending CT of the abdomen with contrast; pending the results of the CT will make a decision on whether he should be oncology or surgery Septic upon admission. Now with ESBL Escherichia UTI and possible aspiration pneumonitis given history of esophageal strictures requiring dilatation. Hepatitis profile negative; HIV negative. Patient remains on Meropenem and Diflucan. WBC this morning at 10.0; Lactic acid 9.2 . Family/friend interactions Palliative care spoke with patients brothers (Micah and Gerry) at 1145 to provide an update on the patient's clinical condition. They are aware that the patient is critically ill with multiorgan dysfunction and may not survive the day. We discussed treatment options available at this point in time. Currently providing maximum support up to the point of cardiopulmonary resuscitation. The patient is intubated on mechanical ventilator, on multiple pressors (Levophed, Neosyn, Vasopressin) and receiving blood transfusions for a hemoglobin of 5.3. The patient's CODE STATUS was changed to NO CODE overnight. Patient's brother's also requested information about transitioning to "comfort" measures. We briefly discussed compassionate withdrawal of artificial life support. They would like to discuss possible withdrawal of artificial life support privately; Palliative care is available throughout the day for further discussions. . Advance Directives Living Will: Never completed Health Care Surrogate: Never completed Durable Power of Crimp Setter: Never completed Advance Directive Specifics Health Care Surrogate(s): Patient reports that no advance directives have been completed. Patient is single, no children, both parents are . As per [place] statute, healthcare proxy decision-making falls to the majority of patient's siblings for which he has 3: Micah, Gerry and Dami. . Significant change in goals: Status change to NO CODE-DNR/DNI overnight. . Objective Vital Signs Date Time Temp Pulse Resp B/P (MAP) Pulse Ox O2 Delivery O2 Flow Rate FiO2 07/10/17 10:59 119/60 07/10/17 10:58 124/63 07/10/17 10:00 99 07/10/17 09:32 98.7 97 12 115/58 100 07/10/17 09:13 97.7 108 12 97/55 100 07/10/17 09:07 100 35 07/10/17 08:50 88/54 07/10/17 08:49 82/51 07/10/17 08:00 101 07/10/17 08:00 97.7 101 12 97/55 (69) 100 99/55 (70) 07/10/17 08:00 35 07/10/17 07:15 106/53 07/10/17 07:15 106/53 07/10/17 06:33 100 97/57 07/10/17 06:30 100 97/57 07/10/17 06:00 105 07/10/17 04:04 90 35 07/10/17 04:00 105 07/10/17 04:00 97.8 105 16 85/54 (64) 100 90/53 (65) 07/10/17 04:00 35 07/10/17 02:00 106 07/10/17 01:35 107 73/46 07/10/17 00:04 106 75/48 07/10/17 00:04 105 81/49 07/10/17 00:00 98.0 102 14 76/50 (59) 100 88/54 (65) 07/10/17 00:00 102 07/10/17 00:00 35 07/09/17 22:00 97 07/09/17 21:44 97 35 07/09/17 20:00 92 07/09/17 20:00 98.4 92 13 85/49 (61) 100 100/58 (72) 07/09/17 20:00 35 07/09/17 18:45 90 94/55 07/09/17 18:30 90 99/58 07/09/17 18:15 86 79/23 07/09/17 18:00 90 07/09/17 18:00 90 88/50 07/09/17 17:15 89 94/53 07/09/17 17:00 90 94/54 07/09/17 17:00 90 94/54 07/09/17 16:00 35 07/09/17 16:00 80 07/09/17 16:00 98.1 80 12 102/51 (68) 100 126/65 (85) 07/09/17 16:00 80 126/65 07/09/17 15:42 98 35 07/09/17 15:28 81 100/54 07/09/17 15:00 84 102/55 07/09/17 14:00 83 07/09/17 13:00 82 92/52 07/09/17 12:00 97.3 72 12 83/46 (58) 100 99/53 (68) 07/09/17 12:00 35 07/09/17 12:00 72 07/09/17 11:21 100 35 Intake & Output 07/10/17 07/10/17 07:00 19:00 Intake Total 60 ml 1355 ml Output Total 200 ml Balance -140 ml 1355 ml IV Total 1320 ml Blood Product IV Normal Saline Flush 35 ml Other 60 ml Output Urine Total 200 ml . Physical Exam CONSTITUTIONAL/GENERAL: This is a critically ill, male patient currently intubated on mechanical ventilation TUBES/LINES/DRAINS: ETT, OGT, right femoral arterial line, right femoral CVL, Coates catheter SKIN: Ashen in color. Ecchymosis to bilateral lower extremities. Skin temperature appropriate. Not diaphoretic. HEAD: Atraumatic. Normocephalic. EYES: Pupils equal and round and sluggish Extraocular motions intact. No scleral icterus. No injection or drainage. ENT: Nose without bleeding or purulent drainage. Dry oral mucosa. NECK: Trachea midline. Supple, nontender. CARDIOVASCULAR: Regular rate and rhythm without murmurs. Peripheral pulses symmetric. RESPIRATORY/CHEST: Intubated on mechanical ventilation; coarse breath sounds GASTROINTESTINAL: Abdomen soft, large, round, obese. No guarding. Hypoactive bowel sounds GENITOURINARY: Without palpable bladder distension. Coates catheter in place. MUSCULOSKELETAL: Extremities without clubbing, cyanosis. Edema to bilateral upper and lower extremities. NEUROLOGICAL: Sedated on fentanyl 50 g/hr. Does not arouse to verbal stimuli or withdraw to deep tactile stimuli. PSYCHIATRIC: Unable to assess secondary to patient's clinical condition . Diagnostic Tests Laboratory Laboratory Tests Test 07/07/17 12:00 07/07/17 13:45 07/07/17 13:50 07/07/17 18:25 White Blood Count 21.8 TH/MM3 (4.0-11.0) Red Blood Count 3.85 MIL/MM3 (4.50-5.90) Hemoglobin 10.9 GM/DL (13.0-17.0) Hematocrit 33.1 % (39.0-51.0) Mean Corpuscular Volume 86.1 FL (80.0-100.0) Mean Corpuscular Hemoglobin 28.2 PG (27.0-34.0) Mean Corpuscular Hemoglobin Concent 32.8 % (32.0-36.0) Red Cell Distribution Width 17.0 % (11.6-17.2) Platelet Count 171 TH/MM3 (150-450) Mean Platelet Volume 7.6 FL (7.0-11.0) Neutrophils (%) (Auto) 81.4 % (16.0-70.0) Lymphocytes (%) (Auto) 15.3 % (9.0-44.0) Monocytes (%) (Auto) 2.7 % (0.0-8.0) Eosinophils (%) (Auto) 0.2 % (0.0-4.0) Basophils (%) (Auto) 0.4 % (0.0-2.0) Neutrophils # (Auto) 17.8 TH/MM3 (1.8-7.7) Lymphocytes # (Auto) 3.3 TH/MM3 (1.0-4.8) Monocytes # (Auto) 0.6 TH/MM3 (0-0.9) Eosinophils # (Auto) 0.0 TH/MM3 (0-0.4) Basophils # (Auto) 0.1 TH/MM3 (0-0.2) CBC Comment DIFF FINAL Differential Comment Urine Color YELLOW (YELLW/STRAW) Urine Turbidity CLEAR (CLEAR) Urine pH 5.0 (5.0-8.5) Urine Specific [place] 1.016 (1.002-1.035) Urine Protein TRACE mg/dL (NEG-TRACE) Urine Glucose (UA) NEG mg/dL (NEG) Urine Ketones NEG mg/dL (NEG) Urine Occult Blood NEG (NEG) Urine Nitrite NEG (NEG) Urine Bilirubin NEG (NEG) Urine Urobilinogen LESS THAN 2.0 MG/DL (LESS Urine Leukocyte Esterase LARGE (NEG) Urine RBC 2 /hpf (0-3) Urine WBC 15 /hpf (0-5) Urine Bacteria RARE /hpf (NONE) Urine Mucus FEW /lpf (OCC) Microscopic Urinalysis Comment CATH-CULTURE IND Blood Urea Nitrogen 45 MG/DL (7-18) Creatinine 1.50 MG/DL (0.60-1.30) Random Glucose 160 MG/DL (74-106) Total Protein 4.5 GM/DL (6.4-8.2) Albumin 1.7 GM/DL (3.4-5.0) Calcium Level 6.5 MG/DL (8.5-10.1) Alkaline Phosphatase 94 U/L (45-117) Aspartate Amino Transf (AST/SGOT) 12 U/L (15-37) Alanine Aminotransferase (ALT/SGPT) 11 U/L (12-78) Total Bilirubin 0.4 MG/DL (0.2-1.0) Sodium Level 151 MEQ/L (136-145) Potassium Level 3.9 MEQ/L (3.5-5.1) Chloride Level 123 MEQ/L (98-107) Carbon Dioxide Level 16.7 MEQ/L (21.0-32.0) Anion Gap 11 MEQ/L (5-15) Estimat Glomerular Filtration Rate 47 ML/MIN (>89) Hemoglobin A1c 5.8 % (4.3-6.0) Lactic Acid Level 2.7 mmol/L (0.4-2.0) 3.2 mmol/L (0.4-2.0) Protein Corrected Calcium 7.8 MG/DL (8.5-10.1) Hepatitis A IgM Antibody NEGATIVE (NEGATIVE) Hepatitis B Surface Antigen NEGATIVE (NEGATIVE) Hepatitis B Core IgM Antibody NEGATIVE (NEGATIVE) Hepatitis C Antibody NEGATIVE (NEGATIVE) HIV (1&2) Antibody NEGATIVE (NEGATIVE) Blood Gas Puncture Site ART LINE Blood Gas Patient Temperature 98.6 Blood Gas HCO3 13 mmol/L (22-26) Blood Gas Base Excess -14.5 mmol/L (-2-2) Blood Gas Oxygen Saturation 96 % (90-100) Arterial Blood pH 7.16 (7.380-7.420) Arterial Blood Partial Pressure CO2 37 mmHg (38-42) Arterial Blood Partial Pressure O2 144 mmHg (61-120) Arterial Blood Oxygen Content 12.3 Vol % (12.0-20.0) Arterial Blood Carboxyhemoglobin 0.1 % (0-4) Arterial Blood Methemoglobin 1.5 % (0-2) Blood Gas Hemoglobin 8.9 G/DL (12.0-16.0) Oxygen Delivery Device VENTILATOR Blood Gas Ventilator Setting Blood Gas Inspired Oxygen 50 % Test 07/07/17 23:00 07/08/17 04:30 07/08/17 08:51 07/08/17 15:02 Hemoglobin 9.3 GM/DL (13.0-17.0) 9.2 GM/DL (13.0-17.0) Hematocrit 27.1 % (39.0-51.0) 27.2 % (39.0-51.0) White Blood Count 20.1 TH/MM3 (4.0-11.0) Red Blood Count 3.23 MIL/MM3 (4.50-5.90) Mean Corpuscular Volume 84.3 FL (80.0-100.0) Mean Corpuscular Hemoglobin 28.4 PG (27.0-34.0) Mean Corpuscular Hemoglobin Concent 33.7 % (32.0-36.0) Red Cell Distribution Width 17.2 % (11.6-17.2) Platelet Count 141 TH/MM3 (150-450) Mean Platelet Volume 7.5 FL (7.0-11.0) Neutrophils (%) (Auto) 91.8 % (16.0-70.0) Lymphocytes (%) (Auto) 6.5 % (9.0-44.0) Monocytes (%) (Auto) 1.5 % (0.0-8.0) Eosinophils (%) (Auto) 0.1 % (0.0-4.0) Basophils (%) (Auto) 0.1 % (0.0-2.0) Neutrophils # (Auto) 18.4 TH/MM3 (1.8-7.7) Lymphocytes # (Auto) 1.3 TH/MM3 (1.0-4.8) Monocytes # (Auto) 0.3 TH/MM3 (0-0.9) Eosinophils # (Auto) 0.0 TH/MM3 (0-0.4) Basophils # (Auto) 0.0 TH/MM3 (0-0.2) CBC Comment DIFF FINAL Differential Comment Blood Urea Nitrogen 43 MG/DL (7-18) Creatinine 1.52 MG/DL (0.60-1.30) Random Glucose 178 MG/DL (74-106) Total Protein 4.7 GM/DL (6.4-8.2) Calcium Level 6.2 MG/DL (8.5-10.1) Phosphorus Level 3.8 MG/DL (2.5-4.9) Magnesium Level 1.6 MG/DL (1.5-2.5) Sodium Level 149 MEQ/L (136-145) Potassium Level 3.8 MEQ/L (3.5-5.1) Chloride Level 117 MEQ/L (98-107) Carbon Dioxide Level 18.4 MEQ/L (21.0-32.0) Anion Gap 14 MEQ/L (5-15) Estimat Glomerular Filtration Rate 47 ML/MIN (>89) Lactic Acid Level 2.9 mmol/L (0.4-2.0) Protein Corrected Calcium 7.3 MG/DL (8.5-10.1) Blood Gas Puncture Site ART LINE ART LINE Blood Gas Patient Temperature 98.6 98.6 Blood Gas HCO3 18 mmol/L (22-26) 18 mmol/L (22-26) Blood Gas Base Excess -7.3 mmol/L (-2-2) -7.1 mmol/L (-2-2) Blood Gas Oxygen Saturation 97 % (90-100) 97 % (90-100) Arterial Blood pH 7.34 (7.380-7.420) 7.34 (7.380-7.420) Arterial Blood Partial Pressure CO2 34 mmHg (38-42) 34 mmHg (38-42) Arterial Blood Partial Pressure O2 141 mmHg (61-120) 138 mmHg (61-120) Arterial Blood Oxygen Content 12.3 Vol % (12.0-20.0) 11.0 Vol % (12.0-20.0) Arterial Blood Carboxyhemoglobin 0.5 % (0-4) 0.5 % (0-4) Arterial Blood Methemoglobin 1.2 % (0-2) 1.3 % (0-2) Blood Gas Hemoglobin 8.8 G/DL (12.0-16.0) 7.9 G/DL (12.0-16.0) Oxygen Delivery Device VENTILATOR VENTILATOR Blood Gas Ventilator Setting Blood Gas Inspired Oxygen 35 % 35 % Test 07/08/17 17:20 07/08/17 22:50 07/09/17 04:10 07/09/17 05:13 Hemoglobin 8.2 GM/DL (13.0-17.0) 8.0 GM/DL (13.0-17.0) 8.0 GM/DL (13.0-17.0) Hematocrit 23.4 % (39.0-51.0) 23.2 % (39.0-51.0) Blood Urea Nitrogen 38 MG/DL (7-18) 37 MG/DL (7-18) Creatinine 1.44 MG/DL (0.60-1.30) 1.57 MG/DL (0.60-1.30) Random Glucose 141 MG/DL (74-106) 174 MG/DL (74-106) Total Protein 4.5 GM/DL (6.4-8.2) 4.7 GM/DL (6.4-8.2) Albumin 1.3 GM/DL (3.4-5.0) Calcium Level 6.5 MG/DL (8.5-10.1) 6.6 MG/DL (8.5-10.1) Alkaline Phosphatase 92 U/L (45-117) Aspartate Amino Transf (AST/SGOT) 9 U/L (15-37) Alanine Aminotransferase (ALT/SGPT) 7 U/L (12-78) Total Bilirubin 0.4 MG/DL (0.2-1.0) Sodium Level 152 MEQ/L (136-145) 150 MEQ/L (136-145) Potassium Level 3.5 MEQ/L (3.5-5.1) 3.2 MEQ/L (3.5-5.1) Chloride Level 118 MEQ/L (98-107) 116 MEQ/L (98-107) Carbon Dioxide Level 23.9 MEQ/L (21.0-32.0) 24.7 MEQ/L (21.0-32.0) Anion Gap 10 MEQ/L (5-15) 9 MEQ/L (5-15) Estimat Glomerular Filtration Rate 50 ML/MIN (>89) 45 ML/MIN (>89) Protein Corrected Calcium 7.8 MG/DL (8.5-10.1) 7.8 MG/DL (8.5-10.1) White Blood Count 15.2 TH/MM3 (4.0-11.0) Red Blood Count 2.78 MIL/MM3 (4.50-5.90) Mean Corpuscular Volume 83.5 FL (80.0-100.0) Mean Corpuscular Hemoglobin 28.9 PG (27.0-34.0) Mean Corpuscular Hemoglobin Concent 34.6 % (32.0-36.0) Red Cell Distribution Width 16.9 % (11.6-17.2) Platelet Count 111 TH/MM3 (150-450) Mean Platelet Volume 7.4 FL (7.0-11.0) Neutrophils (%) (Auto) 92.4 % (16.0-70.0) Lymphocytes (%) (Auto) 5.8 % (9.0-44.0) Monocytes (%) (Auto) 1.7 % (0.0-8.0) Eosinophils (%) (Auto) 0.0 % (0.0-4.0) Basophils (%) (Auto) 0.1 % (0.0-2.0) Neutrophils # (Auto) 14.1 TH/MM3 (1.8-7.7) Lymphocytes # (Auto) 0.9 TH/MM3 (1.0-4.8) Monocytes # (Auto) 0.3 TH/MM3 (0-0.9) Eosinophils # (Auto) 0.0 TH/MM3 (0-0.4) Basophils # (Auto) 0.0 TH/MM3 (0-0.2) CBC Comment DIFF FINAL Differential Comment Phosphorus Level 2.9 MG/DL (2.5-4.9) Magnesium Level 2.1 MG/DL (1.5-2.5) Lactic Acid Level 3.4 mmol/L (0.4-2.0) Blood Gas Puncture Site ART LINE Blood Gas Patient Temperature 98.6 Blood Gas HCO3 21 mmol/L (22-26) Blood Gas Base Excess -3.9 mmol/L (-2-2) Blood Gas Oxygen Saturation 97 % (90-100) Arterial Blood pH 7.33 (7.380-7.420) Arterial Blood Partial Pressure CO2 42 mmHg (38-42) Arterial Blood Partial Pressure O2 129 mmHg (61-120) Arterial Blood Oxygen Content 11.1 Vol % (12.0-20.0) Arterial Blood Carboxyhemoglobin 0.4 % (0-4) Arterial Blood Methemoglobin 1.3 % (0-2) Blood Gas Hemoglobin 8.0 G/DL (12.0-16.0) Oxygen Delivery Device VENTILATOR Blood Gas Ventilator Setting SEE COMMENT Blood Gas Inspired Oxygen 35 % Test 07/09/17 13:40 07/10/17 05:30 Potassium Level 4.0 MEQ/L (3.5-5.1) 4.0 MEQ/L (3.5-5.1) Phosphorus Level 2.7 MG/DL (2.5-4.9) 4.0 MG/DL (2.5-4.9) White Blood Count 10.0 TH/MM3 (4.0-11.0) Red Blood Count 1.85 MIL/MM3 (4.50-5.90) Hemoglobin 5.3 GM/DL (13.0-17.0) Hematocrit 15.9 % (39.0-51.0) Mean Corpuscular Volume 86.0 FL (80.0-100.0) Mean Corpuscular Hemoglobin 28.7 PG (27.0-34.0) Mean Corpuscular Hemoglobin Concent 33.3 % (32.0-36.0) Red Cell Distribution Width 17.4 % (11.6-17.2) Platelet Count 100 TH/MM3 (150-450) Mean Platelet Volume 8.2 FL (7.0-11.0) CBC Comment AUTO DIFF Differential Total Cells Counted 100 Neutrophils % (Manual) 64 % (16-70) Band Neutrophils % 7 % (0-6) Lymphocytes % 27 % (9-44) Monocytes % 1 % (0-8) Eosinophils % 1 % (0-4) Neutrophils # (Manual) 7.1 TH/MM3 (1.8-7.7) Nucleated Red Blood Cells 23 /100 WBC (0-0) Differential Comment FINAL DIFF MANUAL Toxic Vacuolation PRESENT (NONE SEEN) Platelet Estimate LOW (NORMAL) Platelet Morphology Comment NORMAL (NORMAL) Blood Urea Nitrogen 43 MG/DL (7-18) Creatinine 2.21 MG/DL (0.60-1.30) Random Glucose 248 MG/DL (74-106) Total Protein 4.0 GM/DL (6.4-8.2) Calcium Level 5.8 MG/DL (8.5-10.1) Magnesium Level 2.0 MG/DL (1.5-2.5) Sodium Level 141 MEQ/L (136-145) Chloride Level 107 MEQ/L (98-107) Carbon Dioxide Level 20.4 MEQ/L (21.0-32.0) Anion Gap 14 MEQ/L (5-15) Estimat Glomerular Filtration Rate 30 ML/MIN (>89) Lactic Acid Level 9.2 mmol/L (0.4-2.0) Protein Corrected Calcium 7.3 MG/DL (8.5-10.1) . Result Diagram: 07/10/1730 07/10/17 0530 Microbiology Microbiology Date/Time Source Procedure Growth Status 07/07/17 18:25 Blood Peripheral Aerobic Blood Culture - Preliminary NO GROWTH IN 3 DAYS Resulted 07/07/17 18:25 Blood Peripheral Anaerobic Blood Culture - Final QNS - SEE AEROBE REPORT Resulted 07/07/17 12:00 Blood Peripheral Aerobic Blood Culture - Preliminary NO GROWTH IN 3 DAYS Resulted 07/07/17 12:00 Blood Peripheral Anaerobic Blood Culture - Preliminary NO GROWTH IN 3 DAYS Resulted 07/07/17 12:00 Nasal Aspirate Influenza Types A,B Antigen (ANALI) - Final NEGATIVE FOR FLU A AND B ANTIGEN.... Complete 07/07/17 11:15 Sputum Endotracheal Gram Stain - Final Complete 07/07/17 11:15 Sputum Endotracheal Sputum Culture - Final LIGHT GROWTH NORMAL RESPIRATORY JOANNE Complete 07/07/17 12:00 Urine Catheterized Urine Urine Culture - Final NO GROWTH IN 48 HOURS. Complete 07/07/17 12:00 Urine Catheterized Urine Legionella Antigen - Final PRESUMPTIVE NEGATIVE FOR LEGIONELLA P... Complete 07/07/17 12:00 Urine Catheterized Urine Streptococcus pneumoniae Antigen (M - Final PRESUMPTIVE NEGATIVE FOR STREPTOCOCCU... Complete . Imaging Last 72 hours Impressions Chest X-Ray 07/09/17 06 Signed Impressions: Service Date/Time: Sunday, July 09, 2017 03:30 - CONCLUSION: Right basilar atelectasis. Jeffery Mercedes MD Chest X-Ray 07/08/17 0600 Signed Impressions: Service Date/Time: Saturday, July 08, 2017 03:29 - CONCLUSION: 1. Mild basilar opacity similar to July 07. Endotracheal tube unchanged. Fred Mccrary MD Chest CT 07/07/17 1431 Signed Impressions: Service Date/Time: Friday, July 07, 2017 15:58 - CONCLUSION: There is development of right pleural effusion which is small which is associated with progressive infiltrate and mild consolidation in the right lower lobe with peripheral air bronchograms. This has progressed relative to CTA of the chest on the previous day. Persistent fluid filled dilatation of the esophagus. Extensive coronary calcifications. Андрей Mcleod MD Abdomen/Pelvis CT 07/07/171430 Signed Impressions: Service Date/Time: Friday, July 07, 2017 15:58 - CONCLUSION: There is significant interval change in the right lower quadrant extending into the pelvis there is extensive inflammatory change in the fat and a small amount of fluid. This is adjacent to the cecum. Entities such as appendicitis are suggested. This should be correlated with clinical history and physical examination. Please see CT scan of the chest the same day for change in the right lung base progressive infiltrate and small effusion. Андрей Mcleod MD ADDENDUM: Delayed history was obtained. Patient apparently had invasive procedure extended with placement of a femoral venous catheter which is faintly appreciated. The inflammatory changes in the right lower quadrant are extensive and could potentially be secondary to iatrogenic cause. Андрей Mcleod MD . Procedures 07/07/2017: Intubated 07/07/2017: right femoral arterial line; right femoral central line . Assessment and Plan Disease Oriented Problem List: (1) Respiratory failure (2) PNA (pneumonia) (3) UTI (urinary tract infection) (4) Sepsis (5) Lactic acidosis (6) Acute kidney injury Symptom Scale: (1) Shortness of breath 0-10 Scale: Unable to quantify (2) Pain 0-10 Scale: Unable to quantify (3) Debility 0-10 Scale: Unable to quantify Pertinent Non-Medical Issues Psychosocial: Patient originally from [place]. Moved to [place] when he was 9 years old. Patient is single, no children. Both parents are . Patient has 3 brothers who live in [place]. Patient is disabled secondary to CVA. 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 Spiritual: Tenriism genaro. Legal: No advance directives completed. Ethical issues impacting care: No ethical issues identified. . Important Contacts Brother Micah Valdes: C , H , W . Brother Gerry Valdes Brother Dami -no tel number . Prognosis Mr. Valdes is a 62-year-old male with a medical history significant for hypertension, GERD, hyperlipidemia, esophageal structures and CVA. Patient presented to ED via EMS on 07/03/17 for evaluation of altered mental status and weakness. Patient admitted for further management of UTI, pneumonia, sepsis. Clinical course complicated by acute kidney injury and respiratory failure. Patient very high risk for further complications, continue decline and . . Code Status: No Code Plan * NO CODE-DNR/DNI * HEALTHCARE DECISION-MAKING: Patient with limited participation in medical decision-making secondary to clinical condition, intermittent confusion and lethargy. Patient reports that no advance directives have been completed. Patient is single, no children, both parents are . As per [place] statute, healthcare proxy decision-making falls to the majority of patient's siblings for which he has 3: Gerry Obrien and Dami Valdes. Per [place], brother (Dami) is homeless and not reachable. * CODE STATUS change to NO CODE overnight. Current goals are aggressive up to the point of cardiopulmonary resuscitation * Palliative care spoke with patients brothers (Stanford) at 1145 to provide an update on the patient's clinical condition. They are aware that the patient is critically ill with multiorgan dysfunction and may not survive the day. We discussed treatment options available at this point in time. Currently providing maximum support up to the point of cardiopulmonary resuscitation. The patient is intubated on mechanical ventilator, on multiple pressors (Levophed, Neosyn, Vasopressin) and receiving blood transfusions for a hemoglobin of 5.3. The patient's CODE STATUS was changed to NO CODE overnight. Patient's brother's also requested information about transitioning to "comfort" measures. We briefly discussed compassionate withdrawal of artificial life support. They would like to discuss possible withdrawal of artificial life support privately; Palliative care is available throughout the day for further discussions. * Discussed with bedside nurse (Gina), Dr. Robbins (Critical Care) and Dr. Nancy Horowitz (ID). * SYMPTOMS: = Dyspnea: Likely secondary to sepsis, pneumonia. CTA of chest showed no indication of PE. Transferred to medical ICU for further monitoring and management 07/06/2017. [employer] Nutrition [employer] Assistant following. = Pain: Patient with history of chronic pain. Home regimen to include [place] 5/325 every 6 hours as needed, gabapentin 300 mg twice a day. Currently on fentanyl 50 g/day. = Debility, progressive since CVA in 2014. 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 GI recommending CT of the abdomen with contrast; pending the results of the CT will make a decision on whether he should be oncology or surgery. * Palliative care will continue to follow-up for further clarifications of goals of care as patient's clinical course continues to evolve. . Attestation To help prompt me to consider important information that might be impacting today's encounter and assessment, information from prior notes written by myself or my colleagues may have been "brought forward" into today's note. My signature on this note, however, is an attestation that I personally performed the exam, history, and/or decision-making noted today, and, unless otherwise indicated, the interactions with patient, family, and staff as well as the review of records all occurred today. I also attest that the listed assessment and stated plan reflect my best clinical judgment today based on the combination of historical information, prior notes, and today's exam/ interactions. When time spent is documented, it refers only to time spent today by the signer, or if indicated, combined time spent today by collaborating physician/nurse practitioner. . Marlen Muhammad Jul 10, 2017 11:32
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
[2017-07-10] MEDS ORDERED: CALCIUM GLUCONATE INJ 1 GM in SODIUM CHLORIDE 0.9% INJ 100 ML IV ONE (12:00)
[2017-07-10] MEDS: fentaNYL DRIP 250 ML IV PRN (18:30)
[2017-07-10 20:58] LABS: HEMATOCRIT 27.5 % (39.0-51.0); HEMOGLOBIN 9.7 GM/DL (13.0-17.0)
--- NOTE | 2017-07-10 22:37 | PD.CARD.PN ---
Subjective Subjective Remarks Patient was seen earlier today, late entry note On mechanical ventilation On multiple vasopressors Lactic acid increasing with drop in Hgb Objective Medications Current Medications Medications (Trade) Dose Ordered Sig/Katina Route Start Time Stop Time Status Last Admin (NS Flush) 2 ml UNSCH PRN IV FLUSH 07/03/17 20:15 (NS Flush) 2 ml BID IV FLUSH 07/03/17 21:00 07/10/17 09:46 (Tylenol) 650 mg Q4H PRN PO 07/03/17 20:15 (Zofran Inj) 4 mg Q6H PRN IVP 07/03/17 20:15 (Plavix) 75 mg DAILY PO 07/04/17 09:00 Future Hold 07/05/17 08:47 (Neurontin) 300 mg BID PO 07/03/17 21:45 07/10/17 09:46 ([place]wall 5-325 Mg) 1 tab Q6H PRN PO 07/03/17 21:45 07/04/17 23:12 (Flomax) 0.4 mg HS PO 07/03/17 21:45 07/09/17 21:56 Meropenem 1000 mg/ Sodium Chloride 100 ml @ 200 mls/hr Q8H IV 07/06/17 12:00 07/10/17 10:59 (Duoneb Neb) 1 ampule Q2HR NEB PRN NEB 07/06/17 12:30 (Protonix Inj) 40 mg DAILY IV PUSH 07/06/17 12:45 07/10/17 09:46 Fentanyl Citrate 250 ml @ 5 mls/hr TITRATE PRN IV 07/07/17 10:30 07/10/17 18:30 (Peridex 0.12% Liq) 15 ml BID@08,20 MT 07/07/17 20:00 07/10/17 07:48 (SoluCORTEF INJ) 100 mg Q8HR IV PUSH 07/07/17 22:00 07/10/17 13:20 (Brethine Inj) 1 mg UNSCH PRN SQ 07/07/17 14:30 Norepinephrine Bitartrate 250 ml @ 7.5 mls/hr TITRATE PRN IV 07/07/17 20:15 07/10/17 13:35 Fluconazole/ Sodium Chloride 100 ml @ 100 mls/hr Q24H IV 07/08/17 12:00 07/10/17 10:59 (Mag-Ox) 800 mg UNSCH PRN PO 07/09/17 05:30 Vasopressin 40 units/Dextrose 100 ml @ 1.5 mls/hr Q24H IV 07/09/17 23:40 07/10/17 00:04 Phenylephrine HCl 40 mg/Dextrose 500 ml @ 30 mls/hr TITRATE PRN IV 07/09/17 23:45 07/10/17 15:58 (Brethine Inj) 1 mg UNSCH PRN SQ 07/09/17 23:45 Sodium Bicarbonate 150 meq/Sterile Water 1,000 ml @ 150 mls/hr Q6H40M IV 07/10/17 07:00 07/10/17 15:57 (D50w (Vial) Inj) 50 ml UNSCH PRN IV PUSH 07/10/17 07:15 (Glucagon Inj) 1 mg UNSCH PRN OTHER 07/10/17 07:15 (NovoLIN R SUPPLEMENTAL SCALE) 1 Q4HR SQ 07/10/17 08:00 07/10/17 16:00 Vital Signs / I&O Vital Signs Date Time Temp Pulse Resp B/P (MAP) Pulse Ox O2 Delivery O2 Flow Rate FiO2 07/10/17 20:21 96 35 07/10/17 18:00 93 07/10/17 18:00 35 07/10/17 17:03 96 35 07/10/17 16:22 91 89/54 07/10/17 16:22 91 89/54 07/10/17 16:19 97.3 94 20 83/52 95 07/10/17 16:12 98 91/55 07/10/17 16:12 98 91/55 07/10/17 16:07 93 127/73 07/10/17 16:02 112 141/73 07/10/17 16:02 112 141/73 07/10/17 16:00 35 07/10/17 16:00 100 07/10/17 16:00 97.3 100 20 115/76 (89) 99 137/72 (93) 07/10/17 15:58 98 136/72 07/10/17 15:23 101 128/67 07/10/17 15:10 96 91/53 07/10/17 15:00 102 138/68 07/10/17 14:27 108 138/67 07/10/17 14:14 97.6 106 12 160/70 95 07/10/17 14:00 113 07/10/17 13:46 117 151/70 07/10/17 13:36 118 149/69 18 13:36 118 149/69 07/10/17 13:35 145/73 07/10/17 13:08 140/63 07/10/17 12:16 120 148/71 07/10/17 12:05 97.6 112 12 149/70 100 07/10/17 12:00 97.6 110 12 105/53 (70) 100 145/67 (93) 07/10/17 12:00 110 07/10/17 12:00 35 07/10/17 11:49 97.3 92 12 134/65 100 07/10/17 11:30 100 35 07/10/17 10:59 119/60 07/10/17 10:58 124/63 07/10/17 10:00 99 07/10/17 09:32 98.7 97 12 115/58 100 07/10/17 09:13 97.7 108 12 97/55 100 07/10/17 09:07 100 35 07/10/17 08:50 88/54 07/10/17 08:49 82/51 07/10/17 08:00 101 07/10/17 08:00 97.7 101 12 97/55 (69) 100 99/55 (70) 07/10/17 08:00 35 07/10/17 07:15 106/53 07/10/17 07:15 106/53 07/10/17 06:33 100 97/57 07/10/17 06:30 100 97/57 07/10/17 06:00 105 07/10/17 04:04 90 35 18 04:00 105 07/10/17 04:00 97.8 105 16 85/54 (64) 100 90/53 (65) 07/10/17 04:00 35 07/10/17 02:00 106 07/10/17 01:35 107 73/46 07/10/17 00:04 106 75/48 07/10/17 00:04 105 81/49 07/10/17 00:00 98.0 102 14 76/50 (59) 100 88/54 (65) 07/10/17 00:00 102 07/10/17 00:00 35 I/O 07/09/17 07/09/17 07/09/17 07/10/17 07/10/17 07/10/17 07:00 15:00 23:00 07:00 15:00 23:00 Intake Total 1636.25 ml 665.0 ml 545.00 ml 60 ml 4325 ml 1960 ml Output Total 1000 ml 1300 ml 200 ml 1000 ml Balance 636.25 ml 665.0 ml -755.00 ml -140 ml 4325 ml 960 ml IV Total 1636.25 ml 665.0 ml 515.00 ml 3290 ml 1460 ml Packed Cells 800 ml 400 ml Blood Product IV Normal Saline Flush 235 ml 100 ml Other 30 ml 60 ml Output Urine Total 1000 ml 1300 ml 200 ml 1000 ml # Bowel Movements 0 0 Physical Exam GENERAL: Intubated and sedated SKIN: Warm and dry. HEAD: Atraumatic. Normocephalic. EYES: Pupils equal and round. No scleral icterus. No injection or drainage. ENT: No nasal bleeding or discharge. Mucous membranes pink and moist. NECK: Trachea midline. No JVD. CARDIOVASCULAR: Regular rate and rhythm. RESPIRATORY: No accessory muscle use. Rhonchi bilaterally GASTROINTESTINAL: Abdomen soft, non-tender, nondistended. Hepatic and splenic margins not palpable. MUSCULOSKELETAL: Extremities without clubbing, cyanosis, or edema. No obvious deformities. NEUROLOGICAL: Intubated and sedated Laboratory Laboratory Tests Test 07/10/17 05:30 07/10/17 15:18 07/10/17 15:25 07/10/17 20:25 White Blood Count 10.0 TH/MM3 Red Blood Count 1.85 MIL/MM3 Hemoglobin 5.3 GM/DL Hematocrit 15.9 % Mean Corpuscular Volume 86.0 FL Mean Corpuscular Hemoglobin 28.7 PG Mean Corpuscular Hemoglobin Concent 33.3 % Red Cell Distribution Width 17.4 % Platelet Count 100 TH/MM3 Mean Platelet Volume 8.2 FL CBC Comment AUTO DIFF Differential Total Cells Counted 100 Neutrophils % (Manual) 64 % Band Neutrophils % 7 % Lymphocytes % 27 % Monocytes % 1 % Eosinophils % 1 % Neutrophils # (Manual) 7.1 TH/MM3 Nucleated Red Blood Cells 23 /100 WBC Differential Comment FINAL DIFF MANUAL Toxic Vacuolation PRESENT Platelet Estimate LOW Platelet Morphology Comment NORMAL Blood Urea Nitrogen 43 MG/DL Creatinine 2.21 MG/DL Random Glucose 248 MG/DL Total Protein 4.0 GM/DL Calcium Level 5.8 MG/DL Phosphorus Level 4.0 MG/DL Magnesium Level 2.0 MG/DL Sodium Level 141 MEQ/L Potassium Level 4.0 MEQ/L Chloride Level 107 MEQ/L Carbon Dioxide Level 20.4 MEQ/L Anion Gap 14 MEQ/L Estimat Glomerular Filtration Rate 30 ML/MIN Lactic Acid Level 9.2 mmol/L 5.3 mmol/L Protein Corrected Calcium 7.3 MG/DL Blood Gas Puncture Site ART LINE KEE Blood Gas Patient Temperature 98.6 98.6 Blood Gas HCO3 22 mmol/L 21 mmol/L Blood Gas Base Excess -3.6 mmol/L -2.0 mmol/L Blood Gas Oxygen Saturation 95 % 94 % Arterial Blood pH 7.28 7.45 Arterial Blood Partial Pressure CO2 48 mmHg 32 mmHg Arterial Blood Partial Pressure O2 82 mmHG 80 mmHg Arterial Blood Oxygen Content 13.6 Vol % 13.4 Vol % Arterial Blood Carboxyhemoglobin 1.0 % 1.0 % Arterial Blood Methemoglobin 0.5 % 1.2 % Blood Gas Hemoglobin 10.1 G/DL 10.0 G/DL Oxygen Delivery Device VENTILATOR VENT Blood Gas Ventilator Setting SEE COMMENT Blood Gas Inspired Oxygen 35 % 35 % Test 07/10/17 20:35 07/10/17 21:30 Hemoglobin 9.7 GM/DL Hematocrit 27.5 % Lactic Acid Level 7.0 mmol/L Activated Partial Thromboplast Time 43.4 SEC Assessment and Plan Problem List: (1) PNA (pneumonia) ICD Codes: J18.9 - Pneumonia, unspecified organism (2) UTI (urinary tract infection) ICD Codes: N39.0 - Urinary tract infection, site not specified Status: Acute (3) Lactic acidosis ICD Codes: E87.2 - Acidosis Status: Acute (4) Sepsis ICD Codes: A41.9 - Sepsis, unspecified organism Status: Acute (5) Chest pain, atypical ICD Codes: R07.89 - Atypical chest pain Status: Acute (6) TOBACCO USE DISORDER Status: Chronic (7) Obesity ICD Codes: E66.9 - Obesity Status: Acute (8) Hypertension ICD Codes: I10 - Hypertension Status: Chronic Assessment and Plan 1) UTI/PNA/Sepsis Per critical care/ID 2) Minimally elevated trop, flat in nature Non-specific with CHANO/lactic acidosis Most likely Type 2 3) Possible aspiration PNA/Sepsis Per critical care team Started on vasopressors 4) Drop in Hgb No plan for ischemic evaluation 5) Asked about cardiovascular risk assessment Due to elevated troponin/EKG changes, patient will be high cardiovascular risk for any procedure We are unable to decrease his risk in any way at this time Unable to do ischemic evaluation Unable to place on BB therapy 6) Family discussing with palliative care about possible comfort measures Problem Qualifiers (1) UTI (urinary tract infection): Qualified Codes: N39.0 - Urinary tract infection, site not specified (2) Sepsis: Qualified Codes: A41.9 - Sepsis, unspecified organism Apollo Harrell DO Jul 10, 2017 22:37
[2017-07-10] MEDS: TAMSULOSIN HCL 0.4 MG CAP PO SCH (22:42)
[2017-07-11] VITALS (19 sets, daily range): BP systolic 81–133; BP diastolic 57–77; PULSE 78–94; RESP 20; TEMP 97.4–98.6; O2SAT 94–96
[2017-07-11] MEDS: INSULIN NovoLIN REGULAR SUPPLEMENTAL SCALE SQ SCH ×6 (04:00→20:00)
[2017-07-11 05:40] LABS: HEMATOCRIT 26.4 % (39.0-51.0); HEMOGLOBIN 9.4 GM/DL (13.0-17.0); MEAN CORPUSCULAR HEMOGLOBIN 28.7 PG (27.0-34.0); MEAN CORPUSCULAR HGB CONC 35.5 % (32.0-36.0); MEAN PLATELET VOLUME 7.2 FL (7.0-11.0); PLATELET COUNT 52 TH/MM3 (150-450); RED BLOOD COUNT 3.26 MIL/MM3 (4.50-5.90); RED CELL DISTRIBUTION WIDTH 16.5 % (11.6-17.2); WHITE BLOOD COUNT 14.9 TH/MM3 (4.0-11.0)
[2017-07-11] MEDS: SODIUM BICARBONATE 8.4% INJ 150 MEQ in WATER STERILE FOR INJ 850 ML IV SCH ×3 (06:17→23:35)
[2017-07-11] MEDS: NOREPINEPHRINE 4 MG/D5W 250 ML IV PRN ×4 (06:19→23:35)
[2017-07-11 06:20] LABS: ALBUMIN 1.2 GM/DL (3.4-5.0); BICARBONATE 26.8 MEQ/L (21.0-32.0); CALCIUM 5.1 MG/DL (8.5-10.1); CREATININE 1.68 MG/DL (0.60-1.30); TOTAL BILIRUBIN ADULT 0.6 MG/DL (0.2-1.0); TOTAL PROTEIN 4.1 GM/DL (6.4-8.2)
[2017-07-11] MEDS: PHENYLEPHRINE INJ 40 MG in DEXTROSE 5% IN WATE 500 ML INJ 496 ML IV PRN ×4 (06:20→09:10)
[2017-07-11 06:23] LABS: CALCIUM-PROTEIN CORRECTED 6.3 MG/DL (8.5-10.1)
[2017-07-11] MEDS: MEROPENEM INJ 1,000 MG in SODIUM CHLORIDE 0.9% INJ 100 ML IV SCH ×3 (06:44→23:36)
[2017-07-11] MEDS: HYDROCORTISONE SOD SUCCINATE 100 MG VIAL IV PUSH SCH ×3 (06:44→23:37)
[2017-07-11] MEDS: CHLORHEXIDINE 0.12% (ORAL KIT) 15 ML CUP MT SCH ×3 (06:44→23:36)
[2017-07-11 07:42] LABS: BANDS 4 % (0-6); CORRECTED NUCLEATED RBC 3 /100 WBC (0-0); LYMPHOCYTES 4 % (9-44); MONOCYTES 4 % (0-8); NEUTROPHIL # MANUAL DIFF 13.7 TH/MM3 (1.8-7.7); NUCLEATED RED BLOOD CELL 3 (0-0); POLYS (SEG NEUTROPHILS) 88 % (16-70)
[2017-07-11] MEDS: PANTOPRAZOLE SODIUM 40 MG VIAL IV PUSH SCH (09:15)
[2017-07-11] MEDS: GABAPENTIN 300 MG CAP PO SCH ×2 (09:15→23:38)
[2017-07-11] MEDS: SODIUM CHLORIDE 0.9% FLUSH 10 ML FLUSH IV FLUSH SCH ×2 (09:16→23:38)
[2017-07-11] MEDS: FLUCONAZOLE 200 MG PREMIX BAG 100 ML IV SCH (12:53)
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
--- NOTE | 2017-07-11 14:26 | PD.CARD.PN ---
Subjective Subjective Remarks On mechanical ventilation On multiple vasopressors, although decreased amounts today Objective Medications Current Medications Medications (Trade) Dose Ordered Sig/Katina Route Start Time Stop Time Status Last Admin (NS Flush) 2 ml UNSCH PRN IV FLUSH 07/03/17 20:15 (NS Flush) 2 ml BID IV FLUSH 07/03/17 21:00 07/11/17 09:16 (Tylenol) 650 mg Q4H PRN PO 07/03/17 20:15 (Zofran Inj) 4 mg Q6H PRN IVP 07/03/17 20:15 (Plavix) 75 mg DAILY PO 07/04/17 09:00 Future Hold 07/05/17 08:47 (Neurontin) 300 mg BID PO 07/03/17 21:45 07/11/17 09:15 ([place] 5-325 Mg) 1 tab Q6H PRN PO 07/03/17 21:45 07/04/17 23:12 (Flomax) 0.4 mg HS PO 07/03/17 21:45 07/10/17 22:42 Meropenem 1000 mg/ Sodium Chloride 100 ml @ 200 mls/hr Q8H IV 07/06/17 12:00 07/11/17 12:53 (Duoneb Neb) 1 ampule Q2HR NEB PRN NEB 07/06/17 12:30 (Protonix Inj) 40 mg DAILY IV PUSH 07/06/17 12:45 07/11/17 09:15 Fentanyl Citrate 250 ml @ 5 mls/hr TITRATE PRN IV 07/07/17 10:30 07/10/17 18:30 (Peridex 0.12% Liq) 15 ml BID@08,20 MT 07/07/17 20:00 07/11/17 09:11 (SoluCORTEF INJ) 100 mg Q8HR IV PUSH 07/07/17 22:00 07/11/17 12:54 (Brethine Inj) 1 mg UNSCH PRN SQ 07/07/17 14:30 Norepinephrine Bitartrate 250 ml @ 7.5 mls/hr TITRATE PRN IV 07/07/17 20:15 07/11/17 09:28 Fluconazole/ Sodium Chloride 100 ml @ 100 mls/hr Q24H IV 07/08/17 12:00 07/11/17 12:53 (Mag-Ox) 800 mg UNSCH PRN PO 07/09/17 05:30 Vasopressin 40 units/Dextrose 100 ml @ 1.5 mls/hr Q24H IV 07/09/17 23:40 07/10/17 22:44 Phenylephrine HCl 40 mg/Dextrose 500 ml @ 30 mls/hr TITRATE PRN IV 07/09/17 23:45 07/11/17 09:10 (Brethine Inj) 1 mg UNSCH PRN SQ 07/09/17 23:45 Sodium Bicarbonate 150 meq/Sterile Water 1,000 ml @ 150 mls/hr Q6H40M IV 07/10/17 07:00 07/11/17 12:53 (D50w (Vial) Inj) 50 ml UNSCH PRN IV PUSH 07/10/17 07:15 (Glucagon Inj) 1 mg UNSCH PRN OTHER 07/10/17 07:15 (NovoLIN R SUPPLEMENTAL SCALE) 1 Q4HR SQ 07/10/17 08:00 07/10/17 16:00 Vital Signs / I&O Vital Signs Date Time Temp Pulse Resp B/P (MAP) Pulse Ox O2 Delivery O2 Flow Rate FiO2 07/11/17 14:00 91 07/11/17 12:00 35 07/11/17 12:00 92 07/11/17 12:00 98.4 92 20 94/63 (73) 96 109/67 (81) 07/11/17 11:28 96 35 07/11/17 10:38 92 113/69 07/11/17 10:00 87 07/11/17 09:50 86 140/79 07/11/17 09:50 141/79 07/11/17 09:28 111/59 07/11/17 09:10 119/73 07/11/17 09:00 91 129/76 07/11/17 08:22 95 35 07/11/17 08:02 135/79 07/11/17 08:02 135/78 07/11/17 08:02 90 137/78 07/11/17 08:00 35 07/11/17 08:00 98.3 90 20 111/59 (76) 96 133/77 (95) 07/11/17 08:00 90 07/11/17 06:20 91 110/71 2/14/18 06:19 91 110/65 07/11/17 06:00 89 07/11/17 04:07 94 35 07/11/17 04:00 35 07/11/17 04:00 89 07/11/17 04:00 97.4 89 20 126/73 (90) 95 07/11/17 03:00 78 07/11/17 00:21 94 35 07/11/17 00:00 97.4 92 20 102/62 (75) 94 120/74 (89) 07/11/17 00:00 92 07/11/17 00:00 35 07/10/17 22:44 96 98/62 07/10/17 22:43 96 98/62 07/10/17 22:00 95 07/10/17 20:21 96 35 07/10/17 20:00 35 07/10/17 20:00 83 07/10/17 20:00 97.6 83 20 103/58 (73) 96 126/67 (86) 07/10/17 18:00 93 07/10/17 18:00 35 07/10/17 17:03 96 35 07/10/17 16:22 91 89/54 07/10/17 16:22 91 89/54 07/10/17 16:19 97.3 94 20 83/52 95 07/10/17 16:12 98 91/55 07/10/17 16:12 98 91/55 07/10/17 16:07 93 127/73 07/10/17 16:02 112 141/73 07/10/17 16:02 112 141/73 07/10/17 16:00 35 07/10/17 16:00 100 07/10/17 16:00 97.3 100 20 115/76 (89) 99 137/72 (93) 07/10/17 15:58 98 136/72 07/10/17 15:23 101 128/67 07/10/17 15:10 96 91/53 07/10/17 15:00 102 138/68 07/10/17 14:27 108 138/67 I/O 07/10/17 07/10/17 07/10/17 07/11/17 07/11/17 07/11/17 07:00 15:00 23:00 07:00 15:00 23:00 Intake Total 60 ml 4325 ml 1960 ml 5524 ml 100 ml Output Total 200 ml 1000 ml 1600 ml Balance -140 ml 4325 ml 960 ml 3924 ml 100 ml IV Total 3290 ml 1460 ml 5524 ml 100 ml Packed Cells 800 ml 400 ml Blood Product IV Normal Saline Flush 235 ml 100 ml Other 60 ml Output Urine Total 200 ml 1000 ml 1600 ml # Bowel Movements 0 Physical Exam GENERAL: Intubated and sedated SKIN: Warm and dry. HEAD: Atraumatic. Normocephalic. EYES: Pupils equal and round. No scleral icterus. No injection or drainage. ENT: No nasal bleeding or discharge. Mucous membranes pink and moist. NECK: Trachea midline. No JVD. CARDIOVASCULAR: Regular rate and rhythm. RESPIRATORY: No accessory muscle use. Rhonchi bilaterally GASTROINTESTINAL: Abdomen soft, non-tender, nondistended. Hepatic and splenic margins not palpable. MUSCULOSKELETAL: Extremities without clubbing, cyanosis, or edema. No obvious deformities. NEUROLOGICAL: Intubated and sedated Laboratory Laboratory Tests Test 07/10/17 15:18 07/10/17 15:25 07/10/17 20:25 07/10/17 20:35 Blood Gas Puncture Site ART LINE KEE Blood Gas Patient Temperature 98.6 98.6 Blood Gas HCO3 22 mmol/L 21 mmol/L Blood Gas Base Excess -3.6 mmol/L -2.0 mmol/L Blood Gas Oxygen Saturation 95 % 94 % Arterial Blood pH 7.28 7.45 Arterial Blood Partial Pressure CO2 48 mmHg 32 mmHg Arterial Blood Partial Pressure O2 82 mmHG 80 mmHg Arterial Blood Oxygen Content 13.6 Vol % 13.4 Vol % Arterial Blood Carboxyhemoglobin 1.0 % 1.0 % Arterial Blood Methemoglobin 0.5 % 1.2 % Blood Gas Hemoglobin 10.1 G/DL 10.0 G/DL Oxygen Delivery Device VENTILATOR VENT Blood Gas Ventilator Setting SEE COMMENT Blood Gas Inspired Oxygen 35 % 35 % Lactic Acid Level 5.3 mmol/L 7.0 mmol/L Hemoglobin 9.7 GM/DL Hematocrit 27.5 % Test 07/10/17 21:30 07/11/17 04:45 Activated Partial Thromboplast Time 43.4 SEC White Blood Count 14.9 TH/MM3 Red Blood Count 3.26 MIL/MM3 Hemoglobin 9.4 GM/DL Hematocrit 26.4 % Mean Corpuscular Volume 81.0 FL Mean Corpuscular Hemoglobin 28.7 PG Mean Corpuscular Hemoglobin Concent 35.5 % Red Cell Distribution Width 16.5 % Platelet Count 52 TH/MM3 Mean Platelet Volume 7.2 FL CBC Comment AUTO DIFF Differential Total Cells Counted 100 Neutrophils % (Manual) 88 % Band Neutrophils % 4 % Lymphocytes % 4 % Monocytes % 4 % Neutrophils # (Manual) 13.7 TH/MM3 Nucleated Red Blood Cells 3 /100 WBC Differential Comment FINAL DIFF MANUAL Platelet Estimate LOW Platelet Morphology Comment NORMAL Red Cell Morphology Comment NORMAL Blood Urea Nitrogen 35 MG/DL Creatinine 1.68 MG/DL Random Glucose 131 MG/DL Total Protein 4.1 GM/DL Albumin 1.2 GM/DL Calcium Level 5.1 MG/DL Alkaline Phosphatase 100 U/L Aspartate Amino Transf (AST/SGOT) 360 U/L Alanine Aminotransferase (ALT/SGPT) 130 U/L Total Bilirubin 0.6 MG/DL Sodium Level 130 MEQ/L Potassium Level 3.7 MEQ/L Chloride Level 89 MEQ/L Carbon Dioxide Level 26.8 MEQ/L Anion Gap 14 MEQ/L Estimat Glomerular Filtration Rate 41 ML/MIN Protein Corrected Calcium 6.3 MG/DL Assessment and Plan Problem List: (1) PNA (pneumonia) ICD Codes: J18.9 - Pneumonia, unspecified organism (2) UTI (urinary tract infection) ICD Codes: N39.0 - Urinary tract infection, site not specified Status: Acute (3) Lactic acidosis ICD Codes: E87.2 - Acidosis Status: Acute (4) Sepsis ICD Codes: A41.9 - Sepsis, unspecified organism Status: Acute (5) Chest pain, atypical ICD Codes: R07.89 - Atypical chest pain Status: Acute (6) TOBACCO USE DISORDER Status: Chronic (7) Obesity ICD Codes: E66.9 - Obesity Status: Acute (8) Hypertension ICD Codes: I10 - Hypertension Status: Chronic Assessment and Plan 1) UTI/PNA/Sepsis Per critical care/ID 2) Minimally elevated trop, flat in nature Non-specific with CHANO/lactic acidosis Most likely Type 2 3) Possible aspiration PNA/Sepsis Per critical care team Started on vasopressors 4) Drop in Hgb No plan for ischemic evaluation 5) Asked about cardiovascular risk assessment Due to elevated troponin/EKG changes, patient will be high cardiovascular risk for any procedure We are unable to decrease his risk in any way at this time Unable to do ischemic evaluation Unable to place on BB therapy 6) Family discussing with palliative care about possible comfort measures 7) Thrombocytopenia ? due to sepsis Plavix stopped Problem Qualifiers (1) UTI (urinary tract infection): Qualified Codes: N39.0 - Urinary tract infection, site not specified (2) Sepsis: Qualified Codes: A41.9 - Sepsis, unspecified organism Apollo Harrell DO Jul 11, 2017 14:26
[2017-07-11] MEDS: VASOPRESSIN INJ 40 UNITS in DEXTROSE 5% IN WATER 100ML INJ 98 ML IV SCH ×2 (14:41)
--- NOTE | 2017-07-11 15:45 | HHI.GIFU ---
Subjective Remarks Pt remains on sedation and mechanically ventilated. Per RN his brother are supposed to arrive later this week to determine plan of care, there has been discussion of withdrawing life support. (Emerita Burgess) Objective Vitals I&O Vital Signs Date Time Temp Pulse Resp B/P (MAP) Pulse Ox O2 Delivery O2 Flow Rate FiO2 07/11/17 15:10 96 35 07/11/17 14:57 91 111/65 07/11/17 14:41 90 110/65 07/11/17 14:41 90 113/67 07/11/17 14:40 90 113/67 07/11/17 14:00 91 07/11/17 12:53 92 113/67 07/11/17 12:00 35 07/11/17 12:00 92 07/11/17 12:00 98.4 92 20 94/63 (73) 96 109/67 (81) 07/11/17 11:28 96 35 07/11/17 10:38 92 113/69 07/11/17 10:00 87 07/11/17 09:50 86 140/79 07/11/17 09:50 141/79 07/11/17 09:28 111/59 07/11/17 09:10 119/73 07/11/17 09:00 91 129/76 07/11/17 08:22 95 35 07/11/17 08:02 135/79 07/11/17 08:02 135/78 07/11/17 08:02 90 137/78 07/11/17 08:00 35 07/11/17 08:00 98.3 90 20 111/59 (76) 96 133/77 (95) 07/11/17 08:00 90 07/11/17 06:20 91 110/71 07/11/17 06:19 91 110/65 07/11/17 06:00 89 07/11/17 04:07 94 35 07/11/17 04:00 35 07/11/17 04:00 89 07/11/17 04:00 97.4 89 20 126/73 (90) 95 07/11/17 03:00 78 07/11/17 00:21 94 35 07/11/17 00:00 97.4 92 20 102/62 (75) 94 120/74 (89) 07/11/17 00:00 92 07/11/17 00:00 35 07/10/17 22:44 96 98/62 07/10/17 22:43 96 98/62 07/10/17 22:00 95 07/10/17 20:21 96 35 07/10/17 20:00 35 07/10/17 20:00 83 07/10/17 20:00 97.6 83 20 103/58 (73) 96 126/67 (86) 07/10/17 18:00 93 07/10/17 18:00 35 07/10/17 17:03 96 35 07/10/17 16:22 91 89/54 07/10/17 16:22 91 89/54 07/10/17 16:19 97.3 94 20 83/52 95 07/10/17 16:12 98 91/55 07/10/17 16:12 98 91/55 07/10/17 16:07 93 127/73 07/10/17 16:02 112 141/73 07/10/17 16:02 112 141/73 07/10/17 16:00 35 07/10/17 16:00 100 07/10/17 16:00 97.3 100 20 115/76 (89) 99 137/72 (93) 07/10/17 15:58 98 136/72 I/O 07/10/17 07/10/17 07/10/17 07/11/17 07/11/17 07/11/17 07:00 15:00 23:00 07:00 15:00 23:00 Intake Total 60 ml 4325 ml 1960 ml 5524 ml 1850 ml Output Total 200 ml 1000 ml 1600 ml Balance -140 ml 4325 ml 960 ml 3924 ml 1850 ml IV Total 3290 ml 1460 ml 5524 ml 1850 ml Packed Cells 800 ml 400 ml Blood Product IV Normal Saline Flush 235 ml 100 ml Other 60 ml Output Urine Total 200 ml 1000 ml 1600 ml # Bowel Movements 0 Laboratory Laboratory Tests Test 07/10/17 20:25 07/10/17 20:35 07/10/17 21:30 07/11/17 04:45 Blood Gas Puncture Site KEE Blood Gas Patient Temperature 98.6 Blood Gas HCO3 21 Blood Gas Base Excess -2.0 Blood Gas Oxygen Saturation 94 Arterial Blood pH 7.45 Arterial Blood Partial Pressure CO2 32 Arterial Blood Partial Pressure O2 80 Arterial Blood Oxygen Content 13.4 Arterial Blood Carboxyhemoglobin 1.0 Arterial Blood Methemoglobin 1.2 Blood Gas Hemoglobin 10.0 Oxygen Delivery Device VENT Blood Gas Ventilator Setting SEE COMMENT Blood Gas Inspired Oxygen 35 Hemoglobin 9.7 9.4 Hematocrit 27.5 26.4 Lactic Acid Level 7.0 Activated Partial Thromboplast Time 43.4 White Blood Count 14.9 Red Blood Count 3.26 Mean Corpuscular Volume 81.0 Mean Corpuscular Hemoglobin 28.7 Mean Corpuscular Hemoglobin Concent 35.5 Red Cell Distribution Width 16.5 Platelet Count 52 Mean Platelet Volume 7.2 CBC Comment AUTO DIFF Differential Total Cells Counted 100 Neutrophils % (Manual) 88 Band Neutrophils % 4 Lymphocytes % 4 Monocytes % 4 Neutrophils # (Manual) 13.7 Nucleated Red Blood Cells 3 Differential Comment FINAL DIFF MANUAL Platelet Estimate LOW Platelet Morphology Comment NORMAL Red Cell Morphology Comment NORMAL Blood Urea Nitrogen 35 Creatinine 1.68 Random Glucose 131 Total Protein 4.1 Albumin 1.2 Calcium Level 5.1 Alkaline Phosphatase 100 Aspartate Amino Transf (AST/SGOT) 360 Alanine Aminotransferase (ALT/SGPT) 130 Total Bilirubin 0.6 Sodium Level 130 Potassium Level 3.7 Chloride Level 89 Carbon Dioxide Level 26.8 Anion Gap 14 Estimat Glomerular Filtration Rate 41 Protein Corrected Calcium 6.3 Date/Time Source Procedure Growth Status 07/07/17 18:25 Blood Peripheral Aerobic Blood Culture - Preliminary NO GROWTH IN 4 DAYS Resulted 07/07/17 18:25 Blood Peripheral Anaerobic Blood Culture - Final QNS - SEE AEROBE REPORT Resulted 07/07/17 12:00 Nasal Aspirate Influenza Types A,B Antigen (ANALI) - Final NEGATIVE FOR FLU A AND B ANTIGEN.... Complete 07/07/17 12:00 Urine Catheterized Urine Urine Culture - Final NO GROWTH IN 48 HOURS. Complete Imaging Last Impressions Chest X-Ray 07/09/17 0600 Signed Impressions: Service Date/Time: Sunday, July 09, 2017 03:30 - CONCLUSION: Right basilar atelectasis. Jeffery Mercedes MD Chest CT 07/07/17 1431 Signed Impressions: Service Date/Time: Friday, July 07, 2017 15:58 - CONCLUSION: There is development of right pleural effusion which is small which is associated with progressive infiltrate and mild consolidation in the right lower lobe with peripheral air bronchograms. This has progressed relative to CTA of the chest on the previous day. Persistent fluid filled dilatation of the esophagus. Extensive coronary calcifications. Андрей Mcleod MD Abdomen/Pelvis CT 07/07/17 1431 Signed Impressions: Service Date/Time: Friday, July 07, 2017 15:58 - CONCLUSION: There is significant interval change in the right lower quadrant extending into the pelvis there is extensive inflammatory change in the fat and a small amount of fluid. This is adjacent to the cecum. Entities such as appendicitis are suggested. This should be correlated with clinical history and physical examination. Please see CT scan of the chest the same day for change in the right lung base progressive infiltrate and small effusion. Андрей Mcleod MD ADDENDUM: Delayed history was obtained. Patient apparently had invasive procedure extended with placement of a femoral venous catheter which is faintly appreciated. The inflammatory changes in the right lower quadrant are extensive and could potentially be secondary to iatrogenic cause. Андрей Mcleod MD Lower Extremity Ultrasound 07/06/17 0000 Signed Impressions: Service Date/Time: Thursday, July 06, 2017 13:14 - CONCLUSION: Negative for deep venous thrombosis. Roldan Hernandez MD FACR CT Angiography 07/06/17 0000 Signed Impressions: Service Date/Time: Thursday, July 06, 2017 18:41 - CONCLUSION: 1. No evidence of pulmonary embolism. 2. Linear infiltrate right lung base suggestive of atelectasis. 3. Stable 4 mm pulmonary nodule left lower lung. 4. Nonspecific dilatation of the thoracic esophagus. This could be from dysmotility. Abdon Tracy MD Head CT 07/03/17 2805 Signed Impressions: Service Date/Time: Monday, July 03, 2017 18:01 - CONCLUSION: 1. Stable examination compared to the examination from 2016. 2. Diffuse bilateral cortical atrophy which is stable. 3. No new or acute pathology. Abdon Tracy MD Physical Exam HEENT: Normocephalic; atraumatic (+) chemosis CHEST: Respiratory in sync with vent. Mechanically ventilated via ETT CARDIAC: RRR ABDOMEN: Obese, soft, bowel sounds faint. EXTREMITIES: Generalized edema SKIN: (+) jaundice, mild [employer]: Sedated, unarousable (Emerita Burgess) Assessment and Plan Plan - dysphagia - failed swallow eval. has been coughing, producing mucus. hx esophageal strictures, had EGD and dilatation 04/2017 for distal esophageal stricture. - leukocytosis - worsening. - chest pain, elevated troponin - cardiology following - sepsis /2 UTI (07/07) Pt was scheduled for EGD with dilation yesterday for dysphagia, however was found on the ground hypoxic. Now in ICU on sedation and mechanically ventilated. On Levophed. Significant drop in H/H noted from 11.1/33.8 yesterday morning to 7.5/22.8 last night. No obvious site of bleeding. Of note, pt is currently on Heparin and Plavix, Plavix currently on hold. RN states pt has not had a BM. No OGT or NGT at this time, unable to pass, met resistance. Abdomen and flanks examined revealed no bruising or signs of peritoneal bleeding, concern given recent fall. CT abdomen and pelvis ordered per CC. Now S/P 1 U of PRBC with one more unit ordered. Known history of PUD. Will continue to follow. (07/08) --> Pt remains mechanically ventilated. Awakens to verbal stimuli, follows commands. CT abdomen and pelvis W/O contrast (07/07) --> There is significant interval change in the RLQ extending into the pelvis there is extensive inflammatory change in the fat and a small amount of fluid. This is adjacent to the cecum. Entities such as appendicitis are suggested. This should be correlated with clinical history and physical examination. Leukocytosis- WBC-20.1 Afebrile over night. Meropenem and Levofloxacin and Vanco. We have been asked to evaluate pt for OG placement, nurse met resistance and unable to place, history of esophageal strictures and was planned for EGD with dilation prior to fall. Plan for EGD with dilation and OG placement on Sunday. Anemia- S/P 2 U PRBCs yesterday, H/H currently 9.2/27.2. 07/10/17 s/p EGD found mass in cardia. BX pending. CT abd pending to eval cardia mass. had drop in HH, hgb 5.3. blood transfusing. just made no code, DNR. palliative care now following (07/11) --> Biopsy from EGD still pending. Pt has been seen by palliative care. Spoke with RN who states brothers are planning on coming to the hospital later this week and want to make further decisions regarding his plan of care at that time. There has been discussion about withdrawing life support. OG tube clamped at this time. Transaminitis, new, likely secondary to medication and hypotension. Pt remains on 3 pressors. H/H stable from yesterday. Transfused yesterday. PLAN - Biopsy pending - Further plan of care to be decided by brothers when they come to [facility] later this week - Continue current supportive care and monitor labs - Further recommendations pending biopsy results and POA wishes regarding care Pt has been seen and examined by myself and Dr. Linares and this note is written on his behalf (Emerita Burgess) Physician Comments Patient seen and examined Agree with above Continue current supportive care Monitor labs Biopsy shows adenocarcinoma Further plans as per the surgical oncology team and possibly oncology Not much to add from a GI standpoint we will sign off Please reconsult as needed (Amanuel Linares MD) Emerita Burgess Jul 11, 2017 15:45 Amanuel Linares MD Jul 11, 2017 20:41
--- NOTE | 2017-07-11 17:37 | HHI.HCPN ---
Reason for visit a. To assist with evaluation and management of symptoms including: Shortness of breath, pain and debility. b. To assist medical decision maker(s) with: better understanding of current medical conditions; weighing benefits/burdens of medical treatment options; making medical treatment decisions. . Subjective/Interval History Follow up visit for symptom management and clarification of medical treatment goals. Patient seen and examined in [facility] [place]. [facility]. Patient remains on pressor support (Norepinephrine 12mcg and Phenylephrine 70). He is unresponsive to voice or exam. Stable hemoglobin 9.4, hematocrit 26.4. Platelets have dropped from 100 to 52. Creatinine 1.68. Albumin 1.2. Stomach pathology pending. . Family/friend interactions Called brother, Micah Valdes to provide update. Questions answered. He tells me he and his brother will likely be driving to [place] on Sunday evening to arrive in [place] Sunday early AM. Advised we will continue to provide medical updates until they arrive. He verbalizes appreciation for continued communication. . Advance Directives Living Will: Never completed Health Care Surrogate: Never completed Durable Power of Farm General Manager: Never completed Advance Directive Specifics Health Care Surrogate(s): Patient reports that no advance directives have been completed. Patient is single, no children, both parents are . As per [place] statute, healthcare proxy decision-making falls to the majority of patient's siblings for which he has 3: Gerry Obrien and Dami. . Objective Vital Signs Date Time Temp Pulse Resp B/P (MAP) Pulse Ox O2 Delivery O2 Flow Rate FiO2 07/11/17 16:00 35 07/11/17 16:00 91 07/11/17 16:00 98.6 91 20 90/63 (72) 95 102/62 (75) 07/11/17 15:55 91 103/62 07/11/17 15:10 96 35 07/11/17 14:57 91 111/65 07/11/17 14:41 90 110/65 07/11/17 14:41 90 113/67 07/11/17 14:40 90 113/67 07/11/17 14:00 91 07/11/17 12:53 92 113/67 07/11/17 12:00 35 07/11/17 12:00 92 07/11/17 12:00 98.4 92 20 94/63 (73) 96 109/67 (81) 07/11/17 11:28 96 35 07/11/17 10:38 92 113/69 07/11/17 10:00 87 07/11/17 09:50 86 140/79 07/11/17 09:50 141/79 07/11/17 09:28 111/59 07/11/17 09:10 119/73 07/11/17 09:00 91 129/76 07/11/17 08:22 95 35 07/11/17 08:02 135/79 07/11/17 08:02 135/78 07/11/17 08:02 90 137/78 07/11/17 08:00 35 07/11/17 08:00 98.3 90 20 111/59 (76) 96 133/77 (95) 07/11/17 08:00 90 07/11/17 06:20 91 110/71 07/11/17 06:19 91 110/65 07/11/17 06:00 89 07/11/17 04:07 94 35 07/11/17 04:00 35 07/11/17 04:00 89 07/11/17 04:00 97.4 89 20 126/73 (90) 95 07/11/17 03:00 78 07/11/17 00:21 94 35 07/11/17 00:00 97.4 92 20 102/62 (75) 94 120/74 (89) 07/11/17 00:00 92 07/11/17 00:00 35 07/10/17 22:44 96 98/62 07/10/17 22:43 96 98/62 07/10/17 22:00 95 07/10/17 20:21 96 35 07/10/17 20:00 35 07/10/17 20:00 83 07/10/17 20:00 97.6 83 20 103/58 (73) 96 126/67 (86) 07/10/17 18:00 93 07/10/17 18:00 35 07/10/17 17:03 96 35 Intake & Output 07/11/17 07/11/17 07:00 19:00 Intake Total 5524 ml 1850 ml Output Total 1600 ml Balance 3924 ml 1850 ml IV Total 5524 ml 1850 ml Output Urine Total 1600 ml Physical Exam CONSTITUTIONAL/GENERAL: This is a critically ill, male patient currently intubated on mechanical ventilation TUBES/LINES/DRAINS: ETT, OGT, right femoral arterial line, right femoral CVL, Coates catheter SKIN: Ashen in color. Ecchymosis to bilateral lower extremities. Skin temperature appropriate. Not diaphoretic. HEAD: Atraumatic. Normocephalic. EYES: Pupils equal and round and sluggish Extraocular motions intact. No scleral icterus. No injection or drainage. ENT: Nose without bleeding or purulent drainage. Dry oral mucosa. NECK: Trachea midline. Supple, nontender. CARDIOVASCULAR: Regular rate and rhythm without murmurs. Peripheral pulses symmetric. RESPIRATORY/CHEST: Intubated on mechanical ventilation; coarse breath sounds GASTROINTESTINAL: Abdomen soft, large, round, obese. No guarding. Hypoactive bowel sounds GENITOURINARY: Without palpable bladder distension. Coates catheter in place. MUSCULOSKELETAL: Extremities without clubbing, cyanosis. Edema to bilateral upper and lower extremities. NEUROLOGICAL: Sedated on fentanyl 50 g/hr. Does not arouse to verbal stimuli or withdraw to deep tactile stimuli. PSYCHIATRIC: Unable to assess secondary to patient's clinical condition . Diagnostic Tests Laboratory Laboratory Tests Test 07/08/17 17:20 07/08/17 22:50 07/09/17 04:10 07/09/17 05:13 Hemoglobin 8.2 GM/DL (13.0-17.0) 8.0 GM/DL (13.0-17.0) 8.0 GM/DL (13.0-17.0) Hematocrit 23.4 % (39.0-51.0) 23.2 % (39.0-51.0) Blood Urea Nitrogen 38 MG/DL (7-18) 37 MG/DL (7-18) Creatinine 1.44 MG/DL (0.60-1.30) 1.57 MG/DL (0.60-1.30) Random Glucose 141 MG/DL (74-106) 174 MG/DL (74-106) Total Protein 4.5 GM/DL (6.4-8.2) 4.7 GM/DL (6.4-8.2) Albumin 1.3 GM/DL (3.4-5.0) Calcium Level 6.5 MG/DL (8.5-10.1) 6.6 MG/DL (8.5-10.1) Alkaline Phosphatase 92 U/L (45-117) Aspartate Amino Transf (AST/SGOT) 9 U/L (15-37) Alanine Aminotransferase (ALT/SGPT) 7 U/L (12-78) Total Bilirubin 0.4 MG/DL (0.2-1.0) Sodium Level 152 MEQ/L (136-145) 150 MEQ/L (136-145) Potassium Level 3.5 MEQ/L (3.5-5.1) 3.2 MEQ/L (3.5-5.1) Chloride Level 118 MEQ/L (98-107) 116 MEQ/L (98-107) Carbon Dioxide Level 23.9 MEQ/L (21.0-32.0) 24.7 MEQ/L (21.0-32.0) Anion Gap 10 MEQ/L (5-15) 9 MEQ/L (5-15) Estimat Glomerular Filtration Rate 50 ML/MIN (>89) 45 ML/MIN (>89) Protein Corrected Calcium 7.8 MG/DL (8.5-10.1) 7.8 MG/DL (8.5-10.1) White Blood Count 15.2 TH/MM3 (4.0-11.0) Red Blood Count 2.78 MIL/MM3 (4.50-5.90) Mean Corpuscular Volume 83.5 FL (80.0-100.0) Mean Corpuscular Hemoglobin 28.9 PG (27.0-34.0) Mean Corpuscular Hemoglobin Concent 34.6 % (32.0-36.0) Red Cell Distribution Width 16.9 % (11.6-17.2) Platelet Count 111 TH/MM3 (150-450) Mean Platelet Volume 7.4 FL (7.0-11.0) Neutrophils (%) (Auto) 92.4 % (16.0-70.0) Lymphocytes (%) (Auto) 5.8 % (9.0-44.0) Monocytes (%) (Auto) 1.7 % (0.0-8.0) Eosinophils (%) (Auto) 0.0 % (0.0-4.0) Basophils (%) (Auto) 0.1 % (0.0-2.0) Neutrophils # (Auto) 14.1 TH/MM3 (1.8-7.7) Lymphocytes # (Auto) 0.9 TH/MM3 (1.0-4.8) Monocytes # (Auto) 0.3 TH/MM3 (0-0.9) Eosinophils # (Auto) 0.0 TH/MM3 (0-0.4) Basophils # (Auto) 0.0 TH/MM3 (0-0.2) CBC Comment DIFF FINAL Differential Comment Phosphorus Level 2.9 MG/DL (2.5-4.9) Magnesium Level 2.1 MG/DL (1.5-2.5) Lactic Acid Level 3.4 mmol/L (0.4-2.0) Blood Gas Puncture Site ART LINE Blood Gas Patient Temperature 98.6 Blood Gas HCO3 21 mmol/L (22-26) Blood Gas Base Excess -3.9 mmol/L (-2-2) Blood Gas Oxygen Saturation 97 % (90-100) Arterial Blood pH 7.33 (7.380-7.420) Arterial Blood Partial Pressure CO2 42 mmHg (38-42) Arterial Blood Partial Pressure O2 129 mmHg (61-120) Arterial Blood Oxygen Content 11.1 Vol % (12.0-20.0) Arterial Blood Carboxyhemoglobin 0.4 % (0-4) Arterial Blood Methemoglobin 1.3 % (0-2) Blood Gas Hemoglobin 8.0 G/DL (12.0-16.0) Oxygen Delivery Device VENTILATOR Blood Gas Ventilator Setting SEE COMMENT Blood Gas Inspired Oxygen 35 % Test 07/09/17 13:40 07/10/17 05:30 07/10/17 15:18 07/10/17 15:25 Potassium Level 4.0 MEQ/L (3.5-5.1) 4.0 MEQ/L (3.5-5.1) Phosphorus Level 2.7 MG/DL (2.5-4.9) 4.0 MG/DL (2.5-4.9) White Blood Count 10.0 TH/MM3 (4.0-11.0) Red Blood Count 1.85 MIL/MM3 (4.50-5.90) Hemoglobin 5.3 GM/DL (13.0-17.0) Hematocrit 15.9 % (39.0-51.0) Mean Corpuscular Volume 86.0 FL (80.0-100.0) Mean Corpuscular Hemoglobin 28.7 PG (27.0-34.0) Mean Corpuscular Hemoglobin Concent 33.3 % (32.0-36.0) Red Cell Distribution Width 17.4 % (11.6-17.2) Platelet Count 100 TH/MM3 (150-450) Mean Platelet Volume 8.2 FL (7.0-11.0) CBC Comment AUTO DIFF Differential Total Cells Counted 100 Neutrophils % (Manual) 64 % (16-70) Band Neutrophils % 7 % (0-6) Lymphocytes % 27 % (9-44) Monocytes % 1 % (0-8) Eosinophils % 1 % (0-4) Neutrophils # (Manual) 7.1 TH/MM3 (1.8-7.7) Nucleated Red Blood Cells 23 /100 WBC (0-0) Differential Comment FINAL DIFF MANUAL Toxic Vacuolation PRESENT (NONE SEEN) Platelet Estimate LOW (NORMAL) Platelet Morphology Comment NORMAL (NORMAL) Blood Urea Nitrogen 43 MG/DL (7-18) Creatinine 2.21 MG/DL (0.60-1.30) Random Glucose 248 MG/DL (74-106) Total Protein 4.0 GM/DL (6.4-8.2) Calcium Level 5.8 MG/DL (8.5-10.1) Magnesium Level 2.0 MG/DL (1.5-2.5) Sodium Level 141 MEQ/L (136-145) Chloride Level 107 MEQ/L (98-107) Carbon Dioxide Level 20.4 MEQ/L (21.0-32.0) Anion Gap 14 MEQ/L (5-15) Estimat Glomerular Filtration Rate 30 ML/MIN (>89) Lactic Acid Level 9.2 mmol/L (0.4-2.0) 5.3 mmol/L (0.4-2.0) Protein Corrected Calcium 7.3 MG/DL (8.5-10.1) Blood Gas Puncture Site ART LINE Blood Gas Patient Temperature 98.6 Blood Gas HCO3 22 mmol/L (22-26) Blood Gas Base Excess -3.6 mmol/L (-2-2) Blood Gas Oxygen Saturation 95 % (90-100) Arterial Blood pH 7.28 (7.380-7.420) Arterial Blood Partial Pressure CO2 48 mmHg (38-42) Arterial Blood Partial Pressure O2 82 mmHG (61-120) Arterial Blood Oxygen Content 13.6 Vol % (12.0-20.0) Arterial Blood Carboxyhemoglobin 1.0 % (0-4) Arterial Blood Methemoglobin 0.5 % (0-2) Blood Gas Hemoglobin 10.1 G/DL (12.0-16.0) Oxygen Delivery Device VENTILATOR Blood Gas Ventilator Setting Blood Gas Inspired Oxygen 35 % Test 07/10/17 20:25 07/10/17 20:35 07/10/17 21:30 07/11/17 04:45 Blood Gas Puncture Site KEE Blood Gas Patient Temperature 98.6 Blood Gas HCO3 21 mmol/L (22-26) Blood Gas Base Excess -2.0 mmol/L (-2-2) Blood Gas Oxygen Saturation 94 % (90-100) Arterial Blood pH 7.45 (7.380-7.420) Arterial Blood Partial Pressure CO2 32 mmHg (38-42) Arterial Blood Partial Pressure O2 80 mmHg (61-120) Arterial Blood Oxygen Content 13.4 Vol % (12.0-20.0) Arterial Blood Carboxyhemoglobin 1.0 % (0-4) Arterial Blood Methemoglobin 1.2 % (0-2) Blood Gas Hemoglobin 10.0 G/DL (12.0-16.0) Oxygen Delivery Device VENT Blood Gas Ventilator Setting SEE COMMENT Blood Gas Inspired Oxygen 35 % Hemoglobin 9.7 GM/DL (13.0-17.0) 9.4 GM/DL (13.0-17.0) Hematocrit 27.5 % (39.0-51.0) 26.4 % (39.0-51.0) Lactic Acid Level 7.0 mmol/L (0.4-2.0) Activated Partial Thromboplast Time 43.4 SEC (24.3-30.1) White Blood Count 14.9 TH/MM3 (4.0-11.0) Red Blood Count 3.26 MIL/MM3 (4.50-5.90) Mean Corpuscular Volume 81.0 FL (80.0-100.0) Mean Corpuscular Hemoglobin 28.7 PG (27.0-34.0) Mean Corpuscular Hemoglobin Concent 35.5 % (32.0-36.0) Red Cell Distribution Width 16.5 % (11.6-17.2) Platelet Count 52 TH/MM3 (150-450) Mean Platelet Volume 7.2 FL (7.0-11.0) CBC Comment AUTO DIFF Differential Total Cells Counted 100 Neutrophils % (Manual) 88 % (16-70) Band Neutrophils % 4 % (0-6) Lymphocytes % 4 % (9-44) Monocytes % 4 % (0-8) Neutrophils # (Manual) 13.7 TH/MM3 (1.8-7.7) Nucleated Red Blood Cells 3 /100 WBC (0-0) Differential Comment FINAL DIFF MANUAL Platelet Estimate LOW (NORMAL) Platelet Morphology Comment NORMAL (NORMAL) Red Cell Morphology Comment NORMAL (NORMAL) Blood Urea Nitrogen 35 MG/DL (7-18) Creatinine 1.68 MG/DL (0.60-1.30) Random Glucose 131 MG/DL (74-106) Total Protein 4.1 GM/DL (6.4-8.2) Albumin 1.2 GM/DL (3.4-5.0) Calcium Level 5.1 MG/DL (8.5-10.1) Alkaline Phosphatase 100 U/L (45-117) Aspartate Amino Transf (AST/SGOT) 360 U/L (15-37) Alanine Aminotransferase (ALT/SGPT) 130 U/L (12-78) Total Bilirubin 0.6 MG/DL (0.2-1.0) Sodium Level 130 MEQ/L (136-145) Potassium Level 3.7 MEQ/L (3.5-5.1) Chloride Level 89 MEQ/L (98-107) Carbon Dioxide Level 26.8 MEQ/L (21.0-32.0) Anion Gap 14 MEQ/L (5-15) Estimat Glomerular Filtration Rate 41 ML/MIN (>89) Protein Corrected Calcium 6.3 MG/DL (8.5-10.1) Result Diagram: 07/11/17 0445 07/11/17 0445 Procedures 07/07/2017: Intubated 07/07/2017: right femoral arterial line; right femoral central line . Assessment and Plan Disease Oriented Problem List: (1) Respiratory failure (2) PNA (pneumonia) (3) UTI (urinary tract infection) (4) Sepsis (5) Lactic acidosis (6) Acute kidney injury Symptom Scale: (1) Shortness of breath 0-10 Scale: Unable to quantify (2) Pain 0-10 Scale: Unable to quantify (3) Debility 0-10 Scale: Unable to quantify Pertinent Non-Medical Issues Psychosocial: Patient originally from [place]. Moved to [place] when he was 9 years old. Patient is single, no children. Both parents are . Patient has 3 brothers who live in [place]. Patient is disabled secondary to CVA. 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 Spiritual: [employer] genaro. Legal: No advance directives completed. Ethical issues impacting care: No ethical issues identified. . Important Contacts Brother Micah Valdes: C , H , W . Brother Gerry Valdes Brother Dami -no tel number . Prognosis Mr. Valdes is a 62-year-old male with a medical history significant for hypertension, GERD, hyperlipidemia, esophageal structures and CVA. Patient presented to ED via EMS on 07/03/17 for evaluation of altered mental status and weakness. Patient admitted for further management of UTI, pneumonia, sepsis. Clinical course complicated by acute kidney injury and respiratory failure. Patient very high risk for further complications, continue decline and . . Code Status: No Code Plan * CODE STATUS: NO CODE * HEALTHCARE DECISION-MAKING: Patient with limited participation in medical decision-making secondary to clinical condition, intermittent confusion and lethargy. Patient reports that no advance directives have been completed. Patient is single, no children, both parents are . As per [place] statute, healthcare proxy decision-making falls to the majority of patient's siblings for which he has 3: Gerry Obrien and Dami Valdes. Per [place], brother (Dami) is homeless and not reachable. * GOALS OF CARE: Spoke with brotherMicah to provide update. He confirms family has elected NO CODE status. They desire continued aggressive care short of NO CODE until they are able to arrive in [place], Sunday07/14/17 around 6am. Advised we will continue to provide updates. * SYMPTOMS: = Dyspnea: Likely secondary to sepsis, pneumonia. CTA of chest showed no indication of PE. Transferred to medical ICU for further monitoring and management 07/06/2017. Clinical Training Coordinator following. = Pain: Patient with history of chronic pain. Home regimen to include [place] 5/325 every 6 hours as needed, gabapentin 300 mg twice a day. Sedated s/p EGD; on fentanyl drip as well. = Debility, progressive since CVA in 2015. * Case discussed with bedside RN. * Palliative care will continue to follow-up for further clarifications of goals of care as patient's clinical course continues to evolve. . Attestation To help prompt me to consider important information that might be impacting today's encounter and assessment, information from prior notes written by myself or my colleagues may have been "brought forward" into today's note. My signature on this note, however, is an attestation that I personally performed the exam, history, and/or decision-making noted today, and, unless otherwise indicated, the interactions with patient, family, and staff as well as the review of records all occurred today. I also attest that the listed assessment and stated plan reflect my best clinical judgment today based on the combination of historical information, prior notes, and today's exam/ interactions. When time spent is documented, it refers only to time spent today by the signer, or if indicated, combined time spent today by collaborating physician/nurse practitioner. Fiorella Canada Jul 11, 2017 17:37
[2017-07-11] MEDS: TAMSULOSIN HCL 0.4 MG CAP PO SCH (23:38)
--- NOTE | 2017-07-11 23:45 | HHI.CCPN ---
Subjective Remarks/Hospital Course The patient is a 62-year-old male with past medical history of CVA 3 years ago, hypertension, hyperlipidemia and gastroesophageal reflux disease, peptic ulcer disease who was admitted under hospitalist service on July 03 for urinary tract infection, acute kidney injury and dehydration. The patient was found to have E-coli ESBL on a urine culture. On arrival he had a CT scan of the brain for lethargy which showed a diffuse bilateral cortical atrophy and no new pathology noted. He also had a CT abdomen, pelvis which did not show any acute abdominal findings. His initial chest x-ray on admission showed no acute disease as well. The patient was placed on antibiotics and IV fluids. He underwent the EGD with dilatation for an distal esophageal stricture in April 2017. He is currently being followed by gastrointestinal, infectious disease and a cardiology. A Helicat was called as the patient was found hypoxic with saturation in the 70s and hypotensive. He is currently receiving 1 liter bolus of normal saline and was transferred to [facility] [place]. Critical care medicine was consulted for critical care management. ABG was performed which showed pH of 7.51, CO2 22, pAO2 171, bicarb 17 andsaturation of 97%. Chest x-ray was also performed which showed no obvious infiltrates or effusions. His laboratory data from today showed worsening renal function with creatinine 1.4 from 1.12 and hypernatremia with a sodium level of 153. The patient is lethargic, however he responds to questions appropriately. Subjective: 07/07: Patient hypotensive, systolic blood pressure in the 80s, patient extremely lethargic, obtunded. Unable to obtain pulse ox O2 sats. Patient placed on nonrebreather 100% mask. Unable to obtain arterial line ABG. Right femoral central line right femoral arterial line placed under ultrasound guidance. Levophed infusion initiated. Contacted ARTHUR Valdes, explained and provided medical status update patient intubated, for airway protection and adequate oxygenation. 07/08: Afebrile. Patient continues on vasopressor support with norepinephrine at 7 mics/minute, vasopressin and phenylephrine have been discontinued. Sedation vacation revealed patient awake responding to commands. Slight improvement and lactic acidemia. Multiple attempts at OG placement yesterday unsuccessful. And for GI on Sunday 07/09 for EGD dilatation would OGT placement. Patient unable to receive Tamiflu secondary to inability to place NG tube. The patient continues on sodium bicarbonate infusion. CT of abdomen and pelvis significant change RLL, suggestive of possible appendicitis, Gen. surgery consulted. I contacted Dr. Del Angel currently in the OR and made him aware of CT report. Consulted my colleague Dr. Tovar and reviewed films. Reevaluation of right groin site, no hematoma palpated. Serial HGB every 12 hours being obtained. 07/09 Patient is sedated , intubated with Fentanyl drip, on Levophed 7 mics and bicarb drip. 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 He required increase pressors overnight now is on Levophed 30 mics, Neosyn 300 mics and Vasopressin 0.01. Hgb 5.3 this morning and Lactic acid 9.2. Patient was made no code DNR last night. 07/11: remains in shock. remains on vasopressors. minimal improvements in organ function. Objective Vital Signs Date Time Temp Pulse Resp B/P (MAP) Pulse Ox O2 Delivery O2 Flow Rate FiO2 07/11/17 23:35 88 116/68 07/11/17 23:33 96 35 07/11/17 16:00 98.6 20 07/07/17 08:00 Simple Mask 8.00 Intake and Output 07/11/17 07/11/17 07/12/17 08:00 16:00 00:00 Intake Total 5524 ml 1850 ml Output Total 1600 ml 1100 ml Balance 3924 ml 1850 ml -1100 ml Result Diagram: 07/11/17 0445 07/11/17 2045 Imaging Last Impressions Chest X-Ray 07/09/17 0600 Signed Impressions: Service Date/Time: Sunday, July 09, 2017 03:30 - CONCLUSION: Right basilar atelectasis. Jeffery Mercedes MD Chest CT 07/07/17 1431 Signed Impressions: Service Date/Time: Friday, July 07, 2017 15:58 - CONCLUSION: There is development of right pleural effusion which is small which is associated with progressive infiltrate and mild consolidation in the right lower lobe with peripheral air bronchograms. This has progressed relative to CTA of the chest on the previous day. Persistent fluid filled dilatation of the esophagus. Extensive coronary calcifications. Андрей Mcleod MD Abdomen/Pelvis CT 07/07/17 1431 Signed Impressions: Service Date/Time: Friday, July 07, 2017 15:58 - CONCLUSION: There is significant interval change in the right lower quadrant extending into the pelvis there is extensive inflammatory change in the fat and a small amount of fluid. This is adjacent to the cecum. Entities such as appendicitis are suggested. This should be correlated with clinical history and physical examination. Please see CT scan of the chest the same day for change in the right lung base progressive infiltrate and small effusion. Андрей Mcleod MD ADDENDUM: Delayed history was obtained. Patient apparently had invasive procedure extended with placement of a femoral venous catheter which is faintly appreciated. The inflammatory changes in the right lower quadrant are extensive and could potentially be secondary to iatrogenic cause. Андрей Mcleod MD Lower Extremity Ultrasound 07/06/17 0000 Signed Impressions: Service Date/Time: Thursday, July 06, 2017 13:14 - CONCLUSION: Negative for deep venous thrombosis. Roldan Hernandez MD FACR CT Angiography 07/06/17 0000 Signed Impressions: Service Date/Time: Thursday, July 06, 2017 18:41 - CONCLUSION: 1. No evidence of pulmonary embolism. 2. Linear infiltrate right lung base suggestive of atelectasis. 3. Stable 4 mm pulmonary nodule left lower lung. 4. Nonspecific dilatation of the thoracic esophagus. This could be from dysmotility. Abdon Tracy MD Head CT 07/03/17 1415 Signed Impressions: Service Date/Time: Monday, July 03, 2017 18:01 - CONCLUSION: 1. Stable examination compared to the examination from 2016. 2. Diffuse bilateral cortical atrophy which is stable. 3. No new or acute pathology. Abdon Tracy MD Objective Remarks GENERAL: chronically/critically ill-appearing patient intubated and sedated SKIN: Warm and dry. HEAD: Atraumatic. Normocephalic. EYES: Pupils equal and round. No scleral icterus. 2 mm and briskly reactive. No injection or drainage. ENT: No nasal bleeding or discharge. Mucous membranes pink and moist. NECK: Trachea midline. No JVD. CARDIOVASCULAR: Normal rate, regular rhythm. RESPIRATORY: No accessory muscle use. Clear to auscultation. Breath sounds equal bilaterally. GASTROINTESTINAL: Abdomen soft, non-tender, nondistended. No guarding. MUSCULOSKELETAL: Extremities without clubbing, cyanosis, or edema. No obvious deformities. NEUROLOGICAL: Awake and alert. RASS -2. No gross focal/sensory deficits. Follows commands in all 4 extremities. Weak in right upper and lower extremity secondary to previous CVA but patient is following commands. Procedures none Date of Insertion: Jul 06, 2017 Date of Insertion: Jul 07, 2017 Line: Central Venous Catheter Side: Right Location: Femoral A/P Assessment and Plan IMPRESSION Plan by systems: Neurologic: History of CVA Daily sedation vacation Fentanyl infusion 50 mcgs/hr for sedation/analgesia while endotracheally intubated Daily sedation vacation when appropriate Respiratory: Hypoxic respiratory failure secondary to septic shock 07/07 intubated Continue with vent support maintain O2 sat greater than 92% Schedule bronchodilators every 6 hours and every 2 hours when necessary Ventilator bundle CT chest -small right pleural effusion, with progressive infiltrate, peripheral right lower lobe air bronchograms. Persistent fluid-filled dilation of esophagus. Cardiovascular: Septic Shock Continue with pressors( Levophed, Neosyn, Vasopressin) maintain MAP>65mmHg Serial lactic acid monitoring: failure to clear lactate is a predictor of mortality and evidence of ongoing shock state. Stress dose steroids- on [id number] IV Q8 Cardiology service is following Dr. Harrell. Hold Plavix 75mg daily. Echocardiogram back in May 2015 which showed an EF of 55-60% and grade 1 diastolic dysfunction. Renal: CHANO Hypernatremia Maintain Coates -- Monitor renal function, I/O's, avoid nephrotoxins slow improvements in renal function. likely ATN secondary to shock. d/c bicarb start NS @ 75cc/hr. 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 General surgery consulted- Dr. Del Angel ID: Septic Shock Persistent leukocytosis UTI ESBL Escherichia coli Lactic acidemia ID following Antibiotics per ID ( Merrem, Diflucan) monitor for signs of infections ( Fever, WBC) 07/07 Follow up on blood,sputum and urine cxs. 07/07 Legionella strep pneumo Ag- Negative 07/07 influenza A and B antigens negative Heme: Monitor CBC, transfuse 3u PRBC for Hgb 5.3 Endocrine: Diabetes mellitus TSH 1.12 Glucose monitoring per ICU protocol --SSI medium scale. improved control. Prophylaxis: GI Prophylaxis Protonix 40mg IV daily DVT Prophylaxis -- SCDs, no pharmacological anticoagulation in the setting of bleed Lines: Peripheral IVs 2. Right femoral central line, right femoral arterial line 07/07 Palliative care is following patient is DNR. poor prognosis. Critical care time: 32 minutes, exclusive of separately billable procedures. Mejia Hart MD Jul 11, 2017 23:45
[2017-07-12] VITALS (17 sets, daily range): BP systolic 70–129; BP diastolic 42–77; PULSE 80–87; RESP 20; TEMP 97.7–99.4; O2SAT 92–97
[2017-07-12] MEDS: SODIUM CHLOR 0.9% 1000 ML INJ 1,000 ML IV SCH ×3 (03:29→21:30)
[2017-07-12 05:56] LABS: HEMATOCRIT 23.1 % (39.0-51.0); HEMOGLOBIN 8.4 GM/DL (13.0-17.0); MEAN CELL VOLUME 81.7 FL (80.0-100.0); MEAN CORPUSCULAR HEMOGLOBIN 29.7 PG (27.0-34.0); MEAN PLATELET VOLUME 7.7 FL (7.0-11.0); PLATELET COUNT 39 TH/MM3 (150-450); RED BLOOD COUNT 2.83 MIL/MM3 (4.50-5.90); RED CELL DISTRIBUTION WIDTH 16.3 % (11.6-17.2); WHITE BLOOD COUNT 9.8 TH/MM3 (4.0-11.0)
[2017-07-12 06:09] LABS: INTERNATIONAL NORMALIZED RATIO 1.7 RATIO; PROTHROMBIN TIME - PATIENT 17.7 SEC (9.8-11.6)
[2017-07-12 06:16] LABS: MEAN CORPUSCULAR HGB CONC 36.4 % (32.0-36.0)
[2017-07-12 06:28] LABS: ALBUMIN 1.1 GM/DL (3.4-5.0); AST (GOT) 314 U/L (15-37); BICARBONATE 29.9 MEQ/L (21.0-32.0); BLOOD UREA NITROGEN 42 MG/DL (7-18); CHLORIDE 83 MEQ/L (98-107); CREATININE 1.56 MG/DL (0.60-1.30); DIRECT BILIRUBIN ADULT 0.3 MG/DL (0.0-0.2); GLOMERULAR FILTRATION RATE 45 ML/MIN (>89); GLUCOSE,RANDOM 147 MG/DL (74-106); SODIUM (NA) 127 MEQ/L (136-145)
[2017-07-12 06:29] LABS: ALT (GPT) 126 U/L (12-78)
[2017-07-12] MEDS: MEROPENEM INJ 1,000 MG in SODIUM CHLORIDE 0.9% INJ 100 ML IV SCH ×3 (06:29→21:29)
[2017-07-12] MEDS: HYDROCORTISONE SOD SUCCINATE 100 MG VIAL IV PUSH SCH ×3 (06:30→21:29)
[2017-07-12 06:31] LABS: ALKALINE PHOSPHATASE 111 U/L (45-117); INDIRECT BILIRUBIN 0.4 MG/DL (0.0-0.8); TOTAL BILIRUBIN ADULT 0.7 MG/DL (0.2-1.0); TOTAL PROTEIN 4.2 GM/DL (6.4-8.2)
[2017-07-12 07:03] LABS: CALCIUM LESS THAN 5.0 MG/DL (8.5-10.1)
[2017-07-12] MEDS: INSULIN NovoLIN REGULAR SUPPLEMENTAL SCALE SQ SCH ×4 (08:00→20:00)
[2017-07-12 08:15] LABS: CALCIUM-PROTEIN CORRECTED LESS THAN 6.2 MG/DL (8.5-10.1)
[2017-07-12] MEDS: PANTOPRAZOLE SODIUM 40 MG VIAL IV PUSH SCH (08:38)
[2017-07-12] MEDS: CHLORHEXIDINE 0.12% (ORAL KIT) 15 ML CUP MT SCH ×2 (08:39→21:29)
[2017-07-12] MEDS: SODIUM CHLORIDE 0.9% FLUSH 10 ML FLUSH IV FLUSH SCH ×2 (08:39→21:29)
[2017-07-12] MEDS: GABAPENTIN 300 MG CAP PO SCH ×2 (08:41→21:29)
--- NOTE | 2017-07-12 11:48 | HHI.HCPN ---
Reason for visit a. To assist with evaluation and management of symptoms including: Shortness of breath, pain and debility. b. To assist medical decision maker(s) with: better understanding of current medical conditions; weighing benefits/burdens of medical treatment options; making medical treatment decisions. . Subjective/Interval History Follow up visit for symptom management and clarification of medical treatment goals. Patient seen and assessed this morning at 1115 Patient seen and examined in [facility] - room 521. Patient remains intubated on mechanical ventilation with continued pressor support. (Norepinephrine and Phenylephrine). Sedated on fentanyl infusion 50 g/hr. Wiggled the toes on his right foot when; withdrawals to deep tactile stimuli Hemoglobin decreased from 9.4 to 8.4 overnight and hematocrit decreased from 26.4 to 23.1. Platelets decreased to 39 today. Lactic acid: 6.1. 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 . Family/friend interactions Spoke with patient's brother, Gerry, to provide an update on the patient's clinical condition. He verbalizes understanding that his brother is critically ill, and prognosis is poor. Message left for patient's brother, Micah. Palliative care contact information was left on [employer]. Both brothers are planning on driving down from [place] tomorrow, expecting to arrive on Sunday. Considering transitioning to comfort focused care at that time. . Advance Directives Living Will: Never completed Health Care Surrogate: Never completed Durable Power of Security Tester: Never completed Advance Directive Specifics Health Care Surrogate(s): Patient reports that no advance directives have been completed. Patient is single, no children, both parents are . As per [place] statute, healthcare proxy decision-making falls to the majority of patient's siblings for which he has 3: Gerry Obrien and Dami. . Objective Vital Signs Date Time Temp Pulse Resp B/P (MAP) Pulse Ox O2 Delivery O2 Flow Rate FiO2 07/12/17 08:12 97 30 07/12/17 06:00 87 07/12/17 04:00 35 07/12/17 04:00 99.4 87 20 96/54 (68) 96 105/62 (76) 07/12/17 04:00 87 07/12/17 04:00 87 07/12/17 03:56 96 35 07/12/17 03:00 87 117/65 07/12/17 02:00 85 07/12/17 01:00 94 110/63 07/12/17 00:00 98.8 87 20 90/59 (69) 96 117/65 (82) 07/12/17 00:00 35 07/12/17 00:00 85 07/11/17 23:35 88 116/68 07/11/17 23:33 96 35 07/11/17 22:00 89 07/11/17 20:59 96 35 07/11/17 20:00 94 07/11/17 20:00 35 07/11/17 20:00 98.6 94 20 81/57 (65) 96 110/63 (79) 07/11/17 18:33 128/74 07/11/17 18:00 90 07/11/17 17:44 90 117/64 07/11/17 16:00 35 07/11/17 16:00 91 07/11/17 16:00 98.6 91 20 90/63 (72) 95 102/62 (75) 07/11/17 15:55 91 103/62 07/11/17 15:10 96 35 07/11/17 14:57 91 111/65 07/11/17 14:41 90 110/65 07/11/17 14:41 90 113/67 07/11/17 14:40 90 113/67 07/11/17 14:00 91 07/11/17 12:53 92 113/67 07/11/17 12:00 35 07/11/17 12:00 92 07/11/17 12:00 98.4 92 20 94/63 (73) 96 109/67 (81) Intake & Output 07/12/17 07/12/17 07:00 19:00 Intake Total 2203 ml Output Total 1400 ml Balance 803 ml IV Total 2203 ml Output Urine Total 1400 ml . Physical Exam CONSTITUTIONAL/GENERAL: This is a critically ill, male patient currently intubated on mechanical ventilation TUBES/LINES/DRAINS: ETT, OGT, right femoral arterial line, right femoral CVL, Coates catheter SKIN: Ashen in color. Ecchymosis to bilateral lower extremities. Skin temperature appropriate. Not diaphoretic. HEAD: Atraumatic. Normocephalic. EYES: Pupils equal and round and sluggish. Scleral edema ENT: Nose without bleeding or purulent drainage. Dry oral mucosa. NECK: Trachea midline. Supple, nontender. CARDIOVASCULAR: Regular rate and rhythm without murmurs. Peripheral pulses symmetric. RESPIRATORY/CHEST: Intubated on mechanical ventilation; coarse breath sounds GASTROINTESTINAL: Abdomen soft, large, round, obese. No guarding. Hypoactive bowel sounds GENITOURINARY: Without palpable bladder distension. Coates catheter in place. MUSCULOSKELETAL: Extremities without clubbing, cyanosis. Edema to bilateral upper and lower extremities. NEUROLOGICAL: Sedated on fentanyl 50 g/hr. Wiggled toes on right foot when asked to do so; withdraws from deep tactile stimuli PSYCHIATRIC: Unable to assess secondary to patient's clinical condition . Diagnostic Tests Laboratory Laboratory Tests Test 07/09/17 13:40 07/10/17 05:30 07/10/17 15:18 07/10/17 15:25 Potassium Level 4.0 MEQ/L (3.5-5.1) 4.0 MEQ/L (3.5-5.1) Phosphorus Level 2.7 MG/DL (2.5-4.9) 4.0 MG/DL (2.5-4.9) White Blood Count 10.0 TH/MM3 (4.0-11.0) Red Blood Count 1.85 MIL/MM3 (4.50-5.90) Hemoglobin 5.3 GM/DL (13.0-17.0) Hematocrit 15.9 % (39.0-51.0) Mean Corpuscular Volume 86.0 FL (80.0-100.0) Mean Corpuscular Hemoglobin 28.7 PG (27.0-34.0) Mean Corpuscular Hemoglobin Concent 33.3 % (32.0-36.0) Red Cell Distribution Width 17.4 % (11.6-17.2) Platelet Count 100 TH/MM3 (150-450) Mean Platelet Volume 8.2 FL (7.0-11.0) CBC Comment AUTO DIFF Differential Total Cells Counted 100 Neutrophils % (Manual) 64 % (16-70) Band Neutrophils % 7 % (0-6) Lymphocytes % 27 % (9-44) Monocytes % 1 % (0-8) Eosinophils % 1 % (0-4) Neutrophils # (Manual) 7.1 TH/MM3 (1.8-7.7) Nucleated Red Blood Cells 23 /100 WBC (0-0) Differential Comment FINAL DIFF MANUAL Toxic Vacuolation PRESENT (NONE SEEN) Platelet Estimate LOW (NORMAL) Platelet Morphology Comment NORMAL (NORMAL) Blood Urea Nitrogen 43 MG/DL (7-18) Creatinine 2.21 MG/DL (0.60-1.30) Random Glucose 248 MG/DL (74-106) Total Protein 4.0 GM/DL (6.4-8.2) Calcium Level 5.8 MG/DL (8.5-10.1) Magnesium Level 2.0 MG/DL (1.5-2.5) Sodium Level 141 MEQ/L (136-145) Chloride Level 107 MEQ/L (98-107) Carbon Dioxide Level 20.4 MEQ/L (21.0-32.0) Anion Gap 14 MEQ/L (5-15) Estimat Glomerular Filtration Rate 30 ML/MIN (>89) Lactic Acid Level 9.2 mmol/L (0.4-2.0) 5.3 mmol/L (0.4-2.0) Protein Corrected Calcium 7.3 MG/DL (8.5-10.1) Blood Gas Puncture Site ART LINE Blood Gas Patient Temperature 98.6 Blood Gas HCO3 22 mmol/L (22-26) Blood Gas Base Excess -3.6 mmol/L (-2-2) Blood Gas Oxygen Saturation 95 % (90-100) Arterial Blood pH 7.28 (7.380-7.420) Arterial Blood Partial Pressure CO2 48 mmHg (38-42) Arterial Blood Partial Pressure O2 82 mmHG (61-120) Arterial Blood Oxygen Content 13.6 Vol % (12.0-20.0) Arterial Blood Carboxyhemoglobin 1.0 % (0-4) Arterial Blood Methemoglobin 0.5 % (0-2) Blood Gas Hemoglobin 10.1 G/DL (12.0-16.0) Oxygen Delivery Device VENTILATOR Blood Gas Ventilator Setting Blood Gas Inspired Oxygen 35 % Test 07/10/17 20:25 07/10/17 20:35 07/10/17 21:30 07/11/17 04:45 Blood Gas Puncture Site KEE Blood Gas Patient Temperature 98.6 Blood Gas HCO3 21 mmol/L (22-26) Blood Gas Base Excess -2.0 mmol/L (-2-2) Blood Gas Oxygen Saturation 94 % (90-100) Arterial Blood pH 7.45 (7.380-7.420) Arterial Blood Partial Pressure CO2 32 mmHg (38-42) Arterial Blood Partial Pressure O2 80 mmHg (61-120) Arterial Blood Oxygen Content 13.4 Vol % (12.0-20.0) Arterial Blood Carboxyhemoglobin 1.0 % (0-4) Arterial Blood Methemoglobin 1.2 % (0-2) Blood Gas Hemoglobin 10.0 G/DL (12.0-16.0) Oxygen Delivery Device VENT Blood Gas Ventilator Setting SEE COMMENT Blood Gas Inspired Oxygen 35 % Hemoglobin 9.7 GM/DL (13.0-17.0) 9.4 GM/DL (13.0-17.0) Hematocrit 27.5 % (39.0-51.0) 26.4 % (39.0-51.0) Lactic Acid Level 7.0 mmol/L (0.4-2.0) Activated Partial Thromboplast Time 43.4 SEC (24.3-30.1) White Blood Count 14.9 TH/MM3 (4.0-11.0) Red Blood Count 3.26 MIL/MM3 (4.50-5.90) Mean Corpuscular Volume 81.0 FL (80.0-100.0) Mean Corpuscular Hemoglobin 28.7 PG (27.0-34.0) Mean Corpuscular Hemoglobin Concent 35.5 % (32.0-36.0) Red Cell Distribution Width 16.5 % (11.6-17.2) Platelet Count 52 TH/MM3 (150-450) Mean Platelet Volume 7.2 FL (7.0-11.0) CBC Comment AUTO DIFF Differential Total Cells Counted 100 Neutrophils % (Manual) 88 % (16-70) Band Neutrophils % 4 % (0-6) Lymphocytes % 4 % (9-44) Monocytes % 4 % (0-8) Neutrophils # (Manual) 13.7 TH/MM3 (1.8-7.7) Nucleated Red Blood Cells 3 /100 WBC (0-0) Differential Comment FINAL DIFF MANUAL Platelet Estimate LOW (NORMAL) Platelet Morphology Comment NORMAL (NORMAL) Red Cell Morphology Comment NORMAL (NORMAL) Blood Urea Nitrogen 35 MG/DL (7-18) Creatinine 1.68 MG/DL (0.60-1.30) Random Glucose 131 MG/DL (74-106) Total Protein 4.1 GM/DL (6.4-8.2) Albumin 1.2 GM/DL (3.4-5.0) Calcium Level 5.1 MG/DL (8.5-10.1) Alkaline Phosphatase 100 U/L (45-117) Aspartate Amino Transf (AST/SGOT) 360 U/L (15-37) Alanine Aminotransferase (ALT/SGPT) 130 U/L (12-78) Total Bilirubin 0.6 MG/DL (0.2-1.0) Sodium Level 130 MEQ/L (136-145) Potassium Level 3.7 MEQ/L (3.5-5.1) Chloride Level 89 MEQ/L (98-107) Carbon Dioxide Level 26.8 MEQ/L (21.0-32.0) Anion Gap 14 MEQ/L (5-15) Estimat Glomerular Filtration Rate 41 ML/MIN (>89) Protein Corrected Calcium 6.3 MG/DL (8.5-10.1) Test 07/11/17 20:45 07/12/17 05:19 Random Glucose 152 MG/DL (74-106) 147 MG/DL (74-106) White Blood Count 9.8 TH/MM3 (4.0-11.0) Red Blood Count 2.83 MIL/MM3 (4.50-5.90) Hemoglobin 8.4 GM/DL (13.0-17.0) Hematocrit 23.1 % (39.0-51.0) Mean Corpuscular Volume 81.7 FL (80.0-100.0) Mean Corpuscular Hemoglobin 29.7 PG (27.0-34.0) Mean Corpuscular Hemoglobin Concent 36.4 % (32.0-36.0) Red Cell Distribution Width 16.3 % (11.6-17.2) Platelet Count 39 TH/MM3 (150-450) Mean Platelet Volume 7.7 FL (7.0-11.0) Prothrombin Time 17.7 SEC (9.8-11.6) Prothromb Time International Ratio 1.7 RATIO Activated Partial Thromboplast Time 42.0 SEC (24.3-30.1) Blood Urea Nitrogen 42 MG/DL (7-18) Creatinine 1.56 MG/DL (0.60-1.30) Total Protein 4.2 GM/DL (6.4-8.2) Albumin 1.1 GM/DL (3.4-5.0) Calcium Level LESS THAN 5.0 MG/DL Alkaline Phosphatase 111 U/L (45-117) Aspartate Amino Transf (AST/SGOT) 314 U/L (15-37) Alanine Aminotransferase (ALT/SGPT) 126 U/L (12-78) Total Bilirubin 0.7 MG/DL (0.2-1.0) Direct Bilirubin 0.3 MG/DL (0.0-0.2) Sodium Level 127 MEQ/L (136-145) Potassium Level 3.3 MEQ/L (3.5-5.1) Chloride Level 83 MEQ/L (98-107) Carbon Dioxide Level 29.9 MEQ/L (21.0-32.0) Anion Gap 14 MEQ/L (5-15) Estimat Glomerular Filtration Rate 45 ML/MIN (>89) Lactic Acid Level 6.1 mmol/L (0.4-2.0) Protein Corrected Calcium LESS THAN 6.2 MG/DL Indirect Bilirubin 0.4 MG/DL (0.0-0.8) . Result Diagram: 07/12/1751807/12/17 05 Procedures 07/07/2017: Intubated 07/07/2017: right femoral arterial line; right femoral central line . Assessment and Plan Disease Oriented Problem List: (1) Respiratory failure (2) PNA (pneumonia) (3) UTI (urinary tract infection) (4) Sepsis (5) Lactic acidosis (6) Acute kidney injury Symptom Scale: (1) Shortness of breath 0-10 Scale: Unable to quantify (2) Pain 0-10 Scale: Unable to quantify (3) Debility 0-10 Scale: Unable to quantify Pertinent Non-Medical Issues Psychosocial: Patient originally from [place]. Moved to [place] when he was 9 years old. Patient is single, no children. Both parents are . Patient has 3 brothers who live in [place]. Patient is disabled secondary to CVA. 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 Spiritual: Adventism genaro. Legal: No advance directives completed. Ethical issues impacting care: No ethical issues identified. . Important Contacts Brother Micah Valdes: C , H , W . Brother Gerry Valdes Brother Dami -no tel number . Prognosis Mr. Valdes is a 62-year-old male with a medical history significant for hypertension, GERD, hyperlipidemia, esophageal structures and CVA. Patient presented to ED via EMS on 07/03/17 for evaluation of altered mental status and weakness. Patient admitted for further management of UTI, pneumonia, sepsis. Clinical course complicated by acute kidney injury and respiratory failure. Patient very high risk for further complications, continue decline and . . Code Status: No Code Plan * CODE STATUS: NO CODE * HEALTHCARE DECISION-MAKING: Patient with limited participation in medical decision-making secondary to clinical condition, intermittent confusion and lethargy. Patient reports that no advance directives have been completed. Patient is single, no children, both parents are . As per [place] statute, healthcare proxy decision-making falls to the majority of patient's siblings for which he has 3: Gerry Obrien and Dami Valdes. Per [place], brother (Dami) is homeless and not reachable. * Stomach "cardia mass biopsy revealed invasive poorly differentiated adenocarcinoma. . * Discussed patient with bedside nurse (Jihan) and Dr. Tovar. * Spoke with patient's brother, Gerry, to provide an update on the patient's clinical condition. He verbalizes understanding that his brother is critically ill, and prognosis is poor. Message left for patient's brother, Micah. Palliative care contact information was [facility] on [facility] voicemail. Both brothers are planning on driving down from [place] tomorrow, expecting to arrive on Sunday. Considering transitioning to comfort focused care at that time. * GOALS OF CARE: Spoke with brotherMicah to provide update. He confirms family has elected NO CODE status. They desire continued aggressive care short of NO CODE until they are able to arrive in [place], Sunday07/14/17 around 6am. Advised we will continue to provide updates. * SYMPTOMS: = Dyspnea: Likely secondary to sepsis, pneumonia. CTA of chest showed no indication of PE. Transferred to medical ICU for further monitoring and management 07/06/2017. Sports Information Director following. = Pain: Patient with history of chronic pain. Home regimen to include Ruth 5/325 every 6 hours as needed, gabapentin 300 mg twice a day. Currently sedated on fentanyl 50 g/hour = Debility, progressive since CVA in 2015. * Case discussed with bedside RN. * Palliative care will continue to follow-up for further clarifications of goals of care as patient's clinical course continues to evolve. . Attestation To help prompt me to consider important information that might be impacting today's encounter and assessment, information from prior notes written by myself or my colleagues may have been "brought forward" into today's note. My signature on this note, however, is an attestation that I personally performed the exam, history, and/or decision-making noted today, and, unless otherwise indicated, the interactions with patient, family, and staff as well as the review of records all occurred today. I also attest that the listed assessment and stated plan reflect my best clinical judgment today based on the combination of historical information, prior notes, and today's exam/ interactions. When time spent is documented, it refers only to time spent today by the signer, or if indicated, combined time spent today by collaborating physician/nurse practitioner. . Marlen Muhammad Jul 12, 2017 11:48
--- NOTE | 2017-07-12 11:52 | PD.CARD.PN ---
Subjective Subjective Remarks On mechanical ventilation On multiple vasopressors, although decreased amounts today Objective Medications Current Medications Medications (Trade) Dose Ordered Sig/Katina Route Start Time Stop Time Status Last Admin (NS Flush) 2 ml UNSCH PRN IV FLUSH 07/03/17 20:15 (NS Flush) 2 ml BID IV FLUSH 07/03/17 21:00 07/12/17 08:39 (Tylenol) 650 mg Q4H PRN PO 07/03/17 20:15 (Zofran Inj) 4 mg Q6H PRN IVP 07/03/17 20:15 (Plavix) 75 mg DAILY PO 07/04/17 09:00 Future Hold 07/05/17 08:47 (Neurontin) 300 mg BID PO 07/03/17 21:45 07/12/17 08:41 (Stark 5-325 Mg) 1 tab Q6H PRN PO 07/03/17 21:45 07/04/17 23:12 (Flomax) 0.4 mg HS PO 07/03/17 21:45 07/11/17 23:38 Meropenem 1000 mg/ Sodium Chloride 100 ml @ 200 mls/hr Q8H IV 07/06/17 12:00 07/12/17 06:29 (Duoneb Neb) 1 ampule Q2HR NEB PRN NEB 07/06/17 12:30 (Protonix Inj) 40 mg DAILY IV PUSH 07/06/17 12:45 07/12/17 08:38 Fentanyl Citrate 250 ml @ 5 mls/hr TITRATE PRN IV 07/07/17 10:30 07/10/17 18:30 (Peridex 0.12% Liq) 15 ml BID@08,20 MT 07/07/17 20:00 07/12/17 08:39 (SoluCORTEF INJ) 100 mg Q8HR IV PUSH 07/07/17 22:00 07/12/17 06:30 (Brethine Inj) 1 mg UNSCH PRN SQ 07/07/17 14:30 Fluconazole/ Sodium Chloride 100 ml @ 100 mls/hr Q24H IV 07/08/17 12:00 07/11/17 12:53 (Mag-Ox) 800 mg UNSCH PRN PO 07/09/17 05:30 Phenylephrine HCl 40 mg/Dextrose 500 ml @ 30 mls/hr TITRATE PRN IV 07/09/17 23:45 07/11/17 09:10 (Brethine Inj) 1 mg UNSCH PRN SQ 07/09/17 23:45 (D50w (Vial) Inj) 50 ml UNSCH PRN IV PUSH 07/10/17 07:15 07/11/17 20:48 (Glucagon Inj) 1 mg UNSCH PRN OTHER 07/10/17 07:15 (NovoLIN R SUPPLEMENTAL SCALE) 1 Q4HR SQ 07/10/17 08:00 07/12/17 08:00 Sodium Chloride 1,000 ml @ 84 mls/hr [id number] IV 07/11/17 23:45 07/12/17 03:29 Norepinephrine Bitartrate 4 mg/ Sodium Chloride 254 ml @ 7.62 mls/hr TITRATE PRN IV 07/12/17 03:00 Calcium Gluconate 4 gm/Sodium Chloride 140 ml @ 120 mls/hr ONCE ONCE IV 07/12/17 12:00 07/12/17 13:09 Vital Signs / I&O Vital Signs Date Time Temp Pulse Resp B/P (MAP) Pulse Ox O2 Delivery O2 Flow Rate FiO2 07/12/17 08:12 97 30 07/12/17 06:00 87 07/12/17 04:00 35 07/12/17 04:00 99.4 87 20 96/54 (68) 96 105/62 (76) 07/12/17 04:00 87 07/12/17 04:00 87 07/12/17 03:56 96 35 07/12/17 03:00 87 117/65 07/12/17 02:00 85 07/12/17 01:00 94 110/63 07/12/17 00:00 98.8 87 20 90/59 (69) 96 117/65 (82) 07/12/17 00:00 35 07/12/17 00:00 85 07/11/17 23:35 88 116/68 07/11/17 23:33 96 35 07/11/17 22:00 89 07/11/17 20:59 96 35 07/11/17 20:00 94 07/11/17 20:00 35 07/11/17 20:00 98.6 94 20 81/57 (65) 96 110/63 (79) 07/11/17 18:33 128/74 07/11/17 18:00 90 07/11/17 17:44 90 117/64 07/11/17 16:00 35 07/11/17 16:00 91 07/11/17 16:00 98.6 91 20 90/63 (72) 95 102/62 (75) 07/11/17 15:55 91 103/62 07/11/17 15:10 96 35 07/11/17 14:57 91 111/65 07/11/17 14:41 90 110/65 07/11/17 14:41 90 113/67 07/11/17 14:40 90 113/67 07/11/17 14:00 91 07/11/17 12:53 92 113/67 07/11/17 12:00 35 07/11/17 12:00 92 07/11/17 12:00 98.4 92 20 94/63 (73) 96 109/67 (81) I/O 07/11/17 07/11/17 07/11/17 07/12/17 07/12/17 07/12/17 07:00 15:00 23:00 07:00 15:00 23:00 Intake Total 5524 ml 1850 ml 2203 ml Output Total 1600 ml 1100 ml 1400 ml Balance 3924 ml 1850 ml -1100 ml 803 ml IV Total 5524 ml 1850 ml 2203 ml Output Urine Total 1600 ml 1100 ml 1400 ml # Bowel Movements 0 Physical Exam GENERAL: Intubated and sedated SKIN: Warm and dry. HEAD: Atraumatic. Normocephalic. EYES: Pupils equal and round. No scleral icterus. No injection or drainage. ENT: No nasal bleeding or discharge. Mucous membranes pink and moist. NECK: Trachea midline. No JVD. CARDIOVASCULAR: Regular rate and rhythm. RESPIRATORY: No accessory muscle use. Rhonchi bilaterally GASTROINTESTINAL: Abdomen soft, non-tender, nondistended. Hepatic and splenic margins not palpable. MUSCULOSKELETAL: Extremities without clubbing, cyanosis, or edema. No obvious deformities. NEUROLOGICAL: Intubated and sedated Laboratory Laboratory Tests Test 07/11/17 20:45 07/12/17 05:19 Random Glucose 152 MG/DL 147 MG/DL White Blood Count 9.8 TH/MM3 Red Blood Count 2.83 MIL/MM3 Hemoglobin 8.4 GM/DL Hematocrit 23.1 % Mean Corpuscular Volume 81.7 FL Mean Corpuscular Hemoglobin 29.7 PG Mean Corpuscular Hemoglobin Concent 36.4 % Red Cell Distribution Width 16.3 % Platelet Count 39 TH/MM3 Mean Platelet Volume 7.7 FL Prothrombin Time 17.7 SEC Prothromb Time International Ratio 1.7 RATIO Activated Partial Thromboplast Time 42.0 SEC Blood Urea Nitrogen 42 MG/DL Creatinine 1.56 MG/DL Total Protein 4.2 GM/DL Albumin 1.1 GM/DL Calcium Level LESS THAN 5.0 MG/DL Alkaline Phosphatase 111 U/L Aspartate Amino Transf (AST/SGOT) 314 U/L Alanine Aminotransferase (ALT/SGPT) 126 U/L Total Bilirubin 0.7 MG/DL Direct Bilirubin 0.3 MG/DL Sodium Level 127 MEQ/L Potassium Level 3.3 MEQ/L Chloride Level 83 MEQ/L Carbon Dioxide Level 29.9 MEQ/L Anion Gap 14 MEQ/L Estimat Glomerular Filtration Rate 45 ML/MIN Lactic Acid Level 6.1 mmol/L Protein Corrected Calcium LESS THAN 6.2 MG/DL Indirect Bilirubin 0.4 MG/DL Assessment and Plan Problem List: (1) PNA (pneumonia) ICD Codes: J18.9 - Pneumonia, unspecified organism (2) UTI (urinary tract infection) ICD Codes: N39.0 - Urinary tract infection, site not specified Status: Acute (3) Lactic acidosis ICD Codes: E87.2 - Acidosis Status: Acute (4) Sepsis ICD Codes: A41.9 - Sepsis, unspecified organism Status: Acute (5) Chest pain, atypical ICD Codes: R07.89 - Atypical chest pain Status: Acute (6) TOBACCO USE DISORDER Status: Chronic (7) Obesity ICD Codes: E66.9 - Obesity Status: Acute (8) Hypertension ICD Codes: I10 - Hypertension Status: Chronic Assessment and Plan 1) UTI/PNA/Sepsis Per critical care/ID 2) Minimally elevated trop, flat in nature Non-specific with CHANO/lactic acidosis Most likely Type 2 3) Possible aspiration PNA/Sepsis Per critical care team Started on vasopressors 4) Drop in Hgb No plan for ischemic evaluation 5) Asked about cardiovascular risk assessment Due to elevated troponin/EKG changes, patient will be high cardiovascular risk for any procedure We are unable to decrease his risk in any way at this time Unable to do ischemic evaluation Unable to place on BB therapy 6) Family discussing with palliative care about possible comfort measures 7) Thrombocytopenia ? due to sepsis Plavix stopped Problem Qualifiers (1) UTI (urinary tract infection): Qualified Codes: N39.0 - Urinary tract infection, site not specified (2) Sepsis: Qualified Codes: A41.9 - Sepsis, unspecified organism Apollo Harrell DO Jul 12, 2017 11:52
[2017-07-12] MEDS ORDERED: CALCIUM GLUCONATE IV ONE (12:00)
[2017-07-12] MEDS ORDERED: SODIUM CHLORIDE 0.9% IV ONE (12:00)
--- NOTE | 2017-07-12 12:08 | HHI.CCPN ---
Subjective Remarks/Hospital Course The patient is a 62-year-old male with past medical history of CVA 3 years ago, hypertension, hyperlipidemia and gastroesophageal reflux disease, peptic ulcer disease who was admitted under hospitalist service on July 03 for urinary tract infection, acute kidney injury and dehydration. The patient was found to have E-coli ESBL on a urine culture. On arrival he had a CT scan of the brain for lethargy which showed a diffuse bilateral cortical atrophy and no new pathology noted. He also had a CT abdomen, pelvis which did not show any acute abdominal findings. His initial chest x-ray on admission showed no acute disease as well. The patient was placed on antibiotics and IV fluids. He underwent the EGD with dilatation for an distal esophageal stricture in April 2017. He is currently being followed by gastrointestinal, infectious disease and a cardiology. A Helicat was called as the patient was found hypoxic with saturation in the 70s and hypotensive. He is currently receiving 1 liter bolus of normal saline and was transferred to [facility] for close observation. Critical care medicine was consulted for critical care management. ABG was performed which showed pH of 7.51, CO2 22, pAO2 171, bicarb 17 andsaturation of 97%. Chest x-ray was also performed which showed no obvious infiltrates or effusions. His laboratory data from today showed worsening renal function with creatinine 1.4 from 1.12 and hypernatremia with a sodium level of 153. The patient is lethargic, however he responds to questions appropriately. Subjective: 07/07: Patient hypotensive, systolic blood pressure in the 80s, patient extremely lethargic, obtunded. Unable to obtain pulse ox O2 sats. Patient placed on nonrebreather 100% mask. Unable to obtain arterial line ABG. Right femoral central line right femoral arterial line placed under ultrasound guidance. Levophed infusion initiated. Contacted ARTHUR Valdes, explained and provided medical status update patient intubated, for airway protection and adequate oxygenation. 07/08: Afebrile. Patient continues on vasopressor support with norepinephrine at 7 mics/minute, vasopressin and phenylephrine have been discontinued. Sedation vacation revealed patient awake responding to commands. Slight improvement and lactic acidemia. Multiple attempts at OG placement yesterday unsuccessful. And for GI on Sunday 07/09 for EGD dilatation would OGT placement. Patient unable to receive Tamiflu secondary to inability to place NG tube. The patient continues on sodium bicarbonate infusion. CT of abdomen and pelvis significant change RLL, suggestive of possible appendicitis, Gen. surgery consulted. I contacted Dr. Del Angel currently in the OR and made him aware of CT report. Consulted my colleague Dr. Tovar and reviewed films. Reevaluation of right groin site, no hematoma palpated. Serial HGB every 12 hours being obtained. 07/09 Patient is sedated , intubated with Fentanyl drip, on Levophed 7 mics and bicarb drip. 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 He required increase pressors overnight now is on Levophed 30 mics, Neosyn 300 mics and Vasopressin 0.01. Hgb 5.3 this morning and Lactic acid 9.2. Patient was made no code DNR last night. 07/11: remains in shock. remains on vasopressors. minimal improvements in organ function. 07/12: still in shock. pathology resulted as poorly differentiated adenocarcinoma. family driving down from out of state: plans to withdraw Sunday. Objective Vital Signs Date Time Temp Pulse Resp B/P (MAP) Pulse Ox O2 Delivery O2 Flow Rate FiO2 07/12/17 08:12 97 30 07/12/17 06:00 87 07/12/17 04:00 99.4 20 96/54 (68) 105/62 (76) Intake and Output 07/12/17 07/12/17 07/13/17 08:00 16:00 00:00 Intake Total 2203 ml Output Total 1400 ml Balance 803 ml Result Diagram: 07/12/17 0519 07/12/17 0519 Imaging Last Impressions Chest X-Ray 07/09/17 0600 Signed Impressions: Service Date/Time: Sunday, July 09, 2017 03:30 - CONCLUSION: Right basilar atelectasis. Jeffery Mercedes MD Chest CT 07/07/17 1431 Signed Impressions: Service Date/Time: Friday, July 07, 2017 15:58 - CONCLUSION: There is development of right pleural effusion which is small which is associated with progressive infiltrate and mild consolidation in the right lower lobe with peripheral air bronchograms. This has progressed relative to CTA of the chest on the previous day. Persistent fluid filled dilatation of the esophagus. Extensive coronary calcifications. Андрей Mcleod MD Abdomen/Pelvis CT 07/07/17 1431 Signed Impressions: Service Date/Time: Friday, July 07, 2017 15:58 - CONCLUSION: There is significant interval change in the right lower quadrant extending into the pelvis there is extensive inflammatory change in the fat and a small amount of fluid. This is adjacent to the cecum. Entities such as appendicitis are suggested. This should be correlated with clinical history and physical examination. Please see CT scan of the chest the same day for change in the right lung base progressive infiltrate and small effusion. Андрей Mcleod MD ADDENDUM: Delayed history was obtained. Patient apparently had invasive procedure extended with placement of a femoral venous catheter which is faintly appreciated. The inflammatory changes in the right lower quadrant are extensive and could potentially be secondary to iatrogenic cause. Андрей Mcleod MD Lower Extremity Ultrasound 07/06/17 0000 Signed Impressions: Service Date/Time: Thursday, July 06, 2017 13:14 - CONCLUSION: Negative for deep venous thrombosis. Roldan Hernandez MD FACR CT Angiography 07/06/17 0000 Signed Impressions: Service Date/Time: Thursday, July 06, 2017 18:41 - CONCLUSION: 1. No evidence of pulmonary embolism. 2. Linear infiltrate right lung base suggestive of atelectasis. 3. Stable 4 mm pulmonary nodule left lower lung. 4. Nonspecific dilatation of the thoracic esophagus. This could be from dysmotility. Abdon Tracy MD Head CT 07/03/17 2705 Signed Impressions: Service Date/Time: Monday, July 03, 2017 18:01 - CONCLUSION: 1. Stable examination compared to the examination from 2016. 2. Diffuse bilateral cortical atrophy which is stable. 3. No new or acute pathology. Abdon Tracy MD Objective Remarks GENERAL: chronically/critically ill-appearing patient intubated and sedated SKIN: Warm and dry. HEAD: Atraumatic. Normocephalic. EYES: Pupils equal and round. No scleral icterus. 2 mm and briskly reactive. No injection or drainage. ENT: No nasal bleeding or discharge. Mucous membranes pink and moist. NECK: Trachea midline. No JVD. CARDIOVASCULAR: Normal rate, regular rhythm. RESPIRATORY: No accessory muscle use. Clear to auscultation. Breath sounds equal bilaterally. GASTROINTESTINAL: Abdomen soft, non-tender, nondistended. No guarding. MUSCULOSKELETAL: Extremities without clubbing, cyanosis, or edema. No obvious deformities. NEUROLOGICAL: Awake and alert. RASS -2. No gross focal/sensory deficits. Follows commands in all 4 extremities. Weak in right upper and lower extremity secondary to previous CVA but patient is following commands. Procedures none Date of Insertion: Jul 06, 2017 Date of Insertion: Jul 07, 2017 Line: Central Venous Catheter Side: Right Location: Femoral A/P Assessment and Plan IMPRESSION Plan by systems: Neurologic: History of CVA Daily sedation vacation Fentanyl infusion 50 mcgs/hr for sedation/analgesia while endotracheally intubated Daily sedation vacation when appropriate Respiratory: Hypoxic respiratory failure secondary to septic shock 07/07 intubated Continue with vent support maintain O2 sat greater than 92% Schedule bronchodilators every 6 hours and every 2 hours when necessary Ventilator bundle CT chest -small right pleural effusion, with progressive infiltrate, peripheral right lower lobe air bronchograms. Persistent fluid-filled dilation of esophagus. Cardiovascular: Septic Shock Continue with pressors( Levophed, Neosyn, Vasopressin) maintain MAP>65mmHg Serial lactic acid monitoring: failure to clear lactate is a predictor of mortality and evidence of ongoing shock state. Stress dose steroids- on [id number] IV Q8 Cardiology service is following Dr. Harrell. Hold Plavix 75mg daily. Echocardiogram back in May 2015 which showed an EF of 55-60% and grade 1 diastolic dysfunction. Renal: CHANO Hyponatremia Hypocalcemia Maintain Coates -- Monitor renal function, I/O's, avoid nephrotoxins slow improvements in renal function. likely ATN secondary to shock. d/c bicarb NS @ 75cc/hr. check urine and serum osms. 4gm calcium gluconate iv x 1. 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 General surgery consulted- Dr. Del Angel ID: Septic Shock Persistent leukocytosis UTI ESBL Escherichia coli Lactic acidemia ID following Antibiotics per ID ( Merrem, Diflucan) monitor for signs of infections ( Fever, WBC) 07/07 Follow up on blood,sputum and urine cxs. 07/07 Legionella strep pneumo Ag- Negative 07/07 influenza A and B antigens negative Heme: Monitor CBC, transfuse 3u PRBC for Hgb 5.3 Endocrine: Diabetes mellitus TSH 1.12 Glucose monitoring per ICU protocol --SSI medium scale. improved control. Prophylaxis: GI Prophylaxis Protonix 40mg IV daily DVT Prophylaxis -- SCDs, no pharmacological anticoagulation in the setting of bleed Lines: Peripheral IVs 2. Right femoral central line, right femoral arterial line 07/07 Palliative care is following patient is DNR. poor prognosis. OVERALL IMPRESSION: critically ill. adenocarcinoma is aggressive and end-stage. nonsurvivable illness. palliative involved. withdraw and palliation is appropriate Mejia Hart MD Jul 12, 2017 12:08
[2017-07-12] MEDS: FLUCONAZOLE 200 MG PREMIX BAG 100 ML IV SCH (12:31)
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
[2017-07-12] MEDS: NOREPINEPHRINE 4 MG/NS 250 ML IV PRN ×4 (13:16→21:31)
[2017-07-12] MEDS: fentaNYL DRIP 250 ML IV PRN (21:29)
[2017-07-12] MEDS: TAMSULOSIN HCL 0.4 MG CAP PO SCH (21:29)
[2017-07-12] MEDS: PHENYLEPHRINE INJ 40 MG in DEXTROSE 5% IN WATE 500 ML INJ 496 ML IV PRN ×2 (21:32)
[2017-07-13] VITALS (18 sets, daily range): BP systolic 82–142; BP diastolic 56–76; PULSE 73–100; RESP 20–22; TEMP 96.7–99; O2SAT 94–98
[2017-07-13] MEDS: SODIUM CHLOR 0.9% 1000 ML INJ 1,000 ML IV SCH ×2 (03:28→18:44)
[2017-07-13] MEDS: MEROPENEM INJ 1,000 MG in SODIUM CHLORIDE 0.9% INJ 100 ML IV SCH ×3 (03:31→23:19)
[2017-07-13] MEDS: INSULIN NovoLIN REGULAR SUPPLEMENTAL SCALE SQ SCH ×6 (04:00→20:00)
[2017-07-13] MEDS: NOREPINEPHRINE 4 MG/NS 250 ML IV PRN ×4 (04:47→12:59)
[2017-07-13 05:42] LABS: HEMATOCRIT 24.2 % (39.0-51.0); HEMOGLOBIN 8.8 GM/DL (13.0-17.0); MEAN CELL VOLUME 81.4 FL (80.0-100.0); MEAN CORPUSCULAR HEMOGLOBIN 29.5 PG (27.0-34.0); MEAN PLATELET VOLUME 8.2 FL (7.0-11.0); PLATELET COUNT 37 TH/MM3 (150-450); RED BLOOD COUNT 2.98 MIL/MM3 (4.50-5.90); RED CELL DISTRIBUTION WIDTH 16.2 % (11.6-17.2); WHITE BLOOD COUNT 7.5 TH/MM3 (4.0-11.0)
[2017-07-13 06:14] LABS: MEAN CORPUSCULAR HGB CONC 36.2 % (32.0-36.0)
[2017-07-13 06:15] LABS: ALBUMIN 1.1 GM/DL (3.4-5.0); BICARBONATE 27.3 MEQ/L (21.0-32.0); CALCIUM 5.1 MG/DL (8.5-10.1); CREATININE 1.5 MG/DL (0.60-1.30); DIRECT BILIRUBIN ADULT 0.2 MG/DL (0.0-0.2); INTERNATIONAL NORMALIZED RATIO 1.7 RATIO; PROTHROMBIN TIME - PATIENT 16.8 SEC (9.8-11.6)
[2017-07-13 06:16] LABS: INDIRECT BILIRUBIN 0.4 MG/DL (0.0-0.8); TOTAL BILIRUBIN ADULT 0.6 MG/DL (0.2-1.0); TOTAL PROTEIN 4.2 GM/DL (6.4-8.2)
[2017-07-13] MEDS: HYDROCORTISONE SOD SUCCINATE 100 MG VIAL IV PUSH SCH ×3 (06:30→23:22)
[2017-07-13 06:40] LABS: CALCIUM-PROTEIN CORRECTED 6.4 MG/DL (8.5-10.1)
[2017-07-13] MEDS: PANTOPRAZOLE SODIUM 40 MG VIAL IV PUSH SCH (07:57)
[2017-07-13] MEDS: SODIUM CHLORIDE 0.9% FLUSH 10 ML FLUSH IV FLUSH SCH ×2 (07:58→23:21)
[2017-07-13] MEDS: GABAPENTIN 300 MG CAP PO SCH ×2 (07:58→23:21)
[2017-07-13] MEDS: CHLORHEXIDINE 0.12% (ORAL KIT) 15 ML CUP MT SCH ×2 (07:59→20:00)
[2017-07-13] MEDS ORDERED: POTASSIUM CHLOR 40 MEQ PREMIX 100 ML IV PRN (09:45)
[2017-07-13] MEDS ORDERED: POTASSIUM PHOSPHATE INJ 30 MMOL in SODIUM CHLOR 0.9% 250 ML INJ 250 ML IV PRN (09:45)
[2017-07-13] MEDS ORDERED: POTASSIUM PHOSPHATE MONOBASIC 500 MG TAB PO PRN (09:45)
[2017-07-13] MEDS ORDERED: POTASSIUM PHOSPHATE MONOBASIC 500 MG TAB PO/TUBE PRN (09:45)
[2017-07-13] MEDS ORDERED: MAGNESIUM OXIDE 400 MG TAB PO PRN (09:45)
[2017-07-13] MEDS ORDERED: MAGNESIUM SULFATE INJ 2 GM in SODIUM CHLORIDE 0.9% INJ 96 ML IV PRN (09:45)
[2017-07-13] MEDS ORDERED: POTASSIUM CHLORIDE 25 MEQ EFFERVESCENT TAB PO PRN (09:45)
[2017-07-13] MEDS ORDERED: MAGNESIUM SULFATE INJ 4 GM in SODIUM CHLORIDE 0.9% INJ 92 ML IV PRN (09:45)
[2017-07-13] MEDS ORDERED: POTASSIUM CHLOR 20 MEQ PREMIX 100 ML IV PRN ×2 (09:45)
[2017-07-13] MEDS ORDERED: SODIUM PHOSPHATE INJ 30 MMOL in SODIUM CHLOR 0.9% 250 ML INJ 240 ML IV PRN (09:45)
--- NOTE | 2017-07-13 09:45 | HHI.CCPN ---
Subjective Remarks/Hospital Course The patient is a 62-year-old male with past medical history of CVA 3 years ago, hypertension, hyperlipidemia and gastroesophageal reflux disease, peptic ulcer disease who was admitted under hospitalist service on July 03 for urinary tract infection, acute kidney injury and dehydration. The patient was found to have E-coli ESBL on a urine culture. On arrival he had a CT scan of the brain for lethargy which showed a diffuse bilateral cortical atrophy and no new pathology noted. He also had a CT abdomen, pelvis which did not show any acute abdominal findings. His initial chest x-ray on admission showed no acute disease as well. The patient was placed on antibiotics and IV fluids. He underwent the EGD with dilatation for an distal esophageal stricture in April 2017. He is currently being followed by gastrointestinal, infectious disease and a cardiology. A Helicat was called as the patient was found hypoxic with saturation in the 70s and hypotensive. He is currently receiving 1 liter bolus of normal saline and was transferred to [facility] [place] close observation. Critical care medicine was consulted for critical care management. ABG was performed which showed pH of 7.51, CO2 22, pAO2 171, bicarb 17 andsaturation of 97%. Chest x-ray was also performed which showed no obvious infiltrates or effusions. His laboratory data from today showed worsening renal function with creatinine 1.4 from 1.12 and hypernatremia with a sodium level of 153. The patient is lethargic, however he responds to questions appropriately. Subjective: 07/07: Patient hypotensive, systolic blood pressure in the 80s, patient extremely lethargic, obtunded. Unable to obtain pulse ox O2 sats. Patient placed on nonrebreather 100% mask. Unable to obtain arterial line ABG. Right femoral central line right femoral arterial line placed under ultrasound guidance. Levophed infusion initiated. Contacted ARTHUR Valdes, explained and provided medical status update patient intubated, for airway protection and adequate oxygenation. 07/08: Afebrile. Patient continues on vasopressor support with norepinephrine at 7 mics/minute, vasopressin and phenylephrine have been discontinued. Sedation vacation revealed patient awake responding to commands. Slight improvement and lactic acidemia. Multiple attempts at OG placement yesterday unsuccessful. And for GI on Sunday 07/09 for EGD dilatation would OGT placement. Patient unable to receive Tamiflu secondary to inability to place NG tube. The patient continues on sodium bicarbonate infusion. CT of abdomen and pelvis significant change RLL, suggestive of possible appendicitis, Gen. surgery consulted. I contacted Dr. Del Angel currently in the OR and made him aware of CT report. Consulted my colleague Dr. Tovar and reviewed films. Reevaluation of right groin site, no hematoma palpated. Serial HGB every 12 hours being obtained. 07/09 Patient is sedated , intubated with Fentanyl drip, on Levophed 7 mics and bicarb drip. 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 He required increase pressors overnight now is on Levophed 30 mics, Neosyn 300 mics and Vasopressin 0.01. Hgb 5.3 this morning and Lactic acid 9.2. Patient was made no code DNR last night. 07/11: remains in shock. remains on vasopressors. minimal improvements in organ function. 07/12: still in shock. pathology resulted as poorly differentiated adenocarcinoma. family driving down from out of state: plans to withdraw Sunday. 07/13 No events overnight. Remains on Neosyn 40 mics, Levophed 8 mics. Off Vasopressin. Sedated with Versed and Fentanyl drips. Afebrile. Objective Vital Signs Date Time Temp Pulse Resp B/P (MAP) Pulse Ox O2 Delivery O2 Flow Rate FiO2 07/13/17 07:24 97 35 07/13/17 06:00 84 07/13/17 04:47 107/61 07/13/17 04:00 99.0 20 Intake and Output 07/13/17 07/13/17 07/14/17 08:00 16:00 00:00 Intake Total 1410 ml Output Total 900 ml Balance 510 ml Result Diagram: 07/13/17 0530 07/13/17 0530 Other Results Laboratory Tests Test 07/12/17 12:45 07/12/17 13:27 07/13/17 05:30 Urine Osmolality 371 MOSM/KG Serum Osmolality 278 MOSM/KG White Blood Count 7.5 TH/MM3 Red Blood Count 2.98 MIL/MM3 Hemoglobin 8.8 GM/DL Hematocrit 24.2 % Mean Corpuscular Volume 81.4 FL Mean Corpuscular Hemoglobin 29.5 PG Mean Corpuscular Hemoglobin Concent 36.2 % Red Cell Distribution Width 16.2 % Platelet Count 37 TH/MM3 Mean Platelet Volume 8.2 FL Prothrombin Time 16.8 SEC Prothromb Time International Ratio 1.7 RATIO Activated Partial Thromboplast Time 38.7 SEC Blood Urea Nitrogen 50 MG/DL Creatinine 1.50 MG/DL Random Glucose 139 MG/DL Total Protein 4.2 GM/DL Albumin 1.1 GM/DL Calcium Level 5.1 MG/DL Alkaline Phosphatase 118 U/L Aspartate Amino Transf (AST/SGOT) 106 U/L Alanine Aminotransferase (ALT/SGPT) 65 U/L Total Bilirubin 0.6 MG/DL Direct Bilirubin 0.2 MG/DL Sodium Level 129 MEQ/L Potassium Level 2.9 MEQ/L Chloride Level 87 MEQ/L Carbon Dioxide Level 27.3 MEQ/L Anion Gap 15 MEQ/L Estimat Glomerular Filtration Rate 47 ML/MIN Lactic Acid Level 4.7 mmol/L Protein Corrected Calcium 6.4 MG/DL Indirect Bilirubin 0.4 MG/DL Imaging Last Impressions Chest X-Ray 07/09/17 0600 Signed Impressions: Service Date/Time: Sunday, July 09, 2017 03:30 - CONCLUSION: Right basilar atelectasis. Jeffery Mercedes MD Chest CT 07/07/17 1431 Signed Impressions: Service Date/Time: Friday, July 07, 2017 15:58 - CONCLUSION: There is development of right pleural effusion which is small which is associated with progressive infiltrate and mild consolidation in the right lower lobe with peripheral air bronchograms. This has progressed relative to CTA of the chest on the previous day. Persistent fluid filled dilatation of the esophagus. Extensive coronary calcifications. Андрей Mcleod MD Abdomen/Pelvis CT 07/07/17 1431 Signed Impressions: Service Date/Time: Friday, July 07, 2017 15:58 - CONCLUSION: There is significant interval change in the right lower quadrant extending into the pelvis there is extensive inflammatory change in the fat and a small amount of fluid. This is adjacent to the cecum. Entities such as appendicitis are suggested. This should be correlated with clinical history and physical examination. Please see CT scan of the chest the same day for change in the right lung base progressive infiltrate and small effusion. Андрей Mcleod MD ADDENDUM: Delayed history was obtained. Patient apparently had invasive procedure extended with placement of a femoral venous catheter which is faintly appreciated. The inflammatory changes in the right lower quadrant are extensive and could potentially be secondary to iatrogenic cause. Андрей Mcleod MD Lower Extremity Ultrasound 07/06/17 0000 Signed Impressions: Service Date/Time: Thursday, July 06, 2017 13:14 - CONCLUSION: Negative for deep venous thrombosis. Roldan Hernandez MD FACR CT Angiography 07/06/17 0000 Signed Impressions: Service Date/Time: Thursday, July 06, 2017 18:41 - CONCLUSION: 1. No evidence of pulmonary embolism. 2. Linear infiltrate right lung base suggestive of atelectasis. 3. Stable 4 mm pulmonary nodule left lower lung. 4. Nonspecific dilatation of the thoracic esophagus. This could be from dysmotility. Abdon Tracy MD Head CT 07/03/17 1735 Signed Impressions: Service Date/Time: Monday, July 03, 2017 18:01 - CONCLUSION: 1. Stable examination compared to the examination from 2016. 2. Diffuse bilateral cortical atrophy which is stable. 3. No new or acute pathology. Abdon Tracy MD Procedures none Objective Remarks GENERAL: chronically/critically ill-appearing patient intubated and sedated SKIN: Warm and dry. HEAD: Atraumatic. Normocephalic. EYES: Pupils equal and round. No scleral icterus. 2 mm and briskly reactive. No injection or drainage. ENT: No nasal bleeding or discharge. Mucous membranes pink and moist. NECK: Trachea midline. No JVD. CARDIOVASCULAR: Normal rate, regular rhythm. RESPIRATORY: No accessory muscle use. Clear to auscultation. Breath sounds equal bilaterally. GASTROINTESTINAL: Abdomen soft, non-tender, nondistended. No guarding. MUSCULOSKELETAL: Extremities without clubbing, cyanosis, or edema. No obvious deformities. NEUROLOGICAL: Awake and alert. RASS -2. No gross focal/sensory deficits. Follows commands in all 4 extremities. Weak in right upper and lower extremity secondary to previous CVA but patient is following commands. Date of Insertion: Jul 06, 2017 Date of Insertion: Jul 07, 2017 Line: Central Venous Catheter Side: Right Location: Femoral A/P Assessment and Plan IMPRESSION Plan by systems: Neurologic: History of CVA Fentanyl infusion 50 mcgs/hr for sedation/analgesia while endotracheally intubated Daily sedation vacation when appropriate Respiratory: Hypoxic respiratory failure secondary to septic shock 07/07 intubated Continue with vent support maintain O2 sat greater than 92% Schedule bronchodilators every 6 hours and every 2 hours when necessary Ventilator bundle CT chest -small right pleural effusion, with progressive infiltrate, peripheral right lower lobe air bronchograms. Persistent fluid-filled dilation of esophagus. Cardiovascular: Septic Shock Continue with pressors( Levophed, Neosyn) maintain MAP>65mmHg Serial lactic acid monitoring: trending down Stress dose steroids- on [id number] IV Q8 Cardiology service is following Dr. Harrell. Plavix 75mg daily on hold Echocardiogram back in May 2015 which showed an EF of 55-60% and grade 1 diastolic dysfunction. Renal: CHANO Hyponatremia, hypokalemia Hypocalcemia Maintain Coates -- Monitor renal function, I/O's, avoid nephrotoxins, electrolytes replacement per protocol. NS @ 84cc/hr. Will need K replacement today. Check Mag, Phos levels FEN/GI: Esophageal mass- poorly diff Adenocarcinoma Elevated LFT's Esophageal stricture Dysphagia status post esophageal dilatation 05/13 Possible GI bleed Possible aspiration GERD History of PUD Start tube feeds- Glucerna 1.5 with goal rate 45ml/hr s/p EGD 07/10 showed mass of the cardia extending proximally into the esophagus GI following- 07/08 CT abd/ pelvis-interval change of the right lower quadrant with extensive inflammatory changes possible appendicitis. General surgery consulted- Dr. Del Angel Elevated LFT's likely 2nd hepatic shock ( trending down). Hep profile is negative. ID: Septic Shock Persistent leukocytosis UTI ESBL Escherichia coli Lactic acidemia ID following Antibiotics per ID ( Merrem, Diflucan) monitor for signs of infections ( Fever, WBC) 07/07 Follow up on blood,sputum and urine cxs. 07/07 Legionella strep pneumo Ag- Negative 07/07 influenza A and B antigens negative Heme: Monitor CBC, s/p transfuse 3u PRBC on 07/10 Endocrine: Diabetes mellitus TSH 1.12 Glucose monitoring per ICU protocol --SSI medium scale Prophylaxis: GI Prophylaxis Protonix 40mg IV daily DVT Prophylaxis -- SCDs, no pharmacological anticoagulation in the setting of bleed Lines: Peripheral IVs 2. Right femoral central line, right femoral arterial line 07/07 Palliative care is following patient is DNR. poor prognosis. OVERALL IMPRESSION: critically ill. adenocarcinoma is aggressive and end-stage. nonsurvivable illness. palliative involved for possible withdrawal care tomorrow CCT 30 mins Daylin,Alaa MD Jul 13, 2017 09:45
[2017-07-13 10:57] LABS: MAGNESIUM 1.6 MG/DL (1.5-2.5); PHOSPHORUS 2.6 MG/DL (2.5-4.9)
--- NOTE | 2017-07-13 11:21 | HHI.PR ---
cc: Brenton Brian MD Subjective Subjective Notes Intubated/Sedated Objective Vitals/I&O Vital Signs Date Time Temp Pulse Resp B/P (MAP) Pulse Ox O2 Delivery O2 Flow Rate FiO2 07/13/17 10:00 86 07/13/17 08:00 97.8 20 92/58 (69) 110/68 (82) 07/13/17 08:00 35 07/13/17 07:24 97 Labs Laboratory Tests Test 07/12/17 12:45 07/12/17 13:27 07/13/17 05:30 Urine Osmolality 371 Serum Osmolality 278 White Blood Count 7.5 Red Blood Count 2.98 Hemoglobin 8.8 Hematocrit 24.2 Mean Corpuscular Volume 81.4 Mean Corpuscular Hemoglobin 29.5 Mean Corpuscular Hemoglobin Concent 36.2 Red Cell Distribution Width 16.2 Platelet Count 37 Mean Platelet Volume 8.2 Prothrombin Time 16.8 Prothromb Time International Ratio 1.7 Activated Partial Thromboplast Time 38.7 Blood Urea Nitrogen 50 Creatinine 1.50 Random Glucose 139 Total Protein 4.2 Albumin 1.1 Calcium Level 5.1 Alkaline Phosphatase 118 Aspartate Amino Transf (AST/SGOT) 106 Alanine Aminotransferase (ALT/SGPT) 65 Total Bilirubin 0.6 Direct Bilirubin 0.2 Sodium Level 129 Potassium Level 2.9 Chloride Level 87 Carbon Dioxide Level 27.3 Anion Gap 15 Estimat Glomerular Filtration Rate 47 Lactic Acid Level 4.7 Protein Corrected Calcium 6.4 Phosphorus Level 2.6 Magnesium Level 1.6 Indirect Bilirubin 0.4 Date/Time Source Procedure Growth Status 07/07/17 18:25 Blood Peripheral Aerobic Blood Culture - Final NO GROWTH IN 5 DAYS Complete 07/07/17 18:25 Blood Peripheral Anaerobic Blood Culture - Final QNS - SEE AEROBE REPORT Complete 07/07/17 12:00 Nasal Aspirate Influenza Types A,B Antigen (ANALI) - Final NEGATIVE FOR FLU A AND B ANTIGEN.... Complete 07/07/17 12:00 Urine Catheterized Urine Urine Culture - Final NO GROWTH IN 48 HOURS. Complete Radiology Last Impressions Chest X-Ray 07/09/17 0600 Signed Impressions: Service Date/Time: Sunday, July 09, 2017 03:30 - CONCLUSION: Right basilar atelectasis. Jeffery Mercedes MD Chest CT 07/07/17 1431 Signed Impressions: Service Date/Time: Friday, July 07, 2017 15:58 - CONCLUSION: There is development of right pleural effusion which is small which is associated with progressive infiltrate and mild consolidation in the right lower lobe with peripheral air bronchograms. This has progressed relative to CTA of the chest on the previous day. Persistent fluid filled dilatation of the esophagus. Extensive coronary calcifications. Андрей Mcleod MD Abdomen/Pelvis CT 07/07/17 1431 Signed Impressions: Service Date/Time: Friday, July 07, 2017 15:58 - CONCLUSION: There is significant interval change in the right lower quadrant extending into the pelvis there is extensive inflammatory change in the fat and a small amount of fluid. This is adjacent to the cecum. Entities such as appendicitis are suggested. This should be correlated with clinical history and physical examination. Please see CT scan of the chest the same day for change in the right lung base progressive infiltrate and small effusion. Андрей Mcleod MD ADDENDUM: Delayed history was obtained. Patient apparently had invasive procedure extended with placement of a femoral venous catheter which is faintly appreciated. The inflammatory changes in the right lower quadrant are extensive and could potentially be secondary to iatrogenic cause. Андрей Mcleod MD Lower Extremity Ultrasound 07/06/17 0000 Signed Impressions: Service Date/Time: Thursday, July 06, 2017 13:14 - CONCLUSION: Negative for deep venous thrombosis. Roldan Hernandez MD FACR CT Angiography 07/06/17 0000 Signed Impressions: Service Date/Time: Thursday, July 06, 2017 18:41 - CONCLUSION: 1. No evidence of pulmonary embolism. 2. Linear infiltrate right lung base suggestive of atelectasis. 3. Stable 4 mm pulmonary nodule left lower lung. 4. Nonspecific dilatation of the thoracic esophagus. This could be from dysmotility. Abdon Tracy MD Head CT 07/03/17 1740 Signed Impressions: Service Date/Time: Monday, July 03, 2017 18:01 - CONCLUSION: 1. Stable examination compared to the examination from 2016. 2. Diffuse bilateral cortical atrophy which is stable. 3. No new or acute pathology. Abdon Tracy MD Cardiovascular: Regular Lungs: Clear Abdomen: Non-distended, Non-tender Extremities: No edema A/P Assessment and Plan 62 year old male with multiple medical issues; Intubated; on vasopressors ---- increased overnight -s/p EGD --- biopsy of mass of the cardia extending proximally into the esophagus -Palliative Care following---family coming tomorrow to discuss possible withdrawal of care -Only surgical options for this patient would be possible esophageal stent and palliative G tube for nutrition if patient became more stable--- at this time not a surgical candidate due to high dose pressors and overall functional status -Will follow up after family visit Attending Statement The exam, history, and the medical decision-making described in the above note were completed with the assistance of the mid-level provider. I reviewed and agree with the findings presented. I attest that I had a [id number] encounter with the patient on the same day, and personally performed and documented my assessment and findings in the medical record. abdominal exam: soft, non-tender, +BS patient with locally advanced distal esophageal carcinoma with complete obstruction, critically ill patient is not a candidate for any treatment at this time agree with palliation, family meeting pending if family wishes to continue aggressive care will likely need tach and g-tube and/or esophageal stent will follow Thais Eugene/First Yohan ORTIZ Jul 13, 2017 11:21 Brenton Brian MD Jul 17, 2017 10:53
--- NOTE | 2017-07-13 12:28 | PD.CARD.PN ---
Subjective Subjective Remarks On mechanical ventilation On multiple vasopressors, although decreased amounts today Objective Medications Current Medications Medications (Trade) Dose Ordered Sig/Katina Route Start Time Stop Time Status Last Admin (NS Flush) 2 ml UNSCH PRN IV FLUSH 07/03/17 20:15 (NS Flush) 2 ml BID IV FLUSH 07/03/17 21:00 07/13/17 07:58 (Tylenol) 650 mg Q4H PRN PO 07/03/17 20:15 (Zofran Inj) 4 mg Q6H PRN IVP 07/03/17 20:15 (Plavix) 75 mg DAILY PO 07/04/17 09:00 Future Hold 07/05/17 08:47 (Neurontin) 300 mg BID PO 07/03/17 21:45 07/13/17 07:58 ([place]eva 5-325 Mg) 1 tab Q6H PRN PO 07/03/17 21:45 07/04/17 23:12 (Flomax) 0.4 mg HS PO 07/03/17 21:45 07/12/17 21:29 Meropenem 1000 mg/ Sodium Chloride 100 ml @ 200 mls/hr Q8H IV 07/06/17 12:00 07/13/17 03:31 (Duoneb Neb) 1 ampule Q2HR NEB PRN NEB 07/06/17 12:30 (Protonix Inj) 40 mg DAILY IV PUSH 07/06/17 12:45 07/13/17 07:57 Fentanyl Citrate 250 ml @ 5 mls/hr TITRATE PRN IV 07/07/17 10:30 07/12/17 21:29 (Peridex 0.12% Liq) 15 ml BID@08,20 MT 07/07/17 20:00 07/12/17 21:29 (SoluCORTEF INJ) 100 mg Q8HR IV PUSH 07/07/17 22:00 07/13/17 06:30 (Brethine Inj) 1 mg UNSCH PRN SQ 07/07/17 14:30 Fluconazole/ Sodium Chloride 100 ml @ 100 mls/hr Q24H IV 07/08/17 12:00 07/12/17 12:31 (Mag-Ox) 800 mg UNSCH PRN PO 07/09/17 05:30 Phenylephrine HCl 40 mg/Dextrose 500 ml @ 30 mls/hr TITRATE PRN IV 07/09/17 23:45 07/12/17 21:32 (Brethine Inj) 1 mg UNSCH PRN SQ 07/09/17 23:45 (D50w (Vial) Inj) 50 ml UNSCH PRN IV PUSH 07/10/17 07:15 07/11/17 20:48 (Glucagon Inj) 1 mg UNSCH PRN OTHER 07/10/17 07:15 (NovoLIN R SUPPLEMENTAL SCALE) 1 Q4HR SQ 07/10/17 08:00 07/13/17 07:58 Sodium Chloride 1,000 ml @ 84 mls/hr [id number] IV 07/11/17 23:45 07/13/17 03:28 Norepinephrine Bitartrate 4 mg/ Sodium Chloride 254 ml @ 7.62 mls/hr TITRATE PRN IV 07/12/17 03:00 07/13/17 04:47 Potassium Chloride 100 ml @ 50 mls/hr Q2H PRN IV 07/13/17 09:45 Potassium Chloride 100 ml @ 50 mls/hr Q2H PRN IV 07/13/17 09:45 (K-Lyte Cl Eff) 50 meq UNSCH PRN PO 07/13/17 09:45 Potassium Chloride 100 ml @ 25 mls/hr UNSCH PRN IV 07/13/17 09:45 Potassium Chloride 100 ml @ 50 mls/hr Q2H PRN IV 07/13/17 09:45 Magnesium Sulfate 4 gm/Sodium Chloride 100 ml @ 50 mls/hr UNSCH PRN IV 07/13/17 09:45 (Mag-Ox) 800 mg UNSCH PRN PO 07/13/17 09:45 Magnesium Sulfate 2 gm/Sodium Chloride 100 ml @ 50 mls/hr UNSCH PRN IV 07/13/17 09:45 (K-Phos) 2,000 mg Q4H PRN PO 07/13/17 09:45 Sodium Phosphate 30 mmol/Sodium Chloride 250 ml @ 42 mls/hr UNSCH PRN IV 07/13/17 09:45 (K-Phos) 2,000 mg UNSCH PRN PO/TUBE 07/13/17 09:45 Potassium Phosphate 30 mmol/ Sodium Chloride 260 ml @ 42 mls/hr UNSCH PRN IV 07/13/17 09:45 Vital Signs / I&O Vital Signs Date Time Temp Pulse Resp B/P (MAP) Pulse Ox O2 Delivery O2 Flow Rate FiO2 07/13/17 12:00 86 07/13/17 12:00 97.8 87 20 117/68 (84) 95 118/70 (86) 07/13/17 12:00 35 07/13/17 10:19 94 35 07/13/17 10:00 86 07/13/17 08:00 97.8 86 20 92/58 (69) 110/68 (82) 07/13/17 08:00 35 07/13/17 08:00 86 07/13/17 07:24 97 35 07/13/17 06:00 84 07/13/17 04:47 85 107/61 07/13/17 04:33 96 35 07/13/17 04:00 84 07/13/17 04:00 99.0 84 20 90/56 (67) 95 117/70 (86) 07/13/17 04:00 35 07/13/17 02:00 85 07/13/17 01:10 96 35 07/13/17 00:00 35 07/13/17 00:00 84 07/13/17 00:00 98.0 84 20 82/57 (65) 96 111/67 (82) 07/12/17 22:11 96 35 07/12/17 22:00 86 07/12/17 21:32 85 133/70 07/12/17 21:31 85 127/76 07/12/17 20:00 35 07/12/17 20:00 98.2 84 20 71/61 (64) 92 105/63 (77) 07/12/17 20:00 84 07/12/17 19:15 93 35 07/12/17 16:45 88/52 07/12/17 16:00 98.4 84 20 70/42 (51) 93 98/61 (73) 07/12/17 16:00 35 07/12/17 15:58 93 35 07/12/17 13:16 85 91/59 07/12/17 13:00 88/50 I/O 07/12/17 07/12/17 07/12/17 07/13/17 07/13/17 07/13/17 07:00 15:00 23:00 07:00 15:00 23:00 Intake Total 2203 ml 1120 ml 1112 ml 1410 ml Output Total 1400 ml 1300 ml 900 ml Balance 803 ml 1120 ml -188 ml 510 ml IV Total 2203 ml 1120 ml 1112 ml 1350 ml Other 60 ml Output Urine Total 1400 ml 1300 ml 900 ml # Bowel Movements 0 Physical Exam GENERAL: Intubated and sedated SKIN: Warm and dry. HEAD: Atraumatic. Normocephalic. EYES: Pupils equal and round. No scleral icterus. No injection or drainage. ENT: No nasal bleeding or discharge. Mucous membranes pink and moist. NECK: Trachea midline. No JVD. CARDIOVASCULAR: Regular rate and rhythm. RESPIRATORY: No accessory muscle use. Rhonchi bilaterally GASTROINTESTINAL: Abdomen soft, non-tender, nondistended. Hepatic and splenic margins not palpable. MUSCULOSKELETAL: Extremities without clubbing, cyanosis, or edema. No obvious deformities. NEUROLOGICAL: Intubated and sedated Laboratory Laboratory Tests Test 07/12/17 12:45 07/12/17 13:27 07/13/17 05:30 Urine Osmolality 371 MOSM/KG Serum Osmolality 278 MOSM/KG White Blood Count 7.5 TH/MM3 Red Blood Count 2.98 MIL/MM3 Hemoglobin 8.8 GM/DL Hematocrit 24.2 % Mean Corpuscular Volume 81.4 FL Mean Corpuscular Hemoglobin 29.5 PG Mean Corpuscular Hemoglobin Concent 36.2 % Red Cell Distribution Width 16.2 % Platelet Count 37 TH/MM3 Mean Platelet Volume 8.2 FL Prothrombin Time 16.8 SEC Prothromb Time International Ratio 1.7 RATIO Activated Partial Thromboplast Time 38.7 SEC Blood Urea Nitrogen 50 MG/DL Creatinine 1.50 MG/DL Random Glucose 139 MG/DL Total Protein 4.2 GM/DL Albumin 1.1 GM/DL Calcium Level 5.1 MG/DL Alkaline Phosphatase 118 U/L Aspartate Amino Transf (AST/SGOT) 106 U/L Alanine Aminotransferase (ALT/SGPT) 65 U/L Total Bilirubin 0.6 MG/DL Direct Bilirubin 0.2 MG/DL Sodium Level 129 MEQ/L Potassium Level 2.9 MEQ/L Chloride Level 87 MEQ/L Carbon Dioxide Level 27.3 MEQ/L Anion Gap 15 MEQ/L Estimat Glomerular Filtration Rate 47 ML/MIN Lactic Acid Level 4.7 mmol/L Protein Corrected Calcium 6.4 MG/DL Phosphorus Level 2.6 MG/DL Magnesium Level 1.6 MG/DL Indirect Bilirubin 0.4 MG/DL Assessment and Plan Problem List: (1) PNA (pneumonia) ICD Codes: J18.9 - Pneumonia, unspecified organism (2) UTI (urinary tract infection) ICD Codes: N39.0 - Urinary tract infection, site not specified Status: Acute (3) Lactic acidosis ICD Codes: E87.2 - Acidosis Status: Acute (4) Sepsis ICD Codes: A41.9 - Sepsis, unspecified organism Status: Acute (5) Chest pain, atypical ICD Codes: R07.89 - Atypical chest pain Status: Acute (6) TOBACCO USE DISORDER Status: Chronic (7) Obesity ICD Codes: E66.9 - Obesity Status: Acute (8) Hypertension ICD Codes: I10 - Hypertension Status: Chronic Assessment and Plan 1) UTI/PNA/Sepsis Per critical care/ID 2) Minimally elevated trop, flat in nature Non-specific with CHANO/lactic acidosis Most likely Type 2 3) Possible aspiration PNA/Sepsis Per critical care team Started on vasopressors 4) Drop in Hgb No plan for ischemic evaluation 5) Asked about cardiovascular risk assessment Due to elevated troponin/EKG changes, patient will be high cardiovascular risk for any procedure We are unable to decrease his risk in any way at this time Unable to do ischemic evaluation Unable to place on BB therapy 6) Family discussing with palliative care about possible comfort measures 7) Thrombocytopenia ? due to sepsis Plavix stopped 8) Overall poor prognosis 9) Will see PRN, call with questions Problem Qualifiers (1) UTI (urinary tract infection): Qualified Codes: N39.0 - Urinary tract infection, site not specified (2) Sepsis: Qualified Codes: A41.9 - Sepsis, unspecified organism Apollo Harrell DO Jul 13, 2017 12:28
[2017-07-13] MEDS: FLUCONAZOLE 200 MG PREMIX BAG 100 ML IV SCH (12:39)
[2017-07-13] MEDS: POTASSIUM CHLOR 40 MEQ PREMIX 100 ML IV PRN ×2 (15:05→16:57)
[2017-07-13] MEDS: PHENYLEPHRINE INJ 40 MG in DEXTROSE 5% IN WATE 500 ML INJ 496 ML IV PRN ×2 (15:38)
[2017-07-13] MEDS ORDERED: CALCIUM GLUCONATE INJ 2 GM in SODIUM CHLORIDE 0.9% INJ 100 ML IV ONE (16:00)
[2017-07-13] MEDS: TAMSULOSIN HCL 0.4 MG CAP PO SCH (23:21)
[2017-07-14] VITALS (23 sets, daily range): BP systolic 65–142; BP diastolic 38–76; PULSE 67–104; RESP 9–49; TEMP 97–98.4; O2SAT 70–99
[2017-07-14] MEDS: INSULIN NovoLIN REGULAR SUPPLEMENTAL SCALE SQ SCH ×4 (04:00→12:00)
[2017-07-14 05:22] LABS: HEMATOCRIT 22.5 % (39.0-51.0); HEMOGLOBIN 7.9 GM/DL (13.0-17.0); MEAN CELL VOLUME 82.6 FL (80.0-100.0); MEAN CORPUSCULAR HEMOGLOBIN 29.2 PG (27.0-34.0); MEAN CORPUSCULAR HGB CONC 35.3 % (32.0-36.0); MEAN PLATELET VOLUME 8.8 FL (7.0-11.0); PLATELET COUNT 28 TH/MM3 (150-450); RED BLOOD COUNT 2.72 MIL/MM3 (4.50-5.90); RED CELL DISTRIBUTION WIDTH 16.1 % (11.6-17.2); WHITE BLOOD COUNT 5.8 TH/MM3 (4.0-11.0)
[2017-07-14 05:38] LABS: INTERNATIONAL NORMALIZED RATIO 1.6 RATIO; PROTHROMBIN TIME - PATIENT 16.3 SEC (9.8-11.6)
[2017-07-14 05:47] LABS: BICARBONATE 25.2 MEQ/L (21.0-32.0); CALCIUM 5.2 MG/DL (8.5-10.1); CREATININE 1.61 MG/DL (0.60-1.30); PHOSPHORUS 2.2 MG/DL (2.5-4.9)
[2017-07-14 05:54] LABS: DIRECT BILIRUBIN ADULT 0.1 MG/DL (0.0-0.2); TOTAL PROTEIN 3.9 GM/DL (6.4-8.2)
[2017-07-14 05:57] LABS: CALCIUM-PROTEIN CORRECTED 6.6 MG/DL (8.5-10.1); TOTAL BILIRUBIN ADULT 0.5 MG/DL (0.2-1.0)
[2017-07-14] MEDS: HYDROCORTISONE SOD SUCCINATE 100 MG VIAL IV PUSH SCH ×2 (06:21→12:42)
[2017-07-14] MEDS: MEROPENEM INJ 1,000 MG in SODIUM CHLORIDE 0.9% INJ 100 ML IV SCH ×2 (06:21→12:00)
[2017-07-14] MEDS: CHLORHEXIDINE 0.12% (ORAL KIT) 15 ML CUP MT SCH (08:00)
[2017-07-14 08:38] LABS: BANDS 6 % (0-6); CORRECTED NUCLEATED RBC 5 /100 WBC (0-0); LYMPHOCYTES 9 % (9-44); MONOCYTES 1 % (0-8); NEUTROPHIL # MANUAL DIFF 5.2 TH/MM3 (1.8-7.7); NUCLEATED RED BLOOD CELL 5 (0-0); POLYS (SEG NEUTROPHILS) 84 % (16-70)
--- NOTE | 2017-07-14 08:57 | HHI.CCPN ---
Subjective Remarks/Hospital Course The patient is a 62-year-old male with past medical history of CVA 3 years ago, hypertension, hyperlipidemia and gastroesophageal reflux disease, peptic ulcer disease who was admitted under hospitalist service on July 03 for urinary tract infection, acute kidney injury and dehydration. The patient was found to have E-coli ESBL on a urine culture. On arrival he had a CT scan of the brain for lethargy which showed a diffuse bilateral cortical atrophy and no new pathology noted. He also had a CT abdomen, pelvis which did not show any acute abdominal findings. His initial chest x-ray on admission showed no acute disease as well. The patient was placed on antibiotics and IV fluids. He underwent the EGD with dilatation for an distal esophageal stricture in April 2017. He is currently being followed by gastrointestinal, infectious disease and a cardiology. A Helicat was called as the patient was found hypoxic with saturation in the 70s and hypotensive. He is currently receiving 1 liter bolus of normal saline and was transferred to [facility] for close observation. Critical care medicine was consulted for critical care management. ABG was performed which showed pH of 7.51, CO2 22, pAO2 171, bicarb 17 andsaturation of 97%. Chest x-ray was also performed which showed no obvious infiltrates or effusions. His laboratory data from today showed worsening renal function with creatinine 1.4 from 1.12 and hypernatremia with a sodium level of 153. The patient is lethargic, however he responds to questions appropriately. Subjective: 07/07: Patient hypotensive, systolic blood pressure in the 80s, patient extremely lethargic, obtunded. Unable to obtain pulse ox O2 sats. Patient placed on nonrebreather 100% mask. Unable to obtain arterial line ABG. Right femoral central line right femoral arterial line placed under ultrasound guidance. Levophed infusion initiated. Contacted ARTHUR Valdes, explained and provided medical status update patient intubated, for airway protection and adequate oxygenation. 07/08: Afebrile. Patient continues on vasopressor support with norepinephrine at 7 mics/minute, vasopressin and phenylephrine have been discontinued. Sedation vacation revealed patient awake responding to commands. Slight improvement and lactic acidemia. Multiple attempts at OG placement yesterday unsuccessful. And for GI on Sunday 07/09 for EGD dilatation would OGT placement. Patient unable to receive Tamiflu secondary to inability to place NG tube. The patient continues on sodium bicarbonate infusion. CT of abdomen and pelvis significant change RLL, suggestive of possible appendicitis, Gen. surgery consulted. I contacted Dr. Del Angel currently in the OR and made him aware of CT report. Consulted my colleague Dr. Tovar and reviewed films. Reevaluation of right groin site, no hematoma palpated. Serial HGB every 12 hours being obtained. 07/09 Patient is sedated , intubated with Fentanyl drip, on Levophed 7 mics and bicarb drip. 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 He required increase pressors overnight now is on Levophed 30 mics, Neosyn 300 mics and Vasopressin 0.01. Hgb 5.3 this morning and Lactic acid 9.2. Patient was made no code DNR last night. 07/11: remains in shock. remains on vasopressors. minimal improvements in organ function. 07/12: still in shock. pathology resulted as poorly differentiated adenocarcinoma. family driving down from out of state: plans to withdraw Sunday. 07/13 No events overnight. Remains on Neosyn 40 mics, Levophed 8 mics. Off Vasopressin. Sedated with Versed and Fentanyl drips. Afebrile. 07/14 Patient remains intubated on Neoyn 30 mics, off Levo unresponsive. Spoke with Patient's brother Gerry in room and he is ready for withdrawal life support and transition to comfort care Objective Vital Signs Date Time Temp Pulse Resp B/P (MAP) Pulse Ox O2 Delivery O2 Flow Rate FiO2 07/14/17 08:02 95 35 07/14/17 06:00 78 07/14/17 04:00 98.4 20 87/54 (65) 142/76 (98) Intake and Output 07/14/17 07/14/17 07/15/17 08:00 16:00 00:00 Intake Total 321 ml Output Total 1000 ml Balance -679 ml Result Diagram: 07/14/17 0505 07/14/17 0505 Other Results Laboratory Tests Test 07/14/17 05:05 White Blood Count 5.8 TH/MM3 Red Blood Count 2.72 MIL/MM3 Hemoglobin 7.9 GM/DL Hematocrit 22.5 % Mean Corpuscular Volume 82.6 FL Mean Corpuscular Hemoglobin 29.2 PG Mean Corpuscular Hemoglobin Concent 35.3 % Red Cell Distribution Width 16.1 % Platelet Count 28 TH/MM3 Mean Platelet Volume 8.8 FL CBC Comment AUTO DIFF Differential Total Cells Counted 100 Neutrophils % (Manual) 84 % Band Neutrophils % 6 % Lymphocytes % 9 % Monocytes % 1 % Neutrophils # (Manual) 5.2 TH/MM3 Nucleated Red Blood Cells 5 /100 WBC Differential Comment FINAL DIFF MANUAL Platelet Estimate LOW Platelet Morphology Comment NORMAL Prothrombin Time 16.3 SEC Prothromb Time International Ratio 1.6 RATIO Activated Partial Thromboplast Time 33.5 SEC Blood Urea Nitrogen 58 MG/DL Creatinine 1.61 MG/DL Random Glucose 145 MG/DL Total Protein 3.9 GM/DL Albumin 1.0 GM/DL Calcium Level 5.2 MG/DL Phosphorus Level 2.2 MG/DL Magnesium Level 2.0 MG/DL Alkaline Phosphatase 102 U/L Aspartate Amino Transf (AST/SGOT) 45 U/L Alanine Aminotransferase (ALT/SGPT) 34 U/L Total Bilirubin 0.5 MG/DL Direct Bilirubin 0.1 MG/DL Sodium Level 135 MEQ/L Potassium Level 3.6 MEQ/L Chloride Level 96 MEQ/L Carbon Dioxide Level 25.2 MEQ/L Anion Gap 14 MEQ/L Estimat Glomerular Filtration Rate 44 ML/MIN Lactic Acid Level 5.1 mmol/L Protein Corrected Calcium 6.6 MG/DL Imaging Last Impressions Chest X-Ray 07/09/17 0600 Signed Impressions: Service Date/Time: Sunday, July 09, 2017 03:30 - CONCLUSION: Right basilar atelectasis. Jeffery Mercedes MD Chest CT 07/07/17 1431 Signed Impressions: Service Date/Time: Friday, July 07, 2017 15:58 - CONCLUSION: There is development of right pleural effusion which is small which is associated with progressive infiltrate and mild consolidation in the right lower lobe with peripheral air bronchograms. This has progressed relative to CTA of the chest on the previous day. Persistent fluid filled dilatation of the esophagus. Extensive coronary calcifications. Андрей Mcleod MD Abdomen/Pelvis CT 07/07/17 1431 Signed Impressions: Service Date/Time: Friday, July 07, 2017 15:58 - CONCLUSION: There is significant interval change in the right lower quadrant extending into the pelvis there is extensive inflammatory change in the fat and a small amount of fluid. This is adjacent to the cecum. Entities such as appendicitis are suggested. This should be correlated with clinical history and physical examination. Please see CT scan of the chest the same day for change in the right lung base progressive infiltrate and small effusion. Андрей Mcleod MD ADDENDUM: Delayed history was obtained. Patient apparently had invasive procedure extended with placement of a femoral venous catheter which is faintly appreciated. The inflammatory changes in the right lower quadrant are extensive and could potentially be secondary to iatrogenic cause. Андрей Mcleod MD Lower Extremity Ultrasound 07/06/17 0000 Signed Impressions: Service Date/Time: Thursday, July 06, 2017 13:14 - CONCLUSION: Negative for deep venous thrombosis. Roldan Hernandez MD FACR CT Angiography 07/06/17 0000 Signed Impressions: Service Date/Time: Thursday, July 06, 2017 18:41 - CONCLUSION: 1. No evidence of pulmonary embolism. 2. Linear infiltrate right lung base suggestive of atelectasis. 3. Stable 4 mm pulmonary nodule left lower lung. 4. Nonspecific dilatation of the thoracic esophagus. This could be from dysmotility. Abdon Tracy MD Head CT 07/03/17 1735 Signed Impressions: Service Date/Time: Monday, July 03, 2017 18:01 - CONCLUSION: 1. Stable examination compared to the examination from 2016. 2. Diffuse bilateral cortical atrophy which is stable. 3. No new or acute pathology. Abdon Tracy MD Procedures none Objective Remarks GENERAL: chronically/critically ill-appearing patient intubated and sedated SKIN: Warm and dry. HEAD: Atraumatic. Normocephalic. EYES: Pupils equal and round. No scleral icterus. 2 mm and briskly reactive. No injection or drainage. ENT: No nasal bleeding or discharge. Mucous membranes pink and moist. NECK: Trachea midline. No JVD. CARDIOVASCULAR: Normal rate, regular rhythm. RESPIRATORY: No accessory muscle use. Clear to auscultation. Breath sounds equal bilaterally. GASTROINTESTINAL: Abdomen soft, non-tender, nondistended. No guarding. MUSCULOSKELETAL: Extremities without clubbing, cyanosis, or edema. No obvious deformities. NEUROLOGICAL: Awake and alert. RASS -2. No gross focal/sensory deficits. Follows commands in all 4 extremities. Weak in right upper and lower extremity secondary to previous CVA but patient is following commands. Date of Insertion: Jul 06, 2017 Date of Insertion: Jul 07, 2017 Line: Central Venous Catheter Side: Right Location: Femoral A/P Assessment and Plan IMPRESSION Plan by systems: Neurologic: History of CVA Fentanyl infusion 50 mcgs/hr for sedation/analgesia while endotracheally intubated Daily sedation vacation when appropriate Respiratory: Hypoxic respiratory failure secondary to septic shock 07/07 intubated Continue with vent support maintain O2 sat greater than 92% Schedule bronchodilators every 6 hours and every 2 hours when necessary Ventilator bundle CT chest -small right pleural effusion, with progressive infiltrate, peripheral right lower lobe air bronchograms. Persistent fluid-filled dilation of esophagus. Cardiovascular: Septic Shock On Neosyn to maintain MAP>65mmHg Serial lactic acid monitoring: trending down Stress dose steroids- on [id number] IV Q8 Cardiology service is following Dr. Harrell. Plavix 75mg daily on hold Echocardiogram back in May 2015 which showed an EF of 55-60% and grade 1 diastolic dysfunction. Renal: CHANO Hyponatremia, hypokalemia Hypocalcemia Maintain Coates -- Monitor renal function, I/O's, avoid nephrotoxins, electrolytes replacement per protocol. NS @ 84cc/hr. FEN/GI: Esophageal mass- poorly diff Adenocarcinoma Elevated LFT's Esophageal stricture Dysphagia status post esophageal dilatation 05/13 Possible GI bleed Possible aspiration GERD History of PUD on tube feeds- Glucerna 1.5 @45ml/hr s/p EGD 07/10 showed mass of the cardia extending proximally into the esophagus GI following- 07/08 CT abd/ pelvis-interval change of the right lower quadrant with extensive inflammatory changes possible appendicitis. General surgery consulted- Dr. Del Angel Elevated LFT's likely 2nd hepatic shock ( trending down). Hep profile is negative. ID: Septic Shock Persistent leukocytosis UTI ESBL Escherichia coli Lactic acidemia ID following Antibiotics per ID ( Merrem, Diflucan) monitor for signs of infections ( Fever, WBC) 07/07 Follow up on blood,sputum and urine cxs. 07/07 Legionella strep pneumo Ag- Negative 07/07 influenza A and B antigens negative Heme: Monitor CBC, s/p transfuse 3u PRBC on 07/10 Endocrine: Diabetes mellitus TSH 1.12 Glucose monitoring per ICU protocol --SSI medium scale Prophylaxis: GI Prophylaxis Protonix 40mg IV daily DVT Prophylaxis -- SCDs, no pharmacological anticoagulation in the setting of bleed Lines: Peripheral IVs 2. Right femoral central line, right femoral arterial line 07/07 Palliative care is following patient is DNR. poor prognosis. OVERALL IMPRESSION: critically ill. adenocarcinoma is aggressive and end-stage. nonsurvivable illness. palliative involved. Discuses with patient's brother Gerry in room and plan to proceed with withdrawal life support and transition to comfort care as requested. Level 2 Swapnil Mao MD Jul 14, 2017 08:57
[2017-07-14] MEDS ORDERED: HYOSCYAMINE 0.5 MG/ML AMP IV PUSH ONE (09:00)
[2017-07-14] MEDS ORDERED: fentaNYL DRIP 250 ML IV PRN (09:00)
[2017-07-14] MEDS: PANTOPRAZOLE SODIUM 40 MG VIAL IV PUSH SCH (09:00)
[2017-07-14] MEDS ORDERED: LORazepam 2 MG/ML VIAL IV PUSH ONE ×2 (09:00→09:15)
[2017-07-14] MEDS: GABAPENTIN 300 MG CAP PO SCH (09:00)
[2017-07-14] MEDS: SODIUM CHLORIDE 0.9% FLUSH 10 ML FLUSH IV FLUSH SCH (09:00)
[2017-07-14] MEDS ORDERED: HYDROmorphone HCL PF 2 MG/ML VIAL IV PUSH ONE (09:00)
[2017-07-14] MEDS ORDERED: MORPHINE SULFATE 4 MG/ML INJ IV PUSH ONE (09:15)
[2017-07-14] MEDS ORDERED: MORPHINE SULFATE 8 MG/ML INJ IV PUSH PRN (09:30)
[2017-07-14] MEDS ORDERED: HYOSCYAMINE 0.5 MG/ML AMP IV PUSH PRN (09:30)
[2017-07-14] MEDS ORDERED: LORazepam 2 MG/ML VIAL IV PUSH PRN ×2 (09:30)
[2017-07-14] MEDS: fentaNYL DRIP 250 ML IV PRN (09:39)
[2017-07-14] MEDS: SODIUM CHLOR 0.9% 1000 ML INJ 1,000 ML IV SCH (10:52)
[2017-07-14] MEDS: LORazepam 2 MG/ML VIAL IV PUSH PRN ×2 (11:23→12:46)
[2017-07-14] MEDS: MORPHINE SULFATE 4 MG/ML INJ IV PUSH PRN ×2 (11:23→12:47)
[2017-07-14] MEDS: FLUCONAZOLE 200 MG PREMIX BAG 100 ML IV SCH (12:00)
== END 2017-07-14 12:55 | disposition expired | DRG 870 ==
LOC: NEPC 17:08 → NEDA 19:04 → NEPHCDU 22:16 → N07B 07-04 16:40 → HIMN 07-06 12:07
PROVIDERS: ADMIT Family Medicine; ATTEND Internal Medicine Critical Care Medicine
PROC: 5A1955Z Respiratory Ventilation, Greater than 96 Consecutive Hours (ICD-10-PCS; principal; 2017-07-07)
PROC: 04HY32Z Insertion of Monitoring Device into Lower Artery, Percutaneous Approach (ICD-10-PCS; 2017-07-07)
PROC: 0BH18EZ Insertion of Endotracheal Airway into Trachea, Via Natural or Artificial Opening Endoscopic (ICD-10-PCS; 2017-07-07)
PROC: 06HM33Z Insertion of Infusion Device into Right Femoral Vein, Percutaneous Approach (ICD-10-PCS; 2017-07-07)
PROC: 30233N1 Transfusion of Nonautologous Red Blood Cells into Peripheral Vein, Percutaneous Approach (ICD-10-PCS; 2017-07-07)
PROC: 0DB48ZX Excision of Esophagogastric Junction, Via Natural or Artificial Opening Endoscopic, Diagnostic (ICD-10-PCS; 2017-07-09)
PROC: 0D738ZZ Dilation of Lower Esophagus, Via Natural or Artificial Opening Endoscopic (ICD-10-PCS; 2017-07-09)
DX: A41.9 Sepsis, unspecified organism (principal); J96.01 Acute respiratory failure with hypoxia; R65.21 Severe sepsis with septic shock; N17.0 Acute kidney failure with tubular necrosis; J69.0 Pneumonitis due to inhalation of food and vomit; C16.0 Malignant neoplasm of cardia; J18.9 Pneumonia, unspecified organism; E87.2 Acidosis; D69.59 Other secondary thrombocytopenia; N39.0 Urinary tract infection, site not specified; E87.0 Hyperosmolality and hypernatremia; Z68.42 Body mass index [BMI] 45.0-49.9, adult; E87.1 Hypo-osmolality and hyponatremia; E86.0 Dehydration; I10 Essential (primary) hypertension; B96.20 Unspecified Escherichia coli [E. coli] as the cause of diseases classified elsewhere; E78.5 Hyperlipidemia, unspecified; K21.9 Gastro-esophageal reflux disease without esophagitis; E87.6 Hypokalemia; F17.210 Nicotine dependence, cigarettes, uncomplicated; Z16.12 Extended spectrum beta lactamase (ESBL) resistance; E66.9 Obesity, unspecified; I69.334 Monoplegia of upper limb following cerebral infarction affecting left non-dominant side; I25.10 Atherosclerotic heart disease of native coronary artery without angina pectoris; K22.2 Esophageal obstruction; Z51.5 Encounter for palliative care; Z66 Do not resuscitate; D64.9 Anemia, unspecified; E83.51 Hypocalcemia; E87.70 Fluid overload, unspecified; E11.9 Type 2 diabetes mellitus without complications; I25.2 Old myocardial infarction
CPT/HCPCS: 31500; 36430; 36556; 36600; 70450; 71045; 71250; 71275; 74176; 76937; 80048; 80053; 80074; 80076; 80307; 81001; 82140; 82248; 82550; 82805; 82947; 83036; 83605; 83735; 83930; 83935; 84100; 84132; 84155; 84443; 84484; 85007; 85014; 85018; 85025; 85027; 85610; 85730; 86703; 86850; 86900; 86901; 86920; 87040; 87070; 87077; 87086; 87186; 87205; 87449; 87804; 88305; 88312; 93005; 93306; 93970; 94002; 94003; 94640; 94664; 96361; 96374; C1769; C9113; J0610; J0696; J1170; J1335; J1450; J1644; J1720; J1940; J1956; J1980; J2060; J2185; J2250; J2270; J2370; J3010; J3370; J3475; J3480; J7030; J7040; J7050; J7060; J7070; P9016; Q9967